=== PATIENT | female | born 1990 | race Caucasian/White ===

== ENCOUNTER 2020-09-11 22:28 | Inpatient (IN) ==
[2020-09-11] MEDS ORDERED: MoRPHine SULFATE 4 MG/ML 1 ML CARP\\VIAL IV STA (22:53)
[2020-09-11 22:56] LABS: Basophils # (auto) 0.02 K/uL (0-0.2); Basophils % (auto) 0.2 %; Eosinophils % (auto) 3.3 %; Hematocrit (blood only) 24.7 % (37-47); Hemoglobin 7.8 g/dL (12.0-16.0); Immature Granulocytes # (auto) 0.04 K/uL (0.00-0.02); Immature Granulocytes % (auto) 0.4 %; Lymphocytes # (auto) 0.97 K/uL (1.2-3.4); Lymphocytes % (auto) 10.7 %; Mean Corpuscular Hemoglobin 31.2 pg (25-34); Mean Corpuscular Hgb Conc 31.6 g/dL (32-36); Mean Corpuscular Volume 98.8 fL (80-100); Mean Platelet Volume 10.7 fL (7.4-10.4); Monocytes # (auto) 0.92 K/uL (0.11-0.59); Monocytes % (auto) 10.2 %; Neutrophils # (auto) 6.78 K/uL (1.4-6.5); Neutrophils % (auto) 75.2 %; Nucleated RBC # (auto) 0.02 K/uL (0-0); Nucleated RBC % (auto) 0.2 %; Platelet Count 383 K/uL (130-400); RDW Coefficient of Variation 20.2 % (11.5-14.5); RDW Standard Deviation 71.7 fL (36.4-46.3); White Blood Count 9.03 K/uL (4.8-10.8)
[2020-09-11] MEDS ORDERED: OXYMETAZOLINE 0.05% 30 ML BTL ONE (22:57)
[2020-09-11 23:25] LABS: Alanine Aminotransferase 57 U/L (12-78); Albumin Globulin Ratio 0.6 (0.9-2); Albumin Level 3.1 gm/dl (3.4-5.0); Alkaline Phosphatase 800 U/L (45-117); Aspartate Aminotransferase 64 U/L (15-37); BUN Creatinine Ratio 13.3 (10-20); Bilirubin,Total 0.5 mg/dl (0.2-1); Blood Urea Nitrogen 81 mg/dl (7-18); Calcium 8.6 mg/dl (8.5-10.1); Carbon Dioxide 23 mmol/L (21-32); Chloride 102 mmol/L (98-107); Creatinine Clr Calc Pharmacy 12.5 ml/min; Est GFR (Non-African American) 8.6 ml/min; Globulin 5.2 gm/dl (2.5-4.0); Glucose 135 mg/dl (70-99); Magnesium 2.4 mg/dl (1.8-2.4); NT Pro B Type Natriuretic Pept 13403 pg/ml (0-450); Potassium 4.5 mmol/L (3.5-5.1); Sodium 135 mmol/L (136-145); Total Protein 8.3 gm/dl (6.4-8.2); Troponin I < 0.015 ng/ml (0-0.045)
[2020-09-11 23:50] LABS: Anisocytosis Present; Hypochromasia Present
--- NOTE | 2020-09-12 00:19 | Emergency Department Note ---
History of Present Illness General Chief complaint: Chest Pain Time Seen by Provider: 09/11/20 22:32 Source: patient Mode of arrival: EMS Limitations: no limitations History of Present Illness Maximum Pain Intensity: 10 This patient is a 30-year-old female who presents to the emergency department via EMS from [facility] for evaluation of chest pain. Patient has a history of type 1 diabetes, end-stage renal disease on dialysis, CHF, pulmonary hypertension, NSTEMI and remote PE on Xarelto. Patient reports she developed chest pain this morning which worsened this evening. She states the pain radiates into her left arm and into her back/side. She is short of breath. She has had similar episodes of pain in the past when she is due for dialysis. She rates her pain a 10/10. Patient does note she has gained about 40 pounds in the past few weeks. Home Medications Medication Instructions Recorded Confirmed Type acetaminophen 650 mg PO Q4 PRN 09/12/20 09/12/20 History amlodipine 10 mg PO DAILY 09/12/20 09/12/20 History apixaban 2.5 mg PO Q12 09/12/20 09/12/20 History bisacodyl [Dulcolax (bisacodyl)] 10 mg CO DAILY PRN 09/12/20 09/12/20 History buspirone 10 mg PO DAILY 09/12/20 09/12/20 History buspirone 20 mg PO HS 09/12/20 09/12/20 History clonidine HCl 0.1 mg PO Q8 09/12/20 09/12/20 History diphenhydramine HCl 25 mg PO .Q M,W,F PRN 09/12/20 09/12/20 History docusate sodium [Colace] 100 mg PO BID 09/12/20 09/12/20 History ergocalciferol (vitamin D2) 1,250 mcg PO WK 09/12/20 09/12/20 History gabapentin 300 mg PO BID 09/12/20 09/12/20 History hydralazine 100 mg PO Q8 09/12/20 09/12/20 History insulin aspart U-100 See Rx Instructions .ROUTE .COMPLEX 09/12/20 09/12/20 History insulin glargine [Lantus U-100 8 unit SUBCUT Q12 09/12/20 09/12/20 History Insulin] insulin regular human [Humulin R See Rx Instructions .ROUTE .COMPLEX 09/12/20 09/12/20 History Regular U-100 Insuln] labetalol 300 mg PO Q8 09/12/20 09/12/20 History levothyroxine 25 mcg PO DAILY 09/12/20 09/12/20 History melatonin 3 mg PO HS PRN 09/12/20 09/12/20 History ondansetron 4 mg PO Q8H PRN 09/12/20 09/12/20 History pantoprazole 40 mg PO DAILYBB 09/12/20 09/12/20 History paroxetine HCl 30 mg PO DAILY 09/12/20 09/12/20 History polyethylene glycol 3350 [Miralax] 17 g PO DAILY PRN 09/12/20 09/12/20 History sennosides-docusate sodium [Senna 1 tab-cap PO .WITH LUNCH PRN 09/12/20 09/12/20 History with Docusate Sodium] sevelamer carbonate 800 mg PO TIDM 09/12/20 09/12/20 History sodium phosphates [Fleet Enema] 118 ml CO DAILY PRN 09/12/20 09/12/20 History tramadol 50 mg PO Q6H PRN 09/12/20 09/12/20 History Allergies Allergy/AdvReac Type Severity Reaction Status Date / Time bee venom protein (honey bee) Allergy Intermediate Hives Verified 09/11/20 22:55 chlorhexidine Allergy Intermediate Hives Verified 09/11/20 22:55 latex Allergy Intermediate Hives Verified 09/11/20 22:55 fentanyl AdvReac Nausea Verified 09/12/20 01:28 Past Med/Surg History Medical History (Updated 09/14/20 @ 15:06 by Aimee Carias PA-C) Anxiety with depression Chronic pain syndrome Chronic respiratory failure Critical illness myopathy Diabetes mellitus type 1 ESRD on dialysis Gait instability GERD (gastroesophageal reflux disease) Hypertension Hypothyroidism (acquired) Hypoxemia 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 6 per pt March - August 2020 Insomnia MRSA bacteremia Pulmonary embolism Pulmonary hypertension Surgical History AV fistula History of cholecystectomy Social History Smoking Status: Never smoker Second Hand Exposure: No; Do You Dip or Chew Tobacco: No; Tobacco Cessation Education Requested by Patient: No Hx Alcohol Use: No Hx Substance Use: No Preferred Language: Omani Communication Ability: Unable Director Of Nursing Required: No Beliefs That Will Affect Care: None Current Living Situation: Parent Current Living Situation Comment: Lives with mother Other Information That Helps Us Care for You: No Feels Safe at Home: Yes Safety Concerns: Feels Safe At This Time Assistive Devices: Oxygen - Continuous Review of Systems A total of 10 systems reviewed and were otherwise negative Physical Exam Vital Signs Vital Signs - 24 hr 09/11/20 22:34 09/11/20 22:45 09/11/20 22:47 Temperature 37.7 C H Temperature Source Oral Pulse Rate 88 88 Pulse Rate from SpO2 Sensor Pulse Rhythm Regular Pulse Strength Normal Respiratory Rate 24 24 Respiratory Effort / Characteristics Non-Labored Spontaneous Respiratory Depth Normal Respiratory Pattern Regular Blood Pressure 111/72 Blood Pressure Mean 85 Blood Pressure Position Sitting Pulse Oximetry 88 L 90 90 Oxygen Delivery Method Nasal Cannula Nasal Cannula Nasal Cannula Oxygen Flow Rate 6 6 6 Sepsis Recent Fever Within 48 Hours No Sepsis New/Unexplained Change in Mental Status N/A Sepsis Action Taken by Nursing No Action Required 09/11/20 23:00 09/11/20 23:04 09/11/20 23:09 Temperature Temperature Source Pulse Rate 89 Pulse Rate from SpO2 Sensor 89 Pulse Rhythm Pulse Strength Respiratory Rate 20 Respiratory Effort / Characteristics Non-Labored Spontaneous Short of Breath Respiratory Depth Normal Respiratory Pattern Blood Pressure Blood Pressure Mean Blood Pressure Position Pulse Oximetry 86 L 96 Oxygen Delivery Method Nasal Cannula Nasal Cannula Oxymask Oxygen Flow Rate 6 6 9 Sepsis Recent Fever Within 48 Hours Sepsis New/Unexplained Change in Mental Status Sepsis Action Taken by Nursing 09/11/20 23:10 09/11/20 23:20 09/11/20 23:30 Temperature Temperature Source Pulse Rate 87 Pulse Rate from SpO2 Sensor 86 Pulse Rhythm Pulse Strength Respiratory Rate 18 16 19 Respiratory Effort / Characteristics Respiratory Depth Respiratory Pattern Blood Pressure Blood Pressure Mean Blood Pressure Position Pulse Oximetry 97 Oxygen Delivery Method Oxymask Oxygen Flow Rate 7 Sepsis Recent Fever Within 48 Hours Sepsis New/Unexplained Change in Mental Status Sepsis Action Taken by Nursing 09/11/20 23:40 Temperature Temperature Source Pulse Rate Pulse Rate from SpO2 Sensor Pulse Rhythm Pulse Strength Respiratory Rate 23 Respiratory Effort / Characteristics Respiratory Depth Respiratory Pattern Blood Pressure Blood Pressure Mean Blood Pressure Position Pulse Oximetry Oxygen Delivery Method Oxygen Flow Rate Sepsis Recent Fever Within 48 Hours Sepsis New/Unexplained Change in Mental Status Sepsis Action Taken by Nursing VITALS: Vitals are noted on the nurse's note and reviewed by myself. GENERAL: This is a 30-year-old female, chronically unwell appearing, appears much older than stated age. SKIN: The skin was without rashes. EARS: External auditory canals clear, tympanic membranes pearly thomsa without erythema or effusion bilaterally. EYES: Pupils equal round and reactive to light and accommodation. NOSE: Patent, turbinates without inflammation or discharge. MOUTH: Mucous membranes moist. Tonsils are not enlarged. Pharynx without erythema or exudate. NECK: Supple without nuchal rigidity. No lymphadenopathy. HEART: Regular rate and rhythm. Grade 2 systolic murmur. LUNGS: Crackles at bilateral bases. ABDOMEN: Distended abdomen, nontender to palpation. EXTREMITIES: 2+ pitting edema bilaterally. NEURO: Patient was alert and oriented to person place and time. Course Administered Medications Amlodipine Besylate (Amlodipine Besylate 5 Mg Tab) 10 mg PO DAILY [facility] Stop: 10/12/20 08:59 Last Admin: 09/14/20 08:18 Dose: 10 mg Documented by: [id number] Admin: 09/13/20 08:00 Dose: 10 mg Documented by: [id number] Admin: 09/12/20 10:06 Dose: 10 mg Documented by: [id number] Apixaban (Apixaban 2.5 Mg Tab) 2.5 mg PO Q12 [facility] Stop: 10/12/20 08:59 Last Admin: 09/14/20 08:17 Dose: 2.5 mg Documented by: [id number] Admin: 09/13/20 20:52 Dose: 2.5 mg Documented by: [id number] Admin: 09/13/20 07:59 Dose: 2.5 mg Documented by: [id number] Admin: 09/13/20 00:40 Dose: 2.5 mg Documented by: [id number] Admin: 09/12/20 10:05 Dose: 2.5 mg Documented by: [id number] Buspirone HCl (Buspirone 5 Mg Tab) 10 mg PO DAILY [facility] Stop: 10/12/20 08:59 Last Admin: 09/14/20 08:18 Dose: 10 mg Documented by: [id number] Admin: 09/13/20 08:00 Dose: 10 mg Documented by: [id number] Admin: 09/12/20 10:06 Dose: 10 mg Documented by: [id number] Buspirone HCl (Buspirone 5 Mg Tab) 20 mg PO HS [facility] Stop: 10/12/20 20:59 Last Admin: 09/13/20 20:52 Dose: 20 mg Documented by: [id number] Admin: 09/12/20 23:39 Dose: Not Given Documented by: [id number] Clonidine HCl (Clonidine Hcl 0.1 Mg Tab) 0.1 mg PO Q8 [facility] Stop: 10/12/20 05:59 Last Admin: 09/14/20 05:48 Dose: 0.1 mg Documented by: [id number] Admin: 09/13/20 20:52 Dose: 0.1 mg Documented by: [id number] Admin: 09/13/20 16:19 Dose: Not Given Documented by: [id number] Admin: 09/13/20 05:37 Dose: 0.1 mg Documented by: [id number] Admin: 09/13/20 00:41 Dose: 0.1 mg Documented by: [id number] Admin: 09/12/20 16:32 Dose: Not Given Documented by: [id number] Admin: 09/12/20 10:05 Dose: 0.1 mg Documented by: [id number] Dextrose (Dextrose 50% 50 Ml Syringe) 25 - 50 ml IV UD PRN; Protocol PRN Reason: Hypoglycemia Protocol Stop: 10/12/20 01:54 Last Admin: 09/13/20 11:58 Dose: 25 ml Documented by: [id number] Docusate Sodium (Docusate Sodium 100 Mg Cap) 100 mg PO BID [facility] Stop: 10/12/20 08:59 Last Admin: 09/14/20 10:20 Dose: Not Given Documented by: [id number] Admin: 09/13/20 20:47 Dose: Not Given Documented by: [id number] Admin: 09/13/20 09:55 Dose: Not Given Documented by: [id number] Admin: 09/12/20 23:40 Dose: Not Given Documented by: [id number] Admin: 09/12/20 10:10 Dose: Not Given Documented by: [id number] Gabapentin (Gabapentin 300 Mg Cap) 300 mg PO BID [facility] Stop: 10/12/20 08:59 Last Admin: 09/14/20 08:17 Dose: 300 mg Documented by: [id number] Admin: 09/13/20 20:52 Dose: 300 mg Documented by: [id number] Admin: 09/13/20 08:09 Dose: 300 mg Documented by: [id number] Admin: 09/12/20 23:40 Dose: Not Given Documented by: [id number] Admin: 09/12/20 10:05 Dose: 300 mg Documented by: [id number] Glucose (Glucose 10 Tabs/Tube) 4 - 8 tabs PO UD PRN; Protocol PRN Reason: Hypoglycemia Protocol Stop: 10/12/20 01:54 Last Admin: 09/13/20 11:33 Dose: 8 tabs Documented by: [id number] Hydralazine HCl (Hydralazine Tab 50 Mg Tab) 100 mg PO Q8 [facility] Stop: 10/12/20 05:59 Last Admin: 09/14/20 05:48 Dose: 100 mg Documented by: [id number] Admin: 09/13/20 20:52 Dose: 100 mg Documented by: [id number] Admin: 09/13/20 16:19 Dose: Not Given Documented by: [id number] Admin: 09/13/20 05:37 Dose: 100 mg Documented by: [id number] Admin: 09/13/20 00:40 Dose: 100 mg Documented by: [id number] Admin: 09/12/20 16:32 Dose: Not Given Documented by: [id number] Admin: 09/12/20 10:06 Dose: 100 mg Documented by: [id number] Insulin Aspart (Insulin Aspart 100 Units/Ml 3 Ml Pen) 0 units SC ACHS [facility] Stop: 10/12/20 07:29 Last Admin: 09/14/20 12:26 Dose: 16 units Documented by: [id number] Cosigned by: [id number] Admin: 09/14/20 10:33 Dose: 14 units Documented by: [id number] Cosigned by: [id number] Admin: 09/13/20 20:57 Dose: 5 units Documented by: [id number] Cosigned by: [id number] Admin: 09/13/20 17:26 Dose: 9 units Documented by: [id number] Cosigned by: [id number] Admin: 09/13/20 16:19 Dose: Not Given Documented by: [id number] Cosigned by: [id number] Admin: 09/13/20 07:51 Dose: 5 units Documented by: [id number] Cosigned by: [id number] Admin: 09/12/20 23:40 Dose: Not Given Documented by: [id number] Admin: 09/12/20 18:33 Dose: Not Given Documented by: [id number] Admin: 09/12/20 12:33 Dose: Not Given Documented by: [id number] Admin: 09/12/20 08:40 Dose: 1 units Documented by: [id number] Cosigned by: [id number] Insulin Glargine (Insulin Glargine Solostar 100 Units/Ml 3 Ml Pen) 8 units SC Q12 [facility] Stop: 10/12/20 08:59 Last Admin: 09/14/20 10:34 Dose: 8 units Documented by: [id number] Cosigned by: [id number] Admin: 09/13/20 20:57 Dose: 8 units Documented by: [id number] Cosigned by: [id number] Admin: 09/13/20 09:51 Dose: 8 units Documented by: [id number] Cosigned by: [id number] Admin: 09/12/20 23:52 Dose: Not Given Documented by: [id number] Admin: 09/12/20 08:40 Dose: 8 units Documented by: [id number] Cosigned by: [id number] Labetalol HCl (Labetalol Hcl 300 Mg Tab) 300 mg PO Q8 [facility] Stop: 10/12/20 05:59 Last Admin: 09/14/20 05:48 Dose: 300 mg Documented by: [id number] Admin: 09/13/20 20:52 Dose: 300 mg Documented by: [id number] Admin: 09/13/20 16:19 Dose: Not Given Documented by: [id number] Admin: 09/13/20 05:36 Dose: 300 mg Documented by: [id number] Admin: 09/13/20 00:41 Dose: 300 mg Documented by: [id number] Admin: 09/12/20 16:33 Dose: Not Given Documented by: [id number] Admin: 09/12/20 10:06 Dose: 300 mg Documented by: [id number] Levothyroxine Sodium (Levothyroxine Sodium 25 Mcg Tablet) 25 mcg PO DAILYBB [facility] Stop: 10/12/20 06:29 Last Admin: 09/14/20 05:48 Dose: 25 mcg Documented by: [id number] Admin: 09/13/20 05:36 Dose: 25 mcg Documented by: [id number] Admin: 09/12/20 06:31 Dose: 25 mcg Documented by: [id number] Cosigned by: [id number] Ondansetron HCl (Ondansetron 4 Mg Od Tab) 4 mg PO Q8H PRN PRN Reason: Nausea And Vomiting Stop: 10/12/20 03:15 Last Admin: 09/12/20 07:30 Dose: 4 mg Documented by: [id number] Ondansetron HCl (Ondansetron Inj 2 Mg/Ml 2 Ml Vial) 4 mg IV Q6H PRN PRN Reason: Nausea Stop: 10/12/20 01:54 Last Admin: 09/12/20 10:07 Dose: 4 mg Documented by: [id number] Admin: 09/12/20 02:50 Dose: 4 mg Documented by: [id number] Pantoprazole Sodium (Pantoprazole 40 Mg Tab) 40 mg PO DAILYBB [facility] Stop: 10/12/20 06:29 Last Admin: 09/14/20 05:48 Dose: 40 mg Documented by: [id number] Admin: 09/13/20 05:36 Dose: 40 mg Documented by: [id number] Admin: 09/12/20 06:31 Dose: 40 mg Documented by: [id number] Cosigned by: [id number] Paroxetine HCl (Paroxetine Hcl 10 Mg Tab) 30 mg PO DAILY [facility] Stop: 10/12/20 08:59 Last Admin: 09/14/20 08:17 Dose: 30 mg Documented by: [id number] Admin: 09/13/20 08:07 Dose: 30 mg Documented by: [id number] Admin: 09/12/20 10:05 Dose: 30 mg Documented by: [id number] Sevelamer HCl (Sevelamer Hcl 800 Mg Tablet) 800 mg PO TIDM [facility] Stop: 10/12/20 07:59 Last Admin: 09/14/20 12:15 Dose: 800 mg Documented by: [id number] Admin: 09/14/20 08:17 Dose: 800 mg Documented by: [id number] Admin: 09/13/20 17:31 Dose: 800 mg Documented by: [id number] Admin: 09/13/20 13:08 Dose: Not Given Documented by: [id number] Admin: 09/13/20 07:55 Dose: 800 mg Documented by: [id number] Admin: 09/12/20 18:33 Dose: Not Given Documented by: [id number] Admin: 09/12/20 12:38 Dose: Not Given Documented by: [id number] Admin: 09/12/20 08:43 Dose: Not Given Documented by: [id number] Tramadol HCl (Tramadol Hcl 50 Mg Tablet) 50 mg PO Q6H PRN PRN Reason: Moderate Pain Stop: 10/12/20 01:34 Last Admin: 09/13/20 21:26 Dose: 50 mg Documented by: [id number] Admin: 09/13/20 12:13 Dose: 50 mg Documented by: [id number] Admin: 09/12/20 12:41 Dose: 50 mg Documented by: [id number] Discontinued Medications Epoetin Alberto (Epoetin Alberto 20,000 Units/Ml Vial) 20,000 units IV TODAY@0830 [facility] Stop: 09/12/20 18:00 Last Admin: 09/12/20 20:50 Dose: 20,000 units Documented by: [id number] Epoetin Alberto (Epoetin Alberto 10,000 Units/Ml Vial) 10,000 units IV TODAY@1100 [facility] Stop: 09/13/20 23:59 Last Admin: 09/13/20 11:55 Dose: 10,000 units Documented by: [id number] Heparin Sodium (Porcine) (Heparin Sod (Porcine) 1000 Unit/Ml) 1,000 units IV TODAY@0830 [facility] Stop: 09/13/20 08:31 Last Admin: 09/13/20 09:40 Dose: Not Given Documented by: [id number] Heparin Sodium (Porcine) (Heparin Sod (Porcine) 1000 Unit/Ml) 400 units IV Q1H [facility] Stop: 09/12/20 10:31 Last Admin: 09/12/20 20:51 Dose: Not Given Documented by: [id number] Admin: 09/12/20 20:51 Dose: Not Given Documented by: [id number] Admin: 09/12/20 20:51 Dose: Not Given Documented by: [id number] Heparin Sodium (Porcine) (Heparin Sod (Porcine) 5,000 Units/Ml Vial) Confirm Administered Dose 25,000 units .ROUTE .STK-MED ONE Stop: 09/12/20 16:27 Last Admin: 09/12/20 17:48 Dose: 15,000 units Documented by: [id number] Heparin Sodium (Porcine) (Heparin Sod (Porcine) 1000 Unit/Ml) 1,000 units IV TODAY@1100 [facility] Stop: 09/13/20 23:59 Last Admin: 09/13/20 12:09 Dose: Not Given Documented by: [id number] Heparin Sodium (Porcine) (Heparin Sod (Porcine) 1000 Unit/Ml) 400 units IV TODAY@1100,1200,1300 [facility] Stop: 09/13/20 23:59 Last Admin: 09/13/20 13:36 Dose: Not Given Documented by: [id number] Admin: 09/13/20 13:36 Dose: Not Given Documented by: [id number] Admin: 09/13/20 12:10 Dose: Not Given Documented by: [id number] Hydromorphone HCl (Hydromorphone Inj 0.5 Mg/0.5 Ml Syr) 0.5 mg IV Q3H PRN PRN Reason: Severe Pain Stop: 09/26/20 01:44 Last Admin: 09/12/20 13:05 Dose: 0.5 mg Documented by: [id number] Admin: 09/12/20 10:07 Dose: 0.5 mg Documented by: [id number] Admin: 09/12/20 07:28 Dose: 0.5 mg Documented by: [id number] Admin: 09/12/20 02:27 Dose: 0.5 mg Documented by: [id number] Hydromorphone HCl (Hydromorphone Inj 0.5 Mg/0.5 Ml Syr) 0.25 mg IV Q3H PRN PRN Reason: Moderate Pain Stop: 09/26/20 01:38 Last Admin: 09/13/20 08:07 Dose: 0.25 mg Documented by: [id number] Admin: 09/13/20 03:11 Dose: 0.25 mg Documented by: [id number] Iron Sucrose 100 mg/ Syringe 5 mls @ 1 mls/min IV TODAY@0830 [facility] Stop: 09/12/20 18:00 Last Admin: 09/12/20 20:50 Dose: 1 mls/min Documented by: [id number] Ceftazidime 1,000 mg/ Dextrose 50 mls @ 100 mls/hr IV NOW ONE Stop: 09/12/20 10:44 Last Infusion: 09/12/20 11:20 Dose: 0 mls/hr Documented by: [id number] Admin: 09/12/20 10:50 Dose: 100 mls/hr Documented by: [id number] Vancomycin HCl 1,500 mg/ (Sodium Chloride) 530 mls @ 200 mls/hr IV NOW ONE Stop: 09/12/20 12:53 Last Infusion: 09/12/20 14:16 Dose: 0 mls/hr Documented by: [id number] Admin: 09/12/20 11:20 Dose: 200 mls/hr Documented by: [id number] Vancomycin HCl 750 mg/ Sodium (Chloride) 265 mls @ 200 mls/hr IV TODAY@1500 [facility] Stop: 09/13/20 16:20 Last Infusion: 09/13/20 17:25 Dose: 0 mls/hr Documented by: [id number] Admin: 09/13/20 15:24 Dose: 200 mls/hr Documented by: [id number] Ioversol (Optiray 320 100ml) 90 ml IV ONCE ONE Stop: 09/13/20 18:39 Last Admin: 09/13/20 18:39 Dose: 90 ml Documented by: [id number] Lidocaine HCl (Lidocaine Hcl 1% 20 Ml Vial) Confirm Administered Dose 20 ml .ROUTE .STK-MED ONE Stop: 09/12/20 16:27 Last Admin: 09/12/20 17:51 Dose: Not Given Documented by: [id number] Lidocaine HCl (Lidocaine Hcl 1% 20 Ml Vial) 5 ml INFIL NOW ONE Stop: 09/13/20 16:36 Last Admin: 09/13/20 17:32 Dose: Not Given Documented by: [id number] Morphine Sulfate (Morphine Sulfate 4 Mg/Ml 1 Ml Carp\Vial) 4 mg IV NOW STA Stop: 09/11/20 22:54 Last Admin: 09/11/20 23:45 Dose: 4 mg Documented by: [id number] Oxymetazoline HCl (Oxymetazoline 0.05% 30 Ml Btl) Confirm Administered Dose 150 sprays .ROUTE .STK-MED ONE Stop: 09/11/20 22:58 Last Admin: 09/11/20 23:10 Dose: 2 sprays Documented by: [id number] Medical Decision Making Differential Diagnosis Reactive airway disease, pneumonia, pneumothorax, COPD, CHF, infections, cardiac ischemia, pulmonary embolism, musculoskeletal, gastrointestinal, as well as other pathologies. Home Medications Current Medication List: was personally reviewed by me Laboratory Data Attestation: I reviewed the patient's lab results. Result diagrams: 09/14/20 06:43 09/14/20 06:43 Lab Results 09/11/20 09/11/20 09/11/20 Range/Units 22:38 22:38 23:04 WBC 9.03 (4.8-10.8) K/uL RBC 2.50 L (4.2-5.4) M/uL Hgb 7.8 L (12.0-16.0) g/dL Hct 24.7 L (37-47) % MCV 98.8 (80-100) fL MCH 31.2 (25-34) pg MCHC 31.6 L (32-36) g/dL RDW Std Deviation 71.7 H (36.4-46.3) fL RDW Coeff of Misael 20.2 H (11.5-14.5) % Plt Count 383 (130-400) K/uL MPV 10.7 H (7.4-10.4) fL Immature Gran % (Auto) 0.4 % Neut % (Auto) 75.2 % Lymph % (Auto) 10.7 % Whitman % (Auto) 10.2 % Eos % (Auto) 3.3 % Baso % (Auto) 0.2 % Neut # (Auto) 6.78 H (1.4-6.5) K/uL Lymph # (Auto) 0.97 L (1.2-3.4) K/uL Whitman # (Auto) 0.92 H (0.11-0.59) K/uL Eos # (Auto) 0.30 (0-0.5) K/uL Baso # (Auto) 0.02 (0-0.2) K/uL Immature Gran # (Auto) 0.04 H (0.00-0.02) K/uL Absolute Nucleated RBC 0.02 H (0-0) K/uL Nucleated RBC % (auto) 0.2 % Polychromasia 1+ Hypochromasia Present Anisocytosis Present Sodium 135 L (136-145) mmol/L Potassium 4.5 (3.5-5.1) mmol/L Chloride 102 (98-107) mmol/L Carbon Dioxide 23 (21-32) mmol/L Anion Gap 11.0 (3-11) BUN 81 H (7-18) mg/dl Creatinine 6.11 H* (0.6-1.2) mg/dl Est Cr Clr Drug Dosing 12.5 ml/min Est GFR ( Amer) 10.0 ml/min Est GFR (Non-Af Amer) 8.6 ml/min BUN/Creatinine Ratio 13.3 (10-20) Glucose 135 H (70-99) mg/dl POC Glucose (70-99) mg/dl Lactate (0.4-2.0) mmol/L Calcium 8.6 (8.5-10.1) mg/dl Magnesium 2.4 (1.8-2.4) mg/dl Total Bilirubin 0.5 (0.2-1) mg/dl AST 64 H (15-37) U/L ALT 57 (12-78) U/L Alkaline Phosphatase 800 H (45-117) U/L Troponin I < 0.015 (0-0.045) ng/ml NT-Pro-B Natriuret Pep 19820 H (0-450) pg/ml Total Protein 8.3 H (6.4-8.2) gm/dl Albumin 3.1 L (3.4-5.0) gm/dl Globulin 5.2 H (2.5-4.0) gm/dl Albumin/Globulin Ratio 0.6 L (0.9-2) COVID-19 Eval Order Covid19 at [facility] SARS-CoV-2 (PCR) (Negative) 09/11/20 09/11/20 09/11/20 Range/Units 23:04 23:05 23:22 WBC (4.8-10.8) K/uL RBC (4.2-5.4) M/uL Hgb (12.0-16.0) g/dL Hct (37-47) % MCV (80-100) fL MCH (25-34) pg MCHC (32-36) g/dL RDW Std Deviation (36.4-46.3) fL RDW Coeff of Misael (11.5-14.5) % Plt Count (130-400) K/uL MPV (7.4-10.4) fL Immature Gran % (Auto) % Neut % (Auto) % Lymph % (Auto) % Whitman % (Auto) % Eos % (Auto) % Baso % (Auto) % Neut # (Auto) (1.4-6.5) K/uL Lymph # (Auto) (1.2-3.4) K/uL Whitman # (Auto) (0.11-0.59) K/uL Eos # (Auto) (0-0.5) K/uL Baso # (Auto) (0-0.2) K/uL Immature Gran # (Auto) (0.00-0.02) K/uL Absolute Nucleated RBC (0-0) K/uL Nucleated RBC % (auto) % Polychromasia Hypochromasia Anisocytosis Sodium (136-145) mmol/L Potassium (3.5-5.1) mmol/L Chloride (98-107) mmol/L Carbon Dioxide (21-32) mmol/L Anion Gap (3-11) BUN (7-18) mg/dl Creatinine (0.6-1.2) mg/dl Est Cr Clr Drug Dosing ml/min Est GFR ( Amer) ml/min Est GFR (Non-Af Amer) ml/min BUN/Creatinine Ratio (10-20) Glucose (70-99) mg/dl POC Glucose 115 H (70-99) mg/dl Lactate 0.8 (0.4-2.0) mmol/L Calcium (8.5-10.1) mg/dl Magnesium (1.8-2.4) mg/dl Total Bilirubin (0.2-1) mg/dl AST (15-37) U/L ALT (12-78) U/L Alkaline Phosphatase (45-117) U/L Troponin I (0-0.045) ng/ml NT-Pro-B Natriuret Pep (0-450) pg/ml Total Protein (6.4-8.2) gm/dl Albumin (3.4-5.0) gm/dl Globulin (2.5-4.0) gm/dl Albumin/Globulin Ratio (0.9-2) COVID-19 Eval Order SARS-CoV-2 (PCR) NEGATIVE (Negative) Imaging Data Attestation: I personally reviewed and interpreted this imaging study as tyson carpenter: Radiologist's Impression: Chest X-Ray 09/11/20 22:44 XR chest 1V portable CLINICAL HISTORY: Dyspnea COMPARISON STUDY: No previous studies for comparison. FINDINGS: A dual-lumen left-sided central venous catheter is in place. There is mild cardiomegaly. No pneumothorax is present. There is no definite pleural effusion. There is pulmonary vascular congestion with possible mild pulmonary edema. Vascular stent projects over the right upper hemithorax. No consolidation is identified. IMPRESSION: 1. Cardiomegaly. Pulmonary vascular congestion with possible mild pulmonary edema. 2. No consolidation. ACT 112: Negative or not required by law. Electronically signed by: John Becerril M.D. 09/12/2020 6:53 AM ECG Data Attestation: I personally reviewed and interpreted this ECG as follows: Indication: + chest pain Rate (beats per minute): 87 Rhythm: + normal sinus ECG Intervals/blocks: + Normal QRS ECG [place]: + Right axis deviation ECG ST segments: + Normal ST segments Comparison ECG Date: no prior available MDM Narrative Continuous ip attorney: Order was placed for continuous ip attorney. Patient was placed on the card iac monitor. Patient was noted to be in normal sinus rhythm at an initial rate of 90 bpm. The patient is a 30-year-old female with extensive PMHx including type 1 DM, ESRD on dialysis, remote PE on anticoagulants and CHF who presents today complaining of chest pain, shortness of breath and weakness. Labs revealed elevated BNP, creatinine 6.11 and anemia. Alk Phos elevated at 800. Suspect that the patient's symptoms are due to fluid overload. She will be admitted for dialysis in the morning and further monitoring. Case was discussed with the [facility] hospitalist. Impression & Plan Acute and chronic respiratory failure, ESRD on dialysis, Substernal chest pain Discharge Plan Visit Data Chief Complaint: Chest Pain ED Provider: Romero Tam ED Midlevel Provider: Aimee Carias Discharge Problem: Acute and chronic respiratory failure, ESRD on dialysis, Substernal chest pain Patient Disposition: Admitted As Inpatient Discharge Instructions Interventions: ED Discharge Assessment Last Done: 09/12/20 01:37
--- NOTE | 2020-09-12 01:00 | History & Physical Report ---
Date of Service September 12, 2020 Assessment & Plan (1) ESRD on dialysis: Patient is due for dialysis. She reports that due to the hot weather yesterday, she ate a lot more ice cubes, and developed fluid overload on that basis. She reports that she developed significant back pain when she is in fluid overload, as she is now. She gets most of her care in [place], but was seen by nephrology Dr. Lavonne Hanna while at [facility] Patient does not need urgent dialysis at this time, will consult nephrology for dialysis to be done in the a.m. Present on Admission?: Yes (2) Diabetes mellitus type 1: Continue her usual insulin and coverage. Present on Admission?: Yes (3) Hypertension: Continue amlodipine, clonidine, hydralazine, and labetalol Present on Admission?: Yes (4) Gait instability: Will be returning to [facility] to continue rehab Present on Admission?: Yes (5) Hypoxemia: Continue her home requirement of 6 L nasal cannula oxygen Present on Admission?: Yes (6) Pulmonary hypertension: Pulmonary hypertension/history of pulmonary embolism- Is not on any routine inhalers at this time. Continue apixaban Present on Admission?: Yes (7) Pulmonary embolism: See above Present on Admission?: Yes (8) Critical illness myopathy: To return to rehab Present on Admission?: Yes (9) Anxiety with depression: Continue buspirone, gabapentin, and paroxetine Present on Admission?: Yes (10) Hypothyroidism (acquired): Continue levothyroxine Present on Admission?: Yes (11) GERD (gastroesophageal reflux disease): Continue pantoprazole Present on Admission?: Yes (12) Insomnia: Continue melatonin Present on Admission?: Yes (13) Chronic pain syndrome: Acetaminophen 650 mg p.o. every 6 hours as needed mild pain or fever Tramadol 50 mg p.o. every 6 hours as needed moderate pain Dilaudid 0.25 mg IV every 3 hours as needed moderate pain Dilaudid 0.5 mg IV every 3 hours as needed severe pain Continue bowel regiment Present on Admission?: Yes History of Present Illness Chief Complaint: The patient is referred to the emergency department from [facility] due to worsening shortness of breath and generalized pain Primary Care Provider: Roney Crocker, DO The patient is a 30-year-old anemia with a past medical history including hypertension, ESRD on HD, ASCAD, diabetes mellitus type 1, non-STEMI, gait instability, critical illness myopathy, hypoxemia requiring 6 L nasal cannula chronic, point hypertension, PE, anxiety with depression, hypothyroidism, GERD, chronic pain syndrome and insomnia. She is presently at [facility] to undergo rehab, and developed the symptoms noted above there. The patient does not produce urine. Allergies Allergy/AdvReac Type Severity Reaction Status Date / Time bee venom protein (honey bee) Allergy Intermediate Hives Verified 09/11/20 22:55 chlorhexidine Allergy Intermediate Hives Verified 09/11/20 22:55 latex Allergy Intermediate Hives Verified 09/11/20 22:55 fentanyl AdvReac Nausea Verified 09/12/20 01:28 Home Medications Medication Instructions Recorded Confirmed Type acetaminophen 650 mg PO Q4 PRN 09/12/20 09/12/20 History amlodipine 10 mg PO DAILY 09/12/20 09/12/20 History apixaban 2.5 mg PO Q12 09/12/20 09/12/20 History bisacodyl [Dulcolax (bisacodyl)] 10 mg AR DAILY PRN 09/12/20 09/12/20 History buspirone 10 mg PO DAILY 09/12/20 09/12/20 History buspirone 20 mg PO HS 09/12/20 09/12/20 History clonidine HCl 0.1 mg PO Q8 09/12/20 09/12/20 History diphenhydramine HCl 25 mg PO .Q M,W,F PRN 09/12/20 09/12/20 History docusate sodium [Colace] 100 mg PO BID 09/12/20 09/12/20 History ergocalciferol (vitamin D2) 1,250 mcg PO WK 09/12/20 09/12/20 History gabapentin 300 mg PO BID 09/12/20 09/12/20 History hydralazine 100 mg PO Q8 09/12/20 09/12/20 History insulin aspart U-100 See Rx Instructions .ROUTE .COMPLEX 09/12/20 09/12/20 History insulin glargine [Lantus U-100 8 unit SUBCUT Q12 09/12/20 09/12/20 History Insulin] insulin regular human [Humulin R See Rx Instructions .ROUTE .COMPLEX 09/12/20 09/12/20 History Regular U-100 Insuln] labetalol 300 mg PO Q8 09/12/20 09/12/20 History levothyroxine 25 mcg PO DAILY 09/12/20 09/12/20 History melatonin 3 mg PO HS PRN 09/12/20 09/12/20 History ondansetron 4 mg PO Q8H PRN 09/12/20 09/12/20 History pantoprazole 40 mg PO DAILYBB 09/12/20 09/12/20 History paroxetine HCl 30 mg PO DAILY 09/12/20 09/12/20 History polyethylene glycol 3350 [Miralax] 17 g PO DAILY PRN 09/12/20 09/12/20 History sennosides-docusate sodium [Senna 1 tab-cap PO .WITH LUNCH PRN 09/12/20 09/12/20 History with Docusate Sodium] sevelamer carbonate 800 mg PO TIDM 09/12/20 09/12/20 History sodium phosphates [Fleet Enema] 118 ml AR DAILY PRN 09/12/20 09/12/20 History tramadol 50 mg PO Q6H PRN 09/12/20 09/12/20 History Past Med/Surg History Medical History (Updated 09/12/20 @ 04:12 by Ke Wilcox MD) Anxiety with depression Chronic pain syndrome Critical illness myopathy Diabetes mellitus type 1 ESRD on dialysis Gait instability GERD (gastroesophageal reflux disease) Hypertension Hypothyroidism (acquired) Hypoxemia Insomnia Pulmonary embolism Pulmonary hypertension Social History Smoking Status: Never smoker Second Hand Exposure: No; Do You Dip or Chew Tobacco: No; Tobacco Cessation Education Requested by Patient: No Hx Alcohol Use: No Hx Substance Use: No Preferred Language: [place] Communication Ability: Effective Intensivist Required: No Beliefs That Will Affect Care: None Current Living Situation: Parent Current Living Situation Comment: Lives with mother Other Information That Helps Us Care for You: No Feels Safe at Home: Yes Safety Concerns: Feels Safe At This Time Assistive Devices: Oxygen - Continuous Review of Systems Review of Systems: The patient denies chest pain, palpitations, cough, lower extremity swelling, sore throat, fevers, chills, sweats, nausea, vomiting, diarrhea , constipation, abdominal pain, pelvic pain, blood in urine or stool, dysuria, urinary frequency or urgency, lightheadedness, dizziness, headache, memory loss, loss of consciousness, rash, abnormal bruising or bleeding, imbalance, focal weakness, numbness or tingling in arms or legs, neck pain, or night sweats. The review of systems is otherwise negative other than for that already noted above, and at least 10 systems have been reviewed. Physical Exam Physical Exam: The patient is awake, alert and oriented 3, appears chronically ill, normocephalic and atraumatic, sitting upright in bed and in no acute distress. HEENT--PERRL, EOMI, mucous membranes and oropharynx normal Neck--supple. No JVD. No bruits. Thyroid normal, trachea midline, no adenopathy. Heart--normal S1 and S2. No murmurs, rubs or gallops. Lungs--few crackles at the bases bilaterally. No respiratory distress, no accessory muscle use. Abdomen--normal bowel sounds and soft. Nontender. Nondistended. Extremities--1+ bilateral pretibial pitting edema. Dermatologic--normal skin turgor, normal color, no abnormal lymph nodes, no rash. Neurologic--cranial nerves II through XII grossly intact. Rheumatologic--limited range of motion due to body habitus Psychiatric--normal affect. Results & Data Results & Data ([facility]) Vital Signs (Past 12 Hours) Vital Signs Temp Pulse Resp BP Pulse Ox 09/11/20 23:40 23 09/11/20 23:30 87 19 09/11/20 23:20 16 09/11/20 23:10 18 97 09/11/20 23:09 96 09/11/20 23:00 89 20 86 L 09/11/20 22:47 88 24 90 09/11/20 22:45 90 09/11/20 22:34 99.9 F H 88 24 111/72 88 L Laboratory Results Laboratory Results WBC 9.03 K/uL (4.8-10.8) 09/11/20 22:38 RBC 2.50 M/uL (4.2-5.4) L 09/11/20 22:38 Hgb 7.8 g/dL (12.0-16.0) L 09/11/20 22:38 Hct 24.7 % (37-47) L 09/11/20 22:38 MCV 98.8 fL (80-100) 09/11/20 22:38 MCH 31.2 pg (25-34) 09/11/20 22:38 MCHC 31.6 g/dL (32-36) L 09/11/20 22:38 RDW Std Deviation 71.7 fL (36.4-46.3) H 09/11/20 22:38 RDW Coeff of Misael 20.2 % (11.5-14.5) H 09/11/20 22:38 Plt Count 383 K/uL (130-400) 09/11/20 22:38 MPV 10.7 fL (7.4-10.4) H 09/11/20 22:38 Immature Gran % (Auto) 0.4 % 09/11/20 22:38 Neut % (Auto) 75.2 % 09/11/20 22:38 Lymph % (Auto) 10.7 % 09/11/20 22:38 [place] % (Auto) 10.2 % 09/11/20 22:38 Eos % (Auto) 3.3 % 09/11/20 22:38 Baso % (Auto) 0.2 % 09/11/20 22:38 Neut # (Auto) 6.78 K/uL (1.4-6.5) H 09/11/20 22:38 Lymph # (Auto) 0.97 K/uL (1.2-3.4) L 09/11/20 22:38 [place] # (Auto) 0.92 K/uL (0.11-0.59) H 09/11/20 22:38 Eos # (Auto) 0.30 K/uL (0-0.5) 09/11/20 22:38 Baso # (Auto) 0.02 K/uL (0-0.2) 09/11/20 22:38 Immature Gran # (Auto) 0.04 K/uL (0.00-0.02) H 09/11/20 22:38 Absolute Nucleated RBC 0.02 K/uL (0-0) H 09/11/20 22:38 Nucleated RBC % (auto) 0.2 % 09/11/20 22:38 Hypochromasia Present 09/11/20 22:38 Anisocytosis Present 09/11/20 22:38 Sodium 135 mmol/L (136-145) L 09/11/20 22:38 Potassium 4.5 mmol/L (3.5-5.1) 09/11/20 22:38 Chloride 102 mmol/L (98-107) 09/11/20 22:38 Carbon Dioxide 23 mmol/L (21-32) 09/11/20 22:38 Anion Gap 11.0 (3-11) 09/11/20 22:38 BUN 81 mg/dl (7-18) H 09/11/20 22:38 Creatinine 6.11 mg/dl (0.6-1.2) H* 09/11/20 22:38 Est Cr Clr Drug Dosing 12.5 ml/min 09/11/20 22:38 Est GFR ( Amer) 10.0 ml/min 09/11/20 22:38 Est GFR (Non-Af Amer) 8.6 ml/min 09/11/20 22:38 BUN/Creatinine Ratio 13.3 (10-20) 09/11/20 22:38 Glucose 135 mg/dl (70-99) H 09/11/20 22:38 POC Glucose 100 mg/dl (70-99) H 09/12/20 01:58 Lactate 0.8 mmol/L (0.4-2.0) 09/11/20 23:22 Calcium 8.6 mg/dl (8.5-10.1) 09/11/20 22:38 Magnesium 2.4 mg/dl (1.8-2.4) 09/11/20 22:38 Total Bilirubin 0.5 mg/dl (0.2-1) 09/11/20 22:38 AST 64 U/L (15-37) H 09/11/20 22:38 ALT 57 U/L (12-78) 09/11/20 22:38 Alkaline Phosphatase 800 U/L (45-117) H 09/11/20 22:38 Troponin I < 0.015 ng/ml (0-0.045) 09/11/20 22:38 NT-Pro-B Natriuret Pep 22088 pg/ml (0-450) H 09/11/20 22:38 Total Protein 8.3 gm/dl (6.4-8.2) H 09/11/20 22:38 Albumin 3.1 gm/dl (3.4-5.0) L 09/11/20 22:38 Globulin 5.2 gm/dl (2.5-4.0) H 09/11/20 22:38 Albumin/Globulin Ratio 0.6 (0.9-2) L 09/11/20 22:38 COVID-19 Eval Order Covid19 at [facility] 09/11/20 23:04 SARS-CoV-2 (PCR) NEGATIVE (Negative) 09/11/20 23:04 Code Status & VTE Plan Code Status Full code VTE Prophylaxis Plan VTE Prophylaxis will be ordered: Yes PG Care Time/CCT Total # of Minutes Spent Total Time Spent with Patient: Total time spent is greater than 50% in coordination of care (as documented) at patient's floor/unit and/or counseling patient: Coding Level of Care Code 60710 Initial Inpt Care Lvl 3 Diagnoses ESRD on dialysis N18.6; Z99.2 Diabetes mellitus type 1 E10.9 Hypertension I10 Gait instability R26.81 Hypoxemia R09.02 Pulmonary hypertension I27.20 Pulmonary embolism I26.99 Critical illness myopathy G72.81 Anxiety with depression F41.8 Hypothyroidism (acquired) E03.9 GERD (gastroesophageal reflux disease) K21.9 Insomnia G47.00 Chronic pain syndrome G89.4
[2020-09-12] MEDS ORDERED: bisacodyL 10 MG SUPP PR PRN (01:35)
[2020-09-12] MEDS ORDERED: SOD PHOSPHATE/SOD BIPHOSPHATE ENEMA 132 ML BTL PR PRN (01:35)
[2020-09-12] MEDS ORDERED: POLYETHYLENE (MIRALAX) 17 GM PACK PO PRN (01:35)
[2020-09-12] MEDS ORDERED: diphenhydrAMINE Capsule 25 MG CAP PO PRN (01:35)
[2020-09-12] MEDS ORDERED: DOCUSATE SODIUM/SENNA 50/8.6MG TAB PO PRN (01:35)
[2020-09-12] MEDS ORDERED: NITROGLYCERIN SL 0.4 MG/TAB TAB SL PRN (01:55)
[2020-09-12] MEDS ORDERED: DEXTROSE 50% 50 ML SYRINGE IV PRN (01:55)
[2020-09-12] MEDS ORDERED: GLUCOSE 40% GEL 15 GM TUBE PO PRN (01:55)
[2020-09-12] MEDS ORDERED: GLUCOSE 10 TABS/TUBE PO PRN (01:55)
[2020-09-12] MEDS ORDERED: CARBOHYDRATES FOR HYPOGLYCEMIA PO PRN (01:55)
[2020-09-12] MEDS ORDERED: GLUCAGON FOR INJ 1 MG VIAL SQ PRN (01:55)
[2020-09-12] MEDS: HYDROmorphone INJ 0.5 MG/0.5 ML SYR IV PRN ×4 (02:27→13:05)
[2020-09-12] MEDS: ONDANSETRON INJ 2 MG/ML 2 ML VIAL IV PRN ×2 (02:50→10:07)
[2020-09-12 06:31] LABS: Basophils # (auto) 0.04 K/uL (0-0.2); Basophils % (auto) 0.4 %; Eosinophils % (auto) 3.2 %; Hematocrit (blood only) 25.9 % (37-47); Immature Granulocytes # (auto) 0.04 K/uL (0.00-0.02); Immature Granulocytes % (auto) 0.4 %; Lymphocytes % (auto) 16.1 %; Mean Corpuscular Hemoglobin 30.7 pg (25-34); Mean Corpuscular Hgb Conc 30.9 g/dL (32-36); Mean Corpuscular Volume 99.2 fL (80-100); Mean Platelet Volume 11.1 fL (7.4-10.4); Monocytes # (auto) 0.78 K/uL (0.11-0.59); Monocytes % (auto) 8.4 %; Neutrophils # (auto) 6.63 K/uL (1.4-6.5); Neutrophils % (auto) 71.5 %; Platelet Count 410 K/uL (130-400); RDW Coefficient of Variation 20.4 % (11.5-14.5); Red Blood Count 2.61 M/uL (4.2-5.4); White Blood Count 9.29 K/uL (4.8-10.8)
[2020-09-12] MEDS: LEVOTHYROXINE SODIUM 25 MCG TABLET PO SCH (06:31)
[2020-09-12] MEDS: PANTOprazole 40 MG TAB PO SCH (06:31)
[2020-09-12 06:50] LABS: Polychromasia 1+
--- NOTE | 2020-09-12 06:55 | XRay Report ---
XR chest 1V portable CLINICAL HISTORY: Dyspnea COMPARISON STUDY: No previous studies for comparison. FINDINGS: A dual-lumen left-sided central venous catheter is in place. There is mild cardiomegaly. No pneumothorax is present. There is no definite pleural effusion. There is pulmonary vascular congesti on with possible mild pulmonary edema. Vascular stent projects over the right upper hemithorax. No co nsolidation is identified. IMPRESSION: 1. Cardiomegaly. Pulmonary vascular congestion with possible mild pulmonary edema. 2. No consolidation. ACT 112: Negative or not required by law. Electronically signed by: John Becerril M.D. 09/12/2020 6:53 AM
[2020-09-12 07:04] LABS: Polychromasia 1+
[2020-09-12 07:16] LABS: Estimated Average Glucose 212 mg/dl
[2020-09-12 07:21] LABS: Albumin Globulin Ratio 0.6 (0.9-2); Albumin Level 3.3 gm/dl (3.4-5.0); BUN Creatinine Ratio 13.6 (10-20); Bilirubin,Total 0.5 mg/dl (0.2-1); Calcium 8.9 mg/dl (8.5-10.1); Creatinine Clr Calc Pharmacy 11.5 ml/min; Est GFR (African American) 9.3 ml/min; Globulin 5.2 gm/dl (2.5-4.0); Phosphorus 5.5 mg/dl (2.5-4.9); Potassium 5.3 mmol/L (3.5-5.1); Total Protein 8.5 gm/dl (6.4-8.2)
[2020-09-12] MEDS: ONDANSETRON 4 MG OD TAB PO PRN (07:30)
--- NOTE | 2020-09-12 07:51 | Hospitalist Progress Note ---
Date of Service September 12, 2020 Assessment & Plan (1) ESRD on dialysis: 30 y/o F w/ ESRD on MWF HD, DM1, NSTEMI, PE on AC (held), chronic resp failure on 6L who presents from [facility] rehab for SOB likely secondary to fluid overload in context of needing dialysis. ESRD on HD, port infection - nephro consulted. vascular consulted. - started on empiric IV vanc - blood culture x2 resulted MRSA. wound culture pending - afebrile this admission - concern for L upper chest dialysis catheter site infection. vascular consulted. will place temporary cath and perform dialysis - sevalamer for hyperphos 5.5 hypervolemia - need for dialysis - reported wt gain, LE edema - [id number] [id number] - will likely diurese after placement of temporary dialysis cath chronic respiratory failure - per patient, 2/2 chronic PEs - titrate supplemental O2 chest pain w/ radiation down L arm - no tracking noted from L upper chest dialysis site - trop neg x 2. ecg w/o ischemic changes. ecg repeated w/ similar PRWP - patient later clarifies that she has back pain and not chest pain chronic pain syndrome Acetaminophen 650 mg p.o. every 6 hours as needed mild pain or fever Tramadol 50 mg p.o. every 6 hours as needed moderate pain Was ordered dilaudid on admission for generalized pain Dilaudid 0.25 mg IV every 3 hours as needed moderate pain and 0.5 mgs IV q3hrs for severe pain d/c dilaudid .5mgs dose Patient appeared sleepy this AM per attending exam. PRN naloxone ordered for reversal if needed. Type 1 diabetes - A1C 9.0 - Lantus + SSI - check BSG ACHS anemia - stable elevated alk phos - 800 at admission - most likely 2/2 ESRD HTN - Continue amlodipine, clonidine, hydralazine, and labetalol history of pulmonary embolism- - Continue apixaban PO 2.5mg BID anxiety and depression - Continue buspirone, gabapentin, and paroxetine hypothyroidism (acquired) - Continue levothyroxine GERD - Continue pantoprazole insomnia - Continue melatonin FEN/GI: NPO while awaiting temporary dialysis cath placement. No IVF ppx: home Eliquis 2.5 BID code: full dispo: PCU (2) Diabetes mellitus type 1: (3) Hypertension: (4) Gait instability: (5) Hypoxemia: (6) Pulmonary hypertension: (7) Pulmonary embolism: (8) Critical illness myopathy: (9) Anxiety with depression: (10) Hypothyroidism (acquired): (11) GERD (gastroesophageal reflux disease): (12) Insomnia: (13) Chronic pain syndrome: Admission and Anticipated Discharge Date Admission Date: September 12, 2020 Supervising Physician Co-Signing Physician Notes Resident Physician Supervision Note: I independently interviewed and examined the patient and verified the gamez history and physical, reviewed labs and image studies and agree with resident Dr. Fontaine findings and care plan. Subjective Patient states she is uncomfortable. She has SOB and orthopnea. + nausea, R orbital ADKINS, and mild diffuse abd discomfort. Patient states that she last received dialysis 2 days ago as scheduled. 2 days ago,, she skipped the PT session at [facility] and ended up doing double yesterday, At 5pm yesterday, she started feeling SOB and "fluid overloaded. This was followed by other pains including chest, L arm, and diffusely. No jaw numbness/tingling. No fever. + chills. Review of Systems Review of Systems: All systems reviewed & are unremarkable except as noted in HPI & below Physical Exam Physical Exam: General: Grossly A&O. NAD. Cooperative. Appears uncomfortable HEENT: Atraumatic, normocephalic. EOMI Pulm: Lungs clear but shallow. Some increased respiratory effort. Cardiac: RRR, -mrg. Radial pulses intact and symmetrical. 1+ LE edema up to thighs. Abdominal: Soft, distended, moderately firm, but nontender. Integumentary: L upper chest wall dialysis site has mild erythema and mild dried yellow drainage. Results & Data Results & Data ([facility]) Vital Signs (Past 12 Hours) Vital Signs Temp Pulse Pulse Pulse Resp BP BP 09/12/20 07:37 36.9 C 94 H 18 135/95 09/12/20 04:41 84 09/12/20 02:55 36.7 C 83 18 120/76 09/11/20 23:40 23 09/11/20 23:30 87 19 09/11/20 23:20 16 09/11/20 23:10 18 09/11/20 23:09 09/11/20 23:00 89 20 09/11/20 22:47 88 24 09/11/20 22:45 06/29/21 22:34 37.7 C H 88 24 111/72 Pulse Ox 09/12/20 07:37 93 09/12/20 04:41 09/12/20 02:55 95 09/11/20 23:40 09/11/20 23:30 09/11/20 23:20 09/11/20 23:10 97 09/11/20 23:09 96 09/11/20 23:00 86 L 09/11/20 22:47 90 09/11/20 22:45 90 09/11/20 22:34 88 L Resident Activity Tracking Resident Involvement: Resident Care Provided Care Provided: Adult Hospital Medicine
[2020-09-12] MEDS ORDERED: SODIUM CHLORIDE 0.9% 1000ML 1,000 ML IV PRN ×2 (08:28→08:30)
[2020-09-12] MEDS ORDERED: IRON SUCROSE 100 MG in SYRINGE 0 ML IV SCH (08:30)
[2020-09-12] MEDS ORDERED: EPOETIN ALFA 20,000 UNITS/ML VIAL IV SCH (08:30)
[2020-09-12] MEDS: INSULIN ASPART 100 UNITS/ML 3 ML PEN SC SCH ×4 (08:40→23:40)
[2020-09-12] MEDS: INSULIN GLARGINE SOLOSTAR 100 UNITS/ML 3 ML PEN SC SCH ×2 (08:40→23:52)
[2020-09-12] MEDS: SEVELAMER HCL 800 MG TABLET PO SCH ×3 (08:43→18:33)
--- NOTE | 2020-09-12 08:45 | Nephrology Consultation ---
Date of Consultation September 12, 2020 Assessment & Plan (1) Infection of exit site of hemodialysis catheter: with pus, redness, and pain at catheter exit site, new since 09/10. Pt has had recurrent exit site infections. >ordered swab of exit site as well as blood cxs x 2 sets >vasc consult placed for cath removal, temp cath placement > to replace TDC after 48 hrs negative cxs; did d/w Dr Marquez >needs vanco, ceftazidime; first doses ordered Present on Admission?: Yes (2) Acute and chronic respiratory failure: -on chronic 02 at baseline > 6L per her report; indications for this not fully clear -HD today Present on Admission?: Yes (3) ESRD on dialysis: chronic ESRD pt w/ recurrent vol OL. has maturing AVF. -HD today 4 hrs for up to 5L off keeping sbp > 90; she has tolerated this range of UF in the past; 2 K bath; cancelled heparin w/ HD -ordered 1.2L FR; agree w/ dialysis/DM diet -next HD tomorrow or 09/14, depending on clinical status Present on Admission?: Yes (4) Anemia of chronic disease: may in part be -continue venofer load started at [facility] >> t stn 9% on 09/06 -20K epo with tx today -CBC at least every other day pls while in house Present on Admission?: Yes History of Present Illness Reason for Consultation: ESRD with volume overload Requesting Physician: Dr. Wilcox Attending Physician: Kinsey Garcia MD History of Present Illness 30-year old female whom I asked to evaluate for dialysis needs was admitted overnight for recurrent volume overload. She is currently on 8 L by oxygen mask with a potassium of 5.3 and a hemoglobin of 8. Past medical history includes type 1 diabetes, hypertension, chronic respiratory failure on 6 L at baseline per her report, legal blindness, hypothyroid, coronary artery disease, history of gallstone pancreatitis and cholelithiasis status post Cholecystectomy. Also with a history of recurrent admissions for volume overload. She dialyzes currently via a tunneled dialysis catheter but has a maturing AV fistula. [facility] over her target weight (the patient weighs approximately 70 kg). She has been at [facility] for rehab after this admission. She frequently visits outside with her family and apparently in the hot weather disregarded her fluid limit yesterday. SHe was last dialyzed on September 10 with 5 kg fluid removal. When the dialysis nurse went to start dialysis today, the patient was noted to have redness around the insertion site of her dialysis catheter with yellowish discharge and pain. Patient reports she has had 6 catheters since March 2020 and all of them have been infected. Pt c/o severe abdominal/L spine pain radiating to front. Allergies Allergy/AdvReac Type Severity Reaction Status Date / Time bee venom protein (honey bee) Allergy Intermediate Hives Verified 09/11/20 22:55 chlorhexidine Allergy Intermediate Hives Verified 09/11/20 22:55 latex Allergy Intermediate Hives Verified 09/11/20 22:55 fentanyl AdvReac Nausea Verified 09/12/20 01:28 Home Medications Medication Instructions Recorded Confirmed Type acetaminophen 650 mg PO Q4 PRN 09/12/20 09/12/20 History amlodipine 10 mg PO DAILY 09/12/20 09/12/20 History apixaban 2.5 mg PO Q12 09/12/20 09/12/20 History bisacodyl [Dulcolax (bisacodyl)] 10 mg CA DAILY PRN 09/12/20 09/12/20 History buspirone 10 mg PO DAILY 09/12/20 09/12/20 History buspirone 20 mg PO HS 09/12/20 09/12/20 History clonidine HCl 0.1 mg PO Q8 09/12/20 09/12/20 History diphenhydramine HCl 25 mg PO .Q M,W,F PRN 09/12/20 09/12/20 History docusate sodium [Colace] 100 mg PO BID 09/12/20 09/12/20 History ergocalciferol (vitamin D2) 1,250 mcg PO WK 09/12/20 09/12/20 History gabapentin 300 mg PO BID 09/12/20 09/12/20 History hydralazine 100 mg PO Q8 09/12/20 09/12/20 History insulin aspart U-100 See Rx Instructions .ROUTE .COMPLEX 09/12/20 09/12/20 History insulin glargine [Lantus U-100 8 unit SUBCUT Q12 09/12/20 09/12/20 History Insulin] insulin regular human [Humulin R See Rx Instructions .ROUTE .COMPLEX 09/12/20 09/12/20 History Regular U-100 Insuln] labetalol 300 mg PO Q8 09/12/20 09/12/20 History levothyroxine 25 mcg PO DAILY 09/12/20 09/12/20 History melatonin 3 mg PO HS PRN 09/12/20 09/12/20 History ondansetron 4 mg PO Q8H PRN 09/12/20 09/12/20 History pantoprazole 40 mg PO DAILYBB 09/12/20 09/12/20 History paroxetine HCl 30 mg PO DAILY 09/12/20 09/12/20 History polyethylene glycol 3350 [Miralax] 17 g PO DAILY PRN 09/12/20 09/12/20 History sennosides-docusate sodium [Senna 1 tab-cap PO .WITH LUNCH PRN 09/12/20 09/12/20 History with Docusate Sodium] sevelamer carbonate 800 mg PO TIDM 09/12/20 09/12/20 History sodium phosphates [Fleet Enema] 118 ml CA DAILY PRN 09/12/20 09/12/20 History tramadol 50 mg PO Q6H PRN 09/12/20 09/12/20 History Patient History Medical History Anxiety with depression Chronic pain syndrome Chronic respiratory failure Critical illness myopathy Diabetes mellitus type 1 ESRD on dialysis Gait instability GERD (gastroesophageal reflux disease) Hypertension Hypothyroidism (acquired) Hypoxemia 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 6 per pt March - August 2020 Insomnia Pulmonary embolism Pulmonary hypertension Surgical History AV fistula History of cholecystectomy Social History Smoking Status: Never smoker Second Hand Exposure: No; Do You Dip or Chew Tobacco: No; Tobacco Cessation Education Requested by Patient: No Hx Alcohol Use: No Hx Substance Use: No Preferred Language: Sierra Leonean Communication Ability: Effective Lean Manufacturing Specialist Required: No Beliefs That Will Affect Care: None Current Living Situation: Parent Current Living Situation Comment: Lives with mother Other Information That Helps Us Care for You: No Feels Safe at Home: Yes Safety Concerns: Feels Safe At This Time Assistive Devices: Oxygen - Continuous Review of Systems Review of Systems: All systems reviewed & are unremarkable except as noted in Subjective Genitourinary: anuric Physical Exam Constitutional: well developed, + lethargic and + overweight Eyes: EOM intact bilaterally ENMT: Ears: no external ear abnormality Nose: no external nose abnormality Mouth: + dry oral mucous membranes Neck: no nuchal rigidity Respiratory: normal respiratory effort Auscultation: + diminished lung sounds (markedly) Cardiovascular: Extremities: + AV fistula (maturing) Gastrointestinal (Abdomen): Inspection/Auscultation: normal bowel sounds; abdomen not distended Percussion/Palpation: abdomen soft; abdomen nontender (no focal abdominal or CVA tenderness on exam) and no guarding Musculoskeletal: Extremities: strength 5/5 throughout Skin: no rashes, warm and dry L chest TDC with purulent drainage at site Neurologic: walter, fluent but limited speech, no tremor: she sleeps, wakes up briefly, then back to sleep; shouts w/ pain before I touch her Psychiatric: Orientation: oriented to person and oriented to place (lethargic but wakens fully) Results & Data ([facility]) Vital Signs (Past 12 Hours) Vital Signs Temp Pulse Pulse Pulse Resp BP BP 09/12/20 07:37 36.9 C 94 H 18 135/95 09/12/20 07:35 85 09/12/20 04:41 84 09/12/20 02:55 36.7 C 83 18 120/76 09/11/20 23:40 23 09/11/20 23:30 87 19 09/11/20 23:20 16 09/11/20 23:10 18 09/11/20 23:09 09/11/20 23:00 89 20 09/11/20 22:47 88 24 09/11/20 22:45 09/11/20 22:34 37.7 C H 88 24 111/72 Pulse Ox 09/12/20 07:37 93 09/12/20 07:35 09/12/20 04:41 09/12/20 02:55 95 09/11/20 23:40 09/11/20 23:30 09/11/20 23:20 09/11/20 23:10 97 09/11/20 23:09 96 09/11/20 23:00 86 L 09/11/20 22:47 90 09/11/20 22:45 90 09/11/20 22:34 88 L Laboratory Results 09/12/20 06:02 09/12/20 06:02 Diagnostic Findings CXR > mild plm edema (1) Acute and chronic respiratory failure Respiratory failure complication: hypoxia Qualified Code(s): J96.21 - Acute and chronic respiratory failure with hypoxia
[2020-09-12] MEDS ORDERED: VANCOMYCIN CONSULT ACTIVE PRN (09:41)
[2020-09-12] MEDS: GABAPENTIN 300 MG CAP PO SCH ×2 (10:05→23:40)
[2020-09-12] MEDS: APIXABAN 2.5 MG TAB PO SCH (10:05)
[2020-09-12] MEDS: PARoxetine HCL 10 MG TAB PO SCH (10:05)
[2020-09-12] MEDS: cloNIDine HCL 0.1 MG TAB PO SCH ×2 (10:05→16:32)
[2020-09-12] MEDS: hydrALAZINE TAB 50 MG TAB PO SCH ×2 (10:06→16:32)
[2020-09-12] MEDS: amLODIPine BESYLATE 5 MG TAB PO SCH (10:06)
[2020-09-12] MEDS: busPIRone 5 MG TAB PO SCH ×2 (10:06→23:39)
[2020-09-12] MEDS: LABETALOL HCL 300 MG TAB PO SCH ×2 (10:06→16:33)
[2020-09-12] MEDS: DOCUSATE SODIUM 100 MG CAP PO SCH ×2 (10:10→23:40)
[2020-09-12] MEDS ORDERED: VANCOMYCIN HCL 1,500 MG in SODIUM CHLORIDE 0.9% 500 ML IV ONE (10:15)
--- NOTE | 2020-09-12 10:48 | Consultation ---
Date of Consultation September 12, 2020 Assessment & Plan (1) Infection of exit site of hemodialysis catheter: Pt with infection of L chest permcath, recommend removal today and placement of temporary catheter for HD today d/t fluid overload. Pt agreeable, but was eating janet crackers and pudding upon my arrival, so recommend local anesthesia only. History of Present Illness Reason for Consultation: infected permcath Attending Physician: Kinsey Garcia MD History of Present Illness 30yo f with multiple medical problems, including ESRD on HD, CAD, DMI, GERD, hyothyroidism, HTN, PE, chronic pain, respiratory failure on home O2, anxiety/depression, admitted with infection in L chest permcath and fluid overload. Pt states she was SOB and YANEZ at home. Admits feeling hot, but denies fever. Admits increased chronic back pain which always happens when she has a catheter infection. Denies ADKINS, chest pain, abd pain, N/V, rest pain, claudication, other complaints. Allergies Allergy/AdvReac Type Severity Reaction Status Date / Time bee venom protein (honey bee) Allergy Intermediate Hives Verified 09/11/20 22:55 chlorhexidine Allergy Intermediate Hives Verified 09/11/20 22:55 latex Allergy Intermediate Hives Verified 09/11/20 22:55 fentanyl AdvReac Nausea Verified 09/12/20 01:28 Home Medications Medication Instructions Recorded Confirmed Type acetaminophen 650 mg PO Q4 PRN 09/12/20 09/12/20 History amlodipine 10 mg PO DAILY 09/12/20 09/12/20 History apixaban 2.5 mg PO Q12 09/12/20 09/12/20 History bisacodyl [Dulcolax (bisacodyl)] 10 mg NE DAILY PRN 09/12/20 09/12/20 History buspirone 10 mg PO DAILY 09/12/20 09/12/20 History buspirone 20 mg PO HS 09/12/20 09/12/20 History clonidine HCl 0.1 mg PO Q8 09/12/20 09/12/20 History diphenhydramine HCl 25 mg PO .Q M,W,F PRN 09/12/20 09/12/20 History docusate sodium [Colace] 100 mg PO BID 09/12/20 09/12/20 History ergocalciferol (vitamin D2) 1,250 mcg PO WK 09/12/20 09/12/20 History gabapentin 300 mg PO BID 09/12/20 09/12/20 History hydralazine 100 mg PO Q8 09/12/20 09/12/20 History insulin aspart U-100 See Rx Instructions .ROUTE .COMPLEX 09/12/20 09/12/20 History insulin glargine [Lantus U-100 8 unit SUBCUT Q12 09/12/20 09/12/20 History Insulin] insulin regular human [Humulin R See Rx Instructions .ROUTE .COMPLEX 09/12/20 09/12/20 History Regular U-100 Insuln] labetalol 300 mg PO Q8 09/12/20 09/12/20 History levothyroxine 25 mcg PO DAILY 09/12/20 09/12/20 History melatonin 3 mg PO HS PRN 09/12/20 09/12/20 History ondansetron 4 mg PO Q8H PRN 09/12/20 09/12/20 History pantoprazole 40 mg PO DAILYBB 09/12/20 09/12/20 History paroxetine HCl 30 mg PO DAILY 09/12/20 09/12/20 History polyethylene glycol 3350 [Miralax] 17 g PO DAILY PRN 09/12/20 09/12/20 History sennosides-docusate sodium [Senna 1 tab-cap PO .WITH LUNCH PRN 09/12/20 09/12/20 History with Docusate Sodium] sevelamer carbonate 800 mg PO TIDM 09/12/20 09/12/20 History sodium phosphates [Fleet Enema] 118 ml NE DAILY PRN 09/12/20 09/12/20 History tramadol 50 mg PO Q6H PRN 09/12/20 09/12/20 History Patient History Medical History Anxiety with depression Chronic pain syndrome Chronic respiratory failure Critical illness myopathy Diabetes mellitus type 1 ESRD on dialysis Gait instability GERD (gastroesophageal reflux disease) Hypertension Hypothyroidism (acquired) Hypoxemia 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 6 per pt March - August 2020 Insomnia Pulmonary embolism Pulmonary hypertension Surgical History AV fistula History of cholecystectomy Social History Smoking Status: Never smoker Second Hand Exposure: No; Do You Dip or Chew Tobacco: No; Tobacco Cessation Education Requested by Patient: No Hx Alcohol Use: No Hx Substance Use: No Preferred Language: Estonian Communication Ability: Effective Mill Order Scheduler Required: No Beliefs That Will Affect Care: None Current Living Situation: Parent Current Living Situation Comment: Lives with mother Other Information That Helps Us Care for You: No Feels Safe at Home: Yes Safety Concerns: Feels Safe At This Time Assistive Devices: Oxygen - Continuous Review of Systems Review of Systems: All systems reviewed & are unremarkable except as noted in HPI & below Physical Exam Constitutional: + ill appearing and + cushingoid; not in distress ENMT: Ears: no hearing impairment Neck: R neck scarring noted, Lneck/chest permcath with erythema/tender/warmth/drainage Respiratory: normal respiratory effort (on oxygen via NC) Auscultation: + diminished lung sounds Cardiovascular: Rate/Rhythm: regular rate and regular rhythm Vessels: femoral pulses present, posterior tibial pulses present, dorsalis pedis pulses present and brachial pulses present; + abnormal peripheral pulses Extremities: normal capillary refill, + edema and + vascular access device Gastrointestinal (Abdomen): normal bowel sounds, soft, nontender, no hepatosplenomegaly Musculoskeletal: no cyanosis or clubbing, extremities motor strength 5/5 Neurologic: moves all extremities and awake; no focal motor deficits and not confused Psychiatric: A+Ox3, euthymic affect Results & Data ([facility]) Vital Signs (Past 12 Hours) Vital Signs Temp Pulse Pulse Pulse Resp BP Pulse Ox 09/12/20 07:37 36.9 C 94 H 18 135/95 93 09/12/20 07:35 85 09/12/20 04:41 84 09/12/20 02:55 36.7 C 83 18 120/76 95 09/11/20 23:40 23 09/11/20 23:30 87 19 09/11/20 23:20 16 09/11/20 23:10 18 97 09/11/20 23:09 96 09/11/20 23:00 89 20 86 L 09/11/20 22:47 88 24 90 09/11/20 22:45 90
--- NOTE | 2020-09-12 10:56 | Pharmacy Report ---
Pharmacy Abx Dose Short Note - Date of Service September 12, 2020 - Assessment & Plan Assessment 30 year old F receiving vancomycin empirically treatment of infected HD catheter. Catheter to be removed today with a temporary replacement. It appears plan is for HD today later this afternoon. Will check a random level with AM labs after one time loading dose today to guide subsequent redosing. Of note a one time dose of ceftazidime was also ordered by nephrology this morning. Day # 1 of antimicrobial therapy. Plan Vancomycin * Loading dose 1500 mg IV X 1 pre-HD * Trough or random level ordered for: 09/13/20 with AM labs Pharmacy will continue to follow and will adjust dose/frequency as necessary. Thank you.
[2020-09-12] MEDS: traMADol HCL 50 MG TABLET PO PRN (12:41)
[2020-09-12] MEDS ORDERED: MIDAZOLAM HCL 1 MG/ML 2ML VIAL ONE (16:06)
[2020-09-12] MEDS ORDERED: PROPOFOL IV EMULSION 10 MG/ML 20 ML VIAL IV ONE (16:06)
[2020-09-12] MEDS ORDERED: LIDOCAINE 2% 2 ML VIAL/AMP(20MG/ML) INFIL ONE (16:06)
[2020-09-12] MEDS ORDERED: HEPARIN SOD (PORCINE) 5,000 UNITS/ML VIAL ONE (16:26)
[2020-09-12] MEDS ORDERED: LIDOCAINE 1% LOCAL 20 ML VIAL ONE (16:26)
[2020-09-12] MEDS ORDERED: HYDROmorphone INJ 2 MG/ML SYR/VIAL ONE (16:40)
[2020-09-12] MEDS ORDERED: ONDANSETRON INJ 2 MG/ML 2 ML VIAL IV PRN (16:42)
[2020-09-12] MEDS ORDERED: ATROPINE SULFATE 0.1 MG/ML 10ML SYR IV PRN (16:42)
[2020-09-12] MEDS ORDERED: HYDROmorphone INJ 2 MG/ML SYR/VIAL IV PRN (16:42)
[2020-09-12] MEDS ORDERED: ePHEDrine sulfate 50 MG/ML AMP IV PRN (16:42)
--- NOTE | 2020-09-12 16:42 | Anesthesiology Consultation ---
Date of Service September 12, 2020 Assessment & Plan (1) Encounter for pre-operative examination: Chart Review Chart Review: Acceptable Risk for Surgery and Patient NOT seen in Pre Admission Testing Consults Requested none ASA ASA4 Proposed Anesthesia Anesthesia Type: General (patient refuses procedure without general anesthesia) Risk / Benefits Reviewed With: PT / POA / Parent / Guardian, Accepts Plan and Informed Consent Obtained History Surgery Operation Date: 09/12/20 10:20 Proposed Procedures p Removal of Infected Perm Catheter, Insertion of Temporary Dialysis Catheter - Julien Marquez MD Height/Weight Height: 5 ft 1 in Weight: 69.7 kg Allergies Allergy/AdvReac Type Severity Reaction Status Date / Time bee venom protein (honey bee) Allergy Intermediate Hives Verified 09/11/20 22:55 chlorhexidine Allergy Intermediate Hives Verified 09/11/20 22:55 latex Allergy Intermediate Hives Verified 09/11/20 22:55 fentanyl AdvReac Nausea Verified 09/12/20 01:28 Medications Home Medications Medication Instructions Recorded Confirmed Last Taken acetaminophen 650 mg PO Q4 PRN 09/12/20 09/12/20 Unknown amlodipine 10 mg PO DAILY 09/12/20 09/12/20 Unknown apixaban 2.5 mg PO Q12 09/12/20 09/12/20 Unknown bisacodyl [Dulcolax (bisacodyl)] 10 mg OK DAILY PRN 09/12/20 09/12/20 Unknown buspirone 10 mg PO DAILY 09/12/20 09/12/20 Unknown buspirone 20 mg PO HS 09/12/20 09/12/20 Unknown clonidine HCl 0.1 mg PO Q8 09/12/20 09/12/20 Unknown diphenhydramine HCl 25 mg PO .Q M,W,F PRN 09/12/20 09/12/20 Unknown docusate sodium [Colace] 100 mg PO BID 09/12/20 09/12/20 Unknown ergocalciferol (vitamin D2) 1,250 mcg PO WK 09/12/20 09/12/20 Unknown gabapentin 300 mg PO BID 09/12/20 09/12/20 Unknown hydralazine 100 mg PO Q8 09/12/20 09/12/20 Unknown insulin aspart U-100 See Rx Instructions .ROUTE .COMPLEX 09/12/20 09/12/20 Unknown insulin glargine [Lantus U-100 8 unit SUBCUT Q12 09/12/20 09/12/20 Unknown Insulin] insulin regular human [Humulin R See Rx Instructions .ROUTE .COMPLEX 09/12/20 09/12/20 Unknown Regular U-100 Insuln] labetalol 300 mg PO Q8 09/12/20 09/12/20 Unknown levothyroxine 25 mcg PO DAILY 09/12/20 09/12/20 Unknown melatonin 3 mg PO HS PRN 09/12/20 09/12/20 Unknown ondansetron 4 mg PO Q8H PRN 09/12/20 09/12/20 Unknown pantoprazole 40 mg PO DAILYBB 09/12/20 09/12/20 Unknown paroxetine HCl 30 mg PO DAILY 09/12/20 09/12/20 Unknown polyethylene glycol 3350 [Miralax] 17 g PO DAILY PRN 09/12/20 09/12/20 Unknown sennosides-docusate sodium [Senna 1 tab-cap PO .WITH LUNCH PRN 09/12/20 09/12/20 Unknown with Docusate Sodium] sevelamer carbonate 800 mg PO TIDM 09/12/20 09/12/20 Unknown sodium phosphates [Fleet Enema] 118 ml OK DAILY PRN 09/12/20 09/12/20 Unknown tramadol 50 mg PO Q6H PRN 09/12/20 09/12/20 Unknown Active Medications Generic Name Dose Route Start Last Admin Trade Name Freq PRN Reason Stop Dose Admin Amlodipine Besylate 10 mg 09/12/20 09:00 09/12/20 10:06 Amlodipine Besylate 5 Mg Tab PO 10/12/20 08:59 10 mg DAILY CLEMENT Administration Apixaban 2.5 mg 09/12/20 09:00 09/12/20 10:05 Apixaban 2.5 Mg Tab PO 10/12/20 08:59 2.5 mg Q12 CLEMENT Administration Buspirone HCl 10 mg 09/12/20 09:00 09/12/20 10:06 Buspirone 5 Mg Tab PO 10/12/20 08:59 10 mg DAILY CLEMENT Administration Clonidine HCl 0.1 mg 09/12/20 06:00 09/12/20 16:32 Clonidine Hcl 0.1 Mg Tab PO 10/12/20 05:59 Not Given Q8 CLEMENT Docusate Sodium 100 mg 09/12/20 09:00 09/12/20 10:10 Docusate Sodium 100 Mg Cap PO 10/12/20 08:59 Not Given BID CLEMETN Gabapentin 300 mg 09/12/20 09:00 09/12/20 10:05 Gabapentin 300 Mg Cap PO 10/12/20 08:59 300 mg BID CLEMENT Administration Hydralazine HCl 100 mg 09/12/20 06:00 09/12/20 16:32 Hydralazine Tab 50 Mg Tab PO 10/12/20 05:59 Not Given Q8 CLEMENT Hydromorphone HCl 0.5 mg 09/12/20 01:39 09/12/20 13:05 Hydromorphone Inj 0.5 Mg/0.5 Ml Syr IV 09/26/20 01:44 0.5 mg Q3H PRN Administration Severe Pain Insulin Aspart 0 units 09/12/20 07:30 09/12/20 12:33 Insulin Aspart 100 Units/Ml 3 Ml Pen SC 10/12/20 07:29 Not Given ACHS [facility] Insulin Glargine 8 units 09/12/20 09:00 09/12/20 08:40 Insulin Glargine Solostar 100 Units/Ml 3 Ml Pen SC 10/12/20 08:59 8 units Q12 CLEMENT Administration Labetalol HCl 300 mg 09/12/20 06:00 09/12/20 16:33 Labetalol Hcl 300 Mg Tab PO 10/12/20 05:59 Not Given Q8 CLEMENT Levothyroxine Sodium 25 mcg 09/12/20 06:30 09/12/20 06:31 Levothyroxine Sodium 25 Mcg Tablet PO 10/12/20 06:29 25 mcg DAILYBB CLEMENT Administration Ondansetron HCl 4 mg 09/12/20 03:16 09/12/20 07:30 Ondansetron 4 Mg Od Tab PO 10/12/20 03:15 4 mg Q8H PRN Administration Nausea And Vomiting Ondansetron HCl 4 mg 09/12/20 01:55 09/12/20 10:07 Ondansetron Inj 2 Mg/Ml 2 Ml Vial IV 10/12/20 01:54 4 mg Q6H PRN Administration Nausea Pantoprazole Sodium 40 mg 09/12/20 06:30 09/12/20 06:31 Pantoprazole 40 Mg Tab PO 10/12/20 06:29 40 mg DAILYBB CLEMENT Administration Paroxetine HCl 30 mg 09/12/20 09:00 09/12/20 10:05 Paroxetine Hcl 10 Mg Tab PO 10/12/20 08:59 30 mg DAILY CLEMENT Administration Sevelamer HCl 800 mg 09/12/20 08:00 09/12/20 12:38 Sevelamer Hcl 800 Mg Tablet PO 10/12/20 07:59 Not Given TIDM CLEMENT Tramadol HCl 50 mg 09/12/20 01:35 09/12/20 12:41 Tramadol Hcl 50 Mg Tablet PO 10/12/20 01:34 50 mg Q6H PRN Administration Moderate Pain NPO Date Last Intake of Fluids: 09/12/20 Time Last Intake of Fluids: 11:00 Date Last Intake of Solids: 09/12/20 Time Last Intake of Solids: 11:00 Past Medical History Medical History Anxiety with depression Chronic pain syndrome Chronic respiratory failure Critical illness myopathy Diabetes mellitus type 1 ESRD on dialysis Gait instability GERD (gastroesophageal reflux disease) Hypertension Hypothyroidism (acquired) Hypoxemia 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 6 per pt March - August 2020 Insomnia Pulmonary embolism Pulmonary hypertension Exercise / Class Metabolic Activity IV < 2 Limit ADL/Bedbound Past Surgical History Surgical History AV fistula History of cholecystectomy Past Anesthesia History No Hx of Anesthesia Complications and No Family Hx of Anesthesia Complications History of PONV No Hx of PONV and No Hx of Motion Sickness Social History Smoking Status: Never smoker Do You Dip or Chew Tobacco: No Hx Alcohol Use: No Hx Substance Use: No Physical Exam Vital Signs Last Vital Signs Temp 36.5 C 09/12/20 15:11 Pulse 81 09/12/20 15:11 Resp 16 09/12/20 15:11 BP 118/77 09/12/20 11:37 Pulse Ox 89 L 09/12/20 11:37 ENMT Mouth: no dentition abnormality Thyromental Distance: > or= 3.5 Finger Breadths Mallampati Class: II Neck normal visual inspection Respiratory normal respiratory effort Auscultation: lungs clear to auscultation bilaterally Cardiovascular Rate/Rhythm: regular rate and regular rhythm Psychiatric Orientation: alert Lab Results Anesthesia Preop Results Results Anesthesia Widget: WBC 9.29 K/uL (4.8-10.8) 09/12/20 Hgb 8.0 g/dL (12.0-16.0) L 09/12/20 Hct 25.9 % (37-47) L 09/12/20 Plt 410 K/uL (130-400) H 09/12/20 Na 133 mmol/L (136-145) L 09/12/20 K 5.3 mmol/L (3.5-5.1) H 09/12/20 Cl 101 mmol/L (98-107) 09/12/20 CO2 22 mmol/L (21-32) 09/12/20 BUN 88 mg/dl (7-18) H 09/12/20 Creat 6.48 mg/dl (0.6-1.2) H* 09/12/20 Glucose Level 140 mg/dl (70-99) H 09/12/20 POC Glucose 124 mg/dl (70-99) H 09/12/20 HA1c 9.0 % (4.5-5.6) H 09/12/20 COVID-19 PCR NEGATIVE (Negative) 09/11/20 Testing Laboratory Results 09/12/20 06:02 09/12/20 06:02 Hemoglobin A1c 9.0 % (4.5-5.6) H 09/12/20 06:02 09/12/20 09/12/20 11:30 07:35 POC Glucose 124 H 157 H
[2020-09-12] MEDS ORDERED: SUGAMMADEX SODIUM 200 MG/2 ML VIAL IV ONE (16:45)
--- NOTE | 2020-09-12 17:56 | Operative Report ---
Post Operative Report Pre & Post Diagnosis Operation Date: 09/12/20 10:20 Pre-Op Diagnosis: Infected Perm Cath Post-Op Diagnosis: Infected Perm Cath I identified the patient and participated in the time-out.: Yes Procedure Operation Date: 09/12/20 10:20 Actual Procedures p Removal of Infected Perm Catheter, Insertion of Temporary Dialysis Catheter, Fluoroscopy for Positioning(Bilateral) - Julien Marquez MD Surgeon Julien Marquez MD Quarter Inspector none Estimated Blood Loss 0 Findings Consistent with Post-Op Diagnosis Specimens tip of catheter for culture Anesthesia Type General Complications none Disposition Accompanied Patient To Recovery: No Disposition: Recovery Room Indications This is a 30-year-old female with a left internal jugular vein PermCath in place. 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 Removal of the catheter was recommended insertion of a temporary femoral vein catheter was recommended. I have discussed the risks options and benefits of the procedure with the patient. The patient understands the risks options and benefits and agrees to the procedure. Description of Procedure Patient was taken to the angio suite and placed in the supine position. The right groin was prepped and draped in a sterile manner after general anesthesia was accomplished. The patient was identified and a timeout performed. The femoral vein was then punctured. A guidewire was then passed centrally under fluoroscopic imaging. The puncture site was then dilated and the temporary dialysis catheter inserted. The catheter was then sutured in place using nylon sutures. Both ports aspirated and flushed easily and were then packed with heparin. A sterile dressing was applied to the catheter. The right side of the neck, chest wall and catheter were prepped and draped in a sterile manner. The catheter slipped out fairly easily due to the purulent drainage around the catheter itself. There was no incorporation of the cuff of the catheter. The permcath and cuff were completely removed. The tip of the catheter was then sent for culture. Pressure was then applied and adequate hemostasis was obtained. A sterile dressing was then applied. The patient left the operation room in satisfactory condition and tolerated the procedure well. All needle and sponge counts were correct at the end of the procedure. I attest to the content of the Intraoperative Record and any orders documented therein. Any exceptions are noted below.
[2020-09-12] MEDS ORDERED: SUCCINYLCHOLINE 100MG/5ML SYR IV ONE (18:33)
[2020-09-12] MEDS ORDERED: NALOXONE HCL 0.4 MG/1 ML VIAL/CARP IV PRN (19:05)
--- NOTE | 2020-09-12 19:42 | Anesthesiology Progress Note ---
Date of Service September 12, 2020 Anesthesia Post Procedure Vital Signs Vital Signs: Temp Pulse Pulse Pulse Pulse Resp BP 09/12/20 18:50 82 17 09/12/20 18:40 79 22 09/12/20 18:35 78 22 09/12/20 18:30 80 20 09/12/20 18:25 79 24 09/12/20 18:20 79 22 09/12/20 18:15 78 20 09/12/20 18:10 37.2 C 77 20 09/12/20 16:46 36.8 C 83 84 20 09/12/20 15:11 36.5 C 81 16 09/12/20 11:37 36.9 C 81 12 09/12/20 07:37 36.9 C 94 H 18 09/12/20 07:35 85 09/12/20 04:41 84 09/12/20 02:55 36.7 C 83 18 09/11/20 23:40 23 09/11/20 23:30 87 19 09/11/20 23:20 16 09/11/20 23:10 18 09/11/20 23:09 09/11/20 23:00 89 20 09/11/20 22:47 88 24 09/11/20 22:45 09/11/20 22:34 37.7 C H 88 24 111/72 BP Pulse Ox 09/12/20 18:50 119/68 87 L 09/12/20 18:40 112/70 95 09/12/20 18:35 112/73 92 09/12/20 18:30 102/67 89 L 09/12/20 18:25 117/67 88 L 09/12/20 18:20 117/67 89 L 09/12/20 18:15 110/68 86 L 09/12/20 18:10 112/60 87 L 09/12/20 16:46 134/83 97 09/12/20 15:11 09/12/20 11:37 118/77 89 L 09/12/20 07:37 135/95 93 09/12/20 07:35 09/12/20 04:41 09/12/20 02:55 120/76 95 09/11/20 23:40 09/11/20 23:30 09/11/20 23:20 09/11/20 23:10 97 09/11/20 23:09 96 06/29/21 23:00 86 L 09/11/20 22:47 90 09/11/20 22:45 90 09/11/20 22:34 88 L Pain Intensity Chest: Pain Intensity: 0 Bilateral Back: Pain Intensity: 10 Transfer of Care Handoff Completed per policy Notes Mental Status: alert / awake / arousable and participated in evaluation Patient Amnestic to Procedure: Yes Nausea / Vomiting: adequately controlled Pain: adequately controlled Airway Patency, RR, SpO2: see Notes below BP & HR: stable & adequate Hydration State: stable & adequate Anesthetic Complications: no major complications apparent and Pt Satisfied with anesthetic care Notes: Patient has multiple comorbid health conditions and required temp dialysis catheter placement for urgent dialysis. She has been maintained with oxymask and has known pulm HTN and respiratory failure. I started care for this patient after procedure was finished and noted that she required increased oxygen in recovery. We closely monitored her until she was awake and stable enough to be sent back to MICU so that she could undergo dialysis. Patient was weaned to oxymask but I did speak to her nurse and asked that he contact the primary team and possibly implement biPAP to help improve her oxygenation and ventilation (patient was requesting doses of dilaudid and I felt with hypoventilation she would become hypercarbic and further worsen the pulm HTN). BiPAP appeared to be a temporizing measure until she had fluid removed from dialysis and thus possibly improve her respiratory status.
[2020-09-12] MEDS: HEPARIN SOD (PORCINE) 1000 UNIT/ML IV SCH (20:51)
[2020-09-13] MEDS: hydrALAZINE TAB 50 MG TAB PO SCH ×5 (00:40→20:52)
[2020-09-13] MEDS: APIXABAN 2.5 MG TAB PO SCH ×3 (00:40→20:52)
[2020-09-13] MEDS: LABETALOL HCL 300 MG TAB PO SCH ×5 (00:41→20:52)
[2020-09-13] MEDS: cloNIDine HCL 0.1 MG TAB PO SCH ×5 (00:41→20:52)
[2020-09-13] MEDS: HYDROmorphone INJ 0.5 MG/0.5 ML SYR IV PRN ×2 (03:11→08:07)
[2020-09-13] MEDS: LEVOTHYROXINE SODIUM 25 MCG TABLET PO SCH (05:36)
[2020-09-13] MEDS: PANTOprazole 40 MG TAB PO SCH (05:36)
[2020-09-13 06:04] LABS: Basophils # (auto) 0.06 K/uL (0-0.2); Basophils % (auto) 0.7 %; Eosinophils # (auto) 0.13 K/uL (0-0.5); Eosinophils % (auto) 1.5 %; Hemoglobin 8.1 g/dL (12.0-16.0); Immature Granulocytes # (auto) 0.03 K/uL (0.00-0.02); Immature Granulocytes % (auto) 0.3 %; Lymphocytes # (auto) 0.78 K/uL (1.2-3.4); Lymphocytes % (auto) 8.9 %; Mean Corpuscular Hemoglobin 30.5 pg (25-34); Mean Corpuscular Hgb Conc 31.2 g/dL (32-36); Mean Corpuscular Volume 97.7 fL (80-100); Mean Platelet Volume 10.2 fL (7.4-10.4); Monocytes # (auto) 0.69 K/uL (0.11-0.59); Monocytes % (auto) 7.9 %; Neutrophils # (auto) 7.05 K/uL (1.4-6.5); Neutrophils % (auto) 80.7 %; Platelet Count 397 K/uL (130-400); RDW Standard Deviation 71.2 fL (36.4-46.3); Red Blood Count 2.66 M/uL (4.2-5.4); White Blood Count 8.74 K/uL (4.8-10.8)
[2020-09-13 06:48] LABS: Albumin Globulin Ratio 0.6 (0.9-2); Albumin Level 3.2 gm/dl (3.4-5.0); BUN Creatinine Ratio 8.7 (10-20); Bilirubin,Total 0.7 mg/dl (0.2-1); Creatinine Clr Calc Pharmacy 21.4 ml/min; Est GFR (African American) 20.1 ml/min; Est GFR (Non-African American) 17.3 ml/min; Globulin 5.2 gm/dl (2.5-4.0); Magnesium 2.2 mg/dl (1.8-2.4); Potassium 3.8 mmol/L (3.5-5.1); Total Protein 8.4 gm/dl (6.4-8.2)
[2020-09-13 06:56] LABS: Anisocytosis Present; Hypochromasia Present; Polychromasia 1+
[2020-09-13 07:31] LABS: Phosphorus 4.2 mg/dl (2.5-4.9)
[2020-09-13] MEDS: INSULIN ASPART 100 UNITS/ML 3 ML PEN SC SCH ×5 (07:51→20:57)
[2020-09-13] MEDS: SEVELAMER HCL 800 MG TABLET PO SCH ×3 (07:55→17:31)
[2020-09-13] MEDS: busPIRone 5 MG TAB PO SCH ×2 (08:00→20:52)
[2020-09-13] MEDS: amLODIPine BESYLATE 5 MG TAB PO SCH (08:00)
[2020-09-13] MEDS: PARoxetine HCL 10 MG TAB PO SCH (08:07)
[2020-09-13] MEDS: GABAPENTIN 300 MG CAP PO SCH ×2 (08:09→20:52)
[2020-09-13] MEDS ORDERED: HEPARIN SOD (PORCINE) 1000 UNIT/ML IV ONE (08:30)
--- NOTE | 2020-09-13 08:38 | Hospitalist Progress Note ---
Date of Service September 13, 2020 Assessment & Plan (1) ESRD on dialysis: 30 y/o F w/ ESRD on MWF HD, DM1, NSTEMI, PE on AC (held), chronic resp failure on 6L who presents from [facility] rehab for SOB likely secondary to fluid overload in context of needing dialysis. Sepsis sec to port infection (ESRD on HD) - nephro consulted. vascular consulted. - started on empiric IV vanc - blood culture x2 resulted MRSA. wound culture catheter tip prelim gram pos staph - afebrile this admission - concern for L upper chest dialysis catheter site infection. vascular consulted. removed infected port. placed temporary cath and performed dialysis - next dialysis on 09/14 - continue sevelamer - consulted [facility] infectious disease hypervolemia - need for dialysis. s/p dialysis evening of 09/12 - reported wt gain, LE edema - bnp [id number] at admission chronic respiratory failure - per patient, 2/2 chronic PEs - titrate supplemental O2 - required bipap for desat to 60s AM of 09/13. held IV narcotic PRNs - CT chest ordered 09/13. see results section. suggestive of pulm edema. consider diuresing now that there is dialysis. will reassess volume status in AM - Is/Os incomplete. cumulative 2L in. 0 out. - TTE ordered chronic pain syndrome Acetaminophen 650 mg p.o. every 6 hours as needed mild pain or fever Tramadol 50 mg p.o. every 6 hours as needed moderate pain Was ordered dilaudid on admission for generalized pain Dilaudid 0.25 mg IV every 3 hours as needed moderate pain and 0.5 mgs IV q3hrs for severe pain d/c dilaudid .5mgs dose Patient appeared sleepy this AM per attending exam. PRN naloxone ordered for reversal if needed. - CT abd/pelv and CT lumbar spine ordered 09/13 for continued low back pain and new? right groin pain chest pain w/ radiation down L arm - no tracking noted from L upper chest dialysis site - trop neg x 2. ecg w/o ischemic changes. ecg repeated w/ similar PRWP - patient later clarifies that she has back pain and not chest pain Type 1 diabetes - A1C 9.0 - Lantus + SSI - hypoglycemic to 50s AM of 09/13. hypoglycemic protocol. patient received 8 glucose tabs and 25mL of IV dextrose. recheck was 110s - check BSG ACHS anemia - stable elevated alk phos - 800 at admission - most likely 2/2 ESRD HTN - Continue amlodipine, clonidine, hydralazine, and labetalol history of pulmonary embolism- - Continue apixaban PO 2.5mg BID anxiety and depression - Continue buspirone, gabapentin, and paroxetine hypothyroidism (acquired) - Continue levothyroxine GERD - Continue pantoprazole insomnia - Continue melatonin FEN/GI: Dialysis renal and DM1 diet. Fluid restriction 1.2L No IVF ppx: home Eliquis 2.5 BID code: full dispo: PCU (2) Diabetes mellitus type 1: (3) Hypertension: (4) Gait instability: (5) Hypoxemia: (6) Pulmonary hypertension: (7) Pulmonary embolism: (8) Critical illness myopathy: (9) Anxiety with depression: (10) Hypothyroidism (acquired): (11) GERD (gastroesophageal reflux disease): (12) Insomnia: (13) Chronic pain syndrome: Admission and Anticipated Discharge Date Admission Date: September 12, 2020 Supervising Physician Co-Signing Physician Notes Resident Physician Supervision Note: I independently interviewed and examined the patient and verified the gamez history and physical, reviewed labs and image studies and agree with resident Dr. Fontaine findings and care plan. Subjective Per nursing, patient was placed on bipap (10 5 50) this AM for desat to 60s during breakfast shortly after receiving Dilaudid. Patient is sleeping comfortably (satting 100) at time of exam. Her pain is tolerable (rates as 9/10) at low back and R groin at catheter site). No numbness/tingling. 12:34 on 12L of HFNC Review of Systems Review of Systems: Constitutional: Denies fever, chills, Cardiovascular: Denies chest pain Respiratory: Denies shortness of breath Gastrointestinal: Denies abdominal pain, nausea, vomiting, constipation, di arrhea Genitourinary: Denies urinary symptoms including dysuria Musculoskeletal: See HPI Neurological: Denies headache, numbness, tingling, focal weakness Physical Exam Physical Exam: General: Grossly A&O. NAD. Cooperative. Resting comfortably. Wearing bipap. HEENT: Atraumatic, normocephalic. EOMI Pulm: Coarse breath sounds anteriorly No respiratory distress. Cardiac: RRR, -mrg. Radial pulses intact and symmetrical. Abdominal: Nontender, moderately firm. Integ: R femoral cath site bandaged, bandage is c/d/i. L upper chest wall (previous cath site) bandaged, bandage is c/d/i Results & Data Results & Data ([facility]) Vital Signs (Past 12 Hours) Vital Signs Temp Pulse Pulse Resp BP BP Pulse Ox 09/13/20 07:28 36.5 C 80 20 124/79 92 09/13/20 03:08 37 C 100 H 22 173/97 H 94 09/13/20 00:57 37.2 C 97 H 168/95 H 09/13/20 00:00 36.9 C 85 89 18 170/98 H 98 09/12/20 23:40 100 H 137/84 09/12/20 23:20 91 H 137/68 09/12/20 23:00 82 160/88 H 09/12/20 22:40 84 144/95 H 09/12/20 22:20 79 150/96 H 09/12/20 22:18 80 20 99 09/12/20 22:00 75 143/89 H 09/12/20 21:40 78 143/90 H 09/12/20 21:20 74 133/80 09/12/20 21:00 82 127/65 09/12/20 20:40 74 130/79 Diagnostic Findings 09/13 CT L spine: no abnormalities 09/13 CT chest IMPRESSION: 1. Cardiomegaly with groundglass opacities and mild interlobular septal thickening suggestive of pulmonary edema. Trace bilateral pleural effusions. 2. Subcarinal abnormality that measures approximately 7.3 x 3.1 cm. Although indeterminate, an enlarged lymph node is favored given additional enlarged thoracic lymph nodes. This suspected lymphadenopathy is nonspecific. A follow-up chest CT in 3 months is recommended. 3. Interval removal of dual-lumen central venous catheter. Apparent linear hypodensity within the left brachiocephalic vein, superior vena cava and right atrium. This is difficult to assess given streak artifact from adjacent contrast however this may reflect thrombus or a fibrin sheath. 4. Mild multifocal subpleural groundglass opacities. This favors atelectasis although an infectious process cannot be excluded. No definite consolidation. 09/13 CT abd/pelv IMPRESSION: 1. Mild hepatomegaly. Heterogeneous enhancement of the liver which may reflect passive hepatic congestion. 2. Small amount of abdominal and pelvic ascites. Mild mesenteric infiltration. 3. Mild abdominal and pelvic lymphadenopathy, a nonspecific finding. 4. Extensive vascular calcification. 5. Bilateral renal atrophy. 6. Indeterminate 3.5 x 1.7 cm hypodensity adjacent to the pancreatic tail. Resident Activity Tracking Resident Involvement: Resident Care Provided Care Provided: Adult [facility]
--- NOTE | 2020-09-13 09:40 | Nephrology Progress Note ---
Date of Service September 13, 2020 Assessment & Plan (1) MRSA bacteremia: 09/12 with pus, redness, and pain at catheter exit site, new since 09/10>> blood cxs / positive in less than 24 hrs. Pt has had recurrent exit site infections -f/u pending cxs -with her back pain, worsening hypoxia despite aggressive UF, hx of recurrent catheter related infections, low threshold for TTE, for CT c/a/p -on vanco >> dose per pharmacy -recommend infectious diseases consult > to replace TDC after 48 hrs negative cxs; did d/w Dr Marquez Present on Admission?: Yes (2) Acute and chronic respiratory failure: -on chronic 02 at baseline > 6L per her report; indications for this not fully clear>> increaseing 02 needs today and some hypoxia despite 5L UF yesterday >>>very low threshold for pulm consult, for CT chest, for TTE -HD again today (3) ESRD on dialysis: chronic ESRD pt w/ recurrent vol OL. has maturing AVF. tolerated 5L UF yesterday -HD today 3 hrs w/ goal 4L UF -cont 1.2L FR, dialysis/DM diet -next HD 09/14 (4) Anemia of chronic disease: may in part be -continue venofer load started at [facility] >> t stn 9% on 09/06 -20K epo with tx 09/12 adn 100 mg venofer; for another [id number] units epo today; slow down on iron load until cxs finalize -CBC at least every other day pls while in house Admission and Anticipated Discharge Date Admission Date: September 12, 2020 Subjective seen on rounds at 0750; pt had dilaudid about 0300 and very lethargic, snoring, rouses to noxious stimuli > even through this manages to tell me between snores that she still has back pain; taking oxymask off often; has 12-15L >> increasing needs; and w/ good tracings sats drop at times to high 80s for a few minutes; had 5L off yesterday late at HD; has 4/4 bottles w/ MRSA Review of Systems Review of Systems: limited by reduced consciousness Physical Exam Constitutional: well developed, + lethargic and + overweight Eyes: EOM intact bilaterally ENMT: Ears: no external ear abnormality Nose: no external nose abnormality Mouth: + dry oral mucous membranes Neck: no nuchal rigidity Respiratory: normal respiratory effort Auscultation: + diminished lung soun ds (markedly) Cardiovascular: Extremities: + AV fistula (maturing) Gastrointestinal (Abdomen): Inspection/Auscultation: normal bowel sounds; abdomen not distended Percussion/Palpation: abdomen soft; abdomen nontender (no focal abdominal or CVA tenderness on exam) and no guarding Musculoskeletal: Extremities: strength 5/5 throughout Skin: no rashes, warm and dry + excoriations (many scabbed pustules) Neurologic: no tremor; limited but appropriate speech, walter Psychiatric: Orientation: oriented to person and oriented to place (lethargic but wakens fully/briefly) Results & Data ([facility]) Vital Signs (Past 12 Hours) Vital Signs Temp Pulse Pulse Resp BP BP Pulse Ox 09/13/20 07:28 36.5 C 80 20 124/79 92 09/13/20 03:08 37 C 100 H 22 173/97 H 94 09/13/20 00:57 37.2 C 97 H 168/95 H 09/13/20 00:00 36.9 C 85 89 18 170/98 H 98 09/12/20 23:40 100 H 137/84 09/12/20 23:20 91 H 137/68 09/12/20 23:00 82 160/88 H 09/12/20 22:40 84 144/95 H 09/12/20 22:20 79 150/96 H 09/12/20 22:18 80 20 99 09/12/20 22:00 75 143/89 H 09/12/20 21:40 78 143/90 H Laboratory Results 09/13/20 05:44 09/13/20 05:44 (1) Acute and chronic respiratory failure Respiratory failure complication: hypoxia Qualified Code(s): J96.21 - Acute and chronic respiratory failure with hypoxia
[2020-09-13] MEDS: INSULIN GLARGINE SOLOSTAR 100 UNITS/ML 3 ML PEN SC SCH ×2 (09:51→20:57)
[2020-09-13] MEDS: DOCUSATE SODIUM 100 MG CAP PO SCH ×2 (09:55→20:47)
[2020-09-13] MEDS ORDERED: SODIUM CHLORIDE 0.9% 1000ML 1,000 ML IV PRN (10:13)
[2020-09-13] MEDS ORDERED: EPOETIN ALFA 10,000 UNITS/ML VIAL IV SCH (11:00)
[2020-09-13] MEDS ORDERED: HEPARIN SOD (PORCINE) 1000 UNIT/ML IV SCH (11:00)
--- NOTE | 2020-09-13 11:35 | Electrocardiogram Report ---
Test Reason : Blood Pressure : / mmHG Vent. Rate : 087 BPM Atrial Rate : 087 BPM P-R Int : 148 ms QRS Dur : 086 ms QT Int : 372 ms P-R-T Axes : 053 130 054 degrees QTc Int : 447 ms Normal sinus rhythm Right axis deviation Abnormal ECG No previous ECGs available Confirmed by Damaso Ramos ([id number]) on 09/13/2020 11:34:44 AM Referred By: [facility] Confirmed By:Damaso Ramos
--- NOTE | 2020-09-13 11:48 | Pharmacy Report ---
Pharmacy Abx Dose Short Note - Date of Service September 13, 2020 - Assessment & Plan Assessment 30 year old F receiving vancomycin for treatment of staph species bacteremia. Of note rapid staph PCR indicates MRSA. Day # 2 of antimicrobial therapy. Plan Vancomycin * Random level this morning after yesterday's HD session is 15.4 mcg/mL * Redose 750 mg IV X 1 @ 1500 (3 hr HD session should end ~1400) * Trough or random level ordered for: 09/14/20 with AM labs Pharmacy will continue to follow and will adjust dose/frequency as necessary. Thank you.
[2020-09-13] MEDS: HEPARIN SOD (PORCINE) 1000 UNIT/ML IV SCH ×2 (12:10→13:36)
[2020-09-13] MEDS: traMADol HCL 50 MG TABLET PO PRN ×2 (12:13→21:26)
--- NOTE | 2020-09-13 14:04 | Electrocardiogram Report ---
Test Reason : Blood Pressure : / mmHG Vent. Rate : 092 BPM Atrial Rate : 092 BPM P-R Int : 152 ms QRS Dur : 090 ms QT Int : 358 ms P-R-T Axes : 070 159 044 degrees QTc Int : 442 ms Normal sinus rhythm Right axis deviation Cannot rule out Anterior infarct , age undetermined Abnormal ECG When compared with ECG of 11-SEP-2020 22:37, (unconfirmed) No significant change was found Confirmed by Damaso Ramos ([id number]) on 09/13/2020 2:04:19 PM Referred By: [facility] Confirmed By:Damaso Ramos
[2020-09-13] MEDS ORDERED: VANCOMYCIN HCL 750 MG in SODIUM CHLORIDE 0.9% 250 ML IV SCH (15:00)
[2020-09-13] MEDS ORDERED: LIDOCAINE 1% LOCAL 20 ML VIAL INFIL ONE (16:35)
[2020-09-13] MEDS ORDERED: OPTIRAY 320 100ml IV ONE (18:38)
--- NOTE | 2020-09-13 19:28 | CT Scan Report ---
CT OF THE CHEST WITH IV CONTRAST CLINICAL HISTORY: Hypoxia. Bacteremia. COMPARISON STUDY: Chest radiograph September 11, 2020. TECHNIQUE: Following IV administration of 90 mL of Optiray, helical axial images of the chest were o btained. Sagittal and coronal reconstructions were viewed as well as maximal intensity projections o n an independent 3-D workstation. Automated exposure control was utilized for the study. A dose low ering technique was utilized adhering to the principles of ALARA. CT DOSE: 632.60 mGycm FINDINGS: The left-sided dual-lumen catheter has been removed. There is possible hypodense material within the left brachiocephalic vein, superior vena cava and right atrium. This is suboptimally asses sed on this exam. Cardiomegaly is noted. No pericardial effusion. There are trace bilateral pleural e ffusions. There is no pneumothorax. Mild groundglass opacities within the lungs are noted. There is m ild interlobular septal thickening. There are multiple small subpleural groundglass opacities. Centra l airways are patent. Lungs are suboptimally assessed due to respiratory motion. Note is made of mild ly enlarged bilateral hilar and axillary lymph nodes. There is an enlarged prevascular lymph node azar t measures 2.3 x 1.7 cm. There is a subcarinal abnormality that measures approximately 7.3 x 3.1 cm. This favors a lymph node. The abdomen and pelvis will be reported separately. IMPRESSION: 1. Cardiomegaly with groundglass opacities and mild interlobular septal thickening suggestive of pulm onary edema. Trace bilateral pleural effusions. 2. Subcarinal abnormality that measures approximately 7.3 x 3.1 cm. Although indeterminate, an enlarg ed lymph node is favored given additional enlarged thoracic lymph nodes. This suspected lymphadenopat hy is nonspecific. A follow-up chest CT in 3 months is recommended. 3. Interval removal of dual-lumen central venous catheter. Apparent linear hypodensity within the lef t brachiocephalic vein, superior vena cava and right atrium. This is difficult to assess given streak artifact from adjacent contrast however this may reflect thrombus or a fibrin sheath. 4. Mild multifocal subpleural groundglass opacities. This favors atelectasis although an infectious p rocess cannot be excluded. No definite consolidation. ACT 112: Negative or not required by law. Electronically signed by: John Becerril M.D. 09/13/2020 7:26 PM
--- NOTE | 2020-09-13 19:44 | CT Scan Report ---
CT OF THE ABDOMEN AND PELVIS WITH CONTRAST CLINICAL HISTORY: Abdominal pain. Bacteremia. COMPARISON STUDY: None. TECHNIQUE: Following IV administration of 90 mL of Optiray, axial images of the abdomen and pelvis we re obtained from the lung bases to the proximal femurs. Images were reviewed in the axial, sagittal, and coronal planes. IV contrast was administered without complication. Automated exposure control wa s utilized for the study. A dose lowering technique was utilized adhering to the principles of ALARA . FINDINGS: Please note that the chest CT will be reported separately. Tip of a right femoral central v enous catheter is within the IVC. No pneumatosis, free air or portal venous gas is present. The liver is enlarged. Heterogeneous enhancement of the liver is noted. There is no biliary or pancreatic duct al dilatation. The gallbladder is surgically absent. There is a small amount of ascites within the ab domen and pelvis. There is mild mesenteric infiltration. There is no fluid collection is suggest an a bscess. There is no evidence for a bowel obstruction. Bilateral renal atrophy is noted. There are mil dly enlarged abdominal and pelvic lymph nodes. These are nonspecific. Extensive vascular calcificatio n is noted. There is no peripancreatic infiltration. No acute lumbar spine or pelvic fracture is iden tified. There is an indeterminate 3.5 x 1.7 cm hypodensity adjacent to the pancreatic tail. IMPRESSION: 1. Mild hepatomegaly. Heterogeneous enhancement of the liver which may reflect passive hepatic conges tion. 2. Small amount of abdominal and pelvic ascites. Mild mesenteric infiltration. 3. Mild abdominal and pelvic lymphadenopathy, a nonspecific finding. 4. Extensive vascular calcification. 5. Bilateral renal atrophy. 6. Indeterminate 3.5 x 1.7 cm hypodensity adjacent to the pancreatic tail. ACT 112: Negative or not required by law. Electronically signed by: John Becerril M.D. 09/13/2020 7:43 PM
--- NOTE | 2020-09-13 19:47 | CT Scan Report ---
CT lumbar spine w con CLINICAL HISTORY: ?osteo in MRSA+ bacteremia COMPARISON STUDY: No previous studies for comparison. TECHNIQUE: Axial images of the lumbar spine were obtained following intravenous injection of 90 cc of Optiray 320 IV. Sagittal and coronal reconstructions were viewed. Automated exposure control was uti lized for the study. A dose lowering technique was utilized adhering to the principles of ALARA. FINDINGS: Please note that the CT of the abdomen and pelvis will be reported separately. Alignment of the lumbar spine is anatomic. Vertebral body heights are maintained. No acute fracture. There is no osseous lesion. Facet joints are intact. The central canal and neural foramen are suboptimally assess ed by CT but appear patent. There is mild disc bulge at L5-S1. There is no CT evidence for osteomyeli tis within the lumbar spine. Paravertebral soft tissues are unremarkable. Extensive vascular calcific ation is incidentally noted. There is bilateral renal atrophy. IMPRESSION: Unremarkable CT of the lumbar spine. ACT 112: Negative or not required by law. Electronically signed by: John Becerril M.D. 09/13/2020 7:45 PM
[2020-09-14] MEDS: PANTOprazole 40 MG TAB PO SCH (05:48)
[2020-09-14] MEDS: LABETALOL HCL 300 MG TAB PO SCH ×3 (05:48→21:42)
[2020-09-14] MEDS: hydrALAZINE TAB 50 MG TAB PO SCH ×3 (05:48→21:42)
[2020-09-14] MEDS: LEVOTHYROXINE SODIUM 25 MCG TABLET PO SCH (05:48)
[2020-09-14] MEDS: cloNIDine HCL 0.1 MG TAB PO SCH ×3 (05:48→21:42)
[2020-09-14 07:14] LABS: Basophils # (auto) 0.05 K/uL (0-0.2); Basophils % (auto) 0.7 %; Eosinophils # (auto) 0.27 K/uL (0-0.5); Eosinophils % (auto) 3.7 %; Hematocrit (blood only) 29.3 % (37-47); Hemoglobin 8.9 g/dL (12.0-16.0); Immature Granulocytes # (auto) 0.04 K/uL (0.00-0.02); Immature Granulocytes % (auto) 0.6 %; Lymphocytes # (auto) 0.84 K/uL (1.2-3.4); Lymphocytes % (auto) 11.6 %; Mean Corpuscular Hemoglobin 30.3 pg (25-34); Mean Corpuscular Hgb Conc 30.4 g/dL (32-36); Mean Corpuscular Volume 99.7 fL (80-100); Mean Platelet Volume 10.9 fL (7.4-10.4); Monocytes # (auto) 0.97 K/uL (0.11-0.59); Monocytes % (auto) 13.4 %; Neutrophils # (auto) 5.06 K/uL (1.4-6.5); Nucleated RBC # (auto) 0.03 K/uL (0-0); Nucleated RBC % (auto) 0.4 %; Platelet Count 381 K/uL (130-400); RDW Standard Deviation 73.6 fL (36.4-46.3); Red Blood Count 2.94 M/uL (4.2-5.4); White Blood Count 7.23 K/uL (4.8-10.8)
[2020-09-14 07:35] LABS: BUN Creatinine Ratio 8.9 (10-20); Calcium 8.6 mg/dl (8.5-10.1); Creatinine Clr Calc Pharmacy 17.5 ml/min; Est GFR (African American) 15.9 ml/min; Est GFR (Non-African American) 13.8 ml/min; Magnesium 2.3 mg/dl (1.8-2.4)
[2020-09-14 07:38] LABS: Albumin Globulin Ratio 0.6 (0.9-2); Bilirubin,Total 0.5 mg/dl (0.2-1); Globulin 5.1 gm/dl (2.5-4.0); Potassium 5.2 mmol/L (3.5-5.1); Total Protein 8.1 gm/dl (6.4-8.2)
[2020-09-14 07:46] LABS: Beta-Hydroxybutyrate 1.74 mg/dl (0.2-2.81)
[2020-09-14] MEDS ORDERED: HEPARIN SOD (PORCINE) 1000 UNIT/ML IV ONE (07:46)
[2020-09-14] MEDS ORDERED: SODIUM CHLORIDE 0.9% 1000ML 1,000 ML IV PRN (07:46)
[2020-09-14] MEDS: GABAPENTIN 300 MG CAP PO SCH ×2 (08:17→20:15)
[2020-09-14] MEDS: SEVELAMER HCL 800 MG TABLET PO SCH ×3 (08:17→21:39)
[2020-09-14] MEDS: PARoxetine HCL 10 MG TAB PO SCH (08:17)
[2020-09-14] MEDS: APIXABAN 2.5 MG TAB PO SCH ×2 (08:17→20:15)
[2020-09-14] MEDS: busPIRone 5 MG TAB PO SCH ×2 (08:18→20:16)
[2020-09-14] MEDS: amLODIPine BESYLATE 5 MG TAB PO SCH (08:18)
--- NOTE | 2020-09-14 08:36 | Hospitalist Progress Note ---
Date of Service September 14, 2020 Assessment & Plan (1) ESRD on dialysis: 30 y/o F w/ ESRD on MWF HD, DM1, NSTEMI, PE on AC (held), chronic resp failure on 6L who presents from [facility] for SOB likely secondary to fluid overload in context of needing dialysis. Sepsis sec to port infection (ESRD on HD) - nephro consulted. vascular consulted. - started on empiric IV vanc - blood culture x2 resulted MRSA. wound culture catheter tip prelim gram pos staph - afebrile this admission - concern for L upper chest dialysis catheter site infection. vascular consulted. removed infected port. placed temporary cath and performed dialysis - next dialysis on 09/15 - continue sevelamer - consulted [facility] infectious disease. recommended TTE. result: normal EF >70%. No wall motion abnormalities. Mild pulm HTN. - per vascular, if BC from today neg, new TDC cath on Saturday 09/16 hypervolemia - need for dialysis. s/p dialysis evening of 09/12 - reported wt gain, [place] - b[place] [id number] at admission chronic respiratory failure - per patient, 2/2 chronic PEs - titrate supplemental O2. required bipap briefly on 09/13 AM after IV Dilaudid dose -> desat to 60s - high flow NC 12L past day. in process of weaning down opioid dependence, chronic pain syndrome - patient requesting IV Dilaudid - narcotic medications held because of desaturations above. patient still has increased O2 requirement over her self-reported 6L home O2 baseline - imaging, CT abd/pelv and CT lumbar spine ordered as part of workup of the pain complaints to r/o pathologies such as osteo - will look to optimize patient's pain regimen. she is on already on multiple adjuvants, some at high doses chest pain w/ radiation down L arm, resolved - no tracking noted from L upper chest dialysis site - trop neg x 2. ecg w/o ischemic changes. ecg repeated w/ similar PRWP - patient later clarifies that she has back pain and not chest pain Type 1 diabetes - A1C 9.0 - Lantus + SSI - hypoglycemic to 50s AM of 09/13. - labile BPs, w/ highs up to ~400. difficult to control because of extremes - outpatient endocrine followup, perhaps evaluation for insulin pump - check BSG ACHS and as needed anemia - stable elevated alk phos - 800 at admission - most likely 2/2 ESRD HTN - Continue amlodipine, clonidine, hydralazine, and labetalol history of pulmonary embolism- - Continue apixaban PO 2.5mg BID anxiety and depression - Continue buspirone, gabapentin, and paroxetine hypothyroidism (acquired) - Continue levothyroxine GERD - Continue pantoprazole insomnia - Continue melatonin FEN/GI: Dialysis renal and DM1 diet. Fluid restriction 1.2L No IVF ppx: home Eliquis 2.5 BID code: full dispo: PCU (2) Diabetes mellitus type 1: (3) Hypertension: (4) Gait instability: (5) Hypoxemia: (6) Pulmonary hypertension: (7) Pulmonary embolism: (8) Critical illness myopathy: (9) Anxiety with depression: (10) Hypothyroidism (acquired): (11) GERD (gastroesophageal reflux disease): (12) Insomnia: (13) Chronic pain syndrome: Admission and Anticipated Discharge Date Admission Date: September 12, 2020 Supervising Physician Co-Signing Physician Notes Resident Physician Supervision Note: I independently interviewed and examined the patient and verified the gamez history and physical, reviewed labs and image studies and agree with resident Dr. Fontaine findings and care plan. add prn hydroxyzine for anxiety. monitor for oversedation. Subjective Per nursing, patient refused IV iron. Patient's sats were slightly better overnight compared to yesterday. Patient's main complaint is pain (R femoral area. denies saddle anesthesia. also has low back pain and bilat hip pain.) 11/23. The tramadol is not sufficiently alleviating the pain. She inquired about IV pain medications. No numbness or tingling. Her breathing feels better than she did on admission. She feels less fluid-overloaded overall. Review of Systems Review of Systems: Constitutional: Denies fever, chills, weight change Eyes: Denies blurry vision Cardiovascular: Denies chest pain Respiratory: Denies shortness of breath. Her breathing is comfortable. Gastrointestinal: Denies abdominal pain, nausea, vomiting, constipation, diarrhea Genitourinary: ESRD patient Musculoskeletal: See HPI Neurological: Denies headache, numbness, tingling, focal weakness Physical Exam Physical Exam: General: Grossly A&O. NAD. Cooperative. HEENT: Atraumatic, normocephalic. Pulm: CTAB. -wheezes, -rales, -rhonchi. Expirations slightly decreased air movement. No respiratory distress. Cardiac: RRR, -mrg. Abdominal: Nontender, moderately firm, milder than yesterday Results & Data Results & Data ([facility]) Vital Signs (Past 12 Hours) Vital Signs Temp Pulse Resp BP Pulse Ox Pulse Ox 09/14/20 07:42 36.6 C 73 14 119/81 84 L 09/14/20 07:24 20 94 09/14/20 05:45 140/82 09/14/20 03:33 36.8 C 84 20 115/66 97 09/13/20 23:14 37.2 C 80 20 123/81 100 Diagnostic Findings L spine ct: no osteomyelitis. Chest CT: suggests fluid overload. CT abd/pelv: mild pelvic ascites. hepatic congestion. Resident Activity Tracking Resident Involvement: Resident Care Provided Care Provided: Adult Hospital Medicine
[2020-09-14] MEDS ORDERED: IRON SUCROSE 100 MG in SYRINGE 0 ML IV SCH (09:00)
[2020-09-14] MEDS ORDERED: EPOETIN ALFA 10,000 UNITS/ML VIAL IV SCH (09:00)
--- NOTE | 2020-09-14 09:27 | XCELERA ---
[id number] [id number]
--- NOTE | 2020-09-14 10:12 | Communication Note ---
Date of Service: September 14, 2020 Patient with positive cultures from catheter tip. She is afebrile at this time. Will order blood cultures today. If negative will consider a new TDC on Thursday.
[2020-09-14] MEDS: DOCUSATE SODIUM 100 MG CAP PO SCH ×2 (10:20→20:17)
[2020-09-14] MEDS: INSULIN ASPART 100 UNITS/ML 3 ML PEN SC SCH ×4 (10:33→21:42)
[2020-09-14] MEDS: INSULIN GLARGINE SOLOSTAR 100 UNITS/ML 3 ML PEN SC SCH ×2 (10:34→21:43)
--- NOTE | 2020-09-14 13:27 | Pharmacy Report ---
Pharmacy Abx Dose Short Note - Date of Service September 14, 2020 - Assessment & Plan Assessment 30 year old F receiving vancomycin for treatment of MRSA bacteremia. Vanc KIKE reported as 2, lab to confirm. Will keep vanc levels on the upper range for now. Day # 3 of antimicrobial therapy. Plan Vancomycin * Random level of 24.3 mcg/mL after 3 hr Hd session yesterday * Redose 500 mg IV X 1 @ 2000 after 4 hours HD session today * Trough or random level ordered for: 09/15/20 Pharmacy will continue to follow and will adjust dose/frequency as necessary. Thank you.
[2020-09-14] MEDS: traMADol HCL 50 MG TABLET PO PRN (15:44)
[2020-09-14] MEDS: HEPARIN SOD (PORCINE) 1000 UNIT/ML IV SCH ×3 (16:49→21:40)
--- NOTE | 2020-09-14 17:26 | Nephrology Progress Note ---
Date of Service September 14, 2020 Assessment & Plan (1) MRSA bacteremia: 09/12 with pus, redness, and pain at catheter exit site, new since 09/10>> blood cxs 06/17 positive in less than 24 hrs. Pt has had recurrent exit site infections -f/u pending cxs -with her back pain, worsening hypoxia despite aggressive UF, hx of recurrent catheter related infections, low threshold for TTE, for CT c/a/p >> CT unremarkable -on vanco >> dose per pharmacy -recommend infectious diseases consult > to replace TDC after 48 hrs negative cxs; did d/w Dr Marquez (2) Acute and chronic respiratory failure: -on chronic 02 at baseline > 6L per her report; indications for this not fully clear>> on 12L high flow now and some hypoxia despite 5L UF then 3L and going for another 5L today >>>very low threshold for TTE -HD again today (3) ESRD on dialysis: chronic ESRD pt w/ recurrent vol OL. has maturing AVF. tolerated 5L UF yesterday -HD today 4 hrs w/ goal 5L UF -cont 1.2L FR, dialysis/DM diet -next HD 09/15 most likely (4) Anemia of chronic disease: may in part be -continue venofer load started at [facility] >> t stn 9% on 09/06 -20K epo with tx 09/12 adn 100 mg venofer; for another [id number] units epo today; slow down on iron load until cxs finalize -CBC at least every other day pls while in house Admission and Anticipated Discharge Date Admission Date: September 12, 2020 Subjective still on high flow ; no c/o of pain; wondering if we can use avf rather than another tdc Review of Systems Review of Systems: All systems reviewed & are unremarkable except as noted in Subjective Physical Exam Constitutional: well developed, cooperative and + overweight; no acute distress Eyes: EOM intact bilaterally ENMT: Ears: no external ear abnormality Nose: no external nose abnormality Mouth: + dry oral mucous membranes Neck: no nuchal rigidity Respiratory: normal respiratory effort Auscultation: + diminished lung sounds (markedly) Cardiovascular: Extremities: + AV fistula (maturing -- endovascular R forearm w/ + bruit; minimal thrill) Gastrointestinal (Abdomen): Inspection/Auscultation: normal bowel sounds; abdomen not distended Percussion/Palpation: abdomen soft; abdomen nontender (no focal abdominal or CVA tenderness on exam) and no guarding Musculoskeletal: Extremities: strength 5/5 throughout Skin: no rashes, warm and dry + excoriations (many scabbed pustules) Neurologic: walter, fluent/limited speech, no tremor Psychiatric: Orientation: oriented to person and oriented to place (lethargic but wakens fully/briefly) Results & Data ([facility]) Vital Signs (Past 12 Hours) Vital Signs Temp Pulse Pulse Pulse Pulse Resp BP 09/14/20 16:18 73 09/14/20 15:08 36.8 C 73 80 09/14/20 11:21 36.8 C 75 18 113/68 09/14/20 08:20 93 H 09/14/20 07:42 36.6 C 73 14 119/81 09/14/20 07:24 20 09/14/20 05:45 140/82 Pulse Ox Pulse Ox 09/14/20 16:18 09/14/20 15:08 09/14/20 11:21 100 09/14/20 08:20 09/14/20 07:42 84 L 09/14/20 07:24 94 09/14/20 05:45 Laboratory Results 09/14/20 06:43 09/14/20 06:43
[2020-09-14] MEDS ORDERED: VANCOMYCIN HCL 500 MG in SODIUM CHLORIDE 0.9% 250 ML IV SCH (20:00)
[2020-09-15] MEDS: hydrALAZINE TAB 50 MG TAB PO SCH ×3 (05:49→21:47)
[2020-09-15] MEDS: cloNIDine HCL 0.1 MG TAB PO SCH ×3 (05:49→21:47)
[2020-09-15] MEDS: LEVOTHYROXINE SODIUM 25 MCG TABLET PO SCH (05:49)
[2020-09-15] MEDS: LABETALOL HCL 300 MG TAB PO SCH ×3 (05:49→21:47)
[2020-09-15] MEDS: PANTOprazole 40 MG TAB PO SCH (05:49)
[2020-09-15 07:17] LABS: Basophils # (auto) 0.06 K/uL (0-0.2); Basophils % (auto) 0.9 %; Eosinophils # (auto) 0.39 K/uL (0-0.5); Eosinophils % (auto) 5.7 %; Hematocrit (blood only) 30.3 % (37-47); Hemoglobin 9.3 g/dL (12.0-16.0); Immature Granulocytes # (auto) 0.04 K/uL (0.00-0.02); Immature Granulocytes % (auto) 0.6 %; Lymphocytes # (auto) 1.24 K/uL (1.2-3.4); Lymphocytes % (auto) 18.2 %; Mean Corpuscular Hemoglobin 29.6 pg (25-34); Mean Corpuscular Hgb Conc 30.7 g/dL (32-36); Mean Corpuscular Volume 96.5 fL (80-100); Mean Platelet Volume 10.9 fL (7.4-10.4); Monocytes % (auto) 13.2 %; Neutrophils % (auto) 61.4 %; Platelet Count 432 K/uL (130-400); RDW Coefficient of Variation 19.5 % (11.5-14.5); RDW Standard Deviation 69.3 fL (36.4-46.3); Red Blood Count 3.14 M/uL (4.2-5.4); White Blood Count 6.83 K/uL (4.8-10.8)
[2020-09-15 08:03] LABS: BUN Creatinine Ratio 6.7 (10-20); Calcium 9.3 mg/dl (8.5-10.1); Est GFR (Non-African American) 20.7 ml/min; Magnesium 2.2 mg/dl (1.8-2.4); Potassium 3.7 mmol/L (3.5-5.1)
--- NOTE | 2020-09-15 08:56 | Pharmacy Report ---
Pharmacy Abx Dose Short Note - Date of Service September 15, 2020 - Assessment & Plan Assessment 30 year old F receiving Vancomycin IV for treatment of MRSA bacteremia * Day # 4 of antimicrobial therapy. * Confirmed with lab/microbiology this morning; KIKE of vanco is 1 (sensitive) based on turbidity method. Initially reported as 2. Vanco should be adequate for treatment of MRSA bacteremia. * Random level of vancomycin this morning is 25.5 mcg/ml. No vanco needed today regardless if patient received HD or not based on HD Vanco guidelines. * Goal is to maintain random levels in the 15-25 range and re-dose after HD- dose will be based on pre-HD level * Will re-check a random level tomorrow morning in the event that patient does receive HD tomorrow. Pt does make a little bit of urine per nursing although they are not sure how much because they are not keeping strict I&O Plan Vancomycin * No dose needed today * Re-check random level in AM 09/16/20 Pharmacy will continue to follow and will adjust dose/frequency as necessary. Thank you.
[2020-09-15] MEDS: SEVELAMER HCL 800 MG TABLET PO SCH ×3 (09:14→16:40)
[2020-09-15] MEDS: APIXABAN 2.5 MG TAB PO SCH ×2 (09:15→19:44)
[2020-09-15] MEDS: busPIRone 5 MG TAB PO SCH ×2 (09:15→19:44)
[2020-09-15] MEDS: amLODIPine BESYLATE 5 MG TAB PO SCH (09:15)
[2020-09-15] MEDS: GABAPENTIN 300 MG CAP PO SCH ×2 (09:16→19:44)
[2020-09-15] MEDS: PARoxetine HCL 10 MG TAB PO SCH (09:17)
[2020-09-15] MEDS: DOCUSATE SODIUM 100 MG CAP PO SCH ×2 (09:17→19:24)
[2020-09-15] MEDS: INSULIN ASPART 100 UNITS/ML 3 ML PEN SC SCH ×4 (10:23→21:49)
[2020-09-15] MEDS: INSULIN GLARGINE SOLOSTAR 100 UNITS/ML 3 ML PEN SC SCH ×2 (10:24→21:49)
--- NOTE | 2020-09-15 10:51 | Hospitalist Progress Note ---
Date of Service September 15, 2020 Assessment & Plan (1) ESRD on dialysis: 30 y/o F w/ ESRD on MWF HD, DM1, NSTEMI, PE on AC, chronic resp failure who presented from [facility] for SOB likely secondary to fluid overload in context of needing dialysis. Sepsis 2/2 infected port: - Requires port for frequent dialysis in the setting of end-stage renal disease - blood culture demonstrating MRSA x2 - wound culture catheter tip demonstrating MRSA - Continue IV vancomycin - [facility] ID consulted: recommended TTE. result: normal EF >70%. No wall motion abnormalities. Mild pulm HTN. - concern for L upper chest dialysis catheter site infection. - vascular consulted: potential for new tunneled dialysis catheter on Sunday 09/17 if repeat blood cultures (repeat on 09/14) negative Hypervolemia secondary to end-stage renal disease: - reported wt gain, [place] bnp [id number] at admission - Patient receiving dialysis; however given extent of disease process expressed concern/consideration of stopping this as she feels like she is only worsening - Patient accepting of dialysis today (09/15), but desires to revisit this on a day by day basis - continue sevelamer Chronic respiratory failure: - per patient: secondary to chronic PEs - titrate supplemental O2. required bipap briefly on 09/13 AM after IV Dilaudid dose -> desat to 60s - Patient reports oxygen requirement of 6 L at home at baseline - Able to be weaned here in hospital to 1 L nasal cannula - Continue to titrate and utilize maintaining saturations greater than 92% Opioid dependence: - Patient has chronic pain frequently requiring/requesting narcotics - narcotic medications held in the setting of desaturations and increased oxygen requirement (self-reported 6L home O2 baseline) Type 1 diabetes: - A1C 9.0 - Lantus + SSI - hypoglycemic to 50s AM of 09/13. - labile BPs, w/ highs up to ~400. difficult to control because of extremes - outpatient endocrine followup, perhaps evaluation for insulin pump - check BSG ACHS and as needed Chronic anemia: - Hemoglobin stable - Likely secondary to of end-stage renal disease elevated alk phos - 800 at admission - most likely 2/2 ESRD HTN: - Continue amlodipine, clonidine, hydralazine, and labetalol H/o pulmonary embolism: - Continue apixaban PO 2.5mg BID Anxiety and Depression: - Continue buspirone, gabapentin, and paroxetine Hypothyroidism: - Continue levothyroxine GERD - Continue pantoprazole Insomnia: - Continue melatonin Diet: Dialysis renal and DM1 diet. Fluid restriction 1.2L No IVF DVT ppx: home Eliquis 2.5 BID code: full (2) Diabetes mellitus type 1: (3) Hypertension: (4) Gait instability: (5) Hypoxemia: (6) Pulmonary hypertension: (7) Pulmonary embolism: (8) Critical illness myopathy: (9) Anxiety with depression: (10) Hypothyroidism (acquired): (11) GERD (gastroesophageal reflux disease): (12) Insomnia: (13) Chronic pain syndrome: Admission and Anticipated Discharge Date Admission Date: September 12, 2020 Supervising Physician Co-Signing Physician Notes Resident Physician Supervision Note: I independently interviewed and examined the patient and verified the gamez history and physical, reviewed labs and image studies and agree with resident Dr. Orozco findings and care plan. Subjective Overnight patient had a lot of frustrations secondary to her pain, and additionally subsequently refused her medications. Previously she had been requesting to stop additional treatments; however, she is agreeable to dialysis today but wants to revisit her goals of care and potential dialysis treatments in the future on a daily basis. Otherwise feeling well with the exception of just being tired, and worn out from extended treatments. Review of Systems Review of Systems: All systems reviewed & are unremarkable except as noted in Subjective Physical Exam Constitutional: well developed and cooperative; no acute distress Eyes: PERRL, conjunctivae normal, anicteric sclerae ENMT: Nose: no external nose abnormality Mouth: + dry oral mucous membranes; no oropharynx abnormality Respiratory: normal respiratory effort; no respiratory distress and no labored breathing Auscultation: + diminished lung sounds (b/l) Cardiovascular: Rate/Rhythm: regular rate and regular rhythm Heart Sounds: no gallop, no murmur and no cardiac rub Gastrointestinal (Abdomen): normal bowel sounds, soft, nontender, no hepatosplenomegaly Skin: no rashes, warm and dry + crusts Psychiatric: Orientation: alert and oriented x 3 Results & Data Results & Data ([facility]) Vital Signs (Past 12 Hours) Vital Signs Temp Pulse Pulse Resp BP Pulse Ox 09/15/20 07:48 37.0 C 75 18 129/74 98 09/15/20 03:46 37.1 C 74 20 115/62 100 09/14/20 23:35 37.4 C 88 20 141/86 H 98 Laboratory Results 09/15/20 09/15/20 09/15/20 Range/Units 11:39 07:47 06:50 WBC 6.83 (4.8-10.8) K/uL RBC 3.14 L (4.2-5.4) M/uL Hgb 9.3 L (12.0-16.0) g/dL Hct 30.3 L (37-47) % MCV 96.5 (80-100) fL MCH 29.6 (25-34) pg MCHC 30.7 L (32-36) g/dL RDW Std Deviation 69.3 H (36.4-46.3) fL RDW Coeff of Misael 19.5 H (11.5-14.5) % Plt Count 432 H (130-400) K/uL MPV 10.9 H (7.4-10.4) fL Immature Gran % (Auto) 0.6 % Neut % (Auto) 61.4 % Lymph % (Auto) 18.2 % Nance % (Auto) 13.2 % Eos % (Auto) 5.7 % Baso % (Auto) 0.9 % Neut # (Auto) 4.20 (1.4-6.5) K/uL Lymph # (Auto) 1.24 (1.2-3.4) K/uL Nance # (Auto) 0.90 H (0.11-0.59) K/uL Eos # (Auto) 0.39 (0-0.5) K/uL Baso # (Auto) 0.06 (0-0.2) K/uL Immature Gran # (Auto) 0.04 H (0.00-0.02) K/uL Sodium (136-145) mmol/L Potassium (3.5-5.1) mmol/L Chloride (98-107) mmol/L Carbon Dioxide (21-32) mmol/L Anion Gap (3-11) BUN (7-18) mg/dl Creatinine (0.6-1.2) mg/dl Est Cr Clr Drug Dosing ml/min Est GFR ( Amer) ml/min Est GFR (Non-Af Amer) ml/min BUN/Creatinine Ratio (10-20) Glucose (70-99) mg/dl POC Glucose 152 H 160 H (70-99) mg/dl Calcium (8.5-10.1) mg/dl Magnesium (1.8-2.4) mg/dl Random Vancomycin mcg/ml 09/15/20 09/15/20 09/14/20 Range/Units 06:50 06:50 20:39 WBC (4.8-10.8) K/uL RBC (4.2-5.4) M/uL Hgb (12.0-16.0) g/dL Hct (37-47) % MCV (80-100) fL MCH (25-34) pg MCHC (32-36) g/dL RDW Std Deviation (36.4-46.3) fL RDW Coeff of Misael (11.5-14.5) % Plt Count (130-400) K/uL MPV (7.4-10.4) fL Immature Gran % (Auto) % Neut % (Auto) % Lymph % (Auto) % Nance % (Auto) % Eos % (Auto) % Baso % (Auto) % Neut # (Auto) (1.4-6.5) K/uL Lymph # (Auto) (1.2-3.4) K/uL Nance # (Auto) (0.11-0.59) K/uL Eos # (Auto) (0-0.5) K/uL Baso # (Auto) (0-0.2) K/uL Immature Gran # (Auto) (0.00-0.02) K/uL Sodium 134 L (136-145) mmol/L Potassium 3.7 D (3.5-5.1) mmol/L Chloride 100 (98-107) mmol/L Carbon Dioxide 26 (21-32) mmol/L Anion Gap 8.0 (3-11) BUN 20 H (7-18) mg/dl Creatinine 2.95 H D (0.6-1.2) mg/dl Est Cr Clr Drug Dosing 24.0 ml/min Est GFR ( Amer) 24.0 ml/min Est GFR (Non-Af Amer) 20.7 ml/min BUN/Creatinine Ratio 6.7 L (10-20) Glucose 178 H (70-99) mg/dl POC Glucose 162 H (70-99) mg/dl Calcium 9.3 (8.5-10.1) mg/dl Magnesium 2.2 (1.8-2.4) mg/dl Random Vancomycin 25.5 mcg/ml 09/14/20 Range/Units 16:01 WBC (4.8-10.8) K/uL RBC (4.2-5.4) M/uL Hgb (12.0-16.0) g/dL Hct (37-47) % MCV (80-100) fL MCH (25-34) pg MCHC (32-36) g/dL RDW Std Deviation (36.4-46.3) fL RDW Coeff of Misael (11.5-14.5) % Plt Count (130-400) K/uL MPV (7.4-10.4) fL Immature Gran % (Auto) % Neut % (Auto) % Lymph % (Auto) % Nance % (Auto) % Eos % (Auto) % Baso % (Auto) % Neut # (Auto) (1.4-6.5) K/uL Lymph # (Auto) (1.2-3.4) K/uL Nance # (Auto) (0.11-0.59) K/uL Eos # (Auto) (0-0.5) K/uL Baso # (Auto) (0-0.2) K/uL Immature Gran # (Auto) (0.00-0.02) K/uL Sodium (136-145) mmol/L Potassium (3.5-5.1) mmol/L Chloride (98-107) mmol/L Carbon Dioxide (21-32) mmol/L Anion Gap (3-11) BUN (7-18) mg/dl Creatinine (0.6-1.2) mg/dl Est Cr Clr Drug Dosing ml/min Est GFR ( Amer) ml/min Est GFR (Non-Af Amer) ml/min BUN/Creatinine Ratio (10-20) Glucose (70-99) mg/dl POC Glucose 94 (70-99) mg/dl Calcium (8.5-10.1) mg/dl Magnesium (1.8-2.4) mg/dl Random Vancomycin mcg/ml Medications Administered Current Inpatient Medications Acetaminophen (Acetaminophen 325 Mg Tab) 650 mg PO Q4 PRN PRN Reason: Unknown Stop: 10/12/20 01:34 Amlodipine Besylate (Amlodipine Besylate 5 Mg Tab) 10 mg PO DAILY [facility] Stop: 10/12/20 08:59 Last Admin: 09/15/20 09:15 Dose: 10 mg Documented by: Apixaban (Apixaban 2.5 Mg Tab) 2.5 mg PO Q12 [facility] Stop: 10/12/20 08:59 Last Admin: 09/15/20 09:15 Dose: 2.5 mg Documented by: Bisacodyl (Bisacodyl 10 Mg Supp) 10 mg DE DAILY PRN PRN Reason: Unknown Stop: 10/12/20 01:34 Buspirone HCl (Buspirone 5 Mg Tab) 10 mg PO DAILY [facility]MENT Stop: 10/12/20 08:59 Last Admin: 09/15/20 09:15 Dose: 10 mg Documented by: Buspirone HCl (Buspirone 5 Mg Tab) 20 mg PO HS [facility] Stop: 10/12/20 20:59 Last Admin: 09/14/20 20:16 Dose: 20 mg Documented by: Clonidine HCl (Clonidine Hcl 0.1 Mg Tab) 0.1 mg PO Q8 [facility] Stop: 10/12/20 05:59 Last Admin: 09/15/20 05:49 Dose: 0.1 mg Documented by: Dextrose (Dextrose 50% 50 Ml Syringe) 25 - 50 ml IV UD PRN; Protocol PRN Reason: Hypoglycemia Protocol Stop: 10/12/20 01:54 Last Admin: 09/13/20 11:58 Dose: 25 ml Documented by: Diphenhydramine HCl (Diphenhydramine Capsule 25 Mg Cap) 25 mg PO MoWeFr PRN PRN Reason: Unknown Stop: 10/12/20 01:34 Docusate Sodium (Docusate Sodium 100 Mg Cap) 100 mg PO BID [facility] Stop: 10/12/20 08:59 Last Admin: 09/15/20 09:17 Dose: Not Given Documented by: Gabapentin (Gabapentin 300 Mg Cap) 300 mg PO BID [facility] Stop: 10/12/20 08:59 Last Admin: 09/15/20 09:16 Dose: 300 mg Documented by: Glucagon (Glucagon For Inj 1 Mg Vial) 1 mg SQ UD PRN; Protocol PRN Reason: Hypoglycemia Protocol Stop: 10/12/20 01:54 Glucose (Glucose 10 Tabs/Tube) 4 - 8 tabs PO UD PRN; Protocol PRN Reason: Hypoglycemia Protocol Stop: 10/12/20 01:54 Last Admin: 09/13/20 11:33 Dose: 8 tabs Documented by: Glucose (Glucose 40% Gel 15 Gm Tube) 15 - 30 gm PO UD PRN; Protocol PRN Reason: Hypoglycemia Protocol Stop: 10/12/20 01:54 Hydralazine HCl (Hydralazine Tab 50 Mg Tab) 100 mg PO Q8 [facility] Stop: 10/12/20 05:59 Last Admin: 09/15/20 05:49 Dose: 100 mg Documented by: Sodium Chloride (Nss 1000ml) 1,000 mls @ 0 mls/hr IV .Q0M PRN PRN Reason: For Hemodialysis Use ONLY Stop: 09/15/20 18:42 Insulin Aspart (Insulin Aspart 100 Units/Ml 3 Ml Pen) 0 units SC ACHS [facility] Stop: 10/12/20 07:29 Last Admin: 09/15/20 12:45 Dose: 8 units Documented by: Insulin Glargine (Insulin Glargine Solostar 100 Units/Ml 3 Ml Pen) 8 units SC Q12 [facility] Stop: 10/12/20 08:59 Last Admin: 09/15/20 10:24 Dose: 8 units Documented by: Labetalol HCl (Labetalol Hcl 300 Mg Tab) 300 mg PO Q8 [facility] Stop: 10/12/20 05:59 Last Admin: 09/15/20 05:49 Dose: 300 mg Documented by: Levothyroxine Sodium (Levothyroxine Sodium 25 Mcg Tablet) 25 mcg PO DAILYBB [facility] Stop: 10/12/20 06:29 Last Admin: 09/15/20 05:49 Dose: 25 mcg Documented by: Melatonin (Melatonin 3 Mg Tab) 3 mg PO HS PRN PRN Reason: Insomnia Stop: 10/12/20 01:34 Miscellaneous (Carbohydrates For Hypoglycemia ) 15 - 30 gm PO UD PRN PRN Reason: Hypoglycemia Protocol Stop: 10/12/20 01:54 Miscellaneous Information (Vancomycin Consult Active) 1 ea N/A UD PRN PRN Reason: Consult Stop: 10/12/20 09:40 Naloxone HCl (Naloxone Hcl 0.4 Mg/1 Ml Vial/Carp) 0.1 mg IV Q5M PRN; Protocol PRN Reason: Oversedation/Resp Depression Stop: 09/26/20 19:04 Nitroglycerin (Nitroglycerin Sl 0.4 Mg/Tab Tab) 0.4 mg SL UD PRN PRN Reason: Chest Pain Stop: 10/12/20 01:54 Ondansetron HCl (Ondansetron 4 Mg Od Tab) 4 mg PO Q8H PRN PRN Reason: Nausea And Vomiting Stop: 10/12/20 03:15 Last Admin: 09/12/20 07:30 Dose: 4 mg Documented by: Ondansetron HCl (Ondansetron Inj 2 Mg/Ml 2 Ml Vial) 4 mg IV Q6H PRN PRN Reason: Nausea Stop: 10/12/20 01:54 Last Admin: 09/12/20 10:07 Dose: 4 mg Documented by: Pantoprazole Sodium (Pantoprazole 40 Mg Tab) 40 mg PO DAILYBB [facility] Stop: 10/12/20 06:29 Last Admin: 09/15/20 05:49 Dose: 40 mg Documented by: Paroxetine HCl (Paroxetine Hcl 10 Mg Tab) 30 mg PO DAILY [facility] Stop: 10/12/20 08:59 Last Admin: 09/15/20 09:17 Dose: 30 mg Documented by: Polyethylene Glycol (Polyethylene (Miralax) 17 Gm Pack) 17 gm PO DAILY PRN PRN Reason: Constipation Stop: 10/12/20 01:34 Senna/Docusate Sodium (Docusate Sodium/Senna 50/8.6mg Tab) 1 tab PO QDL PRN PRN Reason: Constipation Stop: 10/12/20 01:34 Sevelamer HCl (Sevelamer Hcl 800 Mg Tablet) 800 mg PO TIDM [facility] Stop: 10/12/20 07:59 Last Admin: 09/15/20 12:09 Dose: 800 mg Documented by: Sodium Biphosphate/Sodium Phosphate (Sod Phosphate/Sod Biphosphate Enema 132 Ml Btl) 132 ml DE DAILY PRN PRN Reason: Constipation Stop: 10/12/20 01:34 Tramadol HCl (Tramadol Hcl 50 Mg Tablet) 50 mg PO Q6H PRN PRN Reason: Moderate Pain Stop: 10/12/20 01:34 Last Admin: 09/14/20 15:44 Dose: 50 mg Documented by: Resident Activity Tracking Resident Involvement: Resident Care Provided Care Provided: Adult [facility] Medicine
--- NOTE | 2020-09-15 12:42 | Nephrology Progress Note ---
Date of Service September 15, 2020 Assessment & Plan (1) MRSA bacteremia: 09/12 with pus, redness, and pain at catheter exit site, new since 09/10>> blood cxs 06/17 positive in less than 24 hrs. Pt has had recurrent exit site infections -f/u pending cxs -with her back pain, worsening hypoxia despite aggressive UF, hx of recurrent catheter related infections, low threshold for TTE, for CT c/a/p >> CT unremarkable -on vanco >> dose per pharmacy -f/u cxs from 09/14 are NGTD > to replace TDC after 48 hrs negative cxs; did d/w Dr Marquez (2) Acute and chronic respiratory failure: -on chronic 02 at baseline > 6L per her report here; told me 3L at [facility] previously; indications for this not fully clear>> maintaining sats on 1L currently >>>TTE w/ mild plm HTN and mild CLVH; CT chest 09/13 w/ ff suspicious for plm edema -HD again today (3) ESRD on dialysis: chronic ESRD pt w/ recurrent vol OL. has maturing AVF. tolerated 5L UF yesterday -HD today 2.5 hrs w/ goal 2.5L UF -cont 1.2L FR, dialysis/DM diet -after some discussion > pt agrees to HD to day 2.5 hr w/ plan of not needing further HD until 09/17; goal 2.5L UF (4) Anemia of chronic disease: may in part be -continue venofer load started at [facility] >> t stn 9% on 09/06 -slow down on iron load until cxs finalize -CBC at least every other day pls while in house -will not give epo today > has had several high doses this week (5) Goals of care, counseling/discussion: I spent > 10 minutes talking w/ pt today about her statements yesterday indicating wants to withdraw from dialysis and go on hospice. She acknowledges being tired physically and being tired from managing/facing all of her chronic medical issues; also endorses depression + but no SI/HI. -She agrees to dialysis today so that she can then take tomorrow to rest more and to think about goals of care -?if better way to address depression in house Present on Admission?: Yes Admission and Anticipated Discharge Date Admission Date: September 12, 2020 Physical Exam Constitutional: well developed, cooperative and + overweight; no acute distress Eyes: EOM intact bilaterally ENMT: Ears: no external ear abnormality Nose: no external nose abnormality Mouth: + dry oral mucous membranes Neck: no nuchal rigidity Respiratory: normal respiratory effort Auscultation: + diminished lung sounds (markedly) Cardiovascular: Extremities: + AV fistula (maturing -- endovascular R forearm w/ + bruit; minimal thrill) Gastrointestinal (Abdomen): Inspection/Auscultation: normal bowel sounds; abdomen not distended Percussion/Palpation: abdomen soft; abdomen nontender (no focal abdominal or CVA tenderness on exam) and no guarding Musculoskeletal: Extremities: strength 5/5 throughout Skin: no rashes, warm and dry + excoriations (many scabbed pustules) Psychiatric: Orientation: oriented to person and oriented to place (lethargic but wakens fully/briefly) Results & Data ([facility]) Vital Signs (Past 12 Hours) Vital Signs Temp Pulse Pulse Pulse Resp BP Pulse Ox 09/15/20 11:58 36.8 C 90 18 133/67 95 09/15/20 08:40 73 09/15/20 07:48 37.0 C 75 18 129/74 98 09/15/20 03:46 37.1 C 74 20 115/62 100
[2020-09-15] MEDS ORDERED: SODIUM CHLORIDE 0.9% 1000ML 1,000 ML IV PRN (12:43)
[2020-09-15] MEDS ORDERED: HEPARIN SOD (PORCINE) 1000 UNIT/ML IV ONE (12:43)
[2020-09-15] MEDS: traMADol HCL 50 MG TABLET PO PRN (16:38)
[2020-09-15] MEDS ORDERED: hydrOXYzine HCl 25 MG TAB PO STA (17:50)
[2020-09-15] MEDS: DICLOFENAC SOD 1% GEL 100 GM TUBE EXT SCH (20:17)
[2020-09-15] MEDS: LIDOCAINE 5% 1 PATCH TD SCH (20:17)
[2020-09-15] MEDS: ACETAMINOPHEN 325 MG TAB PO PRN (21:47)
[2020-09-15] MEDS: HEPARIN SOD (PORCINE) 1000 UNIT/ML IV SCH ×2 (21:58→21:59)
[2020-09-16 06:16] LABS: Basophils # (auto) 0.03 K/uL (0-0.2); Basophils % (auto) 0.5 %; Eosinophils # (auto) 0.48 K/uL (0-0.5); Eosinophils % (auto) 7.4 %; Hematocrit (blood only) 32.1 % (37-47); Hemoglobin 9.8 g/dL (12.0-16.0); Immature Granulocytes # (auto) 0.07 K/uL (0.00-0.02); Immature Granulocytes % (auto) 1.1 %; Lymphocytes # (auto) 1.26 K/uL (1.2-3.4); Lymphocytes % (auto) 19.4 %; Mean Corpuscular Hgb Conc 30.5 g/dL (32-36); Mean Corpuscular Volume 98.2 fL (80-100); Mean Platelet Volume 10.6 fL (7.4-10.4); Monocytes # (auto) 0.94 K/uL (0.11-0.59); Monocytes % (auto) 14.5 %; Neutrophils % (auto) 57.1 %; Nucleated RBC # (auto) 0.03 K/uL (0-0); Nucleated RBC % (auto) 0.5 %; Platelet Count 454 K/uL (130-400); RDW Coefficient of Variation 19.6 % (11.5-14.5); RDW Standard Deviation 69.1 fL (36.4-46.3); Red Blood Count 3.27 M/uL (4.2-5.4); White Blood Count 6.48 K/uL (4.8-10.8)
[2020-09-16] MEDS: LEVOTHYROXINE SODIUM 25 MCG TABLET PO SCH (06:19)
[2020-09-16] MEDS: hydrALAZINE TAB 50 MG TAB PO SCH ×3 (06:19→22:34)
[2020-09-16] MEDS: PANTOprazole 40 MG TAB PO SCH (06:20)
[2020-09-16] MEDS: cloNIDine HCL 0.1 MG TAB PO SCH ×3 (06:20→22:34)
[2020-09-16] MEDS: LABETALOL HCL 300 MG TAB PO SCH ×3 (06:20→22:34)
[2020-09-16 06:48] LABS: BUN Creatinine Ratio 8.2 (10-20); Calcium 9.4 mg/dl (8.5-10.1); Est GFR (African American) 19.6 ml/min; Est GFR (Non-African American) 16.9 ml/min; Potassium 3.9 mmol/L (3.5-5.1)
[2020-09-16] MEDS: DICLOFENAC SOD 1% GEL 100 GM TUBE EXT SCH (08:31)
[2020-09-16] MEDS: SEVELAMER HCL 800 MG TABLET PO SCH ×3 (08:32→17:12)
[2020-09-16] MEDS: APIXABAN 2.5 MG TAB PO SCH ×2 (08:33→20:32)
[2020-09-16] MEDS: busPIRone 5 MG TAB PO SCH ×2 (08:33→20:31)
[2020-09-16] MEDS: GABAPENTIN 300 MG CAP PO SCH ×2 (08:34→20:32)
[2020-09-16] MEDS: PARoxetine HCL 10 MG TAB PO SCH (08:34)
[2020-09-16] MEDS: amLODIPine BESYLATE 5 MG TAB PO SCH (08:34)
[2020-09-16] MEDS: DOCUSATE SODIUM 100 MG CAP PO SCH ×2 (08:36→20:32)
[2020-09-16] MEDS: ACETAMINOPHEN 325 MG TAB PO PRN ×2 (09:00→17:12)
[2020-09-16] MEDS: traMADol HCL 50 MG TABLET PO PRN ×2 (09:00→17:11)
[2020-09-16] MEDS: INSULIN ASPART 100 UNITS/ML 3 ML PEN SC SCH ×5 (09:12→22:40)
[2020-09-16] MEDS: INSULIN GLARGINE SOLOSTAR 100 UNITS/ML 3 ML PEN SC SCH ×2 (09:13→20:36)
--- NOTE | 2020-09-16 10:07 | Hospitalist Progress Note ---
Date of Service September 16, 2020 Assessment & Plan (1) ESRD on dialysis: 30 y/o F w/ ESRD on MWF HD, DM1, NSTEMI, PE on AC, chronic resp failure who presented from [facility] for SOB likely secondary to fluid overload in context of needing dialysis. Sepsis 2/2 infected port: - Requires port for frequent dialysis in the setting of end-stage renal disease - blood culture demonstrating MRSA x2 - Repeat blood cultures from 09/14 with no growth after >48hrs - wound culture catheter tip demonstrating MRSA - Continue IV vancomycin - [facility] ID consulted: recommended TTE. result: No vegetation. (normal EF >70%. No wall motion abnormalities. Mild pulm HTN). - concern for L upper chest dialysis catheter site infection. - vascular consulted: potential for new tunneled dialysis catheter on Sunday 09/17 if repeat blood cultures (repeat on 09/14) negative -N.p.o. at midnight for potential new TDC Hypervolemia secondary to end-stage renal disease: - reported wt gain, LE edema - bnp [id number] at admission - Patient receiving dialysis; - continue sevelamer Chronic respiratory failure: - per patient: secondary to chronic PEs with baseline oxygen requirement of 6 L at home - titrate supplemental O2. required bipap briefly on 09/13 AM after IV Dilaudid dose -> desat to 60s - Able to be weaned here in hospital to 1 L nasal cannula - Continue to titrate and utilize maintaining saturations greater than 92% - add incentive spirometer Opioid dependence: - Patient has chronic pain frequently requiring/requesting narcotics - narcotic medications held in the setting of desaturations and increased oxygen requirement (self-reported 6L home O2 baseline) Type 1 diabetes: - A1C 9.0 - Lantus + SSI - hypoglycemic to 50s AM of 09/13. - labile BPs, w/ highs up to ~400. difficult to control because of extremes - outpatient endocrine followup, perhaps evaluation for insulin pump - check BSG ACHS and as needed Chronic anemia: - Hemoglobin stable - Likely secondary to of end-stage renal disease elevated alk phos - 800 at admission - most likely 2/2 ESRD HTN: - Continue amlodipine, clonidine, hydralazine, and labetalol H/o pulmonary embolism: - Continue apixaban PO 2.5mg BID Anxiety and Depression: - Continue buspirone, gabapentin, and paroxetine Hypothyroidism: - Continue levothyroxine GERD - Continue pantoprazole Insomnia: - Continue melatonin Diet: Dialysis renal and DM1 diet. Fluid restriction 1.2L; n.p.o. at midnight DVT ppx: home Eliquis 2.5 BID code: full (2) Diabetes mellitus type 1: (3) Hypertension: (4) Gait instability: (5) Hypoxemia: (6) Pulmonary hypertension: (7) Pulmonary embolism: (8) Critical illness myopathy: (9) Anxiety with depression: (10) Hypothyroidism (acquired): (11) GERD (gastroesophageal reflux disease): (12) Insomnia: (13) Chronic pain syndrome: Admission and Anticipated Discharge Date Admission Date: September 12, 2020 Supervising Physician Co-Signing Physician Notes Resident Physician Supervision Note: I independently interviewed and examined the patient and verified the gamez history and physical, reviewed labs and image studies and agree with resident Dr. Orozco findings and care plan. Subjective Overnight patient had a lot of frustrations secondary to her pain, and did refuse medications again last night. Did express last time she had a lot of back and hip pain but did not want to take medications. Expresses frustration with extent of medical treatments and seeming lack of stability as she has required many different treatments. Did have some desaturations earlier today, was taking her daily medications; these quickly resolved without additional oxygen supplementation. Review of Systems Review of Systems: All systems reviewed & are unremarkable except as noted in Subjective Physical Exam Constitutional: well developed and cooperative; no acute distress Eyes: PERRL, conjunctivae normal, anicteric sclerae ENMT: Nose: no external nose abnormality Mouth: + dry oral mucous membranes; no oropharynx abnormality Respiratory: normal respiratory effort; no respiratory distress and no labored breathing Auscultation: + diminished lung sounds (b/l) Cardiovascular: Rate/Rhythm: regular rate and regular rhythm Heart Sounds: no gallop, no murmur and no cardiac rub Gastrointestinal (Abdomen): normal bowel sounds, soft, nontender, no hepatosplenomegaly Skin: no rashes, warm and dry + crusts Psychiatric: Orientation: alert and oriented x 3 Results & Data Results & Data ([facility] [place]) Vital Signs (Past 12 Hours) Vital Signs Temp Pulse Pulse Resp BP Pulse Ox 09/16/20 07:45 36.8 C 74 18 101/62 92 07/04/21 06:15 75 123/86 09/16/20 04:21 36.7 C 75 16 111/56 L 94 09/15/20 23:36 37.1 C 80 16 131/78 93 Laboratory Results 09/16/20 09/16/20 09/16/20 Range/Units 11:37 07:47 05:55 WBC (4.8-10.8) K/uL RBC (4.2-5.4) M/uL Hgb (12.0-16.0) g/dL Hct (37-47) % MCV (80-100) fL MCH (25-34) pg MCHC (32-36) g/dL RDW Std Deviation (36.4-46.3) fL RDW Coeff of Misael (11.5-14.5) % Plt Count (130-400) K/uL MPV (7.4-10.4) fL Immature Gran % (Auto) % Neut % (Auto) % Lymph % (Auto) % Mcmullen % (Auto) % Eos % (Auto) % Baso % (Auto) % Neut # (Auto) (1.4-6.5) K/uL Lymph # (Auto) (1.2-3.4) K/uL Mcmullen # (Auto) (0.11-0.59) K/uL Eos # (Auto) (0-0.5) K/uL Baso # (Auto) (0-0.2) K/uL Immature Gran # (Auto) (0.00-0.02) K/uL Absolute Nucleated RBC (0-0) K/uL Nucleated RBC % (auto) % Sodium 134 L (136-145) mmol/L Potassium 3.9 (3.5-5.1) mmol/L Chloride 102 (98-107) mmol/L Carbon Dioxide 24 (21-32) mmol/L Anion Gap 8.0 (3-11) BUN 29 H (7-18) mg/dl Creatinine 3.49 H D (0.6-1.2) mg/dl Est Cr Clr Drug Dosing 20.0 ml/min Est GFR ( Amer) 19.6 ml/min Est GFR (Non-Af Amer) 16.9 ml/min BUN/Creatinine Ratio 8.2 L (10-20) Glucose 278 H (70-99) mg/dl POC Glucose 202 H 254 H (70-99) mg/dl Calcium 9.4 (8.5-10.1) mg/dl Random Vancomycin mcg/ml 09/16/20 09/16/20 09/15/20 Range/Units 05:55 05:55 20:37 WBC 6.48 (4.8-10.8) K/uL RBC 3.27 L (4.2-5.4) M/uL Hgb 9.8 L (12.0-16.0) g/dL Hct 32.1 L (37-47) % MCV 98.2 (80-100) fL MCH 30.0 (25-34) pg MCHC 30.5 L (32-36) g/dL RDW Std Deviation 69.1 H (36.4-46.3) fL RDW Coeff of Misael 19.6 H (11.5-14.5) % Plt Count 454 H (130-400) K/uL MPV 10.6 H (7.4-10.4) fL Immature Gran % (Auto) 1.1 % Neut % (Auto) 57.1 % Lymph % (Auto) 19.4 % Mcmullen % (Auto) 14.5 % Eos % (Auto) 7.4 % Baso % (Auto) 0.5 % Neut # (Auto) 3.70 (1.4-6.5) K/uL Lymph # (Auto) 1.26 (1.2-3.4) K/uL Mcmullen # (Auto) 0.94 H (0.11-0.59) K/uL Eos # (Auto) 0.48 (0-0.5) K/uL Baso # (Auto) 0.03 (0-0.2) K/uL Immature Gran # (Auto) 0.07 H (0.00-0.02) K/uL Absolute Nucleated RBC 0.03 H (0-0) K/uL Nucleated RBC % (auto) 0.5 % Sodium (136-145) mmol/L Potassium (3.5-5.1) mmol/L Chloride (98-107) mmol/L Carbon Dioxide (21-32) mmol/L Anion Gap (3-11) BUN (7-18) mg/dl Creatinine (0.6-1.2) mg/dl Est Cr Clr Drug Dosing ml/min Est GFR ( Amer) ml/min Est GFR (Non-Af Amer) ml/min BUN/Creatinine Ratio (10-20) Glucose (70-99) mg/dl POC Glucose 223 H (70-99) mg/dl Calcium (8.5-10.1) mg/dl Random Vancomycin 16.7 mcg/ml 09/15/20 Range/Units 16:30 WBC (4.8-10.8) K/uL RBC (4.2-5.4) M/uL Hgb (12.0-16.0) g/dL Hct (37-47) % MCV (80-100) fL MCH (25-34) pg MCHC (32-36) g/dL RDW Std Deviation (36.4-46.3) fL RDW Coeff of Misael (11.5-14.5) % Plt Count (130-400) K/uL MPV (7.4-10.4) fL Immature Gran % (Auto) % Neut % (Auto) % Lymph % (Auto) % Mcmullen % (Auto) % Eos % (Auto) % Baso % (Auto) % Neut # (Auto) (1.4-6.5) K/uL Lymph # (Auto) (1.2-3.4) K/uL Mcmullen # (Auto) (0.11-0.59) K/uL Eos # (Auto) (0-0.5) K/uL Baso # (Auto) (0-0.2) K/uL Immature Gran # (Auto) (0.00-0.02) K/uL Absolute Nucleated RBC (0-0) K/uL Nucleated RBC % (auto) % Sodium (136-145) mmol/L Potassium (3.5-5.1) mmol/L Chloride (98-107) mmol/L Carbon Dioxide (21-32) mmol/L Anion Gap (3-11) BUN (7-18) mg/dl Creatinine (0.6-1.2) mg/dl Est Cr Clr Drug Dosing ml/min Est GFR ( Amer) ml/min Est GFR (Non-Af Amer) ml/min BUN/Creatinine Ratio (10-20) Glucose (70-99) mg/dl POC Glucose 189 H (70-99) mg/dl Calcium (8.5-10.1) mg/dl Random Vancomycin mcg/ml Medications Administered Current Inpatient Medications Acetaminophen (Acetaminophen 325 Mg Tab) 650 mg PO Q4 PRN PRN Reason: Unknown Stop: 10/12/20 01:34 Last Admin: 09/16/20 09:00 Dose: 650 mg Documented by: Amlodipine Besylate (Amlodipine Besylate 5 Mg Tab) 10 mg PO DAILY [facility] Stop: 10/12/20 08:59 Last Admin: 09/16/20 08:34 Dose: 10 mg Documented by: Apixaban (Apixaban 2.5 Mg Tab) 2.5 mg PO Q12 [facility] Stop: 10/12/20 08:59 Last Admin: 09/16/20 08:33 Dose: 2.5 mg Documented by: Bisacodyl (Bisacodyl 10 Mg Supp) 10 mg RI DAILY PRN PRN Reason: Unknown Stop: 10/12/20 01:34 Buspirone HCl (Buspirone 5 Mg Tab) 10 mg PO DAILY [facility] Stop: 10/12/20 08:59 Last Admin: 09/16/20 08:33 Dose: 10 mg Documented by: Buspirone HCl (Buspirone 5 Mg Tab) 20 mg PO HS [facility] Stop: 10/12/20 20:59 Last Admin: 09/15/20 19:44 Dose: 20 mg Documented by: Clonidine HCl (Clonidine Hcl 0.1 Mg Tab) 0.1 mg PO Q8 [facility] Stop: 10/12/20 05:59 Last Admin: 09/16/20 06:20 Dose: 0.1 mg Documented by: Dextrose (Dextrose 50% 50 Ml Syringe) 25 - 50 ml IV UD PRN; Protocol PRN Reason: Hypoglycemia Protocol Stop: 10/12/20 01:54 Last Admin: 09/13/20 11:58 Dose: 25 ml Documented by: Diclofenac Sodium (Diclofenac Sod 1% Gel 100 Gm Tube) 4 gm EXT DAILY [facility] Stop: 10/15/20 19:59 Last Admin: 09/16/20 08:31 Dose: Not Given Documented by: Diphenhydramine HCl (Diphenhydramine Capsule 25 Mg Cap) 25 mg PO MoWeFr PRN PRN Reason: Unknown Stop: 10/12/20 01:34 Docusate Sodium (Docusate Sodium 100 Mg Cap) 100 mg PO BID [facility] Stop: 10/12/20 08:59 Last Admin: 09/16/20 08:36 Dose: Not Given Documented by: Gabapentin (Gabapentin 300 Mg Cap) 300 mg PO BID [facility] Stop: 10/12/20 08:59 Last Admin: 09/16/20 08:34 Dose: 300 mg Documented by: Glucagon (Glucagon For Inj 1 Mg Vial) 1 mg SQ UD PRN; Protocol PRN Reason: Hypoglycemia Protocol Stop: 10/12/20 01:54 Glucose (Glucose 10 Tabs/Tube) 4 - 8 tabs PO UD PRN; Protocol PRN Reason: Hypoglycemia Protocol Stop: 10/12/20 01:54 Last Admin: 09/13/20 11:33 Dose: 8 tabs Documented by: Glucose (Glucose 40% Gel 15 Gm Tube) 15 - 30 gm PO UD PRN; Protocol PRN Reason: Hypoglycemia Protocol Stop: 10/12/20 01:54 Hydralazine HCl (Hydralazine Tab 50 Mg Tab) 100 mg PO Q8 [facility] Stop: 10/12/20 05:59 Last Admin: 09/16/20 06:19 Dose: 100 mg Documented by: Insulin Aspart (Insulin Aspart 100 Units/Ml 3 Ml Pen) 0 units SC ACHS [facility] Stop: 10/12/20 07:29 Last Admin: 09/16/20 12:16 Dose: 7 units Documented by: Insulin Glargine (Insulin Glargine Solostar 100 Units/Ml 3 Ml Pen) 8 units SC Q12 [facility] Stop: 10/12/20 08:59 Last Admin: 09/16/20 09:13 Dose: 8 units Documented by: Labetalol HCl (Labetalol Hcl 300 Mg Tab) 300 mg PO Q8 [facility] Stop: 10/12/20 05:59 Last Admin: 09/16/20 06:20 Dose: 300 mg Documented by: Levothyroxine Sodium (Levothyroxine Sodium 25 Mcg Tablet) 25 mcg PO DAILYBB [facility] Stop: 10/12/20 06:29 Last Admin: 09/16/20 06:19 Dose: 25 mcg Documented by: Lidocaine (Lidocaine 5% 1 Patch) 1 patch TD DAILY@1999 [facility] Stop: 10/15/20 19:59 Last Admin: 09/15/20 20:17 Dose: Not Given Documented by: Melatonin (Melatonin 3 Mg Tab) 3 mg PO HS PRN PRN Reason: Insomnia Stop: 10/12/20 01:34 Miscellaneous (Carbohydrates For Hypoglycemia ) 15 - 30 gm PO UD PRN PRN Reason: Hypoglycemia Protocol Stop: 10/12/20 01:54 Miscellaneous (Remove Lidoderm Patch) 1 ea N/A DAILY@0800 [facility] Stop: 10/16/20 07:59 Last Admin: 09/16/20 08:29 Dose: Not Given Documented by: Miscellaneous Information (Vancomycin Consult Active) 1 ea N/A UD PRN PRN Reason: Consult Stop: 10/12/20 09:40 Naloxone HCl (Naloxone Hcl 0.4 Mg/1 Ml Vial/Carp) 0.1 mg IV Q5M PRN; Protocol PRN Reason: Oversedation/Resp Depression Stop: 09/26/20 19:04 Nitroglycerin (Nitroglycerin Sl 0.4 Mg/Tab Tab) 0.4 mg SL UD PRN PRN Reason: Chest Pain Stop: 10/12/20 01:54 Ondansetron HCl (Ondansetron 4 Mg Od Tab) 4 mg PO Q8H PRN PRN Reason: Nausea And Vomiting Stop: 10/12/20 03:15 Last Admin: 09/12/20 07:30 Dose: 4 mg Documented by: Ondansetron HCl (Ondansetron Inj 2 Mg/Ml 2 Ml Vial) 4 mg IV Q6H PRN PRN Reason: Nausea Stop: 10/12/20 01:54 Last Admin: 09/12/20 10:07 Dose: 4 mg Documented by: Pantoprazole Sodium (Pantoprazole 40 Mg Tab) 40 mg PO DAILYBB [facility] Stop: 10/12/20 06:29 Last Admin: 09/16/20 06:20 Dose: 40 mg Documented by: Paroxetine HCl (Paroxetine Hcl 10 Mg Tab) 30 mg PO DAILY [facility] Stop: 10/12/20 08:59 Last Admin: 09/16/20 08:34 Dose: 30 mg Documented by: Polyethylene Glycol (Polyethylene (Miralax) 17 Gm Pack) 17 gm PO DAILY PRN PRN Reason: Constipation Stop: 10/12/20 01:34 Senna/Docusate Sodium (Docusate Sodium/Senna 50/8.6mg Tab) 1 tab PO QDL PRN PRN Reason: Constipation Stop: 10/12/20 01:34 Sevelamer HCl (Sevelamer Hcl 800 Mg Tablet) 800 mg PO TIDM [facility] Stop: 10/12/20 07:59 Last Admin: 09/16/20 12:13 Dose: 800 mg Documented by: Sodium Biphosphate/Sodium Phosphate (Sod Phosphate/Sod Biphosphate Enema 132 Ml Btl) 132 ml RI DAILY PRN PRN Reason: Constipation Stop: 10/12/20 01:34 Tramadol HCl (Tramadol Hcl 50 Mg Tablet) 50 mg PO Q6H PRN PRN Reason: Moderate Pain Stop: 10/12/20 01:34 Last Admin: 09/16/20 09:00 Dose: 50 mg Documented by: Resident Activity Tracking Resident Involvement: Resident Care Provided Care Provided: Adult Hospital Medicine
--- NOTE | 2020-09-16 14:21 | Pharmacy Report ---
Pharmacy Abx Dose Short Note - Date of Service September 16, 2020 - Assessment & Plan Assessment 30 year old F receiving Vancomycin IV for treatment of MRSA bacteremia * Day # 5 of antimicrobial therapy. Plan Vancomycin * Vancomycin random level this AM 16.7mcg/mL. No HD scheduled for today. * Will not re-dose with vancomycin today as random level within goal range (pre- HD random levels: 15-25mcg/mL) * Random level ordered with 7/5 AM labs in preparation for potential HD tomorrow. Pharmacy will continue to follow and will adjust dose/frequency as necessary. Thank you.
[2020-09-16] MEDS: LIDOCAINE 5% 1 PATCH TD SCH (20:29)
[2020-09-16] MEDS: MELATONIN 3 MG TAB PO PRN (21:53)
[2020-09-16] MEDS ORDERED: HYDROmorphone INJ 0.5 MG/0.5 ML SYR IV STA (22:08)
[2020-09-17] MEDS ORDERED: ACETAMINOPHEN 1000 MG/100 ML IV IV ONE (03:26)
[2020-09-17] MEDS ORDERED: MoRPHine SULFATE 2 MG/ML CARP IV STA ×3 (03:26→18:32)
[2020-09-17] MEDS: hydrALAZINE TAB 50 MG TAB PO SCH ×3 (05:54→23:19)
[2020-09-17] MEDS: cloNIDine HCL 0.1 MG TAB PO SCH ×3 (05:54→23:19)
[2020-09-17] MEDS: LEVOTHYROXINE SODIUM 25 MCG TABLET PO SCH (05:54)
[2020-09-17] MEDS: LABETALOL HCL 300 MG TAB PO SCH ×3 (05:54→23:20)
[2020-09-17] MEDS: PANTOprazole 40 MG TAB PO SCH (05:55)
[2020-09-17 06:08] LABS: Basophils # (auto) 0.05 K/uL (0-0.2); Basophils % (auto) 0.7 %; Eosinophils # (auto) 0.67 K/uL (0-0.5); Eosinophils % (auto) 9.4 %; Hematocrit (blood only) 30.1 % (37-47); Hemoglobin 9.2 g/dL (12.0-16.0); Immature Granulocytes # (auto) 0.04 K/uL (0.00-0.02); Immature Granulocytes % (auto) 0.6 %; Lymphocytes # (auto) 2.09 K/uL (1.2-3.4); Lymphocytes % (auto) 29.2 %; Mean Corpuscular Hemoglobin 30.2 pg (25-34); Mean Corpuscular Hgb Conc 30.6 g/dL (32-36); Mean Corpuscular Volume 98.7 fL (80-100); Mean Platelet Volume 10.2 fL (7.4-10.4); Monocytes # (auto) 0.63 K/uL (0.11-0.59); Monocytes % (auto) 8.8 %; Neutrophils # (auto) 3.68 K/uL (1.4-6.5); Neutrophils % (auto) 51.3 %; Platelet Count 424 K/uL (130-400); RDW Coefficient of Variation 19.7 % (11.5-14.5); RDW Standard Deviation 69.7 fL (36.4-46.3); Red Blood Count 3.05 M/uL (4.2-5.4); White Blood Count 7.16 K/uL (4.8-10.8)
[2020-09-17 06:29] LABS: BUN Creatinine Ratio 13.6 (10-20); Calcium 8.4 mg/dl (8.5-10.1); Creatinine Clr Calc Pharmacy 11.2 ml/min; Est GFR (African American) 9.6 ml/min; Est GFR (Non-African American) 8.3 ml/min; Potassium 4.7 mmol/L (3.5-5.1)
--- NOTE | 2020-09-17 06:48 | Hospitalist Progress Note ---
Date of Service September 17, 2020 Assessment & Plan (1) ESRD on dialysis: 30 y/o F w/ ESRD on MWF HD, DM1, NSTEMI, PE on AC, chronic resp failure who presented from [facility] for SOB likely secondary to fluid overload in context of needing dialysis. SOB improved and tolerating room air to 1L. Sepsis 2/2 infected port: - Requires port for frequent dialysis in the setting of end-stage renal disease - blood culture demonstrating MRSA x2 - Repeat blood cultures from 09/14 with no growth after >48hrs - wound culture catheter tip demonstrating MRSA - Continue IV vancomycin (day 6 on 09/17). pharmacy is following levels - [facility] ID consulted: recommended TTE. result: No vegetation. (normal EF >70%. No wall motion abnormalities. Mild pulm HTN). - concern for L upper chest dialysis catheter site infection. - vascular consulted: current plan is for new tunneled dialysis catheter on 09/18/20 -N.p.o. at midnight for potential new TDC -patient inquired about if her old RUE fistula is usable. [facility] will defer to vascular surgery Hypervolemia secondary to end-stage renal disease: - reported wt gain, LE edema - bnp [id number] at admission - Patient receiving dialysis; - continue sevelamer Chronic respiratory failure: - per patient: secondary to chronic PEs with baseline oxygen requirement of 6 L at home - titrate supplemental O2. required bipap briefly on 09/13 AM after IV Dilaudid dose -> desat to 60s - Able to be weaned here in hospital to 1 L nasal cannula - Continue to titrate and utilize maintaining saturations greater than 92% - added incentive spirometer - tolerating room air w/ sat of 93 on 09/17 Opioid dependence: - Patient has chronic pain frequently requiring/requesting narcotics - narcotic medications held in the setting of desaturations and increased oxygen requirement (self-reported 6L home O2 baseline) - now doses of 2 mg IV morphine as needed now that patient's O2 requirement has decresed. Somewhat soft BPs 100/49 noted, 103/58 on subsequent. Received two doses AM of 09/17. Type 1 diabetes: - A1C 9.0 - Lantus + SSI - hypoglycemic to 50s AM of 09/13. - labile BPs, w/ highs up to ~400. difficult to control because of extremes - outpatient endocrine followup, perhaps evaluation for insulin pump - check BSG ACHS and as needed - 09/17: sugars in the 200s. 301 today 11am. increasing lantus from 8u BID to 10u BID. Patient only received 6u this am to adjust for NPO (before surgery was delayed). provided now dose of 3 u lantus at ~1pm. - no changes to SSI at this time. patient's BSG has been labile, so will evaluate effect of increased lantus Chronic anemia: - Hemoglobin stable - Likely secondary to of end-stage renal disease elevated alk phos - 800 at admission - most likely 2/2 ESRD HTN: - Continue amlodipine, clonidine, hydralazine, and labetalol H/o pulmonary embolism: - Continue apixaban PO 2.5mg BID Anxiety and Depression: - Continue buspirone, gabapentin, and paroxetine Hypothyroidism: - Continue levothyroxine GERD - Continue pantoprazole Insomnia: - Continue melatonin Diet: Dialysis renal and DM1 diet. added 1.5x portions to solid foods. Fluid restriction 1.2L; n.p.o. at midnight Dispo: downgraded from PCU to med/surg w/o tele DVT ppx: home Eliquis 2.5 BID code: full (2) Diabetes mellitus type 1: (3) Hypertension: (4) Gait instability: (5) Hypoxemia: (6) Pulmonary hypertension: (7) Pulmonary embolism: (8) Critical illness myopathy: (9) Anxiety with depression: (10) Hypothyroidism (acquired): (11) GERD (gastroesophageal reflux disease): (12) Insomnia: (13) Chronic pain syndrome: Admission and Anticipated Discharge Date Admission Date: September 12, 2020 Supervising Physician Co-Signing Physician Notes I personally examined the patient and verified all gamez points of history and exam, discussed case, and agree with decision making with Dr Fontaine. Coreen thigh pain at femoral line site. notes at home sugars erratic. "i'm brittle" vitals noted nad except for appearing uncomfortable at R groin line site, site itself tender but no edema/erythema/fluctuance or exudate. breathing unlabored no accessory muscles good effort skin no rashes no pallor or icterus. very faint thrill palpable at R arm fistula site MRSA bacteremia - continue vanco ESRD/HD - for new access tomorrow (unless current fistula able to be used - doubtful - will ask vascular surgery) DM1 - uncontrolled both acutely and chronically. titrate insulins. educated that most of the time "brittle" relates back to insulin-carb mismatches stable for med/surg otherwise as above Subjective Patient's main complaint is groin pain that she has been having for several days now. Denies saddle anesthesia symptoms. No radiation. Denies current back pain. She has been able to ambulate to restroom without difficulty. Last night, she at e without difficulty and has been NPO since midnight (update: resumed diet after surgery date changed to 09/18). Patient received .25mg of IV dilaudid and 2mg of IV morphine last night. She states that the dilaudid did not help, but the morphine did. Her breathing feels better than previous days. Review of Systems Review of Systems: Constitutional: Denies fever, chills Cardiovascular: Denies chest pain Respiratory: Denies shortness of breath Gastrointestinal: Denies abdominal pain, nausea, vomiting Genitourinary: Denies urinary symptoms including dysuria Musculoskeletal: See HPI Neurological: Denies headache, numbness, tingling, focal weakness Physical Exam Physical Exam: Vitals noted. stable. afebrile. General: Grossly A&O. NAD. Cooperative. Resting in bed comfortably. HEENT: Atraumatic, normocephalic. Pulm: CTAB. -wheezes, -rales, -rhonchi. No respiratory distress. Cardiac: RRR, -mrg. Abdominal: Nontender, nondistended, soft (in contrast to moderately firm on admission). Integumentary: R femoral catheter site is nonerythematous. Some tenderness to palpation. L upper chest wall has small wounds x 2 from previous infected port site. The wounds appear open and do not appear to be clean wounds. Results & Data Results & Data ([facility]) Vital Signs (Past 12 Hours) Vital Signs Temp Pulse Pulse Pulse Resp BP Pulse Ox 09/17/20 05:55 72 107/52 L 09/17/20 03:45 36.6 C 77 113/63 96 09/17/20 00:00 73 09/16/20 23:00 36.5 C 81 112/67 97 09/16/20 19:11 37.0 C 82 19 115/80 98 Resident Activity Tracking Resident Involvement: Resident Care Provided Care Provided: Adult Hospital Medicine
[2020-09-17] MEDS ORDERED: HEPARIN SOD (PORCINE) 1000 UNIT/ML IV ONE (08:01)
[2020-09-17] MEDS ORDERED: SODIUM CHLORIDE 0.9% 1000ML 1,000 ML IV PRN (08:01)
[2020-09-17] MEDS: amLODIPine BESYLATE 5 MG TAB PO SCH (08:19)
[2020-09-17] MEDS: APIXABAN 2.5 MG TAB PO SCH ×2 (08:19→23:46)
[2020-09-17] MEDS: GABAPENTIN 300 MG CAP PO SCH ×2 (08:19→23:18)
[2020-09-17] MEDS: PARoxetine HCL 10 MG TAB PO SCH (08:19)
[2020-09-17] MEDS: busPIRone 5 MG TAB PO SCH ×2 (08:19→23:17)
[2020-09-17] MEDS: DICLOFENAC SOD 1% GEL 100 GM TUBE EXT SCH (08:20)
[2020-09-17] MEDS: SEVELAMER HCL 800 MG TABLET PO SCH ×3 (08:20→17:41)
[2020-09-17] MEDS: DOCUSATE SODIUM 100 MG CAP PO SCH ×2 (08:20→23:45)
[2020-09-17] MEDS ORDERED: IRON SUCROSE 100 MG in SYRINGE 0 ML IV ONE (08:30)
[2020-09-17] MEDS ORDERED: EPOETIN ALFA 20,000 UNITS/ML VIAL IV ONE (08:30)
[2020-09-17] MEDS: INSULIN ASPART 100 UNITS/ML 3 ML PEN SC SCH ×6 (09:00→23:33)
[2020-09-17] MEDS: INSULIN GLARGINE SOLOSTAR 100 UNITS/ML 3 ML PEN SC SCH ×2 (09:01→23:34)
--- NOTE | 2020-09-17 09:03 | Communication Note ---
Date of Service: September 17, [address] Marquez planning on tunneled line insertion in OR tomorrow.
--- NOTE | 2020-09-17 11:50 | Pharmacy Report ---
Pharmacy Abx Dose Short Note - Date of Service September 17, 2020 - Assessment & Plan Assessment 30 year old F receiving vancomycin for treatment of MRSA bacteremia. HD orders in for ~4 hrs HD sometime this afternoon. Day # 6 of antimicrobial therapy. Plan Vancomycin * Random pre-HD level is13.8 mcg/mL. * Redose 750 mg IV X 1 @1800 after HD complete * Goal pre HD levels : ~15 to 25 mcg/mL * Trough or random level ordered for: 09/18/20 Pharmacy will continue to follow and will adjust dose/frequency as necessary. Thank you.
--- NOTE | 2020-09-17 12:52 | Billing Data ---
Date of Service September 17, 2020 Coding Level of Care Code 98816 Subseq Hosp Care Lvl 3
[2020-09-17] MEDS ORDERED: INSULIN GLARGINE SOLOSTAR 100 UNITS/ML 3 ML PEN SC ONE (13:00)
--- NOTE | 2020-09-17 13:27 | Nephrology Progress Note ---
Date of Service September 17, 2020 Assessment & Plan (1) MRSA bacteremia: 09/12 with pus, redness, and pain at catheter exit site, new since 09/10>> blood cxs 06/17 positive in less than 24 hrs. Pt has had recurrent exit site infections -September 14 blood cultures are negative; for September 18 dialysis catheter placement -with her back pain, worsening hypoxia despite aggressive UF, hx of recurrent catheter related infections, low threshold for TTE, for CT c/a/p >> CT unremarkable -on vanco >> dose per pharmacy (2) Acute and chronic respiratory failure: -on chronic 02 at baseline > 6L per her report here; told me 3L at [facility] previously; indications for this not fully clear>> maintaining sats on 1L currently >>>TTE w/ mild plm HTN and mild CLVH; CT chest 09/13 w/ ff suspicious for plm edema -HD again today (3) ESRD on dialysis: chronic ESRD pt w/ recurrent vol OL. has maturing AVF. -HD today 4 hours with 5 L UF goal as blood pressure tolerates -cont 1.2L FR, dialysis/DM diet (4) Anemia of chronic disease: may in part be -continue venofer load started at [facility] >> t stn 9% on 09/06 -Will resume iron load -CBC at least every other day pls while in house -will not give epo today > has had several high doses this week Admission and Anticipated Discharge Date Admission Date: September 12, 2020 Subjective Seen on rounds this morning and on room air to 1 L. Eager for discharge to rehab. For tunneled dialysis catheter placement tomorrow. Review of Systems Review of Systems: All systems reviewed & are unremarkable except as noted in Subjective Physical Exam Constitutional: well developed, cooperative and + overweight; no acute distress Eyes: EOM intact bilaterally ENMT: Ears: no external ear abnormality Nose: no external nose abnormality Mouth: + dry oral mucous membranes Neck: no nuchal rigidity Respiratory: normal respiratory effort Auscultation: + diminished lung sounds (markedly) Cardiovascular: Extremities: + AV fistula (maturing -- endovascular R forearm w/ + bruit; minimal thrill) Gastrointestinal (Abdomen): Inspection/Auscultation: normal bowel sounds; abdomen not distended Percussion/Palpation: abdomen soft; abdomen nontender (no focal abdominal or CVA tenderness on exam) and no guarding Musculoskeletal: Extremities: strength 5/5 throughout Skin: no rashes, warm and dry + excoriations (many scabbed pustules) Psychiatric: Orientation: oriented to person and oriented to place (lethargic but wakens fully/briefly) Results & Data ([facility]) Vital Signs (Past 12 Hours) Vital Signs Temp Pulse Resp BP Pulse Ox 09/17/20 10:54 36.7 C 75 19 103/58 L 93 09/17/20 07:17 36.5 C 75 18 100/49 L 98 09/17/20 05:55 72 107/52 L 09/17/20 03:45 36.6 C 77 113/63 96 Laboratory Results 09/17/20 05:49 09/17/20 05:49
[2020-09-17] MEDS ORDERED: VANCOMYCIN HCL 750 MG in SODIUM CHLORIDE 0.9% 250 ML IV SCH (18:00)
--- NOTE | 2020-09-17 18:41 | Ultrasound Report ---
US hemodialysis access HISTORY: 30 years-old Female fistula maturation determination 80 fistula of the right upper extremit y COMPARISON: None TECHNIQUE: Multiple real-time sonographic images of the right upper extremity vascular structures wer e obtained assessing grayscale appearance, color and spectral flow FINDINGS: Brachial artery to basilic vein arteriovenous fistula is present. The proximal fistula is 0.37 cm fro m the skin surface. The mid fistula is a 0.19 cm from the skin surface. The distal fistula is 0.53 cm from the skin surface. The proximal anastomosis demonstrates low resistance waveforms with peak syst olic velocities measuring up to 203 cm/s. The distal anastomosis demonstrates low resistance waveform s with peak systolic velocities measuring up to 114 cm/s. No occlusion or significant stenosis identi fied. The outflow diameter of the basilic vein measures 0.71 cm. IMPRESSION: Patent right upper extremity AV fistula as above. ACT 112: Negative or not required by law. The above report was generated using voice recognition software. It may contain grammatical, syntax o r spelling errors. Electronically signed by: Jamie France M.D. 09/17/2020 6:39 PM
[2020-09-17] MEDS: HEPARIN SOD (PORCINE) 1000 UNIT/ML IV SCH ×2 (20:19→22:56)
[2020-09-17] MEDS: LIDOCAINE 5% 1 PATCH TD SCH (23:22)
[2020-09-18] MEDS ORDERED: MoRPHine SULFATE 2 MG/ML CARP IV STA ×2 (00:15→15:49)
[2020-09-18] MEDS: hydrALAZINE TAB 50 MG TAB PO SCH ×3 (06:26→20:48)
[2020-09-18] MEDS: LEVOTHYROXINE SODIUM 25 MCG TABLET PO SCH (06:26)
[2020-09-18] MEDS: PANTOprazole 40 MG TAB PO SCH (06:26)
[2020-09-18] MEDS: LABETALOL HCL 300 MG TAB PO SCH ×3 (06:26→20:49)
[2020-09-18] MEDS: cloNIDine HCL 0.1 MG TAB PO SCH ×3 (06:26→20:51)
[2020-09-18 07:04] LABS: Basophils # (auto) 0.06 K/uL (0-0.2); Basophils % (auto) 0.8 %; Eosinophils # (auto) 0.48 K/uL (0-0.5); Eosinophils % (auto) 6.7 %; Hematocrit (blood only) 30.5 % (37-47); Hemoglobin 9.6 g/dL (12.0-16.0); Immature Granulocytes # (auto) 0.08 K/uL (0.00-0.02); Immature Granulocytes % (auto) 1.1 %; Lymphocytes # (auto) 1.37 K/uL (1.2-3.4); Lymphocytes % (auto) 19.2 %; Mean Corpuscular Hgb Conc 31.5 g/dL (32-36); Mean Corpuscular Volume 98.4 fL (80-100); Mean Platelet Volume 10.4 fL (7.4-10.4); Monocytes # (auto) 0.85 K/uL (0.11-0.59); Monocytes % (auto) 11.9 %; Neutrophils # (auto) 4.29 K/uL (1.4-6.5); Neutrophils % (auto) 60.3 %; Platelet Count 417 K/uL (130-400); RDW Coefficient of Variation 20.5 % (11.5-14.5); RDW Standard Deviation 70.2 fL (36.4-46.3); White Blood Count 7.13 K/uL (4.8-10.8)
[2020-09-18 07:21] LABS: Anisocytosis Present; Polychromasia 1+
--- NOTE | 2020-09-18 07:25 | Discharge Summary ---
Date of Service September 18, 2020 Admission HPI Per Admitting Provider The patient is a 30-year-old anemia with a past medical history including hypertension, ESRD on HD, ASCAD, diabetes mellitus type 1, non-STEMI, gait instability, critical illness myopathy, hypoxemia requiring 6 L nasal cannula chronic, point hypertension, PE, anxiety with depression, hypothyroidism, GERD, chronic pain syndrome and insomnia. She is presently at [facility] to undergo rehab, and developed the symptoms noted above there. The patient does not produce urine. Discharge Exam General: A&Ox3. NAD. Cooperative. HEENT: Atraumatic, normocephalic. EOMI Pulm: CTAB. -wheezes, -rales, -rhonchi. Symmetrical chest rise. No respiratory distress. Cardiac: RRR, -mrg. Radial pulses intact and symmetrical. Abdominal: Nontender, nondistended, soft. Discharge Data Allergies Allergy/AdvReac Type Severity Reaction Status Date / Time bee venom protein (honey bee) Allergy Intermediate Hives Verified 09/11/20 22:55 chlorhexidine Allergy Intermediate Hives Verified 09/11/20 22:55 latex Allergy Intermediate Hives Verified 09/11/20 22:55 fentanyl AdvReac Nausea Verified 09/12/20 01:28 Consultations 09/12/20 00:43 ED Decision to Admit Stat 09/12/20 01:55 Consult Nephrology Routine 09/12/20 09:33 Consult Vascular Surgery Routine 09/13/20 10:58 Consult Infectious Diseases Routine Procedures Performed Operation Date: 09/12/20 10:20 Actual Procedures p Removal of Infected Perm Catheter, Insertion of Temporary Dialysis Catheter, Fluoroscopy for Positioning(Bilateral) - Julien Marquez MD Operation Date: 09/18/20 10:20 <No data on this case meets the specified criteria> Ordered Studies 09/12/20 14:09 EV cvc insert non tunnel Routine EV cvc remov tunnel wo prt/metalsmith helper Routine 09/13/20 17:37 CT abd pelvis IV con only Urgent CT chest diagnostic w con Urgent CT lumbar spine w con Urgent 09/17/20 14:13 US hemodialysis access Routine 09/18/20 07:10 EV cvc insrt tunnel wo prt/metalsmith helper Routine US EV guide vascular access Routine 09/18/20 08:00 EV cvc insrt tunnel wo prt/metalsmith helper Routine Hospital Course (1) ESRD on dialysis: 30 y/o F w/ ESRD on MWF HD, DM1, NSTEMI, PE on AC, chronic resp failure who presented from [facility] rehab for SOB likely secondary to fluid overload in context of needing dialysis. SOB improved and tolerating room air to 1L. Sepsis 2/2 infected port: - Requires port for frequent dialysis in the setting of end-stage renal disease - blood culture demonstrating MRSA x2 - Repeat blood cultures from 09/14 with no growth after >48hrs - wound culture catheter tip demonstrating MRSA - Continue IV vancomycin (day 6 on 09/17). pharmacy is following levels - [employer] ID consulted: recommended TTE. result: No vegetation. (normal EF >70%. No wall motion abnormalities. Mild pulm HTN). - concern for L upper chest dialysis catheter site infection. - vascular consulted: current plan is for new tunneled dialysis catheter on 09/18/20 -N.p.o. at midnight for potential new TDC -patient inquired about if her old RUE fistula is usable. [facility] will defer to vascular surgery Hypervolemia secondary to end-stage renal disease: - reported wt gain, LE edema - bnp [id number] at admission - Patient receiving dialysis; - continue sevelamer Chronic respiratory failure: - per patient: secondary to chronic PEs with baseline oxygen requirement of 6 L at home - titrate supplemental O2. required bipap briefly on 09/13 AM after IV Dilaudid dose -> desat to 60s - Able to be weaned here in hospital to 1 L nasal cannula - Continue to titrate and utilize maintaining saturations greater than 92% - added incentive spirometer - tolerating room air w/ sat of 93 on 09/17 Opioid dependence: - Patient has chronic pain frequently requiring/requesting narcotics - narcotic medications held in the setting of desaturations and increased oxygen requirement (self-reported 6L home O2 baseline) - now doses of 2 mg IV morphine as needed now that patient's O2 requirement has decresed. Somewhat soft BPs 100/49 noted, 103/58 on subsequent. Received two doses AM of 09/17. Type 1 diabetes: - A1C 9.0 - Lantus + SSI - hypoglycemic to 50s AM of 09/13. - labile BPs, w/ highs up to ~400. difficult to control because of extremes - outpatient endocrine followup, perhaps evaluation for insulin pump - check BSG ACHS and as needed - 09/17: sugars in the 200s. 301 today 11am. increasing lantus from 8u BID to 10u BID. Patient only received 6u this am to adjust for NPO (before surgery was delayed). provided now dose of 3 u lantus at ~1pm. - no changes to SSI at this time. patient's BSG has been labile, so will evaluate effect of increased lantus Chronic anemia: - Hemoglobin stable - Likely secondary to of end-stage renal disease elevated alk phos - 800 at admission - most likely 2/2 ESRD HTN: - Continue amlodipine, clonidine, hydralazine, and labetalol H/o pulmonary embolism: - Continue apixaban PO 2.5mg BID Anxiety and Depression: - Continue buspirone, gabapentin, and paroxetine Hypothyroidism: - Continue levothyroxine GERD - Continue pantoprazole Insomnia: - Continue melatonin Diet: Dialysis renal and DM1 diet. added 1.5x portions to solid foods. Fluid restriction 1.2L; n.p.o. at midnight Dispo: downgraded from PCU to med/surg w/o tele DVT ppx: home Eliquis 2.5 BID code: full (2) Diabetes mellitus type 1: Continue her usual insulin and coverage. (3) Hypertension: Continue amlodipine, clonidine, hydralazine, and labetalol (4) Gait instability: Will be returning to [facility] to continue rehab (5) Hypoxemia: Continue her home requirement of 6 L nasal cannula oxygen (6) Pulmonary hypertension: Pulmonary hypertension/history of pulmonary embolism- Is not on any routine inhalers at this time. Continue apixaban (7) Pulmonary embolism: See above (8) Critical illness myopathy: To return to rehab (9) Anxiety with depression: Continue buspirone, gabapentin, and paroxetine (10) Hypothyroidism (acquired): e (11) GERD (gastroesophageal reflux disease): Continue pantoprazole (12) Insomnia: (13) Chronic pain syndrome: Acetaminophen 650 mg p.o. every 6 hours as needed mild pain or fever Tramadol 50 mg p.o. every 6 hours as needed moderate pain Dilaudid 0.25 mg IV every 3 hours as needed moderate pain Dilaudid 0.5 mg IV every 3 hours as needed severe pain Continue bowel regiment Total Time Total Time Spent Total Time Spent (In Minutes): See attending documentation. Discharge Plan Discharge Items Reason For Visit: FLUID OVERLOAD, ERSD ON HD Follow-up/Referrals: Roney Crocker DO [Primary Care Provider] - Medications and DC Order Prescriptions: No Action buspirone 5 mg Tablet 20 mg PO HS RF: 0 buspirone 5 mg Tablet 10 mg PO DAILY RF: 0 clonidine HCl 0.1 mg Tablet 0.1 mg PO Q8 RF: 0 hydralazine 25 mg Tablet 100 mg PO Q8 RF: 0 amlodipine 10 mg Tablet 10 mg PO DAILY RF: 0 gabapentin 300 mg Capsule 300 mg PO BID RF: 0 ergocalciferol (vitamin D2) 1,250 mcg (50,000 unit) Capsule 1,250 mcg PO WK RF: 0 apixaban 2.5 mg Tablet 2.5 mg PO Q12 RF: 0 paroxetine HCl 10 mg Tablet 30 mg PO DAILY RF: 0 Lantus U-100 Insulin 100 unit/mL Solution 8 unit SUBCUT Q12 RF: 0 levothyroxine 25 mcg Tablet 25 mcg PO DAILY RF: 0 insulin aspart U-100 100 unit/mL Solution See Rx Instructions .ROUTE .COMPLEX RF: 0 pantoprazole 40 mg Tablet,Delayed Release (Dr/Ec) 40 mg PO DAILYBB RF: 0 docusate sodium [Colace] 100 mg Capsule 100 mg PO BID RF: 0 labetalol 100 mg Tablet 300 mg PO Q8 RF: 0 sevelamer carbonate 800 mg Tablet 800 mg PO TIDM RF: 0 melatonin 3 mg Tablet 3 mg PO HS PRN (Reason: Unknown) RF: 0 tramadol 50 mg Tablet 50 mg PO Q6H PRN (Reason: Unknown) RF: 0 Humulin R Regular U-100 Insuln 100 unit/mL Solution See Rx Instructions .ROUTE .COMPLEX RF: 0 acetaminophen 325 mg Tablet 650 mg PO Q4 PRN (Reason: Unknown) RF: 0 sennosides-docusate sodium [Senna with Docusate Sodium] 8.6-50 mg Tablet 1 tab-cap PO .WITH LUNCH PRN (Reason: Unknown) RF: 0 bisacodyl [Dulcolax (bisacodyl)] 10 mg Suppository 10 mg GA DAILY PRN (Reason: Unknown) RF: 0 diphenhydramine HCl 25 mg Capsule 25 mg PO .Q M,W,F PRN (Reason: Unknown) RF: 0 Fleet Enema 19-7 gram/118 mL Enema 118 ml GA DAILY PRN (Reason: Unknown) RF: 0 polyethylene glycol 3350 [Miralax] 17 gram/dose Powder 17 g PO DAILY PRN (Reason: Unknown) RF: 0 ondansetron 4 mg Tablet,Disintegrating 4 mg PO Q8H PRN (Reason: Unknown) RF: 0 Admission Data Admit Date/Time: 09/12/20 00:59 Attending Provider: Nghia Anne Admit Provider: Ke Wilcox Primary Care Provider: Roney Crocker Other Providers: Kinsey Garcia ; Ke Wilcox ; Lavonne Saravia ; Julien Marquez ; Hasmukh Ackerman ; Cary Burrell ; Jarett Love I. ; Phillip Verma II ; Marla Almanzar ; Bebo Lassiter
--- NOTE | 2020-09-18 07:34 | Hospitalist Progress Note ---
Date of Service September 18, 2020 Assessment & Plan (1) ESRD on dialysis: 30 y/o F w/ ESRD on MWF HD, DM1, NSTEMI, PE on AC, chronic resp failure who presented from [facility] for SOB likely secondary to fluid overload in context of needing dialysis. SOB improved and tolerating 2L NC. Sepsis 2/2 infected port: - Requires port for frequent dialysis in the setting of end-stage renal disease - blood culture demonstrating MRSA x2 - Repeat blood cultures from 09/14 with no growth after >48hrs - wound culture catheter tip demonstrating MRSA - Continue IV vancomycin (day 6 on 09/17). pharmacy is following levels - [employer] ID consulted: recommended TTE. result: No vegetation. (normal EF >70%. No wall motion abnormalities. Mild pulm HTN). - concern for L upper chest dialysis catheter site infection. - vascular consulted: current plan is for new tunneled dialysis catheter on 09/18/20: update: RIJ tunneled dialysis catheter placed. temporal R femoral dialysis catheter removed. -patient inquired about if her old RUE fistula is usable. [facility] Per nephrology, may not be practically useful as access site is very deep and not readily accessible - will continue course of IV vanc via dialysis site for total of 4 wks treatment duration (From date of infected port removal) per ID hypoglycemia AM on 09/18 - patient had symptomatic hypoglycemia down to 35 at ~1030AM while perioperatively undergoing TDC placement. This was likely due to the AM lantus 10u which was not adjusted for NPO (order specified to contact provider for 50- 80% adjustment if NPO). - received 1.5 amp total of d50 per anesthesiology - originally planned to change carb ratio from 1:11 to 1:9. Reverted this change and will continue to monitor BSG ACHS - Patient's lantus was increased from 8u BID to 10u BID yesterday. Continue this dose as patient is no longer NPO. Hypervolemia secondary to end-stage renal disease: - reported wt gain, LE edema - bnp [id number] at admission - Patient receiving dialysis; - continue sevelamer Chronic respiratory failure: - per patient: secondary to chronic PEs with baseline oxygen requirement of 6 L at home - titrate supplemental O2. required bipap briefly on 09/13 AM after IV Dilaudid dose -> desat to 60s - Able to be weaned here in hospital to 1 L nasal cannula - Continue to titrate and utilize maintaining saturations greater than 92% - added incentive spirometer - 92 sat on 2L nasal cannula on 09/18 Opioid dependence: - Patient has chronic pain frequently requiring/requesting narcotics - narcotic medications held in the setting of desaturations and increased oxygen requirement (self-reported 6L home O2 baseline) - now doses of 2 mg IV morphine as needed now that patient's O2 requirement has decreased. Type 1 diabetes: - A1C 9.0 - Lantus + SSI - hypoglycemic to 50s AM of 09/13. - labile BPs, w/ highs up to ~400. difficult to control because of extremes - outpatient endocrine followup, perhaps evaluation for insulin pump - check BSG ACHS and as needed - 09/17: sugars in the 200s. 301 today 11am. increasing lantus from 8u BID to 10u BID. Patient only received 6u this am to adjust for NPO (before surgery was delayed). provided now dose of 3 u lantus at ~1pm. - no changes to SSI at this time. patient's BSG has been labile, so will evaluate effect of increased lantus -09/18 see above Chronic anemia: - Hemoglobin stable - Likely secondary to of end-stage renal disease elevated alk phos - 800 at admission - most likely 2/2 ESRD HTN: - Continue amlodipine, clonidine, hydralazine, and labetalol H/o pulmonary embolism: - Continue apixaban PO 2.5mg BID Anxiety and Depression: - Continue buspirone, gabapentin, and paroxetine Hypothyroidism: - Continue levothyroxine GERD - Continue pantoprazole Insomnia: - Continue melatonin Diet: Dialysis renal and DM1 diet. added 1.5x portions to solid foods. Fluid restriction 1.2L; n.p.o. at midnight Dispo: med/surg w/o tele. plans: return to [facility] today (09/18) vs 09/19 dependin g on arrangements of dialysis, transportation, and facility policies DVT ppx: home Eliquis 2.5 BID code: full (2) Diabetes mellitus type 1: (3) Hypertension: (4) Gait instability: (5) Hypoxemia: (6) Pulmonary hypertension: (7) Pulmonary embolism: (8) Critical illness myopathy: (9) Anxiety with depression: (10) Hypothyroidism (acquired): (11) GERD (gastroesophageal reflux disease): (12) Insomnia: (13) Chronic pain syndrome: Admission and Anticipated Discharge Date Admission Date: September 12, 2020 Supervising Physician Co-Signing Physician Notes I personally examined the patient and verified all gamez points of history and exam, discussed case, and agree with decision making with Dr Fontaine. Feeling some pain at [employer]. Also notes that she is itchy. Asks if there is anywhere in the hospital she could buy food outside of the vending machines. vitals noted awake alert oriented, pleasant, no distress. HEENT normocephalic atraumatic mucous membranes moist. Breathing unlabored no accessory muscle use good effort. Skin with a slightly blotchy rash anteriorly. No focal neuro deficits. MRSA bacteremia - continue vanco presumptively for about 4 weeks ESRD/HD -tunneled dialysis catheter obtained. Ongoing outpatient treatment. DM1 - uncontrolled both acutely and chronically. Her high sugars are extremely likely related to snacks she obtained from the vending machine without informing nursing for carb coverage. Continue to titrate insulins, continue to educate as best as possible. Hopefully return to rehab tomorrow otherwise as above Subjective AM subjective (prior to TDC placement). No new complaints. Required IV morphine at midngiht for pain. Pain at low back and groin. No numbness/tingling. Ate well yesterday evening. Denies respiratory complaints. Review of Systems Review of Systems: Constitutional: Denies fever, chills Cardiovascular: Denies chest pain Respiratory: Denies shortness of breath Gastrointestinal: Denies abdominal pain, nausea, vomiting, constipation, diarrhea Genitourinary: Denies complaints. Anuric, dialysis patient. Musculoskeletal: See HPI Neurological: Denies headache, numbness, tingling, focal weakness Physical Exam Physical Exam: General: Grossly A&O. NAD. Cooperative. HEENT: Atraumatic, normocephalic. Pulm: CTAB. -wheezes, -rales, -rhonchi. No respiratory distress. Cardiac: RRR, -mrg. Abdominal: Nontender, slightly distended, soft. Integ: L upper chest has wound from previous catheter removal. Dried dirty wound. No active drainage. Results & Data Results & Data ([facility]) Vital Signs (Past 12 Hours) Vital Signs Temp Pulse Pulse Pulse Resp BP BP 09/18/20 03:15 37.1 C 86 16 152/77 H 09/17/20 22:33 37.0 C 96 H 16 143/73 H 09/17/20 22:26 09/17/20 22:13 37.0 C 91 H 135/67 09/17/20 21:40 96 H 109/61 09/17/20 21:20 97 H 117/71 09/17/20 21:00 96 H 113/62 09/17/20 20:40 96 H 128/72 09/17/20 20:20 96 H 124/68 09/17/20 20:00 92 H 144/67 H 09/17/20 19:40 93 H 129/76 Pulse Ox 09/18/20 03:15 92 09/17/20 22:33 84 L 09/17/20 22:26 93 09/17/20 22:13 09/17/20 21:40 09/17/20 21:20 09/17/20 21:00 09/17/20 20:40 09/17/20 20:20 09/17/20 20:00 09/17/20 19:40 Resident Activity Tracking Resident Involvement: Resident Care Provided Care Provided: Adult Hospital Medicine
--- NOTE | 2020-09-18 07:46 | History & Physical Bridge Note ---
Date of Service September 18, 2020 History & Physical Bridge Note Patient for a permcath insertion today. I have discussed the risks options and benefits of the procedure with the patient. The patient understands the risks options and benefits and agrees to the procedure. I have examined the patient, reviewed the History & Physical and in the interval since the performance of the History & Physical I have noted the following changes of clinical significance: no changes noted
[2020-09-18 07:50] LABS: Calcium 8.2 mg/dl (8.5-10.1); Creatinine Clr Calc Pharmacy 14.2 ml/min; Est GFR (African American) 12.7 ml/min; Est GFR (Non-African American) 10.9 ml/min
[2020-09-18] MEDS: busPIRone 5 MG TAB PO SCH ×2 (07:57→21:08)
[2020-09-18] MEDS: PARoxetine HCL 10 MG TAB PO SCH (07:57)
[2020-09-18] MEDS: DICLOFENAC SOD 1% GEL 100 GM TUBE EXT SCH (07:57)
[2020-09-18] MEDS: amLODIPine BESYLATE 5 MG TAB PO SCH (07:57)
[2020-09-18] MEDS: GABAPENTIN 300 MG CAP PO SCH ×2 (07:57→20:47)
[2020-09-18] MEDS: APIXABAN 2.5 MG TAB PO SCH ×2 (07:57→20:49)
[2020-09-18] MEDS: DOCUSATE SODIUM 100 MG CAP PO SCH ×2 (07:57→20:50)
[2020-09-18] MEDS: SEVELAMER HCL 800 MG TABLET PO SCH ×3 (07:57→17:17)
[2020-09-18] MEDS: INSULIN GLARGINE SOLOSTAR 100 UNITS/ML 3 ML PEN SC SCH ×2 (07:58→21:17)
[2020-09-18] MEDS: INSULIN ASPART 100 UNITS/ML 3 ML PEN SC SCH ×4 (07:58→21:16)
[2020-09-18 08:05] LABS: Beta-Hydroxybutyrate 0.69 mg/dl (0.2-2.81)
--- NOTE | 2020-09-18 09:29 | Pharmacy Report ---
Pharmacy Abx Dose Short Note - Date of Service September 18, 2020 - Assessment & Plan Assessment 30 year old F receiving vancomycin for MRSA bacteremia Day # 7 of antimicrobial therapy. Plan Vancomycin * Random vancomycin level this AM ~29 mcg/ml - goal ~20 mcg/ml for bacteremia * Patient to get perm catheter placement today. Will hold vancomycin doses today as estimated level will still be >15 mcg/ml tomorrow even if dialysis performed today * Unclear dialysis schedule at this time, if dialysis scheduled today will order level tomorrow AM to assist with further dosing. However if no dialysis - anticipate level tomorrow to be similar to today's and will not order another random level in AM Pharmacy will continue to follow and will adjust dose/frequency as necessary. Thank you.
[2020-09-18] MEDS ORDERED: ePHEDrine sulfate 50 MG/ML AMP IV PRN (09:45)
[2020-09-18] MEDS ORDERED: diphenhydrAMINE 50 MG/ML VIAL IV PRN (09:45)
[2020-09-18] MEDS ORDERED: ONDANSETRON INJ 2 MG/ML 2 ML VIAL IV PRN (09:45)
[2020-09-18] MEDS ORDERED: ATROPINE SULFATE 0.1 MG/ML 10ML SYR IV PRN (09:45)
--- NOTE | 2020-09-18 09:50 | Anesthesiology Consultation ---
Date of Service September 18, 2020 Assessment & Plan (1) Encounter for pre-operative examination: Chart Review Chart Review: Acceptable Risk for Surgery and Patient NOT seen in Pre Admission Testing Consults Requested none History Surgery Operation Date: 09/12/20 10:20 Proposed Procedures p Removal of Infected Perm Catheter, Insertion of Temporary Dialysis Catheter - Julien Marquez MD Operation Date: 09/18/20 10:20 Proposed Procedures p Perm Catheter Placement - Julien Marquez MD Height/Weight Height: 5 ft 1 in Weight: 62.2 kg Allergies Allergy/AdvReac Type Severity Reaction Status Date / Time bee venom protein (honey bee) Allergy Intermediate Hives Verified 09/11/20 22:55 chlorhexidine Allergy Intermediate Hives Verified 09/11/20 22:55 latex Allergy Intermediate Hives Verified 09/11/20 22:55 fentanyl AdvReac Nausea Verified 09/12/20 01:28 Medications Home Medications Medication Instructions Recorded Confirmed Last Taken acetaminophen 650 mg PO Q4 PRN 09/12/20 09/12/20 Unknown amlodipine 10 mg PO DAILY 09/12/20 09/12/20 Unknown apixaban 2.5 mg PO Q12 09/12/20 09/12/20 Unknown bisacodyl [Dulcolax (bisacodyl)] 10 mg [place] DAILY PRN 09/12/20 09/12/20 Unknown buspirone 10 mg PO DAILY 09/12/20 09/12/20 Unknown buspirone 20 mg PO HS 09/12/20 09/12/20 Unknown clonidine HCl 0.1 mg PO Q8 09/12/20 09/12/20 Unknown diphenhydramine HCl 25 mg PO .Q M,W,F PRN 09/12/20 09/12/20 Unknown docusate sodium [Colace] 100 mg PO BID 09/12/20 09/12/20 Unknown ergocalciferol (vitamin D2) 1,250 mcg PO WK 09/12/20 09/12/20 Unknown gabapentin 300 mg PO BID 09/12/20 09/12/20 Unknown hydralazine 100 mg PO Q8 09/12/20 09/12/20 Unknown insulin aspart U-100 See Rx Instructions .ROUTE .COMPLEX 09/12/20 09/12/20 Unknown insulin glargine [Lantus U-100 8 unit SUBCUT Q12 09/12/20 09/12/20 Unknown Insulin] insulin regular human [Humulin R See Rx Instructions .ROUTE .COMPLEX 09/12/20 09/12/20 Unknown Regular U-100 Insuln] labetalol 300 mg PO Q8 09/12/20 09/12/20 Unknown levothyroxine 25 mcg PO DAILY 09/12/20 09/12/20 Unknown melatonin 3 mg PO HS PRN 09/12/20 09/12/20 Unknown ondansetron 4 mg PO Q8H PRN 09/12/20 09/12/20 Unknown pantoprazole 40 mg PO DAILYBB 09/12/20 09/12/20 Unknown paroxetine HCl 30 mg PO DAILY 09/12/20 09/12/20 Unknown polyethylene glycol 3350 [Miralax] 17 g PO DAILY PRN 09/12/20 09/12/20 Unknown sennosides-docusate sodium [Senna 1 tab-cap PO .WITH LUNCH PRN 09/12/20 09/12/20 Unknown with Docusate Sodium] sevelamer carbonate 800 mg PO TIDM 09/12/20 09/12/20 Unknown sodium phosphates [Fleet Enema] 118 ml [place] DAILY PRN 09/12/20 09/12/20 Unknown tramadol 50 mg PO Q6H PRN 09/12/20 09/12/20 Unknown Active Medications Generic Name Dose Route Start Last Admin Trade Name Freq PRN Reason Stop Dose Admin Acetaminophen 650 mg 09/12/20 01:35 09/16/20 17:12 Acetaminophen 325 Mg Tab PO 10/12/20 01:34 650 mg Q4 PRN Administration Unknown Amlodipine Besylate 10 mg 09/12/20 09:00 09/18/20 07:57 Amlodipine Besylate 5 Mg Tab PO 10/12/20 08:59 Not Given DAILY CLEMENT Apixaban 2.5 mg 09/12/20 09:00 09/18/20 07:57 Apixaban 2.5 Mg Tab PO 10/12/20 08:59 Not Given Q12 CLEMENT Buspirone HCl 10 mg 09/12/20 09:00 09/18/20 07:57 Buspirone 5 Mg Tab PO 10/12/20 08:59 Not Given DAILY CLEMENT Buspirone HCl 20 mg 09/12/20 21:00 09/17/20 23:17 Buspirone 5 Mg Tab PO 10/12/20 20:59 20 mg HS CLEMENT Administration Clonidine HCl 0.1 mg 09/12/20 06:00 09/18/20 06:26 Clonidine Hcl 0.1 Mg Tab PO 10/12/20 05:59 Not Given Q8 CLEMENT Dextrose 25 - 50 ml 09/12/20 01:55 09/13/20 11:58 Dextrose 50% 50 Ml Syringe IV 10/12/20 01:54 25 ml UD PRN Administration Hypoglycemia Protocol Protocol Diclofenac Sodium 4 gm 09/15/20 20:00 09/18/20 07:57 Diclofenac Sod 1% Gel 100 Gm Tube EXT 10/15/20 19:59 Not Given DAILY CLEMENT Docusate Sodium 100 mg 09/12/20 09:00 09/18/20 07:57 Docusate Sodium 100 Mg Cap PO 10/12/20 08:59 Not Given BID CLEMENT Gabapentin 300 mg 09/12/20 09:00 09/18/20 07:57 Gabapentin 300 Mg Cap PO 10/12/20 08:59 Not Given BID CLEMENT Glucose 4 - 8 tabs 09/12/20 01:55 09/13/20 11:33 Glucose 10 Tabs/Tube PO 10/12/20 01:54 8 tabs UD PRN Administration Hypoglycemia Protocol Protocol Hydralazine HCl 100 mg 09/12/20 06:00 09/18/20 06:26 Hydralazine Tab 50 Mg Tab PO 10/12/20 05:59 Not Given Q8 CLEMENT Insulin Aspart 0 units 09/12/20 07:30 09/18/20 07:58 Insulin Aspart 100 Units/Ml 3 Ml Pen SC 10/12/20 07:29 6 units ACHS CLEMENT Administration Insulin Glargine 10 units 09/17/20 21:00 09/18/20 07:58 Insulin Glargine Solostar 100 Units/Ml 3 Ml Pen SC 10/17/20 20:59 10 units Q12 CLEMENT Administration Labetalol HCl 300 mg 09/12/20 06:00 09/18/20 06:26 Labetalol Hcl 300 Mg Tab PO 10/12/20 05:59 Not Given Q8 [facility]MENT Levothyroxine Sodium 25 mcg 09/12/20 06:30 09/18/20 06:26 Levothyroxine Sodium 25 Mcg Tablet PO 10/12/20 06:29 Not Given DAILYBB CLEMENT Lidocaine 1 patch 09/15/20 20:00 09/17/20 23:22 Lidocaine 5% 1 Patch TD 10/15/20 19:59 Not Given DAILY@2000 CLEMENT Melatonin 3 mg 09/12/20 01:35 09/16/20 21:53 Melatonin 3 Mg Tab PO 10/12/20 01:34 3 mg HS PRN Administration Insomnia Miscellaneous 1 ea 09/16/20 08:00 09/18/20 07:59 Remove Lidoderm Patch N/A 10/16/20 07:59 1 ea DAILY@0800 CLEMENT Administration Ondansetron HCl 4 mg 09/12/20 03:16 09/12/20 07:30 Ondansetron 4 Mg Od Tab PO 10/12/20 03:15 4 mg Q8H PRN Administration Nausea And Vomiting Ondansetron HCl 4 mg 09/12/20 01:55 09/12/20 10:07 Ondansetron Inj 2 Mg/Ml 2 Ml Vial IV 10/12/20 01:54 4 mg Q6H PRN Administration Nausea Pantoprazole Sodium 40 mg 09/12/20 06:30 09/18/20 06:26 Pantoprazole 40 Mg Tab PO 10/12/20 06:29 Not Given DAILYBB CLEMENT Paroxetine HCl 30 mg 09/12/20 09:00 09/18/20 07:57 Paroxetine Hcl 10 Mg Tab PO 10/12/20 08:59 Not Given DAILY CLEMENT Sevelamer HCl 800 mg 09/12/20 08:00 09/18/20 07:57 Sevelamer Hcl 800 Mg Tablet PO 10/12/20 07:59 Not Given TIDM [facility]MENT Tramadol HCl 50 mg 09/12/20 01:35 09/16/20 17:11 Tramadol Hcl 50 Mg Tablet PO 10/12/20 01:34 50 mg Q6H PRN Administration Moderate Pain NPO Date Last Intake of Fluids: 09/17/20 Time Last Intake of Fluids: 23:59 Date Last Intake of Solids: 09/17/20 Time Last Intake of Solids: 23:30 Past Medical History Medical History Anxiety with depression Chronic pain syndrome Chronic respiratory failure Critical illness myopathy Diabetes mellitus type 1 ESRD on dialysis Gait instability GERD (gastroesophageal reflux disease) Hypertension Hypothyroidism (acquired) Hypoxemia 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 required bipap briefly on 7 AM after IV Dilaudid dose -> desat to 60s - Able to be weaned here in hospital to 1 L nasal cannula - Continue to titrate and utilize maintaining saturations greater than 92% - added incentive spirometer - tolerating room air w/ sat of 93 on 09/17 Exercise / Class Metabolic Activity III < 4 Walking/Shop/Light housework Past Surgical History Surgical History AV fistula History of cholecystectomy Past Anesthesia History No Hx of Anesthesia Complications and No Family Hx of Anesthesia Complications History of PONV No Hx of PONV and No Hx of Motion Sickness Social History Smoking Status: Never smoker Do You Dip or Chew Tobacco: No Hx Alcohol Use: No Hx Substance Use: No Physical Exam Vital Signs Last Vital Signs Temp 36.7 C 09/18/20 09:33 Pulse 85 09/18/20 09:33 Resp 16 09/18/20 09:33 BP 160/93 H 09/18/20 09:33 Pulse Ox 96 09/18/20 09:33 Testing Laboratory Results 09/18/20 06:38 Hemoglobin A1c 9.0 % (4.5-5.6) H 09/12/20 06:02 HCG, Quant < 1 mIU/ml 09/18/20 08:29 09/14/20 10:45 Aerobic Blood Culture - Preliminary Blood No growth in Aerobic bottle after 48 hours. Anaerobic Blood Culture - Preliminary No growth in Anaerobic bottle after 48 hours. 09/14/20 10:35 Aerobic Blood Culture - Preliminary Blood No growth in Aerobic bottle after 48 hours. Anaerobic Blood Culture - Preliminary No growth in Anaerobic bottle after 48 hours. 09/11/20 23:22 Aerobic Blood Culture - Final Blood Staph aureus MRSA Anaerobic Blood Culture - Final 09/12/20 10:01 Aerobic Blood Culture - Final Blood Staph aureus MRSA Anaerobic Blood Culture - Final 09/12/20 09:49 Aerobic Blood Culture - Final Blood Staph aureus MRSA Coag neg staph not lugdunensis Anaerobic Blood Culture - Final Staph aureus MRSA Coag neg staph not lugdunensis 09/12/20 17:45 Catheter Tip Culture - Final Catheter Tip, Perm Cathether Staph aureus MRSA 09/12/20 09:50 Gram Stain - Final Chest Tube Drainage,Right Wound Culture - Final Staph aureus MRSA 09/11/20 23:29 Aerobic Blood Culture - Final Blood Staph aureus MRSA Anaerobic Blood Culture - Final 09/18/20 09/18/20 09/17/20 09:27 07:29 23:23 POC Glucose 122 H 327 H* 349 H* 09/17/20 23:22 POC Glucose 334 H* 09/18/20 08:29 HCG, Quant < 1 Electrocardiogram Date: 09/12/20 DICTATED BY: Damaso Ramos MD Test Reason : Blood Pressure : / mmHG Vent. Rate : 092 BPM Atrial Rate : 092 BPM P-R Int : 152 ms QRS Dur : 090 ms QT Int : 358 ms P-R-T Axes : 070 159 044 degrees QTc Int : 442 ms Normal sinus rhythm Right axis deviation Cannot rule out Anterior infarct , age undetermined Abnormal ECG When compared with ECG of 11-SEP-2020 22:37, (unconfirmed) No significant change was found Confirmed by Damaso Ramos ([id number]) on 09/13/2020 2:04:19 PM
[2020-09-18] MEDS ORDERED: MoRPHine SULFATE 2 MG/ML CARP ONE (09:53)
[2020-09-18] MEDS ORDERED: MIDAZOLAM HCL 1 MG/ML 2ML VIAL ONE (09:53)
[2020-09-18] MEDS ORDERED: ONDANSETRON INJ 2 MG/ML 2 ML VIAL ONE (09:54)
[2020-09-18] MEDS ORDERED: ePHEDrine sulfate 50 MG/ML SYR ONE (09:54)
[2020-09-18] MEDS ORDERED: PROPOFOL IV EMULSION 10 MG/ML 20 ML VIAL IV ONE (09:54)
[2020-09-18] MEDS ORDERED: diphenhydrAMINE 50 MG/ML VIAL ONE (09:54)
[2020-09-18] MEDS ORDERED: LIDOCAINE 2% 2 ML VIAL/AMP(20MG/ML) INFIL ONE (09:54)
[2020-09-18] MEDS ORDERED: HEPARIN SOD (PORCINE) 5,000 UNITS/ML VIAL ONE (10:01)
[2020-09-18] MEDS ORDERED: LIDOCAINE 1% LOCAL 20 ML VIAL ONE (10:20)
--- NOTE | 2020-09-18 11:05 | Post Operative Brief Note ---
Immediate Post Op Note v1 Date of Surgery September 18, 2020 Pre & Post Diagnosis Operation Date: 09/12/20 10:20 Pre-Op Diagnosis: Infected Perm Cath Post-Op Diagnosis: Infected Perm Cath Operation Date: 09/18/20 10:20 Pre-Op Diagnosis: End Stage Renal Disease Post-Op Diagnosis: End Stage Renal Disease I identified the patient and participated in the time-out.: Yes Procedure Operation Date: 09/12/20 10:20 Actual Procedures p Removal of Infected Perm Catheter, Insertion of Temporary Dialysis Catheter, Fluoroscopy for Positioning(Bilateral) - Julien Marquez MD Operation Date: 09/18/20 10:20 Actual Procedures p Insertion of Perm Catheter, Right Internal Jugular Approach, Ultrasound Localization of Right Internal Jugular Vein, Fluoroscopy for positioning, removal of right temporary femoral dialysis catheter(Right) - Julien Marquez MD Surgeon Julien Marquez MD Clinical Pathologist MD Shelly Estimated Blood Loss 10 Findings Consistent with Post-Op Diagnosis Specimens tip of temporary line sent for culture Anesthesia Type General Complications none Disposition Accompanied Patient To Recovery: No Disposition: Recovery Room
--- NOTE | 2020-09-18 11:08 | Operative Report ---
Post Operative Report Pre & Post Diagnosis Operation Date: 09/12/20 10:20 Pre-Op Diagnosis: Infected Perm Cath Post-Op Diagnosis: Infected Perm Cath Operation Date: 09/18/20 10:20 Pre-Op Diagnosis: End Stage Renal Disease Post-Op Diagnosis: End Stage Renal Disease I identified the patient and participated in the time-out.: Yes Procedure Operation Date: 09/12/20 10:20 Actual Procedures p Removal of Infected Perm Catheter, Insertion of Temporary Dialysis Catheter, Fluoroscopy for Positioning(Bilateral) - Julien Marquez MD Operation Date: 09/18/20 10:20 Actual Procedures p Insertion of Perm Catheter, Right Internal Jugular Approach, Ultrasound Localization of Right Internal Jugular Vein, Fluoroscopy for positioning, removal of right temporary femoral dialysis catheter(Right) - Julien Marquez MD Surgeon Julien Marquez MD Auto Design Detailer MD Shelly Estimated Blood Loss 10 Findings Consistent with Post-Op Diagnosis Specimens Femoral Shiley (Dialysis) Catheter Description of Procedure Patient was taken to the angio suite and placed in the supine position. The right side of the neck and chest wall were prepped and draped in a sterile manner. Local anesthesia was then administered to the appropriate areas of the neck and chest wall. Ultrasound was then used to locate the right internal jugular vein. The vein compressed easily, had no filing defects, and was patent. The vein was then punctured under direct ultrasound imaging. A guidewire was then passed centrally under fluoroscopic imaging. A stab wound was then made in the anterior chest wall and a 16 cm permcath was passed from the stab wound on the chest wall to the puncture site on the neck. The puncture site was then dilated till the 14Fr peel away sheath was inserted. The 19cm permcath was then inserted through the sheath to a central position in the distal superior vena cava. The peel away sheath was then removed. The catheter was then sutured in place using nylon sutures. The puncture was then closed using a 4-0 Vicryl subcuticular suture. Dermabond was used for a dressing on the puncture site. Both ports aspirated and flushed easily and were then packed with heparin. A sterile dressing was applied to the catheter. The patient left the angio suite in good condition and tolerated the procedure well. Dr. Marquez was present and scrubbed for the entire procedure. I attest to the content of the Intraoperative Record and any orders documented therein. Any exceptions are noted below.
[2020-09-18] MEDS ORDERED: DEXTROSE 50% 50 ML SYRINGE IV STA (11:53)
[2020-09-18] MEDS ORDERED: DEXTROSE 50% 50 ML SYRINGE IV ONE (11:56)
[2020-09-18] MEDS: MoRPHine SULFATE 10 MG/ML CARP/VIAL IV PRN ×2 (12:05→12:15)
--- NOTE | 2020-09-18 15:28 | Anesthesiology Progress Note ---
Date of Service September 18, 2020 Anesthesia Post Procedure Vital Signs Vital Signs: Temp Pulse Pulse Pulse Pulse Resp BP 09/18/20 14:45 36.6 C 98 H 20 09/18/20 12:20 37.1 C 83 12 09/18/20 12:10 80 15 09/18/20 12:00 81 14 09/18/20 11:50 79 13 09/18/20 11:40 78 14 09/18/20 11:30 79 17 09/18/20 11:20 78 14 09/18/20 11:14 36.6 C 78 17 09/18/20 09:33 36.7 C 85 16 09/18/20 07:38 36.9 C 80 20 09/18/20 03:15 37.1 C 86 16 09/17/20 22:33 37.0 C 96 H 16 09/17/20 22:26 09/17/20 22:13 37.0 C 91 H 09/17/20 21:40 96 H 109/61 09/17/20 21:20 97 H 117/71 09/17/20 21:00 96 H 113/62 09/17/20 20:40 96 H 128/72 09/17/20 20:20 96 H 124/68 09/17/20 20:00 92 H 144/67 H 09/17/20 19:40 93 H 129/76 09/17/20 19:20 94 H 139/79 09/17/20 19:00 87 118/76 09/17/20 18:53 36.7 C 84 09/17/20 16:39 36.6 C 77 18 BP Pulse Ox 09/18/20 14:45 106/66 91 09/18/20 12:20 152/83 H 95 09/18/20 12:10 145/88 H 96 09/18/20 12:00 136/88 96 09/18/20 11:50 141/85 H 94 09/18/20 11:40 141/78 H 95 09/18/20 11:30 150/81 H 99 09/18/20 11:20 142/81 H 99 09/18/20 11:14 138/79 100 09/18/20 09:33 160/93 H 96 09/18/20 07:38 144/81 H 92 09/18/20 03:15 152/77 H 92 09/17/20 22:33 143/73 H 84 L 09/17/20 22:26 93 09/17/20 22:13 135/67 09/17/20 21:40 09/17/20 21:20 09/17/20 21:00 09/17/20 20:40 09/17/20 20:20 09/17/20 20:00 09/17/20 19:40 09/17/20 19:20 09/17/20 19:00 09/17/20 18:53 09/17/20 16:39 135/79 96 Pain Intensity Chest: Pain Intensity: 0 Bilateral Back: Pain Intensity: 10 Right Groin: Pain Intensity: 7 Right Chest: Pain Intensity: 9 Transfer of Care Handoff Completed per policy Notes Mental Status: alert / awake / arousable and participated in evaluation Patient Amnestic to Procedure: Yes Nausea / Vomiting: adequately controlled Pain: adequately controlled Airway Patency, RR, SpO2: stable & adequate BP & HR: stable & adequate Hydration State: stable & adequate Anesthetic Complications: no major complications apparent and Pt Satisfied with anesthetic care Notes: pt requied dextrose for hypoglycemia. primary team alerted. pt drinking soda at time of transfer. primary team to closely follow.
--- NOTE | 2020-09-18 18:39 | Billing Data ---
Date of Service September 18, 2020 Coding Level of Care Code 45298 Subseq Hosp Care Lvl 3
[2020-09-18] MEDS: LIDOCAINE 5% 1 PATCH TD SCH (20:00)
[2020-09-18] MEDS: MoRPHine SULFATE 2 MG/ML CARP IV PRN (21:10)
[2020-09-19] MEDS: MoRPHine SULFATE 2 MG/ML CARP IV PRN ×2 (01:22→06:40)
[2020-09-19] MEDS: ONDANSETRON INJ 2 MG/ML 2 ML VIAL IV PRN ×2 (04:10→15:36)
[2020-09-19] MEDS: cloNIDine HCL 0.1 MG TAB PO SCH ×2 (06:07→13:05)
[2020-09-19] MEDS: PANTOprazole 40 MG TAB PO SCH (06:07)
[2020-09-19] MEDS: hydrALAZINE TAB 50 MG TAB PO SCH ×2 (06:08→13:05)
[2020-09-19] MEDS: LEVOTHYROXINE SODIUM 25 MCG TABLET PO SCH (06:08)
[2020-09-19] MEDS: LABETALOL HCL 300 MG TAB PO SCH ×2 (06:09→13:05)
[2020-09-19 06:23] LABS: Basophils # (auto) 0.04 K/uL (0-0.2); Basophils % (auto) 0.5 %; Eosinophils # (auto) 0.76 K/uL (0-0.5); Hematocrit (blood only) 29.9 % (37-47); Hemoglobin 9.3 g/dL (12.0-16.0); Immature Granulocytes # (auto) 0.13 K/uL (0.00-0.02); Immature Granulocytes % (auto) 1.5 %; Lymphocytes # (auto) 1.87 K/uL (1.2-3.4); Lymphocytes % (auto) 22.1 %; Mean Corpuscular Hemoglobin 30.2 pg (25-34); Mean Corpuscular Hgb Conc 31.1 g/dL (32-36); Mean Corpuscular Volume 97.1 fL (80-100); Mean Platelet Volume 10.5 fL (7.4-10.4); Monocytes # (auto) 0.74 K/uL (0.11-0.59); Monocytes % (auto) 8.8 %; Neutrophils # (auto) 4.91 K/uL (1.4-6.5); Neutrophils % (auto) 58.1 %; Platelet Count 401 K/uL (130-400); RDW Coefficient of Variation 20.9 % (11.5-14.5); RDW Standard Deviation 73.8 fL (36.4-46.3); Red Blood Count 3.08 M/uL (4.2-5.4); White Blood Count 8.45 K/uL (4.8-10.8)
[2020-09-19 06:55] LABS: Anisocytosis Present; Hypochromasia Present; Polychromasia 1+
[2020-09-19 07:08] LABS: BUN Creatinine Ratio 13.4 (10-20); Calcium 8.3 mg/dl (8.5-10.1); Creatinine Clr Calc Pharmacy 10.9 ml/min; Est GFR (African American) 9.2 ml/min; Est GFR (Non-African American) 7.9 ml/min
--- NOTE | 2020-09-19 07:19 | Discharge Summary ---
Date of Service September 19, 2020 Discharge Exam Patient has soreness at R upper chest cath site. Her groin still hurts, but is slightly less than yesterday. She has some pain at mid chest and under L breast, intermittent, similar to her previous ones. No SOB. Patient reports she felt dizzy last night after desat to 80s. Patient denies any bleeding at site where R femoral cath was removed. Patient inquired about dialysis schedule and if she will receive dialysis inpatient today.. She previously was on MWF. General: Grossly A&O. NAD. Cooperative. HEENT: Atraumatic, normocephalic. EOMI Pulm: CTAB. -wheezes, -rales, -rhonchi. Symmetrical chest rise. No respiratory distress. Cardiac: RRR, -mrg. No LE edema Abdominal: Mild periumbilical and LLQ TTP, nondistended, soft. Integ: R upper chest dialysis site bandaged. Bandage c/d/i. Some ecchymosis surrounding bandage. Discharge Data Allergies Allergy/AdvReac Type Severity Reaction Status Date / Time bee venom protein (honey bee) Allergy Intermediate Hives Verified 09/11/20 22:55 chlorhexidine Allergy Intermediate Hives Verified 09/11/20 22:55 latex Allergy Intermediate Hives Verified 09/11/20 22:55 fentanyl AdvReac Nausea Verified 09/12/20 01:28 Consultations 09/12/20 00:43 ED Decision to Admit Stat 09/12/20 01:55 Consult Nephrology Routine 09/12/20 09:33 Consult Vascular Surgery Routine 09/13/20 10:58 Consult Infectious Diseases Routine Procedures Performed Operation Date: 09/12/20 10:20 Actual Procedures p Removal of Infected Perm Catheter, Insertion of Temporary Dialysis Catheter, Fluoroscopy for Positioning(Bilateral) - Julien Marquez MD Operation Date: 09/18/20 10:20 Actual Procedures p Insertion of Perm Catheter, Right Internal Jugular Approach, Ultrasound Localization of Right Internal Jugular Vein, Fluoroscopy for positioning, removal of right temporary femoral dialysis catheter(Right) - Julien Marquez MD Ordered Studies 09/12/20 14:09 EV cvc insert non tunnel Routine EV cvc remov tunnel wo prt/ditcher Routine 09/13/20 17:37 CT abd pelvis IV con only Urgent CT chest diagnostic w con Urgent CT lumbar spine w con Urgent 09/17/20 14:13 US hemodialysis access Routine 09/18/20 07:10 EV cvc insrt tunnel wo prt/ditcher Routine US EV guide vascular access Routine Hospital Course (1) ESRD on dialysis: 30 y/o F w/ ESRD on MWF HD, DM1, NSTEMI, PE on AC, chronic resp failure who presented from [facility] rehab for SOB likely secondary to fluid overload in context of needing dialysis. SOB improved and is tolerating 3L NC. Sepsis / infected port: - Requires port for frequent dialysis in the setting of end-stage renal disease - blood culture demonstrating MRSA x2 - Repeat blood cultures from 09/14 with no growth after >48hrs - wound culture catheter tip demonstrating MRSA - Continue IV vancomycin (day 6 on 09/17). pharmacy is following levels - [employer] ID consulted: recommended TTE. result: No vegetation. (normal EF >70%. No wall motion abnormalities. Mild pulm HTN). - concern for L upper chest dialysis catheter site infection. - vascular consulted: current plan is for new tunneled dialysis catheter on 09/18/20: update: RIJ tunneled dialysis catheter placed. temporal R femoral dialysis catheter removed. -patient inquired about if her old RUE fistula is usable. [facility] Per nephrology, may not be practically useful as access site is very deep and not readily accessible - will continue course of IV vanc via dialysis site for total of 4 wks treatment duration (From date of infected port removal) per ID hypoglycemia AM on 09/18 - patient had symptomatic hypoglycemia down to 35 at ~1030AM while perioperatively undergoing TDC placement. This was likely due to the AM lantus 10u which was not adjusted for NPO (order specified to contact provider for 50- 80% adjustment if NPO). - received 1.5 amp total of d50 per anesthesiology - originally planned to change carb ratio from 1:11 to 1:9. Reverted this change and will continue to monitor BSG ACHS - Patient's lantus was increased from 8u BID to 10u BID yesterday. Continue this dose as patient is no longer NPO. Hypervolemia secondary to end-stage renal disease: - reported wt gain, LE edema - bnp [id number] at admission - Patient receiving dialysis; - continue sevelamer Chronic respiratory failure: - per patient: secondary to chronic PEs with baseline oxygen requirement of 6 L at home - titrate supplemental O2. required bipap briefly on 09/13 AM after IV Dilaudid dose -> desat to 60s - Able to be weaned here in hospital to 1 L nasal cannula - Continue to titrate and utilize maintaining saturations greater than 92% - added incentive spirometer - 92 sat on 2L nasal cannula on 09/18 Opioid dependence: - Patient has chronic pain frequently requiring/requesting narcotics - narcotic medications held in the setting of desaturations and increased oxygen requirement (self-reported 6L home O2 baseline) - now doses of 2 mg IV morphine as needed now that patient's O2 requirement has decreased. Type 1 diabetes: - A1C 9.0 - Lantus + SSI - hypoglycemic to 50s AM of 09/13. - labile BPs, w/ highs up to ~400. difficult to control because of extremes - outpatient endocrine followup, perhaps evaluation for insulin pump - check BSG ACHS and as needed - 09/17: sugars in the 200s. 301 today 11am. increasing lantus from 8u BID to 10u BID. Patient only received 6u this am to adjust for NPO (before surgery was delayed). provided now dose of 3 u lantus at ~1pm. - no changes to SSI at this time. patient's BSG has been labile, so will evaluate effect of increased lantus -09/18 see above Chronic anemia: - Hemoglobin stable - Likely secondary to of end-stage renal disease elevated alk phos - 800 at admission - most likely 2/2 ESRD HTN: - Continue amlodipine, clonidine, hydralazine, and labetalol H/o pulmonary embolism: - Continue apixaban PO 2.5mg BID Anxiety and Depression: - Continue buspirone, gabapentin, and paroxetine Hypothyroidism: - Continue levothyroxine GERD - Continue pantoprazole Insomnia: - Continue melatonin Diet: Dialysis renal and DM1 diet. added 1.5x portions to solid foods. Fluid restriction 1.2L; n.p.o. at midnight Dispo: med/surg w/o tele. plans: return to [facility] today (09/18) vs 09/19 depending on arrangements of dialysis, transportation, and facility policies DVT ppx: home Eliquis 2.5 BID code: full (2) Diabetes mellitus type 1: Continue her usual insulin and coverage. (3) Hypertension: Continue amlodipine, clonidine, hydralazine, and labetalol (4) Gait instability: Will be returning to [facility] to continue rehab (5) Hypoxemia: Continue her home requirement of 6 L nasal cannula oxygen (6) Pulmonary hypertension: Pulmonary hypertension/history of pulmonary embolism- Is not on any routine inhalers at this time. Continue apixaban (7) Pulmonary embolism: See above (8) Critical illness myopathy: To return to rehab (9) Anxiety with depression: Continue buspirone, gabapentin, and paroxetine (10) Hypothyroidism (acquired): e (11) GERD (gastroesophageal reflux disease): Continue pantoprazole (12) Insomnia: (13) Chronic pain syndrome: Acetaminophen 650 mg p.o. every 6 hours as needed mild pain or fever Tramadol 50 mg p.o. every 6 hours as needed moderate pain Dilaudid 0.25 mg IV every 3 hours as needed moderate pain Dilaudid 0.5 mg IV every 3 hours as needed severe pain Continue bowel regiment Discharge Plan Discharge Items Patient Disposition: Transfer Inpatient Rehab Fac Reason For Visit: FLUID OVERLOAD, ERSD ON HD Discharge Diagnosis: fluid overload Activity: Per Instructions section Non-emergency contact: Primary Care Provider and Tool Grinding Technician Call non-emergency contact if: you have any medication questions, your symptoms worsen, you have a fever, your wound has increased redness and your wound has increased drainage Follow-up/Referrals: Roney Crocker DO [Primary Care Provider] - Diet: Carb Count or DM1 and Dialysis Renal Addtl Attending Provider Instructions: 30 y/o F w/ ESRD on MWF HD, DM1, NSTEMI, PE on AC, chronic resp failure who presented from [facility] rehab for SOB likely secondary to fluid overload in context of needing dialysis. SOB improved and tolerating 2L NC. See facility PCP in 1 week for hospital follow up. Please make appointment to see nephrology (Dr. Kelsea Hernandez) in 1 week. Check BMP on 09/24/20 Medication changes narcotic pain medications: ESRD on dialysis: MWF Sepsis 04/17 infected port: - Requires port for frequent dialysis in the setting of end-stage renal disease - blood culture demonstrating MRSA x2 - Repeat blood cultures from 09/14 with no growth after >48hrs - wound culture catheter tip demonstrating MRSA - Continue IV vancomycin (day 6 on 09/17). pharmacy is following levels - [employer] ID consulted: recommended TTE. result: No vegetation. (normal EF >70%. No wall motion abnormalities. Mild pulm HTN). - concern for L upper chest dialysis catheter site infection. - vascular consulted: current plan is for new tunneled dialysis catheter on 09/18/20: update: RIJ tunneled dialysis catheter placed. temporal R femoral dialysis catheter removed. -patient inquired about if her old RUE fistula is usable. [facility] Per nephrology, may not be practically useful as access site is very deep and not readily accessible - will continue course of IV vanc via dialysis site for total of 4 wks treatment duration (From date of infected port removal) per ID hypoglycemia AM on 09/18 - patient had symptomatic hypoglycemia down to 35 at ~1030AM while perioperatively undergoing TDC placement. This was likely due to the AM lantus 10u which was not adjusted for NPO (order specified to contact provider for 50- 80% adjustment if NPO). - received 1.5 amp total of d50 per anesthesiology - originally planned to change carb ratio from 1:11 to 1:9. Reverted this change and will continue to monitor BSG ACHS - Patient's lantus was increased from 8u BID to 10u BID yesterday. Continue this dose as patient is no longer NPO. Hypervolemia secondary to end-stage renal disease: - reported wt gain, LE edema - bnp [id number] at admission - Patient receiving dialysis; - continue sevelamer Chronic respiratory failure: - per patient: secondary to chronic PEs with baseline oxygen requirement of 6 L at home - titrate supplemental O2. required bipap briefly on 09/13 AM after IV Dilaudid dose -> desat to 60s - Able to be weaned here in hospital to 1 L nasal cannula - Continue to titrate and utilize maintaining saturations greater than 92% - added incentive spirometer - 92 sat on 2L nasal cannula on 09/18 Opioid dependence: - Patient has chronic pain frequently requiring/requesting narcotics - narcotic medications held in the setting of desaturations and increased oxygen requirement (self-reported 6L home O2 baseline) - now doses of 2 mg IV morphine as needed now that patient's O2 requirement has decreased. Type 1 diabetes: - A1C 9.0 - Lantus + SSI - hypoglycemic to 50s AM of 09/13. - labile BPs, w/ highs up to ~400. difficult to control because of extremes - outpatient endocrine followup, perhaps evaluation for insulin pump - check BSG ACHS and as needed - 09/17: sugars in the 200s. 301 today 11am. increasing lantus from 8u BID to 10u BID. Patient only received 6u this am to adjust for NPO (before surgery was delayed). provided now dose of 3 u lantus at ~1pm. - no changes to SSI at this time. patient's BSG has been labile, so will evaluate effect of increased lantus -09/18 see above Chronic anemia: - Hemoglobin stable - Likely secondary to of end-stage renal disease elevated alk phos - 800 at admission - most likely 2/2 ESRD HTN: - Continue amlodipine, clonidine, hydralazine, and labetalol H/o pulmonary embolism: - Continue apixaban PO 2.5mg BID Anxiety and Depression: - Continue buspirone, gabapentin, and paroxetine Hypothyroidism: - Continue levothyroxine GERD - Continue pantoprazole Insomnia: - Continue melatonin Diet: Dialysis renal and DM1 diet. added 1.5x portions to solid foods. Fluid restriction 1.2L; n.p.o. at midnight Dispo: med/surg w/o tele. plans: return to [facility] today (09/18) vs 09/19 depending on arrangements of dialysis, transportation, and facility policies DVT ppx: home Eliquis 2.5 BID code: full Pending Studies at Discharge: No Stand-Alone Forms: My [facility] Skilled Items Patient informed of condition?: Yes DNR: No Discharge Level of Care: Acute rehab Communicable Disease: No Discharge Prognosis: Stable Lines: None Urinary Catheter: No Medications and DC Order Prescriptions: No Action buspirone 5 mg Tablet 20 mg PO HS RF: 0 buspirone 5 mg Tablet 10 mg PO DAILY RF: 0 clonidine HCl 0.1 mg Tablet 0.1 mg PO Q8 RF: 0 hydralazine 25 mg Tablet 100 mg PO Q8 RF: 0 amlodipine 10 mg Tablet 10 mg PO DAILY RF: 0 gabapentin 300 mg Capsule 300 mg PO BID RF: 0 ergocalciferol (vitamin D2) 1,250 mcg (50,000 unit) Capsule 1,250 mcg PO WK RF: 0 apixaban 2.5 mg Tablet 2.5 mg PO Q12 RF: 0 paroxetine HCl 10 mg Tablet 30 mg PO DAILY RF: 0 Lantus U-100 Insulin 100 unit/mL Solution 8 unit SUBCUT Q12 RF: 0 levothyroxine 25 mcg Tablet 25 mcg PO DAILY RF: 0 insulin aspart U-100 100 unit/mL Solution See Rx Instructions .ROUTE .COMPLEX RF: 0 pantoprazole 40 mg Tablet,Delayed Release (Dr/Ec) 40 mg PO DAILYBB RF: 0 docusate sodium [Colace] 100 mg Capsule 100 mg PO BID RF: 0 labetalol 100 mg Tablet 300 mg PO Q8 RF: 0 sevelamer carbonate 800 mg Tablet 800 mg PO TIDM RF: 0 melatonin 3 mg Tablet 3 mg PO HS PRN (Reason: Unknown) RF: 0 tramadol 50 mg Tablet 50 mg PO Q6H PRN (Reason: Unknown) RF: 0 Humulin R Regular U-100 Insuln 100 unit/mL Solution See Rx Instructions .ROUTE .COMPLEX RF: 0 acetaminophen 325 mg Tablet 650 mg PO Q4 PRN (Reason: Unknown) RF: 0 sennosides-docusate sodium [Senna with Docusate Sodium] 8.6-50 mg Tablet 1 tab-cap PO .WITH LUNCH PRN (Reason: Unknown) RF: 0 bisacodyl [Dulcolax (bisacodyl)] 10 mg Suppository 10 mg AL DAILY PRN (Reason: Unknown) RF: 0 diphenhydramine HCl 25 mg Capsule 25 mg PO .Q M,W,F PRN (Reason: Unknown) RF: 0 Fleet Enema 19-7 gram/118 mL Enema 118 ml AL DAILY PRN (Reason: Unknown) RF: 0 polyethylene glycol 3350 [Miralax] 17 gram/dose Powder 17 g PO DAILY PRN (Reason: Unknown) RF: 0 ondansetron 4 mg Tablet,Disintegrating 4 mg PO Q8H PRN (Reason: Unknown) RF: 0 Admission Data Admit Date/Time: 09/12/20 00:59 Attending Provider: Nghia Anne Admit Provider: Ke Wilcox Primary Care Provider: oRney Crocker Other Providers: Kinsey Garcia ; Ke Wilcox ; Lavonne Saravia ; Julien Marquez ; Hasmukh Ackerman ; Cary Burrell ; Jarett Love I. ; Phillip Verma II ; Marla Almanzar ; Bebo Lassiter
[2020-09-19] MEDS ORDERED: SODIUM CHLORIDE 0.9% 1000ML 1,000 ML IV PRN (08:05)
[2020-09-19] MEDS ORDERED: EPOETIN ALFA 20,000 UNITS/ML VIAL IV SCH (08:15)
[2020-09-19] MEDS: amLODIPine BESYLATE 5 MG TAB PO SCH (08:53)
[2020-09-19] MEDS: INSULIN GLARGINE SOLOSTAR 100 UNITS/ML 3 ML PEN SC SCH (08:57)
[2020-09-19] MEDS: APIXABAN 2.5 MG TAB PO SCH (08:57)
[2020-09-19] MEDS: DOCUSATE SODIUM 100 MG CAP PO SCH (08:57)
[2020-09-19] MEDS: SEVELAMER HCL 800 MG TABLET PO SCH ×3 (08:57→16:49)
[2020-09-19] MEDS: PARoxetine HCL 10 MG TAB PO SCH (08:57)
[2020-09-19] MEDS: DICLOFENAC SOD 1% GEL 100 GM TUBE EXT SCH (08:57)
[2020-09-19] MEDS: busPIRone 5 MG TAB PO SCH (08:57)
[2020-09-19] MEDS: GABAPENTIN 300 MG CAP PO SCH (08:57)
[2020-09-19] MEDS: INSULIN ASPART 100 UNITS/ML 3 ML PEN SC SCH ×3 (08:58→16:48)
--- NOTE | 2020-09-19 09:15 | Pharmacy Report ---
Pharmacy Abx Dose Short Note - Date of Service September 19, 2020 - Assessment & Plan Assessment 30 year old F receiving IV VANCOMYCIN for treatment of MRSA Bacteremia d/t infected perm cath. Day # 8 of antimicrobial therapy. Per ID - patient requires 4 weeks post perm cath removal, which was done 09/18/20. Pt to have HD today, then DC to [facility] Plan Vancomycin * 500mg IV x1 today after HD * Further monitoring/dosing per pharmacy at [facility] will continue to follow and will adjust dose/frequency as necessary. Thank you.
[2020-09-19] MEDS: diphenhydrAMINE Capsule 25 MG CAP PO PRN ×2 (10:09→19:49)
[2020-09-19] MEDS ORDERED: MoRPHine SULFATE 2 MG/ML CARP IV STA ×3 (12:41→23:52)
[2020-09-19] MEDS ORDERED: VANCOMYCIN HCL 500 MG in SODIUM CHLORIDE 0.9% 250 ML IV SCH (16:00)
--- NOTE | 2020-09-19 16:01 | Nephrology Progress Note ---
Date of Service September 19, 2020 Assessment & Plan (1) MRSA bacteremia: 09/12 with pus, redness, and pain at catheter exit site, new since 09/10>> blood cxs 06/17 positive in less than 24 hrs. Pt has had recurrent exit site infections -September 14 blood cultures are negative; for September 19 dialysis catheter placement -with her back pain, worsening hypoxia despite aggressive UF, hx of recurrent catheter related infections, low threshold for TTE, for CT c/a/p >> CT unremarkable -on vanco >> dose per pharmacy > for 4 wks after cath removal (09/12) so through 10/10 (2) Acute and chronic respiratory failure: -on chronic 02 at baseline > 6L per her report here; told me 3L at [facility] previously; indications for this not fully clear>> maintaining sats on 1L currently >>>TTE w/ mild plm HTN and mild CLVH; CT chest 09/13 w/ ff suspicious for plm edema -HD again today (3) ESRD on dialysis: chronic ESRD pt w/ recurrent vol OL. has maturing AVF. -HD today 4 hours with 5 L UF goal as blood pressure tolerates -cont 1.2L FR, dialysis/DM diet (4) Anemia of chronic disease: may in part be -continue venofer load started at [facility] >> t stn 9% on 09/06 -Will resume iron load -CBC at least every other day pls while in house -will give epo today hihg dose Admission and Anticipated Discharge Date Admission Date: September 12, 2020 Subjective got TDC yesterday; very sore still. states she had a lot of ice b/c of sore throat after procedure. BG lability continues Review of Systems Review of Systems: All systems reviewed & are unremarkable except as noted in Subjective Physical Exam Constitutional: well developed, cooperative and + overweight; no acute distress Eyes: EOM intact bilaterally ENMT: Ears: no external ear abnormality Nose: no external nose abnormality Mouth: + dry oral mucous membranes Neck: no nuchal rigidity Respiratory: normal respiratory effort Auscultation: + diminished lung sounds (markedly) Cardiovascular: Extremities: + AV fistula (maturing -- endovascular R forearm w/ + bruit; minimal thrill) Gastrointestinal (Abdomen): Inspection/Auscultation: normal bowel sounds; abdomen not distended Percussion/Palpation: abdomen soft; abdomen nontender (no focal abdominal or CVA tenderness on exam) and no guarding Musculoskeletal: Extremities: strength 5/5 throughout Skin: no rashes, warm and dry + excoriations (many scabbed pustules) Neurologic: walter, fluen tspeech Psychiatric: A+Ox3, euthymic affect Orientation: oriented to person Results & Data ([facility]) Vital Signs (Past 12 Hours) Vital Signs Temp Pulse Pulse Resp BP Pulse Ox 09/19/20 15:25 36.7 C 86 18 108/65 90 09/19/20 11:18 36.4 C L 83 18 130/80 90 09/19/20 07:00 36.6 C 87 20 97/59 L 96 09/19/20 04:10 36.6 C 83 20 130/74 92 Laboratory Results 09/19/20 06:10 09/19/20 06:10
--- NOTE | 2020-09-19 17:25 | Billing Data ---
Date of Service September 19, 2020 Coding Level of Care Code 56493 Subseq Hosp Care Lvl 2
--- NOTE | 2020-09-19 18:16 | Hospitalist Progress Note ---
Date of Service September 19, 2020 Assessment & Plan (1) ESRD on dialysis: 30 y/o F w/ ESRD on MWF HD, DM1, NSTEMI, PE on AC, chronic resp failure who presented from [facility] for SOB likely secondary to fluid overload in context of needing dialysis. SOB improved and is tolerating 3L NC. Sepsis 2/2 infected port: - Requires port for frequent dialysis in the setting of end-stage renal disease - blood culture demonstrating MRSA x2 - Repeat blood cultures from 09/14 with no growth after >48hrs - wound culture catheter tip demonstrating MRSA - Continue IV vancomycin (day 6 on 09/17). pharmacy is following levels - [employer] ID consulted: recommended TTE. result: No vegetation. (normal EF > 70%. No wall motion abnormalities. Mild pulm HTN). - concern for L upper chest dialysis catheter site infection. - vascular consulted: current plan is for new tunneled dialysis catheter on 09/18/20: update: RIJ tunneled dialysis catheter placed. temporal R femoral dialysis catheter removed. -patient inquired about if her old RUE fistula is usable. [facility] Per nephrology, may not be practically useful as access site is very deep and not readily accessible - will continue course of IV vanc via dialysis site for total of 4 wks treatment duration (From date of infected port removal) per ID hypoglycemia - patient had symptomatic hypoglycemia down to 35 at ~1030AM while perioperatively undergoing TDC placement. This was likely due to the AM lantus 10u which was not adjusted for NPO (order specified to contact provider for 50- 80% adjustment if NPO). - received 1.5 amp total of d50 per anesthesiology - originally planned to change carb ratio from 1:11 to 1:9. Reverted this change and will continue to monitor BSG ACHS - Patient's lantus was increased from 8u BID to 10u BID on 09/18. Continue this dose as patient is no longer NPO. - 09/19 patient had 2 episodes of hypoglycemia to 60s. Reviewed BSGs and doses of insulin received. Changing correction factor from 35 to 50 for slightly decreased insulin administered by ~1-2u. No changes to carb ratio 1:11. - will need to discuss w/ patient to double check accuracy of carb counting especially if eating outside foods. hyponatremia - 09/19 Na 134->128. likely 2/2 renal failure, hypervolemic hyponatremia from fluid overload. patient receiving dialysis today which will help - asymptomatic. patient's dizziness last night was likely 2/2 morphine doses Hypervolemia secondary to end-stage renal disease: - reported wt gain, LE edema - bnp [id number] at admission - Patient receiving dialysis today on 09/19 - continue sevelamer Chronic respiratory failure: - per patient: secondary to chronic PEs with baseline oxygen requirement of 6 L at home - titrate supplemental O2. required bipap briefly on 09/13 AM after IV Dilaudid dose -> desat to 60s - Able to be weaned here in hospital to 1 L nasal cannula - Continue to titrate and utilize maintaining saturations greater than 92% - added incentive spirometer Opioid dependence: - Patient has chronic pain frequently requiring/requesting narcotics - narcotic medications held in the setting of desaturations and increased oxygen requirement (self-reported 6L home O2 baseline) - now doses of 2 mg IV morphine as needed now that patient's O2 requirement has decreased. - 09/19 now doses decreased now doses from 2 mg to 1 mg IV morphine Type 1 diabetes: - A1C 9.0 - Lantus + SSI - hypoglycemic to 50s AM of 09/13. - labile BPs, w/ highs up to ~400. difficult to control because of extremes - outpatient endocrine followup, perhaps evaluation for insulin pump - check BSG ACHS and as needed - 09/17: sugars in the 200s. 301 today 11am. increasing lantus from 8u BID to 10u BID. Patient only received 6u this am to adjust for NPO (before surgery was delayed). provided now dose of 3 u lantus at ~1pm. - no changes to SSI at this time. patient's BSG has been labile, so will evaluate effect of increased lantus -09/19 see changes above Chronic anemia: - Hemoglobin stable - Likely secondary to of end-stage renal disease elevated alk phos - 800 at admission - most likely 2/2 ESRD HTN: - Continue amlodipine, clonidine, hydralazine, and labetalol H/o pulmonary embolism: - Continue apixaban PO 2.5mg BID Anxiety and Depression: - Continue buspirone, gabapentin, and paroxetine Hypothyroidism: - Continue levothyroxine GERD - Continue pantoprazole Insomnia: - Continue melatonin Diet: Dialysis renal and DM1 diet. 1.5x portions to solid foods. Fluid restriction 1.2L Dispo: med/surg w/o tele. plans: likely dispo to [facility] on 09/20 DVT ppx: home Eliquis 2.5 BID code: full (2) Diabetes mellitus type 1: (3) Hypertension: (4) Gait instability: (5) Hypoxemia: (6) Pulmonary hypertension: (7) Pulmonary embolism: (8) Critical illness myopathy: (9) Anxiety with depression: (10) Hypothyroidism (acquired): (11) GERD (gastroesophageal reflux disease): (12) Insomnia: (13) Chronic pain syndrome: (14) Hyponatremia: Admission and Anticipated Discharge Date Admission Date: September 12, 2020 Supervising Physician Co-Signing Physician Notes I personally examined the patient and verified all gamez points of history and exam, discussed case, and agree with decision making with Dr Fontaine. discussed sugars - more open to the idea that her brittle diabetes is a combination of narrow window for control but also largely insulin-carb mismatches. vitals noted awake alert oriented, pleasant, no distress. HEENT normocephalic atraumatic mucous membranes moist. Breathing unlabored no accessory muscle use good effort. no pallor or icterus. MRSA bacteremia - continue vanco presumptively for about 4 weeks - will be dosed at HD ESRD/HD -HD again today DM1 - uncontrolled both acutely and chronically. continue education and insulin management. she is pursuing a continuous glucose monitor - which likely would be quite beneficial especially since she started to get the idea that food-->sugar levels are a big part of her control -- and CGM would allow much easier monitoring of this (jayleen since she apparently doesn't have isnurance coverage for test strips) Hopefully return to rehab tomorrow - was anticipating today, but appears that HD won't be until quite late otherwise as above Subjective Patient has soreness at R upper chest cath site. Her groin still hurts, but is slightly less than yesterday. She has some pain at mid chest and under L breast, intermittent, similar to her previous ones. No SOB. Patient reports she felt dizzy last night after desat to 80s. Patient denies any bleeding at site where R femoral cath was removed. Patient inquired about dialysis schedule and if she will receive dialysis inpatient today.. She previously was on MWF. Afternoon update: per nursing, patient had emesis x1 and continues to complain of rib pain, groin pain, and pain at catheter site. Review of Systems Review of Systems: All systems reviewed & are unremarkable except as noted in HPI & below Physical Exam Physical Exam: General: Grossly A&O. NAD. Cooperative. HEENT: Atraumatic, normocephalic. EOMI Pulm: CTAB. -wheezes, -rales, -rhonchi. Symmetrical chest rise. No respiratory distress. Cardiac: RRR, -mrg. No LE edema Abdominal: Mild periumbilical and LLQ TTP, nondistended, soft. Integ: R upper chest dialysis site bandaged. Bandage c/d/i. Some ecchymosis surrounding bandage. R femoral area inspected, no hematoma or active drainage. RIJ site is bandaged, no surrounding erythema. Results & Data Results & Data ([facility]) Vital Signs (Past 12 Hours) Vital Signs Temp Pulse Pulse Resp BP Pulse Ox 09/19/20 15:25 36.7 C 86 18 108/65 90 09/19/20 11:18 36.4 C L 83 18 130/80 90 09/19/20 07:00 36.6 C 87 20 97/59 L 96 Resident Activity Tracking Resident Involvement: Resident Care Provided Care Provided: Adult Hospital Medicine
[2020-09-19] MEDS: ONDANSETRON 4 MG OD TAB PO PRN (23:09)
[2020-09-19] MEDS: traMADol HCL 50 MG TABLET PO PRN (23:09)
[2020-09-20] MEDS: GABAPENTIN 300 MG CAP PO SCH ×2 (00:31→08:09)
[2020-09-20] MEDS: busPIRone 5 MG TAB PO SCH ×2 (00:32→08:05)
[2020-09-20] MEDS: LIDOCAINE 5% 1 PATCH TD SCH (00:35)
[2020-09-20] MEDS: HEPARIN SOD (PORCINE) 1000 UNIT/ML IV SCH (00:35)
[2020-09-20] MEDS: LABETALOL HCL 300 MG TAB PO SCH ×2 (00:36→05:49)
[2020-09-20] MEDS: DOCUSATE SODIUM 100 MG CAP PO SCH ×2 (00:36→08:09)
[2020-09-20] MEDS: hydrALAZINE TAB 50 MG TAB PO SCH ×2 (00:37→05:49)
[2020-09-20] MEDS: cloNIDine HCL 0.1 MG TAB PO SCH ×2 (00:37→05:58)
[2020-09-20] MEDS: APIXABAN 2.5 MG TAB PO SCH ×2 (00:39→08:09)
[2020-09-20] MEDS: INSULIN GLARGINE SOLOSTAR 100 UNITS/ML 3 ML PEN SC SCH ×2 (00:40→08:11)
[2020-09-20] MEDS: INSULIN ASPART 100 UNITS/ML 3 ML PEN SC SCH ×3 (00:42→11:56)
[2020-09-20] MEDS: MELATONIN 3 MG TAB PO PRN (00:45)
[2020-09-20] MEDS: diphenhydrAMINE Capsule 25 MG CAP PO PRN (00:51)
[2020-09-20] MEDS: LEVOTHYROXINE SODIUM 25 MCG TABLET PO SCH (05:49)
[2020-09-20] MEDS: PANTOprazole 40 MG TAB PO SCH (05:50)
[2020-09-20 06:50] LABS: Basophils # (auto) 0.04 K/uL (0-0.2); Basophils % (auto) 0.5 %; Eosinophils % (auto) 7.7 %; Hematocrit (blood only) 32.4 % (37-47); Hemoglobin 9.9 g/dL (12.0-16.0); Immature Granulocytes # (auto) 0.11 K/uL (0.00-0.02); Immature Granulocytes % (auto) 1.4 %; Lymphocytes # (auto) 1.27 K/uL (1.2-3.4); Lymphocytes % (auto) 16.2 %; Mean Corpuscular Hemoglobin 30.5 pg (25-34); Mean Corpuscular Hgb Conc 30.6 g/dL (32-36); Mean Corpuscular Volume 99.7 fL (80-100); Monocytes # (auto) 0.65 K/uL (0.11-0.59); Monocytes % (auto) 8.3 %; Neutrophils # (auto) 5.16 K/uL (1.4-6.5); Neutrophils % (auto) 65.9 %; Nucleated RBC # (auto) 0.02 K/uL (0-0); Nucleated RBC % (auto) 0.3 %; Platelet Count 402 K/uL (130-400); RDW Standard Deviation 74.6 fL (36.4-46.3); Red Blood Count 3.25 M/uL (4.2-5.4); White Blood Count 7.83 K/uL (4.8-10.8)
[2020-09-20 07:13] LABS: Anisocytosis Present; Polychromasia 1+
[2020-09-20 07:32] LABS: Albumin Globulin Ratio 0.6 (0.9-2); Albumin Level 3.4 gm/dl (3.4-5.0); BUN Creatinine Ratio 10.5 (10-20); Bilirubin,Total 0.4 mg/dl (0.2-1); Calcium 8.8 mg/dl (8.5-10.1); Creatinine Clr Calc Pharmacy 17.9 ml/min; Est GFR (African American) 16.7 ml/min; Est GFR (Non-African American) 14.4 ml/min; Globulin 5.7 gm/dl (2.5-4.0); Total Protein 9.1 gm/dl (6.4-8.2)
[2020-09-20] MEDS: SEVELAMER HCL 800 MG TABLET PO SCH ×2 (08:05→11:57)
[2020-09-20] MEDS: amLODIPine BESYLATE 5 MG TAB PO SCH (08:05)
[2020-09-20] MEDS: PARoxetine HCL 10 MG TAB PO SCH (08:06)
[2020-09-20] MEDS: DICLOFENAC SOD 1% GEL 100 GM TUBE EXT SCH (08:06)
--- NOTE | 2020-09-20 08:21 | Discharge Summary ---
Date of Service September 20, 2020 Admission HPI Per Admitting Provider The patient is a 30-year-old anemia with a past medical history including hypertension, ESRD on HD, ASCAD, diabetes mellitus type 1, non-STEMI, gait instability, critical illness myopathy, hypoxemia requiring 6 L nasal cannula chronic, point hypertension, PE, anxiety with depression, hypothyroidism, GERD, chronic pain syndrome and insomnia. She is presently at [facility] to undergo rehab, and developed the symptoms noted above there. The patient does not produce urine. Admission Exam Per Admitting Provider The patient is awake, alert and oriented 3, appears chronically ill, normocephalic and atraumatic, sitting upright in bed and in no acute distress. HEENT--PERRL, EOMI, mucous membranes and oropharynx normal Neck--supple. No JVD. No bruits. Thyroid normal, trachea midline, no adenopathy. Heart--normal S1 and S2. No murmurs, rubs or gallops. Lungs--few crackles at the bases bilaterally. No respiratory distress, no accessory muscle use. Abdomen--normal bowel sounds and soft. Nontender. Nondistended. Extremities--1+ bilateral pretibial pitting edema. Dermatologic--normal skin turgor, normal color, no abnormal lymph nodes, no rash. Neurologic--cranial nerves II through XII grossly intact. Rheumatologic--limited range of motion due to body habitus Psychiatric--normal affect. Principal Diagnosis bacteremia, fluid overload Discharge Exam General: Grossly A&O. NAD. Cooperative. HEENT: Atraumatic, normocephalic. Pulm: Insp crackles at lower left lung. Quieter breath sounds at bases. Symmetrical chest rise. No respiratory distress. Cardiac: RRR, -mrg. No LE edema. Abdominal: Nontender, nondistended, soft. Integ: Mild ttp near RIJ port. Slight raised area of ecchymosis adjacent to the port. Discharge Data Allergies Allergy/AdvReac Type Severity Reaction Status Date / Time bee venom protein (honey bee) Allergy Intermediate Hives Verified 09/11/20 22:55 chlorhexidine Allergy Intermediate Hives Verified 09/11/20 22:55 latex Allergy Intermediate Hives Verified 09/11/20 22:55 fentanyl AdvReac Mild Nausea Verified 09/19/20 12:50 Consultations 09/12/20 00:43 ED Decision to Admit Stat 09/12/20 01:55 Consult Nephrology Routine 09/12/20 09:33 Consult Vascular Surgery Routine 09/13/20 10:58 Consult Infectious Diseases Routine Procedures Performed Operation Date: 09/12/20 10:20 Actual Procedures p Removal of Infected Perm Catheter, Insertion of Temporary Dialysis Catheter, Fluoroscopy for Positioning(Bilateral) - Julien Marquez MD Operation Date: 09/18/20 10:20 Actual Procedures p Insertion of Perm Catheter, Right Internal Jugular Approach, Ultrasound Localization of Right Internal Jugular Vein, Fluoroscopy for positioning, removal of right temporary femoral dialysis catheter(Right) - Julien Marquez MD Ordered Studies 09/12/20 14:09 EV cvc insert non tunnel Routine EV cvc remov tunnel wo prt/body and fender mechanic apprentice Routine 09/13/20 17:37 CT abd pelvis IV con only Urgent 1. Mild hepatomegaly. Heterogeneous enhancement of the liver which may reflect passive hepatic congestion. 2. Small amount of abdominal and pelvic ascites. Mild mesenteric infiltration. 3. Mild abdominal and pelvic lymphadenopathy, a nonspecific finding. 4. Extensive vascular calcification. 5. Bilateral renal atrophy. 6. Indeterminate 3.5 x 1.7 cm hypodensity adjacent to the pancreatic tail. CT chest diagnostic w con Urgent 1. Cardiomegaly with groundglass opacities and mild interlobular septal thickening suggestive of pulmonary edema. Trace bilateral pleural effusions. 2. Subcarinal abnormality that measures approximately 7.3 x 3.1 cm. Although indeterminate, an enlarged lymph node is favored given additional enlarged thoracic lymph nodes. This suspected lymphadenopathy is nonspecific. A follow-up chest CT in 3 months is recommended. 3. Interval removal of dual-lumen central venous catheter. Apparent linear hypodensity within the left brachiocephalic vein, superior vena cava and right atrium. This is difficult to assess given streak artifact from adjacent contrast however this may reflect thrombus or a fibrin sheath. 4. Mild multifocal subpleural groundglass opacities. This favors atelectasis although an infectious process cannot be excluded. No definite consolidation. CT lumbar spine w con Urgent unremarkable 09/17/20 14:13 US hemodialysis access Routine 09/18/20 07:10 EV cvc insrt tunnel wo prt/body and fender mechanic apprentice Routine US EV guide vascular access Routine Hospital Course (1) ESRD on dialysis: 30 y/o F w/ ESRD on MWF HD, DM1, NSTEMI, PE on AC, chronic resp failure who presented from [facility] rehab from 09/12-09/20/20 for SOB secondary to fluid overload in context of needing dialysis. She arrived w/ 6L O2 requirement and is leaving on ~3L O2, satting low 90s. Admission was complicated by INFECTED LIJ dialysis port w/ MRSA bacteremia. The infected port has since been removed. A temporary R femoral dialysis port was placed and since removed. Patient has a new permanent RIJ tunneled dialysis port. Her old R forearm dialysis port is still existing, but deemed difficult to access and too deep, so it has not been used. See facility PCP in 1 week for hospital follow up. Please make appointment to see nephrology (Dr. Saravia) in 1-2 weeks. Recheck BMP in 1 week. Patient has MWF dialysis and will need transported to the dialysis center Medication changes pain medications: continue home tramadol. Patient will not be discharged on any other narcotic medications. insulin regimen: home lantus 8u BID increased to 10u lantus in morning and 11u lantus at night. static insulin aspart regimen of 4u w/ breakfast, 6u w/ lunch, 6u w/ dinner plus correctional sliding scale (see below). previous home med of Humulin R Regular insulin has been discontinued (not reflected in the discharge instruction). I have called [facility] pharmacy and nursing unit to update them on this. Patient will need to finish 4 week course of IV vancomycin. 09/20/20 is day 9. Last day will be on day 28. This will be administered via her dialysis site after dialysis sessions. Please have [facility]'s pharmacy renally dose this medication. Patient will need her vancomycin levels checked ideally daily for this. Defer to facility protocol. goal ~20 mcg/ml for bacteremia. PLEASE NOTE that patient had labile BSGs during this admission. hypoglycemic down to 30s (symptomatic) and hyperglycemic to 400s (mostly asymptomatic and not DKA). A large contributor is from carb intake which was difficult to account for even with carb counting while hospitalized. Cut the preceding lantus by 50% if NPO. If skipping a meal, hold the dose of aspart. If not eating much, give 50% of the aspart. Check BSG ACHS and as needed for when symptomatic. Low dose SSI aspart. Goal 110-140 Blood Sugar 70-150 administer 0 units Blood Sugar 151-200 administer 1 units Blood Sugar 201-250 administer 3 units Blood Sugar 251-300 administer 5 units Blood Sugar 301-350 administer 7 units Blood Sugar 351-400 administer 9 units Blood Sugar >400 administer 11 units and call MD Course of items addressed during the hospitalization below. ESRD on dialysis: MWF. patient is slightly hypervolemic. diuretics not indicated. continue dialysis Sepsis 04/17 infected port: - MRSAx2 cultures. - Repeat blood cultures from 09/14 with no growth after >48hrs - Continue IV vancomycin (day 9 on 09/20). pharmacy is following levels - [employer] ID consulted: recommended TTE. result: No vegetation. (normal EF >70%. No wall motion abnormalities. Mild pulm HTN). - concern for L upper chest dialysis catheter site infection. - vascular consulted: current plan is for new tunneled dialysis catheter on 09/18/20: update: [facility] tunneled dialysis catheter placed. temporal R femoral dialysis catheter removed. -patient inquired about if her old RUE fistula is usable. [facility] Per nephrology, may not be practically useful as access site is very deep and not readily accessible - will continue course of IV vanc via dialysis site for total of 4 wks treatment duration (From date of infected port removal) per ID hypoglycemia - labile BSGs during this admission, hypoglycemic episodes both during and outside of NPO hyponatremia - stable Hypervolemia secondary to end-stage renal disease: - reported wt gain, LE edema - bnp [id number] at admission - follow dialysis schedule Chronic respiratory failure: - titrated to 3L O2 Opioid dependence: - only on tramadol upon discharge. recommend against morphine because of ESRD Type 1 diabetes: - A1C 9.0 - see regimen above Chronic anemia: - stable elevated alk phos - 2/2 ESRD HTN: - Continue amlodipine, clonidine, hydralazine, and labetalol H/o pulmonary embolism: - Continue apixaban PO 2.5mg BID Anxiety and Depression: - Continue buspirone, gabapentin, and paroxetine Hypothyroidism: - Continue levothyroxine GERD - Continue pantoprazole Insomnia: - Continue melatonin Diet: Dialysis renal and DM1 diet. Fluid restriction 1.2L Dispo: dispo to [facility] on 09/20 code: full (2) Diabetes mellitus type 1: (3) Hypertension: (4) Gait instability: (5) Hypoxemia: (6) Pulmonary hypertension: (7) Pulmonary embolism: (8) Critical illness myopathy: (9) Anxiety with depression: (10) Hypothyroidism (acquired): (11) GERD (gastroesophageal reflux disease): (12) Insomnia: (13) Chronic pain syndrome: (14) Hyponatremia: Total Time Total Time Spent Total Time Spent (In Minutes): <30 Discharge Plan Discharge Items Patient Disposition: Transfer Inpatient Rehab Fac Reason For Visit: FLUID OVERLOAD, ERSD ON HD Discharge Diagnosis: fluid overload Activity: Per Instructions section Non-emergency contact: Primary Care Provider and Primary Health Organisation Manager Call non-emergency contact if: you have any medication questions, your symptoms worsen, you have a fever, your wound has increased redness and your wound has increased drainage Follow-up/Referrals: Lavonne Saravia MD, PhD [Physician] - Roney Crocker DO [Primary Care Provider] - Diet: Carb Count or DM1 and Dialysis Renal Fluids: 1200ml (5 cups) Addtl Attending Provider Instructions: 30 y/o F w/ ESRD on MWF HD, DM1, NSTEMI, PE on AC, chronic resp failure who presented from [facility] rehab from 09/12-09/20/20 for SOB secondary to fluid overload in context of needing dialysis. She arrived w/ 6L O2 requirement and is leaving on ~3L O2, satting low 90s. Admission was complicated by INFECTED LIJ dialysis port w/ MRSA bacteremia. The infected port has since been removed. A temporary R femoral dialysis port was placed and since removed. Patient has a new permanent RIJ tunneled dialysis port. Her old R forearm dialysis port is still existing, but deemed difficult to access and too deep, so it has not been used. See facility PCP in 1 week for hospital follow up. Please make appointment to see nephrology (Dr. Saravia) in 1-2 weeks. Recheck BMP in 1 week. Patient has MWF dialysis and will need transported to the dialysis center Medication changes pain medications: continue home tramadol. Patient will not be discharged on any other narcotic medications. insulin regimen: home lantus 8u BID increased to 10u lantus in morning and 11u lantus at night. static insulin aspart regimen of 4u w/ breakfast, 6u w/ lunch, 6u w/ dinner plus correctional sliding scale (see below) Patient will need to finish 4 week course of IV vancomycin. 09/20/20 is day 9. Last day will be on day 28. This will be administered via her dialysis site aft er dialysis sessions. Please have [facility]'s pharmacy renally dose this medication. Patient will need her vancomycin levels checked ideally daily for this. Defer to facility protocol. goal ~20 mcg/ml for bacteremia. PLEASE NOTE that patient had labile BSGs during this admission. hypoglycemic down to 30s (symptomatic) and hyperglycemic to 400s (mostly asymptomatic and not DKA). A large contributor is from carb intake which was difficult to account for even with carb counting while hospitalized. Cut the preceding lantus by 50% if NPO. If skipping a meal, hold the dose of aspart. If not eating much, give 50% of the aspart. Check BSG ACHS and as needed for when symptomatic. Low dose SSI aspart. Goal 110-140 Blood Sugar 70-150 administer 0 units Blood Sugar 151-200 administer 1 units Blood Sugar 201-250 administer 3 units Blood Sugar 251-300 administer 5 units Blood Sugar 301-350 administer 7 units Blood Sugar 351-400 administer 9 units Blood Sugar >400 administer 11 units and call MD Course of items addressed during the hospitalization below. ESRD on dialysis: MWF. patient is slightly hypervolemic. diuretics not indicated. continue dialysis Sepsis 2/2 infected port: - Requires port for frequent dialysis in the setting of end-stage renal disease - blood culture demonstrating MRSA x2 - Repeat blood cultures from 09/14 with no growth after >48hrs - wound culture catheter tip demonstrating MRSA. repeat tip culture w/ 4 colonies of coag neg staph no lugdunensis. - Continue IV vancomycin (day 9 on 09/20). pharmacy is following levels - [employer] ID consulted: recommended TTE. result: No vegetation. (normal EF >70%. No wall motion abnormalities. Mild pulm HTN). - concern for L upper chest dialysis catheter site infection. - vascular consulted: current plan is for new tunneled dialysis catheter on 09/18/20: update: RIJ tunneled dialysis catheter placed. temporal R femoral dialysis catheter removed. -patient inquired about if her old RUE fistula is usable. [facility] Per nephrology, may not be practically useful as access site is very deep and not readily accessible - will continue course of IV vanc via dialysis site for total of 4 wks treatment duration (From date of infected port removal) per ID hypoglycemia - patient had symptomatic hypoglycemia down to 35 at ~1030AM while perioperatively undergoing TDC placement. This was likely due to the AM lantus 10u which was not adjusted for NPO (order specified to contact provider for 50- 80% adjustment if NPO). - received 1.5 amp total of d50 per anesthesiology - originally planned to change carb ratio from 1:11 to 1:9. Reverted this change and will continue to monitor BSG ACHS - Patient's lantus was increased from 8u BID to 10u BID on 09/18. Continue this dose as patient is no longer NPO. - 09/19 patient had 2 episodes of hypoglycemia to 60s. Reviewed BSGs and doses of insulin received. Changing correction factor from 35 to 50 for slightly decreased insulin administered by ~1-2u. No changes to carb ratio 1:11. - will need to discuss w/ patient to double check accuracy of carb counting especially if eating outside foods. hyponatremia - 09/19 Na 134->128. likely 2/2 renal failure, hypervolemic hyponatremia from fluid overload. patient receiving dialysis today which will help. 127 on 09/20. discussed w/ nephro. no diuretics indicated - asymptomatic. patient's dizziness last night was likely 2/2 morphine doses Hypervolemia secondary to end-stage renal disease: - reported wt gain, LE edema - bnp [id number] at admission - Patient receiving dialysis today on 09/19 - continue sevelamer Chronic respiratory failure: - per patient: secondary to chronic PEs with baseline oxygen requirement of 6 L at home - titrate supplemental O2. required bipap briefly on 09/13 AM after IV Dilaudid dose -> desat to 60s - Able to be weaned here in hospital to 1 L nasal cannula - Continue to titrate and utilize maintaining saturations greater than 92% - added incentive spirometer Opioid dependence: - Patient has chronic pain frequently requiring/requesting narcotics - narcotic medications held in the setting of desaturations and increased oxygen requirement (self-reported 6L home O2 baseline) - now doses of 2 mg IV morphine as needed now that patient's O2 requirement has decreased. - 09/19 now doses decreased now doses from 2 mg to 1 mg IV morphine. morphine discontinued upon discharge Type 1 diabetes: - A1C 9.0 - Lantus + SSI - hypoglycemic to 50s AM of 09/13. - labile BPs, w/ highs up to ~400. difficult to control because of extremes - outpatient endocrine followup, perhaps evaluation for insulin pump - check BSG ACHS and as needed - 09/17: sugars in the 200s. 301 today 11am. increasing lantus from 8u BID to 10u BID. Patient only received 6u this am to adjust for NPO (before surgery was delayed). provided now dose of 3 u lantus at ~1pm. - no changes to SSI at this time. patient's BSG has been labile, so will evaluate effect of increased lantus -09/19 see changes above Chronic anemia: - Hemoglobin stable - Likely secondary to of end-stage renal disease elevated alk phos - 800 at admission - most likely 2/2 ESRD HTN: - Continue amlodipine, clonidine, hydralazine, and labetalol H/o pulmonary embolism: - Continue apixaban PO 2.5mg BID Anxiety and Depression: - Continue buspirone, gabapentin, and paroxetine Hypothyroidism: - Continue levothyroxine GERD - Continue pantoprazole Insomnia: - Continue melatonin Diet: Dialysis renal and DM1 diet. Fluid restriction 1.2L Dispo: dispo to [facility] on 09/20 code: full Pending Studies at Discharge: No Stand-Alone Forms: [facility] Skilled Items Patient informed of condition?: Yes DNR: No Discharge Level of Care: Acute rehab Communicable Disease: No Discharge Prognosis: Stable Lines: None Urinary Catheter: No Medications and DC Order Prescriptions: New vancomycin 500 mg recon soln See Rx Instructions .ROUTE .COMPLEX 19 Days Qty: 10 RF: 0 Continued buspirone 5 mg Tablet 20 mg PO HS RF: 0 buspirone 5 mg Tablet 10 mg PO DAILY RF: 0 clonidine HCl 0.1 mg Tablet 0.1 mg PO Q8 RF: 0 hydralazine 25 mg Tablet 100 mg PO Q8 RF: 0 amlodipine 10 mg Tablet 10 mg PO DAILY RF: 0 gabapentin 300 mg Capsule 300 mg PO BID RF: 0 ergocalciferol (vitamin D2) 1,250 mcg (50,000 unit) Capsule 1,250 mcg PO WK RF: 0 apixaban 2.5 mg Tablet 2.5 mg PO Q12 RF: 0 paroxetine HCl 10 mg Tablet 30 mg PO DAILY RF: 0 levothyroxine 25 mcg Tablet 25 mcg PO DAILY RF: 0 insulin aspart U-100 100 unit/mL Solution See Rx Instructions .ROUTE .COMPLEX RF: 0 pantoprazole 40 mg Tablet,Delayed Release (Dr/Ec) 40 mg PO DAILYBB RF: 0 docusate sodium [Colace] 100 mg Capsule 100 mg PO BID RF: 0 labetalol 100 mg Tablet 300 mg PO Q8 RF: 0 sevelamer carbonate 800 mg Tablet 800 mg PO TIDM RF: 0 melatonin 3 mg Tablet 3 mg PO HS PRN (Reason: Unknown) RF: 0 tramadol 50 mg Tablet 50 mg PO Q6H PRN (Reason: Unknown) RF: 0 acetaminophen 325 mg Tablet 650 mg PO Q4 PRN (Reason: Unknown) RF: 0 sennosides-docusate sodium [Senna with Docusate Sodium] 8.6-50 mg Tablet 1 tab-cap PO .WITH LUNCH PRN (Reason: Unknown) RF: 0 bisacodyl [Dulcolax (bisacodyl)] 10 mg Suppository 10 mg GA DAILY PRN (Reason: Unknown) RF: 0 diphenhydramine HCl 25 mg Capsule 25 mg PO .Q M,W,F PRN (Reason: Unknown) RF: 0 Fleet Enema 19-7 gram/118 mL Enema 118 ml GA DAILY PRN (Reason: Unknown) RF: 0 polyethylene glycol 3350 [Miralax] 17 gram/dose Powder 17 g PO DAILY PRN (Reason: Unknown) RF: 0 ondansetron 4 mg Tablet,Disintegrating 4 mg PO Q8H PRN (Reason: Unknown) RF: 0 Changed Lantus U-100 Insulin 100 unit/mL Solution 10 unit SUBCUT Q12 Qty: 0 RF: 0 Discontinued Humulin R Regular U-100 Insuln 100 unit/mL Solution See Rx Instructions .ROUTE .COMPLEX RF: 0 Discharge Orders: Discharge Order (Routine); Ordered 09/20/20 Ordered By: Damian Fontaine Admission Data Admit Date/Time: 09/12/20 00:59 Attending Provider: Nghia Anne Admit Provider: Ke Wilcox Primary Care Provider: Roney Crocker Other Providers: Kinsey Garcia ; Ke Wilcox ; Lavonne Saravia ; Julien Marquez ; Hasmukh Ackerman ; Cary Burrell ; Jarett Love I. ; Phillip Verma II ; Marla Almanzar ; Bebo Lassiter Other Interventions: Discharge Summary Assessment (RN) Last Done: 09/20/20 10:58 Supervising Physician Co-Signing Physician Notes I personally examined the patient and verified all gamez points of history and exam, discussed case, and agree with decision making with Dr Fontaine. feels up to going home. vitals noted awake alert oriented, pleasant, no distress. HEENT normocephalic atraumatic mucous membranes moist. Breathing unlabored no accessory muscle use good effort. no pallor or icterus. MRSA bacteremia - vanco for ~4wks at HD ESRD/HD -HD as outpt DM1 - uncontrolled both acutely and chronically. needs continued education and insulin management. she is pursuing a continuous glucose monitor - which likely would be quite beneficial especially since she started to get the idea that food-->sugar levels are a big part of her control -- and CGM would allow much easier monitoring of this (jayleen since she apparently doesn't have insurance coverage for test strips) stable for return to rehab. otherwise as above Resident Activity Tracking Resident Involvement: Resident Care Provided Care Provided: Adult Hospital Medicine
[2020-09-20 08:37] LABS: Potassium 4.6 mmol/L (3.5-5.1)
[2020-09-20 08:44] LABS: Beta-Hydroxybutyrate 1.02 mg/dl (0.2-2.81)
--- NOTE | 2020-09-20 18:41 | Nephrology Progress Note ---
Date of Service September 20, 2020 Assessment & Plan (1) MRSA bacteremia: 09/12 with pus, redness, and pain at catheter exit site, new since 09/10>> blood cxs 06/17 positive in less than 24 hrs. Pt has had recurrent exit site infections -September 14 blood cultures are negative; for September 19 dialysis catheter placement -with her back pain, worsening hypoxia despite aggressive UF, hx of recurrent catheter related infections, low threshold for TTE, for CT c/a/p >> CT unremarkable -on vanco >> dose per pharmacy > for 4 wks after cath removal (09/12) so through 10/10; dose to be given after HD (2) Acute and chronic respiratory failure: -on chronic 02 at baseline > 6L per her report here; told me 3L at [facility] previously; indications for this not fully clear and actually relate more to vol OL from excessive fluid intake it appears >>>TTE w/ mild plm HTN and mild CLVH; CT chest 09/13 w/ ff suspicious for plm edema -we had her on RA for a few days w/aggressive HD -cont 1.2 L FR >>some concern from primary service re hyponatremia >> this relates however in her case to excess fluid on board and to BG elevations (3) ESRD on dialysis: chronic ESRD pt w/ recurrent vol OL. has maturing AVF. -HD tomorrow 4 hours with 5 L UF goal as blood pressure tolerates -cont 1.2L FR, dialysis/DM diet (4) Anemia of chronic disease: may in part be -continue venofer load started at [facility] >> t stn 9% on 09/06 -Will resume iron load -CBC at least every other day pls while in house -will give epo next tx high dose Admission and Anticipated Discharge Date Admission Date: September 12, 2020 Subjective seen on rounds late this am right before hospital d/c midday; pt eating lunch; feeling improved; ongoing challenges w/ BG, w/ pain mgt Review of Systems Review of Systems: All systems reviewed & are unremarkable except as noted in Subjective Physical Exam Constitutional: well developed, well nourished and cooperative; no acute distress Eyes: EOM intact bilaterally ENMT: Ears: no external ear abnormality Nose: no external nose abnormality Mouth: + dry oral mucous membranes Neck: no nuchal rigidity Respiratory: normal respiratory effort Auscultation: + diminished lung sounds and + crackles (bibasilar) on 3L 02 Cardiovascular: Extremities: + AV fistula (difficult to palpate) Gastrointestinal (Abdomen): Inspection/Auscultation: normal bowel sounds Percussion/Palpation: abdomen soft; abdomen nontender and no guarding Musculoskeletal: Extremities: strength 5/5 throughout Skin: no rashes, warm and dry Neurologic: walter, fluent speech, no tremor Results & Data ([facility]) Vital Signs (Past 12 Hours) Vital Signs Temp Pulse Pulse Pulse Resp BP Pulse Ox 09/20/20 10:58 36.8 C 83 85 86 20 135/80 92 09/20/20 08:00 36.8 C 85 20 135/80 92 Laboratory Results 09/20/20 06:17 09/20/20 07:35 [id number]
--- NOTE | 2020-09-20 18:48 | Billing Data ---
Date of Service September 20, 2020 Coding Level of Care Code D/C Day Management <30 mins
== END 2020-09-20 12:51 | DRG 682 ==
LOC: ED 22:28 → 2E 09-12 00:59 → SUATTDRO 09-12 00:59 → 2E 09-12 01:37 → 2W 09-17 16:19

== ENCOUNTER 2020-09-24 10:16 | Inpatient (IN) ==
[2020-09-24 11:05] LABS: Basophils # (auto) 0.04 K/uL (0-0.2); Basophils % (auto) 0.2 %; Eosinophils # (auto) 0.76 K/uL (0-0.5); Eosinophils % (auto) 4.7 %; Hematocrit (blood only) 31.8 % (37-47); Hemoglobin 9.9 g/dL (12.0-16.0); Immature Granulocytes # (auto) 0.03 K/uL (0.00-0.02); Immature Granulocytes % (auto) 0.2 %; Lymphocytes # (auto) 1.37 K/uL (1.2-3.4); Lymphocytes % (auto) 8.5 %; Mean Corpuscular Hemoglobin 31.3 pg (25-34); Mean Corpuscular Hgb Conc 31.1 g/dL (32-36); Mean Corpuscular Volume 100.6 fL (80-100); Mean Platelet Volume 10.9 fL (7.4-10.4); Monocytes % (auto) 4.3 %; Neutrophils % (auto) 82.1 %; Platelet Count 404 K/uL (130-400); RDW Coefficient of Variation 20.7 % (11.5-14.5); RDW Standard Deviation 75.4 fL (36.4-46.3); Red Blood Count 3.16 M/uL (4.2-5.4)
--- NOTE | 2020-09-24 11:08 | XRay Report ---
XR chest 1V portable HISTORY: 30 years-old Female AMS acutely altered mental status COMPARISON: Chest radiograph 09/22/2020 TECHNIQUE: Portable AP view of the chest FINDINGS: Patient is rotated towards the left. Cardiac silhouette is mildly enlarged. Pulmonary vascular conges tion with progressive interstitial opacities. Right IJ dual-lumen hemodialysis catheter distal tip pr ojects over the right atrium. Right subclavian vascular stent redemonstrated. No pneumothorax or larg e pleural effusion. Degenerative changes of the shoulders and spine with right shoulder rotator cuff calcific tendinosis. IMPRESSION: Cardiomegaly with progressively worsened pulmonary edema. ACT 112: Negative or not required by law. The above report was generated using voice recognition software. It may contain grammatical, syntax o r spelling errors. Electronically signed by: Jamie France M.D. 09/24/2020 11:07 AM
[2020-09-24 11:09] LABS: iSTAT Creatinine 8.5 mg/dl (0.6-1.3); iSTAT Hemoglobin 11.2 g/dl (12.0-16.0); iSTAT Ionized Calcium 1.12 mmol/l (1.12-1.32); iSTAT Potassium 5.9 mmol/L (3.3-5.0)
[2020-09-24 11:19] LABS: INR 1.2 (0.9-1.1); Partial Thromboplastin Ratio 1.2; Partial Thromboplastin Time 32.7 Seconds (21.0-31.0); Prothrombin Time 11.6 Seconds (9.0-12.0)
[2020-09-24 11:29] LABS: Anisocytosis Present; Echinocytes 1+; Polychromasia 1+
[2020-09-24 11:43] LABS: Alanine Aminotransferase 24 U/L (12-78); Albumin Globulin Ratio 0.6 (0.9-2); Albumin Level 3.3 gm/dl (3.4-5.0); Alkaline Phosphatase 561 U/L (45-117); Aspartate Aminotransferase 23 U/L (15-37); BUN Creatinine Ratio 13.4 (10-20); Bilirubin,Total 0.7 mg/dl (0.2-1); Blood Urea Nitrogen 96 mg/dl (7-18); Calcium 8.9 mg/dl (8.5-10.1); Carbon Dioxide 18 mmol/L (21-32); Chloride 102 mmol/L (98-107); Est GFR (African American) 8.3 ml/min; Est GFR (Non-African American) 7.2 ml/min; Globulin 5.2 gm/dl (2.5-4.0); Glucose 176 mg/dl (70-99); Magnesium 2.8 mg/dl (1.8-2.4); Potassium 5.5 mmol/L (3.5-5.1); Sodium 132 mmol/L (136-145); Total Protein 8.5 gm/dl (6.4-8.2); Troponin I < 0.015 ng/ml (0-0.045)
--- NOTE | 2020-09-24 13:15 | CT Scan Report ---
CT head/brain wo con CLINICAL HISTORY: 30 years-old Female with weakness/ams. Acutely altered mental status TECHNIQUE: Multiple axial CT images of the head were obtained without contrast. A dose lowering tech nique was utilized adhering to the principles of ALARA. CT DOSE: 638.56 mGycm COMPARISON: None. FINDINGS: No acute intracranial hemorrhage, midline shift, intracranial mass, hydrocephalus, territorial ischem ia or abnormal extra-axial collection. Senescent calcifications of the basal ganglia. The calvarium is intact. The paranasal sinuses, mastoid air cells, and middle ear cavities are clear . IMPRESSION: No acute intracranial abnormality. ACT 112: Negative or not required by law. The above report was generated using voice recognition software. It may contain grammatical, syntax o r spelling errors. Electronically signed by: Jamie France M.D. 09/24/2020 1:14 PM
--- NOTE | 2020-09-24 13:18 | Emergency Department Note ---
History of Present Illness General Chief complaint: Altered Mental Status Time Seen by Provider: 09/24/20 12:06 Source: patient and RN notes reviewed Mode of arrival: EMS Limitations: altered mental status History of Present Illness Provider complaint: Altered mental status This is a 30-year-old female who presents to the ED with a chief complaint of altered mental status. The patient came from [facility]. She was found to have an altered mental status today and did not get her dialysis. She did have an extra dialysis session on Thursday. She normally goes Thursday, Thursday and Thursday. She was due for dialysis today but could not make it because of her alteration in mental status. This is apparently a new change for the patient. The patient was previously discharged from the hospital with MRSA infection. Patient provides little information. She does awaken with physical stimulus but is unable to tell me anything more than her first name, then she falls back asleep. Additional information received from the ER notes and the nursing to the report. Home Medications Medication Instructions Recorded Confirmed Type acetaminophen 650 mg PO Q4 PRN 09/12/20 09/22/20 History amlodipine [Norvasc] 10 mg PO QAM 09/12/20 09/22/20 History apixaban [Eliquis] 2.5 mg PO Q12 09/12/20 09/22/20 History buspirone 10 mg PO QAM 09/12/20 09/22/20 History buspirone 20 mg PO HS 09/12/20 09/22/20 History clonidine HCl 0.1 mg PO Q8 09/12/20 09/22/20 History diphenhydramine HCl 25 mg PO 3XWK PRN 09/12/20 09/22/20 History docusate sodium [Colace] 100 mg PO BID 09/12/20 09/22/20 History ergocalciferol (vitamin D2) 1,250 mcg PO WK 09/12/20 09/22/20 History [Vitamin D2] gabapentin 300 mg PO BID 09/12/20 09/22/20 History hydralazine 100 mg PO Q8 09/12/20 09/22/20 History insulin aspart U-100 [Novolog See Rx Instructions .ROUTE .COMPLEX 09/12/20 09/22/20 History U-100 Insulin aspart] labetalol 300 mg PO Q8 09/12/20 09/22/20 History levothyroxine 25 mcg PO DAILY@0600 09/12/20 09/22/20 History melatonin 3 mg PO HS PRN 09/12/20 09/22/20 History ondansetron 4 mg PO Q8H PRN 09/12/20 09/22/20 History pantoprazole [Protonix] 40 mg PO DAILYBB 09/12/20 09/22/20 History paroxetine HCl [Paxil] 30 mg PO QAM 09/12/20 09/22/20 History polyethylene glycol 3350 [Miralax] 17 g PO QDL PRN 09/12/20 09/22/20 History sennosides-docusate sodium [Senna 1 tab-cap PO QDL PRN 09/12/20 09/22/20 History with Docusate Sodium] sevelamer carbonate [Renvela] 800 mg PO TIDM 09/12/20 09/22/20 History tramadol [Ultram] 50 mg PO Q6H PRN 09/12/20 09/22/20 History Lantus U-100 Insulin 10 unit SUBCUT Q12 #0 ml 09/20/20 09/22/20 Rx darbepoetin caprice in polysorbat 60 mcg SUBCUT WK 09/22/20 09/22/20 History [Aranesp (in polysorbate)] glucagon [Glucagon Emergency Kit 1 mg SUBCUT UD 09/22/20 09/22/20 History (human)] insulin lispro [Humalog KwikPen 0 unit SUBCUT .SLIDING SCALE 09/22/20 09/22/20 History Insulin] vancomycin See Rx Instructions .ROUTE .COMPLEX 09/22/20 09/22/20 History Allergies Allergy/AdvReac Type Severity Reaction Status Date / Time bee venom protein (honey bee) Allergy Intermediate Hives Verified 09/22/20 07:58 chlorhexidine Allergy Intermediate Hives Verified 09/22/20 07:58 latex Allergy Intermediate Hives Verified 09/22/20 07:58 fentanyl AdvReac Mild Nausea Verified 09/22/20 07:58 Past Med/Surg History Medical History Anxiety with depression Chronic pain syndrome Chronic respiratory failure Critical illness myopathy Diabetes mellitus type 1 ESRD on dialysis Gait instability GERD (gastroesophageal reflux disease) Hypertension Hypothyroidism (acquired) Hypoxemia 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 6 per pt March - August 2020 Insomnia MRSA bacteremia Pulmonary embolism Pulmonary hypertension Surgical History AV fistula History of cholecystectomy Social History Smoking Status: Unknown if ever smoked Second Hand Exposure: No; Hx Alcohol Use: No Hx Substance Use: No Preferred Language: Telugu Communication Ability: Unable 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 Beliefs That Will Affect Care: None Current Living Situation: Parent Current Living Situation Comment: Lives with mother Feels Safe at Home: Yes Assistive Devices: Oxygen - Continuous Review of Systems A total of 10 systems reviewed and were otherwise negative Physical Exam Vital Signs Vital Signs - 24 hr 09/24/20 10:12 09/24/20 10:23 09/24/20 10:25 Temperature 36.4 C L Temperature Source Oral Pulse Rate 78 81 Pulse Rate from SpO2 Sensor 78 Pulse Rhythm Regular Pulse Strength Normal Respiratory Rate 20 28 H Respiratory Effort / Characteristics Non-Labored Spontaneous Respiratory Depth Normal Respiratory Pattern Regular Blood Pressure 121/64 121/64 Blood Pressure Mean 83 83 Blood Pressure Position Lying Pulse Oximetry 98 83 L 83 L Oxygen Delivery Method Nasal Cannula Room Air Nasal Cannula Oxygen Flow Rate 3 0 Sepsis Recent Fever Within 48 Hours No Sepsis New/Unexplained Change in Mental Status Yes Sepsis Action Taken by Nursing No Action Required Oxygen Flow Rate - Titration 3 Pulse Oximetry Post Tiitration 96 09/24/20 11:00 09/24/20 11:37 09/24/20 11:45 Temperature Temperature Source Pulse Rate 82 81 82 Pulse Rate from SpO2 Sensor 82 82 82 Pulse Rhythm Pulse Strength Respiratory Rate 14 13 14 Respiratory Effort / Characteristics Respiratory Depth Respiratory Pattern Blood Pressure 124/73 108/63 135/74 Blood Pressure Mean 90 78 94 Blood Pressure Position Pulse Oximetry 94 98 96 Oxygen Delivery Method Nasal Cannula Nasal Cannula Nasal Cannula Oxygen Flow Rate 3 3 3 Sepsis Recent Fever Within 48 Hours Sepsis New/Unexplained Change in Mental Status Sepsis Action Taken by Nursing Oxygen Flow Rate - Titration Pulse Oximetry Post Tiitration 09/24/20 11:46 09/24/20 12:00 09/24/20 12:15 Temperature Temperature Source Pulse Rate 82 81 Pulse Rate from SpO2 Sensor 82 81 Pulse Rhythm Pulse Strength Respiratory Rate 14 14 Respiratory Effort / Characteristics Respiratory Depth Respiratory Pattern Blood Pressure 110/69 138/83 Blood Pressure Mean 82 101 Blood Pressure Position Pulse Oximetry 96 98 97 Oxygen Delivery Method Nasal Cannula Nasal Cannula Nasal Cannula Oxygen Flow Rate 3 3 Sepsis Recent Fever Within 48 Hours Sepsis New/Unexplained Change in Mental Status Sepsis Action Taken by Nursing Oxygen Flow Rate - Titration Pulse Oximetry Post Tiitration 09/24/20 12:30 09/24/20 12:45 09/24/20 13:15 Temperature Temperature Source Pulse Rate 76 75 74 Pulse Rate from SpO2 Sensor 76 75 74 Pulse Rhythm Pulse Strength Respiratory Rate 16 16 18 Respiratory Effort / Characteristics Respiratory Depth Respiratory Pattern Blood Pressure 124/73 121/78 131/78 Blood Pressure Mean 90 92 95 Blood Pressure Position Pulse Oximetry 97 97 96 Oxygen Delivery Method Nasal Cannula Nasal Cannula Nasal Cannula Oxygen Flow Rate 3 3 3 Sepsis Recent Fever Within 48 Hours Sepsis New/Unexplained Change in Mental Status Sepsis Action Taken by Nursing Oxygen Flow Rate - Titration Pulse Oximetry Post Tiitration 09/24/20 13:30 Temperature Temperature Source Pulse Rate 74 Pulse Rate from SpO2 Sensor 74 Pulse Rhythm Pulse Strength Respiratory Rate 16 Respiratory Effort / Characteristics Respiratory Depth Respiratory Pattern Blood Pressure 125/82 Blood Pressure Mean 96 Blood Pressure Position Pulse Oximetry 97 Oxygen Delivery Method Nasal Cannula Oxygen Flow Rate 3 Sepsis Recent Fever Within 48 Hours Sepsis New/Unexplained Change in Mental Status Sepsis Action Taken by Nursing Oxygen Flow Rate - Titration Pulse Oximetry Post Tiitration CONSTITUTIONAL/VITAL SIGNS: Reviewed / noted above. GENERAL: Non-toxic in appearance. No acute distress. INTEGUMENTARY: Warm, dry, and [place]. HEAD: Normocephalic. EYES: without scleral icterus or trauma. ENT/OROPHARYNX: clear and moist. LYMPHADENOPATHY/NECK: Is supple without lymphadenopathy or meningismus. RESPIRATORY: Lungs clear and equal. Appears comfortable. CARDIOVASCULAR: Regular rate and rhythm. GI/ABDOMEN: Soft and nontender. No organomegaly or pulsatile mass. No rebound or guarding. Normal bowel sounds. EXTREMITIES: Warm and well perfused. BACK: No CVA tenderness. NEUROLOGICAL: Patient moves all 4 extremities. Appears weak. She awakens with physical stimulus but then falls back asleep. Pupils are not pinpoint. They are equal and respond to light. PSYCHIATRIC: Unable to assess MUSCULOSKELETAL: Normally developed with generalized weakness TRIAGE NURSING DOCUMENTATION REVIEWED. Medical Decision Making Differential Diagnosis Differential includes acute coronary syndrome, myocardial infarction, CVA, TIA, anemia, infection, pneumonia, UTI, pyelonephritis, poor nutrition, dehydration, electrolyte disturbance,hypoglycemia. Medical Records Attestation: I reviewed the patient's medical records. Home Medications Current Medication List: was personally reviewed by me Laboratory Data Attestation: I reviewed the patient's lab results. Result diagrams: 09/24/20 10:45 09/24/20 10:45 Lab Results 09/24/20 09/24/20 09/24/20 Range/Units 10:24 10:45 10:45 WBC 16.20 H (4.8-10.8) K/uL RBC 3.16 L (4.2-5.4) M/uL Hgb 9.9 L (12.0-16.0) g/dL POC Hgb (12.0-16.0) g/dl Hct 31.8 L (37-47) % POC Hct (37-47) % MCV 100.6 H (80-100) fL MCH 31.3 (25-34) pg MCHC 31.1 L (32-36) g/dL RDW Std Deviation 75.4 H (36.4-46.3) fL RDW Coeff of Misael 20.7 H (11.5-14.5) % Plt Count 404 H (130-400) K/uL MPV 10.9 H (7.4-10.4) fL Immature Gran % (Auto) 0.2 % Neut % (Auto) 82.1 % Lymph % (Auto) 8.5 % Rabun % (Auto) 4.3 % Eos % (Auto) 4.7 % Baso % (Auto) 0.2 % Neut # (Auto) 13.30 H (1.4-6.5) K/uL Lymph # (Auto) 1.37 (1.2-3.4) K/uL Rabun # (Auto) 0.70 H (0.11-0.59) K/uL Eos # (Auto) 0.76 H (0-0.5) K/uL Baso # (Auto) 0.04 (0-0.2) K/uL Immature Gran # (Auto) 0.03 H (0.00-0.02) K/uL Polychromasia 1+ Anisocytosis Present Echinocytes 1+ PT 11.6 (9.0-12.0) Seconds INR 1.2 H (0.9-1.1) APTT 32.7 H (21.0-31.0) Seconds PTT Ratio 1.2 POC Sodium (135-144) mmol/L Sodium (136-145) mmol/L POC Potassium (3.3-5.0) mmol/L Potassium (3.5-5.1) mmol/L POC Chloride (101-112) mmol/L Chloride (98-107) mmol/L Carbon Dioxide (21-32) mmol/L POC Total CO2 (24-31) mmol/L Anion Gap (3-11) POC Anion Gap (16-25) mmol/L POC BUN (7-18) mg/dl BUN (7-18) mg/dl Creatinine (0.6-1.2) mg/dl POC Creatinine (0.6-1.3) mg/dl Est Cr Clr Drug Dosing Est GFR ( Amer) ml/min Est GFR (Non-Af Amer) ml/min BUN/Creatinine Ratio (10-20) Glucose (70-99) mg/dl POC Glucose 168 H (70-99) mg/dl POC Glucose (other) (70-99) mg/dl Lactate (0.4-2.0) mmol/L Calcium (8.5-10.1) mg/dl POC Ioniz Calcium Pineda (1.12-1.32) mmol/l Magnesium (1.8-2.4) mg/dl Total Bilirubin (0.2-1) mg/dl AST (15-37) U/L ALT (12-78) U/L Alkaline Phosphatase (45-117) U/L Ammonia (11-32) umol/L Troponin I (0-0.045) ng/ml Total Protein (6.4-8.2) gm/dl Albumin (3.4-5.0) gm/dl Globulin (2.5-4.0) gm/dl Albumin/Globulin Ratio (0.9-2) TSH (0.300-4.500) uIu/ml Ethyl Alcohol mg/dL (0-3) mg/dl 09/24/20 09/24/20 09/24/20 Range/Units 10:45 10:55 11:23 WBC (4.8-10.8) K/uL RBC (4.2-5.4) M/uL Hgb (12.0-16.0) g/dL POC Hgb 11.2 L (12.0-16.0) g/dl Hct (37-47) % POC Hct 33 L (37-47) % MCV (80-100) fL MCH (25-34) pg MCHC (32-36) g/dL RDW Std Deviation (36.4-46.3) fL RDW Coeff of Misael (11.5-14.5) % Plt Count (130-400) K/uL MPV (7.4-10.4) fL Immature Gran % (Auto) % Neut % (Auto) % Lymph % (Auto) % Rabun % (Auto) % Eos % (Auto) % Baso % (Auto) % Neut # (Auto) (1.4-6.5) K/uL Lymph # (Auto) (1.2-3.4) K/uL Rabun # (Auto) (0.11-0.59) K/uL Eos # (Auto) (0-0.5) K/uL Baso # (Auto) (0-0.2) K/uL Immature Gran # (Auto) (0.00-0.02) K/uL Polychromasia Anisocytosis Echinocytes PT (9.0-12.0) Seconds INR (0.9-1.1) APTT (21.0-31.0) Seconds PTT Ratio POC Sodium 134 L (135-144) mmol/L Sodium 132 L (136-145) mmol/L POC Potassium 5.9 H (3.3-5.0) mmol/L Potassium 5.5 H (3.5-5.1) mmol/L POC Chloride 105 (101-112) mmol/L Chloride 102 (98-107) mmol/L Carbon Dioxide 18 L (21-32) mmol/L POC Total CO2 19 L (24-31) mmol/L Anion Gap 12.0 H (3-11) POC Anion Gap 17.0 (16-25) mmol/L POC BUN 97 H (7-18) mg/dl BUN 96 H (7-18) mg/dl Creatinine 7.09 H* (0.6-1.2) mg/dl POC Creatinine 8.5 H* (0.6-1.3) mg/dl Est Cr Clr Drug Dosing Not Reportable Est GFR ( Amer) 8.3 ml/min Est GFR (Non-Af Amer) 7.2 ml/min BUN/Creatinine Ratio 13.4 (10-20) Glucose 176 H (70-99) mg/dl POC Glucose (70-99) mg/dl POC Glucose (other) 175 H (70-99) mg/dl Lactate (0.4-2.0) mmol/L Calcium 8.9 (8.5-10.1) mg/dl POC Ioniz Calcium Pineda 1.12 (1.12-1.32) mmol/l Magnesium 2.8 H (1.8-2.4) mg/dl Total Bilirubin 0.7 (0.2-1) mg/dl AST 23 (15-37) U/L ALT 24 (12-78) U/L Alkaline Phosphatase 561 H (45-117) U/L Ammonia (11-32) umol/L Troponin I < 0.015 (0-0.045) ng/ml Total Protein 8.5 H (6.4-8.2) gm/dl Albumin 3.3 L (3.4-5.0) gm/dl Globulin 5.2 H (2.5-4.0) gm/dl Albumin/Globulin Ratio 0.6 L (0.9-2) TSH 7.480 H (0.300-4.500) uIu/ml Ethyl Alcohol mg/dL < 3.0 (0-3) mg/dl 09/24/20 09/24/20 Range/Units 12:31 12:31 WBC (4.8-10.8) K/uL RBC (4.2-5.4) M/uL Hgb (12.0-16.0) g/dL POC Hgb (12.0-16.0) g/dl Hct (37-47) % POC Hct (37-47) % MCV (80-100) fL MCH (25-34) pg MCHC (32-36) g/dL RDW Std Deviation (36.4-46.3) fL RDW Coeff of Misael (11.5-14.5) % Plt Count (130-400) K/uL MPV (7.4-10.4) fL Immature Gran % (Auto) % Neut % (Auto) % Lymph % (Auto) % Rabun % (Auto) % Eos % (Auto) % Baso % (Auto) % Neut # (Auto) (1.4-6.5) K/uL Lymph # (Auto) (1.2-3.4) K/uL Rabun # (Auto) (0.11-0.59) K/uL Eos # (Auto) (0-0.5) K/uL Baso # (Auto) (0-0.2) K/uL Immature Gran # (Auto) (0.00-0.02) K/uL Polychromasia Anisocytosis Echinocytes PT (9.0-12.0) Seconds INR (0.9-1.1) APTT (21.0-31.0) Seconds PTT Ratio POC Sodium (135-144) mmol/L Sodium (136-145) mmol/L POC Potassium (3.3-5.0) mmol/L Potassium (3.5-5.1) mmol/L POC Chloride (101-112) mmol/L Chloride (98-107) mmol/L Carbon Dioxide (21-32) mmol/L POC Total CO2 (24-31) mmol/L Anion Gap (3-11) POC Anion Gap (16-25) mmol/L POC BUN (7-18) mg/dl BUN (7-18) mg/dl Creatinine (0.6-1.2) mg/dl POC Creatinine (0.6-1.3) mg/dl Est Cr Clr Drug Dosing Est GFR ( Amer) ml/min Est GFR (Non-Af Amer) ml/min BUN/Creatinine Ratio (10-20) Glucose (70-99) mg/dl POC Glucose (70-99) mg/dl POC Glucose (other) (70-99) mg/dl Lactate 0.9 (0.4-2.0) mmol/L Calcium (8.5-10.1) mg/dl POC Ioniz Calcium Pineda (1.12-1.32) mmol/l Magnesium (1.8-2.4) mg/dl Total Bilirubin (0.2-1) mg/dl AST (15-37) U/L ALT (12-78) U/L Alkaline Phosphatase (45-117) U/L Ammonia 20.3 (11-32) umol/L Troponin I (0-0.045) ng/ml Total Protein (6.4-8.2) gm/dl Albumin (3.4-5.0) gm/dl Globulin (2.5-4.0) gm/dl Albumin/Globulin Ratio (0.9-2) TSH (0.300-4.500) uIu/ml Ethyl Alcohol mg/dL (0-3) mg/dl Imaging Data Radiologist's Impression: Chest X-Ray 09/24/20 10:54 XR chest 1V portable HISTORY: 30 years-old Female AMS acutely altered mental status COMPARISON: Chest radiograph 09/22/2020 TECHNIQUE: Portable AP view of the chest FINDINGS: Patient is rotated towards the left. Cardiac silhouette is mildly enlarged. Pulmonary vascular congestion with progressive interstitial opacities. Right IJ dual-lumen hemodialysis catheter distal tip projects over the right atrium. Right subclavian vascular stent redemonstrated. No pneumothorax or large pleural effusion. Degenerative changes of the shoulders and spine with right shoulder rotator cuff calcific tendinosis. IMPRESSION: Cardiomegaly with progressively worsened pulmonary edema. ACT 112: Negative or not required by law. The above report was generated using voice recognition software. It may contain grammatical, syntax or spelling errors. Electronically signed by: Jamie France M.D. 09/24/2020 11:[address] 09/24/20 12:14 CT head/brain wo con CLINICAL HISTORY: 30 years-old Female with weakness/ams. Acutely altered mental status TECHNIQUE: Multiple axial CT images of the head were obtained without contrast. A dose lowering technique was utilized adhering to the principles of ALARA. CT DOSE: 638.56 mGycm COMPARISON: None. FINDINGS: No acute intracranial hemorrhage, midline shift, intracranial mass, hydrocephalus, territorial ischemia or abnormal extra-axial collection. Senescent calcifications of the basal ganglia. The calvarium is intact. The paranasal sinuses, mastoid air cells, and middle ear cavities are clear. IMPRESSION: No acute intracranial abnormality. ACT 112: Negative or not required by law. The above report was generated using voice recognition software. It may contain grammatical, syntax or spelling errors. Electronically signed by: Jamie France M.D. 09/24/2020 1:14 PM ECG Data Attestation: I personally reviewed and interpreted this ECG as follows: Indication: + weakness Rate (beats per minute): [address] segments: + T-wave inversions Comparison ECG Date: from (T wave inversions are new compared to 09/22/2024.) ISHA Narrative 22-year-old female dialysis dependent renal failure patient presents with an altered mental status. Due for dialysis today but missed it because of her altered mental status. Her white blood cell count was 16. Hemoglobin is 9.9. Creatinine is 7.0. BUN is 96. Glucose is 176. Troponin was negative. TSH was high. Ethanol was negative. EKG shows a normal sinus rhythm at a rate of 78 with some T wave inversions in V1 through V5 that appear new compared to 09/22/2020. Chest x-ray suggest cardiomegaly with some pulmonary edema. Lactic acid was 0.9. Ammonia level was normal. CT scan of the brain did not show any acute intracranial pathology. The patient will require further inpatient observation for her altered mental status and possibly dialysis. The patient will be admitted for further inpatient evaluation and care. Impression & Plan Altered mental status, Uremia, Leukocytosis Discharge Plan Visit Data Chief Complaint: Altered Mental Status ED Provider: Timothy Felder Discharge Problem: Altered mental status, Uremia, Leukocytosis Patient Disposition: Being Evaluated by Hospitalist Forms Stand Alone Forms: My [facility] Prescriptions Prescriptions: No Action buspirone 5 mg Tablet 20 mg PO HS RF: 0 buspirone 5 mg Tablet 10 mg PO QAM RF: 0 clonidine HCl 0.1 mg Tablet 0.1 mg PO Q8 RF: 0 hydralazine 25 mg Tablet 100 mg PO Q8 RF: 0 amlodipine [Norvasc] 10 mg Tablet 10 mg PO QAM RF: 0 gabapentin 300 mg Capsule 300 mg PO BID RF: 0 ergocalciferol (vitamin D2) [Vitamin D2] 1,250 mcg (50,000 unit) Capsule 1,250 mcg PO WK RF: 0 Eliquis 2.5 mg Tablet 2.5 mg PO Q12 RF: 0 paroxetine HCl [Paxil] 10 mg Tablet 30 mg PO QAM RF: 0 levothyroxine 25 mcg Tablet 25 mcg PO DAILY@0600 RF: 0 insulin aspart U-100 [Novolog U-100 Insulin aspart] 100 unit/mL Solution See Rx Instructions .ROUTE .COMPLEX RF: 0 pantoprazole [Protonix] 40 mg Tablet,Delayed Release (Dr/Ec) 40 mg PO DAILYBB RF: 0 docusate sodium [Colace] 100 mg Capsule 100 mg PO BID RF: 0 labetalol 100 mg Tablet 300 mg PO Q8 RF: 0 sevelamer carbonate [Renvela] 800 mg Tablet 800 mg PO TIDM RF: 0 melatonin 3 mg Tablet 3 mg PO HS PRN (Reason: Insomnia) RF: 0 tramadol [Ultram] 50 mg Tablet 50 mg PO Q6H PRN (Reason: Pain) RF: 0 acetaminophen 325 mg Tablet 650 mg PO Q4 PRN (Reason: Pain) RF: 0 sennosides-docusate sodium [Senna with Docusate Sodium] 8.6-50 mg Tablet 1 tab-cap PO QDL PRN (Reason: Constipation) RF: 0 diphenhydramine HCl 25 mg Capsule 25 mg PO 3XWK PRN (Reason: Unknown) RF: 0 polyethylene glycol 3350 [Miralax] 17 gram/dose Powder 17 g PO QDL PRN (Reason: Constipation) RF: 0 ondansetron 4 mg Tablet,Disintegrating 4 mg PO Q8H PRN (Reason: Nausea And Vomiting) RF: 0 Lantus U-100 Insulin 100 unit/mL Solution 10 unit SUBCUT Q12 Qty: 0 RF: 0 Glucagon Emergency Kit (human) 1 mg recon soln 1 mg subcut UD RF: 0 insulin lispro [Humalog KwikPen Insulin] 100 unit/mL insulin pen 0 unit SUBCUT .SLIDING SCALE RF: 0 Aranesp (in polysorbate) 60 mcg/0.3 mL Syringe 60 mcg subcut WK RF: 0 vancomycin 500 mg recon soln See Rx Instructions .ROUTE .COMPLEX RF: 0 Referrals Referrals: Roney Crocker DO [Primary Care Provider] - Discharge Problem: Altered mental status Qualifiers: Altered mental status type: somnolence Qualified Code(s): R40.0 - Somnolence
[2020-09-24] MEDS ORDERED: VANCOMYCIN CONSULT ACTIVE PRN (14:14)
[2020-09-24] MEDS ORDERED: VANCOMYCIN HCL 1,000 MG in SODIUM CHLORIDE 0.9% 500 ML IV SCH (14:15)
[2020-09-24] MEDS ORDERED: VANCOMYCIN HCL 1,250 MG in SODIUM CHLORIDE 0.9% 250 ML IV STA (14:20)
[2020-09-24 14:35] LABS: C Reactive Protein 2.15 mg/dl (0-0.29); Phosphorus 7.8 mg/dl (2.5-4.9)
--- NOTE | 2020-09-24 15:02 | History & Physical Report ---
Date of Service September 24, 2020 Assessment & Plan (1) Encephalopathy: Acute likely metabolic/renal vs. pharmacologic encephalopathy vs. secondary infection - Patient will be covered with Rocephin and Vancomycin - Nephrology consulted- appreciate there assistance - short run of dialysis today follow mentation after - If no improvement- obtain MRI - patient does not appear toxic at this time, no seizures, no focal deficits, and no headaches (2) Leukocytosis: WBC elevated to 16 with NLR of 7:1 - blood cultures pending - Was discharged on vancomycin for 09/11 GPC PCR positive for staph and PCR positive for meCA, 09/12 GPC in chest catheter oxacillin resistant- MRSA - Receives her Vancomycin with HD- will give half dose in the EMD today prior to dialysis follow trough- Pharmacy consult placed - Lactate nml, PCT, ESR, CRP - ECHO performed last admission without evidence of IE - MRI if symptoms persist - LP if symptoms persist (3) Uremia: GAP acidosis of with BUN 90 - Dialysis today then per nephro (4) MRSA bacteremia: As above (5) Hypertension: Continue home medications - follow hemodynamic response following HD - Follow with ability to take PO - may need IV conversion (6) ESRD on dialysis: As above (7) Chronic pain: Pupils are equal and reactive - Gabapentin already renal adjusted - Tylenol PRN - avoid oversedation (8) Hypothyroid: TSH ~7 - continue to follow and adjust as outpatient (9) GERD (gastroesophageal reflux disease): Continue pantoprazole 40 (10) Pulmonary embolism: Chronic on Eliquis - If unable to take PO - will have to convert in morning History of Present Illness Primary Care Provider: Roney Crocker, DO 30 YOF with past medical history of: HTN, ESRD on dialysis, MRSA sepsis, infected temporary dialysis lines, critical illness myopathy, HTN, PE on Eliquis, hypothyroidism, GERD, chronic pain. Patient is a resident at [facility] undergoing rehab. She is followed by [facility] for her Dialysis. Patient was brought to the emergency department today for increase in somnolence vs obtundation at [facility] this morning. Patient reportedly has been getting Benadryl at night for sleep. She was recently admitted in August for MRSA infection of her dialysis line requiring removal and placement of new tunneled dialysis line to her right scl vein. Patient was last dialyzed on Thursday it appears. She was to have dialysis today, but was brought to ED. In the EMD the patient had routine labs drawn, head CT and CXR done. Her laboratory work is significant for increase in WBC, HCO3 18, K 5.9., BUN 97 and RECORDS ANALYSIS MANAGER 7.09 a normal lactate with elevated ESR and CRP and TSH of 7.4. Patient will be admitted to PCU for following of her mentation, nephrology consult placed to evaluate for dialysis need today. Blood cultures have been obtained, and will start patient on empiric antibiotic coverage of Vancomycin and Rocephin. Allergies Allergy/AdvReac Type Severity Reaction Status Date / Time bee venom protein (honey bee) Allergy Intermediate Hives Verified 09/22/20 07:58 chlorhexidine Allergy Intermediate Hives Verified 09/22/20 07:58 latex Allergy Intermediate Hives Verified 09/22/20 07:58 fentanyl AdvReac Mild Nausea Verified 09/22/20 07:58 Home Medications Medication Instructions Recorded Confirmed Type acetaminophen 650 mg PO Q4 PRN 09/12/20 09/22/20 History amlodipine [Norvasc] 10 mg PO QAM 09/12/20 09/22/20 History apixaban [Eliquis] 2.5 mg PO Q12 09/12/20 09/22/20 History buspirone 10 mg PO QAM 09/12/20 09/22/20 History buspirone 20 mg PO HS 09/12/20 09/22/20 History clonidine HCl 0.1 mg PO Q8 09/12/20 09/22/20 History diphenhydramine HCl 25 mg PO 3XWK PRN 09/12/20 09/22/20 History docusate sodium [Colace] 100 mg PO BID 09/12/20 09/22/20 History ergocalciferol (vitamin D2) 1,250 mcg PO WK 09/12/20 09/22/20 History [Vitamin D2] gabapentin 300 mg PO BID 09/12/20 09/22/20 History hydralazine 100 mg PO Q8 09/12/20 09/22/20 History insulin aspart U-100 [Novolog See Rx Instructions .ROUTE .COMPLEX 09/12/20 09/22/20 History U-100 Insulin aspart] labetalol 300 mg PO Q8 09/12/20 09/22/20 History levothyroxine 25 mcg PO DAILY@0600 09/12/20 09/22/20 History melatonin 3 mg PO HS PRN 09/12/20 09/22/20 History ondansetron 4 mg PO Q8H PRN 09/12/20 09/22/20 History pantoprazole [Protonix] 40 mg PO DAILYBB 09/12/20 09/22/20 History paroxetine HCl [Paxil] 30 mg PO QAM 09/12/20 09/22/20 History polyethylene glycol 3350 [Miralax] 17 g PO QDL PRN 09/12/20 09/22/20 History sennosides-docusate sodium [Senna 1 tab-cap PO QDL PRN 09/12/20 09/22/20 History with Docusate Sodium] sevelamer carbonate [Renvela] 800 mg PO TIDM 09/12/20 09/22/20 History tramadol [Ultram] 50 mg PO Q6H PRN 09/12/20 09/22/20 History Lantus U-100 Insulin 10 unit SUBCUT Q12 #0 ml 09/20/20 09/22/20 Rx darbepoetin caprice in polysorbat 60 mcg SUBCUT WK 09/22/20 09/22/20 History [Aranesp (in polysorbate)] glucagon [Glucagon Emergency Kit 1 mg SUBCUT UD 09/22/20 09/22/20 History (human)] insulin lispro [Humalog KwikPen 0 unit SUBCUT .SLIDING SCALE 09/22/20 09/22/20 History Insulin] vancomycin See Rx Instructions .ROUTE .COMPLEX 09/22/20 09/22/20 History Past Med/Surg History Medical History Acute and chronic respiratory failure Chronic respiratory failure Diabetes mellitus type 1 ESRD on dialysis Hypertension MRSA bacteremia Substernal chest pain Surgical History AV fistula History of cholecystectomy Social History Smoking Status: Never smoker Second Hand Exposure: No; Do You Dip or Chew Tobacco: No; Hx Alcohol Use: No Hx Substance Use: No Preferred Language: Kazakh Communication Ability: Effective Pediatrician Managing Partner Required: No Beliefs That Will Affect Care: None Current Living Situation: Rehab Current Living Situation Comment: Lives with mother Other Information That Helps Us Care for You: No Feels Safe at Home: Yes Assistive Devices: Oxygen - Continuous Review of Systems Review of Systems: REVIEW OF SYSTEMS: unable to perform secondary to mental status and patient ability to participate in evaluation Physical Exam Physical Exam: PHYSICAL EXAM: General: obtunded to somnolent- says she just wants to sleep Head: Normocephalic, scratches and scabs to forehead ENT: PERRLA, EOMI, no pharyngeal exudate, mucous membranes very dry Neuro: AAO x 1, arousable to constant stimuli to feet, speech mumbled and incoherent, strength intact bilaterally 5/5, sensation intact and equal all extremities and dermatomes, she localizes pain, and rolls over to side to place covers over herself to sleep. Chest: equal rise and fall of the chest, no accessory muscle use, no heaves or thrills, scattered crackles and nasal cannula Cardiac: Regular rate and rhythm, telemetry reviewed, skin warm dry, cap refill <3 seconds, peripheral pulses +2 no JVD, no murmur, trace edema GI: NABS x 4 quadrants, soft, nontender to palpation, no rebound, guarding or tenderness : reportedly does not make urine, dialysis line to right scl, not infected looking Extremities: small stature with multiple areas of old scratch and picking wiley, no peripheral edema or erythema, calfs nontender to palpation Psych: unable to assess Results & Data Results & Data ([facility]) Vital Signs (Past 12 Hours) Vital Signs Temp Pulse Resp BP Pulse Ox 09/24/20 13:30 74 16 125/82 97 09/24/20 13:15 74 18 131/78 96 09/24/20 12:45 75 16 121/78 97 09/24/20 12:30 76 16 124/73 97 09/24/20 12:15 81 14 138/83 97 09/24/20 12:00 82 14 110/69 98 09/24/20 11:46 96 09/24/20 11:45 82 14 135/74 96 09/24/20 11:37 81 13 108/63 98 09/24/20 11:00 82 14 124/73 94 09/24/20 10:25 83 L 09/24/20 10:23 36.4 C L 81 28 H 121/64 83 L 09/24/20 10:12 78 20 121/64 98 Laboratory Results Abnormal Labs 09/24/20 09/24/20 09/24/20 10:24 10:45 10:45 WBC 16.20 H RBC 3.16 L Hgb 9.9 L POC Hgb Hct 31.8 L POC Hct MCV 100.6 H MCHC 31.1 L RDW Std Deviation 75.4 H RDW Coeff of Misael 20.7 H Plt Count 404 H MPV 10.9 H Neut # (Auto) 13.30 H [place] # (Auto) 0.70 H Eos # (Auto) 0.76 H Immature Gran # (Auto) 0.03 H ESR INR 1.2 H APTT 32.7 H POC Sodium Sodium POC Potassium Potassium Carbon Dioxide POC Total CO2 Anion Gap POC BUN BUN Creatinine POC Creatinine Glucose POC Glucose 168 H POC Glucose (other) Phosphorus Magnesium Alkaline Phosphatase C-Reactive Protein Total Protein Albumin Globulin Albumin/Globulin Ratio TSH 09/24/20 09/24/20 09/24/20 10:45 10:45 10:45 WBC RBC Hgb POC Hgb Hct POC Hct MCV MCHC RDW Std Deviation RDW Coeff of Misael Plt Count MPV Neut # (Auto) [place] # (Auto) Eos # (Auto) Immature Gran # (Auto) ESR 68 H INR APTT POC Sodium Sodium 132 L POC Potassium Potassium 5.5 H Carbon Dioxide 18 L POC Total CO2 Anion Gap 12.0 H POC BUN BUN 96 H Creatinine 7.09 H* POC Creatinine Glucose 176 H POC Glucose POC Glucose (other) Phosphorus 7.8 H Magnesium 2.8 H Alkaline Phosphatase 561 H C-Reactive Protein 2.15 H Total Protein 8.5 H Albumin 3.3 L Globulin 5.2 H Albumin/Globulin Ratio 0.6 L TSH 7.480 H 09/24/20 09/24/20 10:55 14:39 WBC RBC Hgb POC Hgb 11.2 L Hct POC Hct 33 L MCV MCHC RDW Std Deviation RDW Coeff of Misael Plt Count MPV Neut # (Auto) [place] # (Auto) Eos # (Auto) Immature Gran # (Auto) ESR INR APTT POC Sodium 134 L Sodium POC Potassium 5.9 H Potassium Carbon Dioxide POC Total CO2 19 L Anion Gap POC BUN 97 H BUN Creatinine POC Creatinine 8.5 H* Glucose POC Glucose 183 H POC Glucose (other) 175 H Phosphorus Magnesium Alkaline Phosphatase C-Reactive Protein Total Protein Albumin Globulin Albumin/Globulin Ratio TSH Diagnostic Findings Chest X-Ray 09/24/20 10:54 XR chest 1V portable HISTORY: 30 years-old Female AMS acutely altered mental status COMPARISON: Chest radiograph 09/22/2020 TECHNIQUE: Portable AP view of the chest FINDINGS: Patient is rotated towards the left. Cardiac silhouette is mildly enlarged. Pulmonary vascular congestion with progressive interstitial opacities. Right IJ dual-lumen hemodialysis catheter distal tip projects over the right atrium. Right subclavian vascular stent redemonstrated. No pneumothorax or large pleural effusion. Degenerative changes of the shoulders and spine with right shoulder rotator cuff calcific tendinosis. IMPRESSION: Cardiomegaly with progressively worsened pulmonary edema. ACT 112: Negative or not required by law. The above report was generated using voice recognition software. It may contain grammatical, syntax or spelling errors. Head CT 09/24/20 12:14 CT head/brain wo con CLINICAL HISTORY: 30 years-old Female with weakness/ams. Acutely altered mental status TECHNIQUE: Multiple axial CT images of the head were obtained without contrast. A dose lowering technique was utilized adhering to the principles of ALARA. CT DOSE: 638.56 mGycm COMPARISON: None. FINDINGS: No acute intracranial hemorrhage, midline shift, intracranial mass, hydrocephalus, territorial ischemia or abnormal extra-axial collection. Senescen t calcifications of the basal ganglia. The calvarium is intact. The paranasal sinuses, mastoid air cells, and middle ear cavities are clear. IMPRESSION: No acute intracranial abnormality. The above report was generated using voice recognition software. It may contain grammatical, syntax or spelling errors. Electronically signed by: Jamie France M.D. 09/24/2020 1:14 PM Medications Administered Vancomycin HCl 1,250 mg/ (Sodium Chloride) 275 mls @ 200 mls/hr IV NOW STA Stop: 09/24/20 15:42 Last Admin: 09/24/20 14:35 Dose: 200 mls/hr Documented by: [id number] ECG Additional Comments: 14-SEP-2020 10:23:17 [facility]-EDSTAT ROUTINE RETRIEVAL Normal sinus rhythm Right superior axis deviation Right ventricular hypertrophy with repolarization abnormality Septal infarct , age undetermined Abnormal ECG When compared with ECG of 22-SEP-2020 06:33, Septal infarct is now Present T wave inversion now evident in Anterior leads Code Status & VTE Plan Code Status CODE: FULL VTE: SCD's, Rodrigo Supervising Physician Co-Signing Physician Notes Patient seen and examined at bedside. Obtained history and physical examination during face to face encounter with patient. I reviewed above note and agree with it. Discussed plan with JOHN Christie. I answered all of the patients questions. Patient will be admitted for encephalopathy, WBC is elevated and will be on IV antibiotics. will monitor mental status, if no improvement, may require MRI. PG Care Time/CCT Total # of Minutes Spent Total Time Spent with Patient: Total time spent is greater than 50% in coordination of care (as documented) at patient's floor/unit and/or counseling patient: Coding Level of Care Code 17704 Initial Inpt Care Lvl 3 Diagnoses Encephalopathy G93.40 Leukocytosis D72.828 Leukocytosis type: other Uremia N19 MRSA bacteremia R78.81; B95.62 Hypertension I10 Hypertension type: unspecified ESRD on dialysis N18.6; Z99.2 Chronic pain G89.4 Chronic pain type: chronic pain syndrome Hypothyroid E03.9 Hypothyroidism type: unspecified GERD (gastroesophageal reflux disease) K21.9 Esophagitis presence: without esophagitis Pulmonary embolism I26.99 Acute cor pulmonale presence: unspecified Chronicity: unspecified Pulmonary embolism type: unspecified (1) Chronic pain Chronic pain type: chronic pain syndrome Qualified Code(s): G89.4 - Chronic pain syndrome (2) Hypothyroid Hypothyroidism type: unspecified Qualified Code(s): E03.9 - Hypothyroidism, unspecified (3) Leukocytosis Leukocytosis type: other Qualified Code(s): D72.828 - Other elevated white blood cell count (4) Pulmonary embolism Acute cor pulmonale presence: unspecified Chronicity: unspecified Pulmonary embolism type: unspecified Qualified Code(s): I26.99 - Other pulmonary embolism without acute cor pulmonale (5) GERD (gastroesophageal reflux disease) Esophagitis presence: without esophagitis Qualified Code(s): K21.9 - Gastro- esophageal reflux disease without esophagitis (6) Hypertension Hypertension type: unspecified Qualified Code(s): I10 - Essential (primary) hypertension
[2020-09-24] MEDS ORDERED: GLUCOSE 10 TABS/TUBE PO PRN (16:36)
[2020-09-24] MEDS ORDERED: GLUCAGON FOR INJ 1 MG VIAL SQ PRN (16:36)
[2020-09-24] MEDS ORDERED: POLYETHYLENE (MIRALAX) 17 GM PACK PO PRN (16:36)
[2020-09-24] MEDS ORDERED: GLUCOSE 40% GEL 15 GM TUBE PO PRN (16:36)
[2020-09-24] MEDS ORDERED: DOCUSATE SODIUM/SENNA 50/8.6MG TAB PO PRN (16:36)
[2020-09-24] MEDS ORDERED: DEXTROSE 50% 50 ML SYRINGE IV PRN (16:36)
--- NOTE | 2020-09-24 16:43 | Pharmacy Report ---
ED Pharmacist Progress Note - ED Pharmacist Progress Note Date of Service:: September 24, 2020 Notes:: Vancomycin 1250 mg ordered (18mg/kg) for HD patient. Then, it was determined that the patient was already on vancomycin prior to arrival. Spoke w RN who stopped infusion. A total of 833 mg was administered. The patient is to receive a short session of HD tonight (likely ~2 hours), which is likely to dialyze out a significant portion of this dose. Vancomycin level should be checked ~4-6 hours after the completion of dialysis to determine if supplemental vancomycin is needed at that time.
[2020-09-24] MEDS ORDERED: ONDANSETRON 4 MG OD TAB PO PRN (17:04)
[2020-09-24] MEDS ORDERED: HEPARIN SOD (PORCINE) 1000 UNIT/ML IV ONE (17:12)
[2020-09-24] MEDS ORDERED: SODIUM CHLORIDE 0.9% 1000ML 1,000 ML IV PRN (17:12)
--- NOTE | 2020-09-24 17:20 | Nephrology Consultation ---
Date of Consultation September 24, 2020 Assessment & Plan (1) ESRD on dialysis: today is her dialysis day. will arrange for short treatment given late hour (2.75 hrs) and another short tx tomorrow. She had extra tx on Sat 09/22 to lessen risk of readmission for volume overload. CXR with worse pulmonary edema than 09/22 however. goal uf is 3.5 L today w/ miniheparin. no anemia meds. 2K bath. f/u pending BCxs >> her WBC are elevated, concerning for recurrent infection Present on Admission?: Yes (2) Encephalopathy: improving compared to obtunded status in ER. Short HD today; further per primary service Present on Admission?: Yes History of Present Illness Reason for Consultation: ESRD on dialysis Requesting Physician: Dr Jj Attending Physician: Jono Jj 30 y/o F whom I'm asked to see for dialysis needs is admitted here from rehab with altered mental status. Recent admission here (d/c 09/21) for MRSA bacteremia/catheter related infection. PMH includes DM1, HTN, ESRD, chronic respiratory failure on 2-6L of 02NC at baseline, recurrent dialysis catheter related infections, maturing endovascular AVF, PE on AC, legally blind, hypothyroid, hx of gallstone pancreatitis s/p cholecystectomy; chronic back pain. Her 02 needs are very much volume dependent: hx of recurrent admissions for volume overload. Seen here on 09/22 for hyperglycemia - BG dropped as low as 37 in ER. She dialyzes MWF, most recently at [facility] where I have been overseeing her dialysis care. She was obtunded by report in ER. When I saw her up on the floor, she was sobbing, shivering, clearly distressed but unable to name something wrong. no Sob, no uncontrolled pain, no N. she is anuric No FH of CKD/ESRD. Allergies Allergy/AdvReac Type Severity Reaction Status Date / Time bee venom protein (honey bee) Allergy Intermediate Hives Verified 09/22/20 07:58 chlorhexidine Allergy Intermediate Hives Verified 09/22/20 07:58 latex Allergy Intermediate Hives Verified 09/22/20 07:58 fentanyl AdvReac Mild Nausea Verified 09/22/20 07:58 Home Medications Medication Instructions Recorded Confirmed Type acetaminophen 650 mg PO Q4 PRN 09/12/20 09/22/20 History amlodipine [Norvasc] 10 mg PO QAM 09/12/20 09/22/20 History apixaban [Eliquis] 2.5 mg PO Q12 09/12/20 09/22/20 History buspirone 10 mg PO QAM 09/12/20 09/22/20 History buspirone 20 mg PO HS 09/12/20 09/22/20 History clonidine HCl 0.1 mg PO Q8 09/12/20 09/22/20 History diphenhydramine HCl 25 mg PO 3XWK PRN 09/12/20 09/22/20 History docusate sodium [Colace] 100 mg PO BID 09/12/20 09/22/20 History ergocalciferol (vitamin D2) 1,250 mcg PO WK 09/12/20 09/22/20 History [Vitamin D2] gabapentin 300 mg PO BID 09/12/20 09/22/20 History hydralazine 100 mg PO Q8 09/12/20 09/22/20 History insulin aspart U-100 [Novolog See Rx Instructions .ROUTE .COMPLEX 09/12/20 09/22/20 History U-100 Insulin aspart] labetalol 300 mg PO Q8 09/12/20 09/22/20 History levothyroxine 25 mcg PO DAILY@0600 09/12/20 09/22/20 History melatonin 3 mg PO HS PRN 09/12/20 09/22/20 History ondansetron 4 mg PO Q8H PRN 09/12/20 09/22/20 History pantoprazole [Protonix] 40 mg PO DAILYBB 09/12/20 09/22/20 History paroxetine HCl [Paxil] 30 mg PO QAM 09/12/20 09/22/20 History polyethylene glycol 3350 [Miralax] 17 g PO QDL PRN 09/12/20 09/22/20 History sennosides-docusate sodium [Senna 1 tab-cap PO QDL PRN 09/12/20 09/22/20 History with Docusate Sodium] sevelamer carbonate [Renvela] 800 mg PO TIDM 09/12/20 09/22/20 History tramadol [Ultram] 50 mg PO Q6H PRN 09/12/20 09/22/20 History Lantus U-100 Insulin 10 unit SUBCUT Q12 #0 ml 09/20/20 09/22/20 Rx darbepoetin caprice in polysorbat 60 mcg SUBCUT WK 09/22/20 09/22/20 History [Aranesp (in polysorbate)] glucagon [Glucagon Emergency Kit 1 mg SUBCUT UD 09/22/20 09/22/20 History (human)] insulin lispro [Humalog KwikPen 0 unit SUBCUT .SLIDING SCALE 09/22/20 09/22/20 History Insulin] vancomycin See Rx Instructions .ROUTE .COMPLEX 09/22/20 09/22/20 History Patient History Medical History Acute and chronic respiratory failure Chronic respiratory failure Diabetes mellitus type 1 ESRD on dialysis Hypertension MRSA bacteremia Substernal chest pain Surgical History AV fistula History of cholecystectomy Social History Smoking Status: Never smoker Second Hand Exposure: No; Do You Dip or Chew Tobacco: No; Hx Alcohol Use: No Hx Substance Use: No Preferred Language: [place] Communication Ability: Effective Spinneret Person Required: No Beliefs That Will Affect Care: None Current Living Situation: Rehab Current Living Situation Comment: Lives with mother Other Information That Helps Us Care for You: No Feels Safe at Home: Yes Assistive Devices: Oxygen - Continuous Review of Systems Review of Systems: All systems reviewed & are unremarkable except as noted in HPI & below Physical Exam Constitutional: well developed, + obese, + in distress, + lethargic and + overweight; no acute distress (moderate) Eyes: EOM intact bilaterally diminished VA ENMT: Ears: no external ear abnormality Nose: no external nose abnormality Mouth: + dry oral mucous membranes Neck: no nuchal rigidity Respiratory: normal respiratory effort Auscultation: lungs clear to auscultation bilaterally and + diminished lung sounds Cardiovascular: Rate/Rhythm: regular rate and regular rhythm Extremities: + AV fistula (deep; + bruit); no edema Gastrointestinal (Abdomen): Inspection/Auscultation: normal bowel sounds Percussion/Palpation: abdomen soft; abdomen nontender and no guarding Musculoskeletal: Extremities: strength 5/5 throughout Skin: no rashes, warm and dry numerous scabbed pustules BL forearms Neurologic: walter, limited/minimal speech, no tremor, + shivering Results & Data ([facility]) Vital Signs (Past 12 Hours) Vital Signs Temp Pulse Resp BP Pulse Ox 09/24/20 13:30 74 16 125/82 97 09/24/20 13:15 74 18 131/78 96 09/24/20 12:45 75 16 121/78 97 09/24/20 12:30 76 16 124/73 97 09/24/20 12:15 81 14 138/83 97 09/24/20 12:00 82 14 110/69 98 09/24/20 11:46 96 09/24/20 11:45 82 14 135/74 96 09/24/20 11:37 81 13 108/63 98 09/24/20 11:00 82 14 124/73 94 09/24/20 10:25 83 L 09/24/20 10:23 36.4 C L 81 28 H 121/64 83 L 09/24/20 10:12 78 20 121/64 98 Laboratory Results 09/24/20 10:45 09/24/20 10:45 blood cxs pending Diagnostic Findings chest xray COMPARISON: Chest radiograph 09/22/2020 TECHNIQUE: Portable AP view of the chest FINDINGS: Patient is rotated towards the left. Cardiac silhouette is mildly enlarged. Pulmonary vascular congestion with progressive interstitial opacities. Right IJ dual-lumen hemodialysis catheter distal tip projects over the right atrium. Right subclavian vascular stent redemonstrated. No pneumothorax or large pleural effusion. Degenerative changes of the shoulders and spine with right shoulder rotator cuff calcific tendinosis. IMPRESSION: Cardiomegaly with progressively worsened pulmonary edema. head ct no acute IC process
--- NOTE | 2020-09-24 17:52 | Electrocardiogram Report ---
Test Reason : Blood Pressure : / mmHG Vent. Rate : 078 BPM Atrial Rate : 078 BPM P-R Int : 170 ms QRS Dur : 088 ms QT Int : 404 ms P-R-T Axes : 068 188 075 degrees QTc Int : 460 ms Normal sinus rhythm Right superior axis deviation Right ventricular hypertrophy with repolarization abnormality Abnormal ECG When compared with ECG of 22-SEP-2020 06:33, T wave inversion now evident in Anterior leads Confirmed by Uvaldo Aburto ([id number]) on 09/24/2020 5:52:01 PM Referred By: SELF Confirmed By:Richard Aburto
[2020-09-24] MEDS: ACETAMINOPHEN 325 MG TAB PO PRN (18:32)
[2020-09-24] MEDS: GABAPENTIN 300 MG CAP PO SCH (18:33)
[2020-09-24] MEDS: SEVELAMER HCL 800 MG TABLET PO SCH (18:34)
[2020-09-24] MEDS: INSULIN ASPART 100 UNITS/ML 3 ML PEN SC SCH ×2 (18:42→22:44)
[2020-09-24 20:09] LABS: Oxygen Saturation VBG 87.2 %; pH VBG 7.35 (7.36-7.41)
[2020-09-24] MEDS: HEPARIN SOD (PORCINE) 1000 UNIT/ML IV SCH (20:24)
[2020-09-24] MEDS ORDERED: ONDANSETRON INJ 2 MG/ML 2 ML VIAL ONE (22:27)
[2020-09-24] MEDS: ONDANSETRON INJ 2 MG/ML 2 ML VIAL IV PRN (22:35)
[2020-09-24] MEDS: cefTRIAXone SODIUM 1,000 MG in DEXTROSE 5% 50 ML IV SCH (22:36)
[2020-09-25] MEDS ORDERED: LORazepam 1 MG/2 ML VIAL IV STA (00:39)
[2020-09-25] MEDS: GABAPENTIN 300 MG CAP PO SCH ×3 (00:56→20:56)
[2020-09-25] MEDS: hydrALAZINE TAB 50 MG TAB PO SCH ×4 (00:56→20:55)
[2020-09-25] MEDS: DOCUSATE SODIUM 100 MG CAP PO SCH ×3 (00:56→20:53)
[2020-09-25] MEDS: LABETALOL HCL 300 MG TAB PO SCH ×4 (00:56→20:54)
[2020-09-25] MEDS: cloNIDine HCL 0.1 MG TAB PO SCH ×4 (00:56→20:56)
[2020-09-25] MEDS: APIXABAN 2.5 MG TAB PO SCH ×3 (00:56→20:55)
[2020-09-25] MEDS: PANTOprazole 40 MG TAB PO SCH (06:20)
[2020-09-25] MEDS: LEVOTHYROXINE SODIUM 25 MCG TABLET PO SCH (06:20)
[2020-09-25] MEDS: ONDANSETRON INJ 2 MG/ML 2 ML VIAL IV PRN (06:27)
[2020-09-25 06:34] LABS: Basophils # (auto) 0.06 K/uL (0-0.2); Basophils % (auto) 0.8 %; Eosinophils # (auto) 0.39 K/uL (0-0.5); Eosinophils % (auto) 5.5 %; Hemoglobin 10.7 g/dL (12.0-16.0); Immature Granulocytes # (auto) 0.01 K/uL (0.00-0.02); Immature Granulocytes % (auto) 0.1 %; Lymphocytes # (auto) 0.67 K/uL (1.2-3.4); Lymphocytes % (auto) 9.4 %; Mean Corpuscular Hemoglobin 30.8 pg (25-34); Mean Corpuscular Hgb Conc 31.5 g/dL (32-36); Mean Platelet Volume 10.8 fL (7.4-10.4); Monocytes % (auto) 5.6 %; Neutrophils # (auto) 5.57 K/uL (1.4-6.5); Neutrophils % (auto) 78.6 %; Platelet Count 407 K/uL (130-400); RDW Coefficient of Variation 20.5 % (11.5-14.5); RDW Standard Deviation 74.4 fL (36.4-46.3); Red Blood Count 3.47 M/uL (4.2-5.4)
[2020-09-25 06:55] LABS: Anisocytosis Present; Polychromasia 1+
[2020-09-25 07:38] LABS: BUN Creatinine Ratio 10.3 (10-20); Blood Urea Nitrogen 52 mg/dl (7-18); Calcium 9.2 mg/dl (8.5-10.1); Carbon Dioxide 24 mmol/L (21-32); Chloride 100 mmol/L (98-107); Est GFR (African American) 12.6 ml/min; Est GFR (Non-African American) 10.9 ml/min; Glucose 115 mg/dl (70-99); Magnesium 2.5 mg/dl (1.8-2.4); Potassium 4.7 mmol/L (3.5-5.1); Sodium 133 mmol/L (136-145)
[2020-09-25] MEDS: INSULIN ASPART 100 UNITS/ML 3 ML PEN SC SCH ×4 (07:50→20:58)
--- NOTE | 2020-09-25 08:19 | Hospitalist Progress Note ---
Date of Service September 25, 2020 Assessment & Plan (1) Encephalopathy: Acute likely metabolic/renal vs. pharmacologic encephalopathy vs. secondary infection - Patient will be covered with Rocephin and Vancomycin - Nephrology consulted- appreciate there assistance -Patient refused dialysis on 09/25 - - patient does not appear toxic at this time, no seizures, no focal deficits, and no headaches concern for bacteremia from catheter associated infection causing metabolic encephalopathy. There were some reports that the patient also may have some toxic encephalopathy will ask security to remove her personal belongings in the room so she cannot supply her self with any it may be contained within them (2) Leukocytosis: WBC elevated to 16 with NLR of 7:1 - blood cultures pending - Was discharged on vancomycin for 09/11 GPC PCR positive for staph and PCR positive for MRSA, 09/12 GPC in chest catheter oxacillin resistant- MRSA Catheter tip from 09/18 grew coag negative staph - Receives her Vancomycin with HD- will give half dose in the EMD today prior to dialysis follow trough- Pharmacy consult placed - Lactate nml, PCT, ESR 68, CRP 2.15 - ECHO performed last admission without evidence of IE. No peripheral stigmata -Consider [employer] work-up if symptoms persist (3) Uremia: GAP acidosis of with BUN 90 - Dialysis today then per nephro (4) MRSA bacteremia: As above (5) Hypertension: Continue home medications - follow hemodynamic response following HD - Follow with ability to take PO - may need IV conversion (6) ESRD on dialysis: As above (7) Chronic pain: Pupils are equal and reactive - Gabapentin already renal adjusted - Tylenol PRN - avoid oversedation (8) Hypothyroid: TSH ~7 - continue to follow and adjust as outpatient (9) GERD (gastroesophageal reflux disease): Continue pantoprazole 40 (10) Pulmonary embolism: Chronic on Eliquis - If unable to take PO - will have to convert in morning Admission and Anticipated Discharge Date Admission Date: September 24, 2020 Subjective pt remains with significant encephalopathy, does speak at times not making sense did refuse dialysis today, has purulence from dialysis catheter. Review of Systems Review of Systems: Unobtainable due to cognitive status Physical Exam Physical Exam: The patient appeared chronically ill and moderately impaired Vital signs as documented. Head exam is normocephalic atraumatic Neck is without JVD, thyromegaly, or carotid bruits. Dialysis catheter in right upper anterior chest has some purulence draining from the tunneled portion of the catheter. This was cultured previously Lungs are clear to auscultation, no focal loss of breath sounds Cardiac exam, Rhythm is regular he was tachycardic though... No murmurs, rubs or gallops. Peripheral stigmata of endocarditis is seen Abdominal exam reveals normal bowel sounds, soft non tender, no masses Extremities are trace edematous and both pedal pulses are present Neurologic exam she awakens to voice talks nonsensically rolls over and was well asleep resists exam Skin is without bruises or rashes Minor redness around tunnel catheter not with confirmed overt cellulitis Psychologically is with concerns for encephalopathy Results & Data Results & Data ([facility]) Vital Signs (Past 12 Hours) Vital Signs Temp Pulse Pulse Pulse Resp BP BP 09/25/20 07:36 84 18 164/99 H 09/25/20 04:30 79 19 174/94 H 09/25/20 00:59 155/84 H 09/25/20 00:00 86 09/24/20 23:51 97.9 F 82 20 171/99 H 09/24/20 21:59 97.5 F L 87 172/98 H 09/24/20 21:28 95 H 176/100 H 09/24/20 21:00 73 147/93 H 09/24/20 20:40 73 139/87 09/24/20 20:20 72 146/83 H Pulse Ox 09/25/20 07:36 100 09/25/20 04:30 100 09/25/20 00:59 09/25/20 00:00 09/24/20 23:51 97 09/24/20 21:59 09/24/20 21:28 09/24/20 21:00 09/24/20 20:40 09/24/20 20:20 PG Care Time/CCT Total # of Minutes Spent Total Time Spent with Patient: Total time spent is greater than 50% in coordination of care (as documented) at patient's floor/unit and/or counseling patient: Coding Level of Care Code 67497 Subseq Hosp Care Lvl 3 Diagnoses Encephalopathy G93.40 Leukocytosis D72.828 Leukocytosis type: other Uremia N19 MRSA bacteremia R78.81; B95.62 Hypertension I10 Hypertension type: unspecified ESRD on dialysis N18.6; Z99.2 Chronic pain G89.4 Chronic pain type: chronic pain syndrome Hypothyroid E03.9 Hypothyroidism type: unspecified GERD (gastroesophageal reflux disease) K21.9 Esophagitis presence: without esophagitis Pulmonary embolism I26.99 Acute cor pulmonale presence: unspecified Chronicity: unspecified Pulmonary embolism type: unspecified (1) Chronic pain Chronic pain type: chronic pain syndrome Qualified Code(s): G89.4 - Chronic pain syndrome (2) Hypothyroid Hypothyroidism type: unspecified Qualified Code(s): E03.9 - Hypothyroidism, unspecified (3) Leukocytosis Leukocytosis type: other Qualified Code(s): D72.828 - Other elevated white blood cell count (4) Pulmonary embolism Acute cor pulmonale presence: unspecified Chronicity: unspecified Pulmonary embolism type: unspecified Qualified Code(s): I26.99 - Other pulmonary embolism without acute cor pulmonale (5) GERD (gastroesophageal reflux disease) Esophagitis presence: without esophagitis Qualified Code(s): K21.9 - Gastro- esophageal reflux disease without esophagitis (6) Hypertension Hypertension type: unspecified Qualified Code(s): I10 - Essential (primary) hypertension
[2020-09-25] MEDS ORDERED: HEPARIN SOD (PORCINE) 1000 UNIT/ML IV ONE (09:02)
[2020-09-25] MEDS ORDERED: SODIUM CHLORIDE 0.9% 1000ML 1,000 ML IV PRN (09:02)
[2020-09-25] MEDS: PROMETHAZINE HCL 12.5 MG in SODIUM CHLORIDE 0.9% 50 ML IV PRN (09:59)
--- NOTE | 2020-09-25 11:08 | Pharmacy Report ---
Pharmacy Abx Dose Short Note - Date of Service September 25, 2020 - Assessment & Plan Assessment * 30 year old F receiving VANCOMYCIN + CEFTRIAXONE IV for treatment of possible infectious encephalopathy, ongoing treatment of MRSA bacteremia (receiving VANCOMYCIN IV prior to admission) * Day # 2 of antimicrobial therapy this admission, however would be Day # 14 of planned 28 day course per prior discharge plan * She had previously been admitted for infected HD catheter which had been removed. Cath tip and BLCXs had grown MRSA * Date of 1st neg set of BLCXs 09/14/20 * BLCXs drawn this admission, no growth noted to date * HD session yesterday (09/24) and again today (09/25). Today's planned session only 2 hours. Plan Vancomycin * Pre-HD level 20.2 today * Will give 250mg IV x 1 follow HD today * Plan to check level pre-HD to guide redosing. Plan to redose when level 15- 20mcg/mL or anticipated to be so following HD. * Usual HD schedule is --. Will check level w/ AM labs tomorrow should HD be planned again. Pharmacy will continue to follow and will adjust dose/frequency as necessary. Thank you.
[2020-09-25] MEDS ORDERED: PHARMACY GLYCEMIC MGMT CONSULT PRN (11:48)
[2020-09-25] MEDS ORDERED: INSULIN GLARGINE SOLOSTAR 100 UNITS/ML 3 ML PEN SC ONE (12:15)
--- NOTE | 2020-09-25 12:50 | Pharmacy Report ---
Pharmacy Glycemic Short Note 2 - Date of Service September 25, 2020 - Glycemic Short BSG Results (Last 24 hours): 09/24/20 09/24/20 09/24/20 14:39 18:07 22:43 Glucose POC Glucose 183 H 159 H 83 09/25/20 09/25/20 09/25/20 06:02 07:29 11:15 Glucose 115 H POC Glucose 114 H 143 H OUTPATIENT ANTIDIABETIC REGIMEN: * Lantus 10 units SQ BID * Novolog 3 units /w breakfast + 6 units w/ lunch + 6 units w/ dinner * A1c = 9% 09/12/20, however this should be interpreted with caution given ESRD ASSESSMENT: * Type 1 diabetic admitted with encephalopathy, concern for infection in patient currently undergoing abx therapy for recent h/o HD cath infxn and MRSA bacteremia * Reviewed prior admission and insulin doses. Will initiate a regimen based upon recent admit doses and out-pt regimen. * Of note, patient's BSGs were quite erratic last admit and pt had often consumed more than 3 meals per day - likely leading to some of the observed BSGs PLAN FOR INPATIENT GLYCEMIC CONTROL: * Basal insulin * Lantus SQ BID per scale: * 0 units if BSG less than 90 * 8 units if BSG 90-140 * 10 units if BSG above 140 * Bolus insulin * NovoLog per scale ACHS or Q6hrs while NPO * Goal Range: Low 100 mg/dL - High 150 mg/dL * Correction Factor: 35 mg/dL/unit * Nutritional / Prandial insulin per carb ratio of 1 unit per 11 grams CHO consumed PLAN FOR DISCHARGE: * to be determined
--- NOTE | 2020-09-25 13:04 | Nephrology Progress Note ---
Date of Service September 25, 2020 Assessment & Plan (1) ESRD on dialysis: refusing dialysis today >> short tx had been planned. tolerated 3.2 L yesterday; tomorrow is her dialysis day. she had short tx yesterday. She had extra tx on Sat 09/22 to lessen risk of readmission for volume overload. CXR admission with worse pulmonary edema than 09/22. no anemia meds needed so far. f/u pending BCxs >> her WBC are elevated, concerning for recurrent infection -pain over dialysis catheter >> subjective/ inconsistent >> given hx of 7 prior catheter infections, last one earlier this month > will reswab exit site and repeat blood cxs > 2 from line and 2 peripheral -reeval for next tx tomorrow; high risk for complications of voluem overload (2) Encephalopathy: improving yesterday compared to obtunded status in ER. Today worse MS again <> difficult to evaluate if metabolic or emotional or both; hx of drug seeking behavior; does follow commands >further w/u per primary service; also refused all po meds this AM Admission and Anticipated Discharge Date Admission Date: September 24, 2020 Subjective c/o pain at TDC exit site and ? slight discharge at site; refusing dialysis; follows commands but does not answer appropriately >> mumbling for mother, mumbling no when aroused; lunch BG was 153; this AM refused all po meds, improved w/ phenergan; pulling off 02, screaming in halls this am Review of Systems 2 Review of Systems: All systems reviewed & are unremarkable except as noted in Subjective limited by pt MS Physical Exam Constitutional: well developed, + acute distress (moderate, tearful, agitated), + obese, + lethargic and + overweight Eyes: EOM intact bilaterally ENMT: Ears: no external ear abnormality Nose: no external nose abnormality Mouth: + dry oral mucous membranes Neck: no nuchal rigidity Respiratory: normal respiratory effort Auscultation: lungs clear to auscultation bilaterally and + diminished lung sounds Cardiovascular: Rate/Rhythm: regular rate and regular rhythm Extremities: + AV fistula (deep; + bruit); no edema Gastrointestinal (Abdomen): Inspection/Auscultation: normal bowel sounds Percussion/Palpation: abdomen soft; abdomen nontender and no guarding Musculoskeletal: Extremities: strength 5/5 throughout no pain when I palpate dialysis catheter Skin: no rashes, warm and dry dialysis catheter w/ scant non dry blood, no obvious gross d/c, NT, not red >> some d/c yellow w/ blood mixed in once dressing off Neurologic: walter, follows commands, limited speech Psychiatric: Affect: + anxious affect and + tearful affect Results & Data ([facility]) Vital Signs (Past 12 Hours) Vital Signs Temp Pulse Pulse Resp BP Pulse Ox 09/25/20 12:01 36.8 C 79 17 185/100 H 100 09/25/20 07:36 84 18 164/99 H 100 09/25/20 04:30 79 19 174/94 H 100 09/25/20 00:59 155/84 H Laboratory Results 09/25/20 06:02 09/25/20 06:02
[2020-09-25] MEDS: SEVELAMER HCL 800 MG TABLET PO SCH ×3 (13:12→17:27)
[2020-09-25] MEDS: HEPARIN SOD (PORCINE) 1000 UNIT/ML IV SCH ×3 (13:13→15:45)
[2020-09-25] MEDS: PARoxetine HCL 10 MG TAB PO SCH (13:13)
[2020-09-25] MEDS ORDERED: VANCOMYCIN HCL 250 MG in 0.9 % SODIUM CHLORIDE 100 ML IV ONE (14:00)
[2020-09-25] MEDS: ACETAMINOPHEN 325 MG TAB PO PRN (16:35)
[2020-09-25] MEDS: cefTRIAXone SODIUM 1,000 MG in DEXTROSE 5% 50 ML IV SCH (18:55)
[2020-09-25] MEDS ORDERED: METOPROLOL TARTRATE 1 MG/ML VIAL IV PRN (19:47)
[2020-09-25] MEDS: INSULIN GLARGINE SOLOSTAR 100 UNITS/ML 3 ML PEN SC SCH (21:04)
[2020-09-26] MEDS: ONDANSETRON INJ 2 MG/ML 2 ML VIAL IV PRN ×3 (00:47→16:30)
[2020-09-26] MEDS: LEVOTHYROXINE SODIUM 25 MCG TABLET PO SCH (05:41)
[2020-09-26] MEDS: PANTOprazole 40 MG TAB PO SCH (05:41)
[2020-09-26] MEDS: hydrALAZINE TAB 50 MG TAB PO SCH ×3 (05:42→21:30)
[2020-09-26] MEDS: LABETALOL HCL 300 MG TAB PO SCH ×3 (05:42→21:31)
[2020-09-26] MEDS: cloNIDine HCL 0.1 MG TAB PO SCH ×3 (05:42→21:30)
[2020-09-26 07:15] LABS: Basophils # (auto) 0.06 K/uL (0-0.2); Basophils % (auto) 1.3 %; Eosinophils # (auto) 0.31 K/uL (0-0.5); Eosinophils % (auto) 6.5 %; Hemoglobin 10.5 g/dL (12.0-16.0); Lymphocytes # (auto) 0.84 K/uL (1.2-3.4); Lymphocytes % (auto) 17.7 %; Mean Corpuscular Hemoglobin 30.6 pg (25-34); Mean Corpuscular Hgb Conc 30.9 g/dL (32-36); Mean Corpuscular Volume 99.1 fL (80-100); Mean Platelet Volume 10.4 fL (7.4-10.4); Monocytes # (auto) 0.37 K/uL (0.11-0.59); Monocytes % (auto) 7.8 %; Neutrophils # (auto) 3.17 K/uL (1.4-6.5); Neutrophils % (auto) 66.7 %; Platelet Count 379 K/uL (130-400); RDW Coefficient of Variation 20.1 % (11.5-14.5); RDW Standard Deviation 73.1 fL (36.4-46.3); Red Blood Count 3.43 M/uL (4.2-5.4); White Blood Count 4.75 K/uL (4.8-10.8)
[2020-09-26 07:39] LABS: Anisocytosis Present; Polychromasia 1+
[2020-09-26 07:53] LABS: BUN Creatinine Ratio 10.9 (10-20); Blood Urea Nitrogen 79 mg/dl (7-18); Calcium 7.9 mg/dl (8.5-10.1); Carbon Dioxide 21 mmol/L (21-32); Chloride 99 mmol/L (98-107); Est GFR (African American) 8.2 ml/min; Est GFR (Non-African American) 7.1 ml/min; Glucose 125 mg/dl (70-99); Magnesium 2.6 mg/dl (1.8-2.4); Potassium 5.8 mmol/L (3.5-5.1); Sodium 132 mmol/L (136-145)
[2020-09-26] MEDS: SEVELAMER HCL 800 MG TABLET PO SCH ×3 (08:00→15:36)
[2020-09-26] MEDS ORDERED: SODIUM CHLORIDE 0.9% 1000ML 1,000 ML IV PRN (08:00)
[2020-09-26] MEDS ORDERED: HEPARIN SOD (PORCINE) 1000 UNIT/ML IV ONE (08:00)
[2020-09-26] MEDS: INSULIN ASPART 100 UNITS/ML 3 ML PEN SC SCH ×4 (08:42→21:32)
[2020-09-26] MEDS: ACETAMINOPHEN 325 MG TAB PO PRN (10:31)
[2020-09-26] MEDS: APIXABAN 2.5 MG TAB PO SCH ×2 (10:33→21:31)
[2020-09-26] MEDS: PARoxetine HCL 10 MG TAB PO SCH (10:33)
[2020-09-26] MEDS: GABAPENTIN 300 MG CAP PO SCH ×2 (10:33→21:30)
[2020-09-26] MEDS: DOCUSATE SODIUM 100 MG CAP PO SCH ×2 (10:33→21:31)
[2020-09-26] MEDS: INSULIN GLARGINE SOLOSTAR 100 UNITS/ML 3 ML PEN SC SCH ×2 (10:33→21:33)
--- NOTE | 2020-09-26 11:46 | Pharmacy Report ---
Pharmacy Abx Dose Short Note - Date of Service September 26, 2020 - Assessment & Plan Assessment * 30 year old F receiving VANCOMYCIN + CEFTRIAXONE IV for treatment of possible infectious encephalopathy, ongoing treatment of MRSA bacteremia (receiving VANCOMYCIN IV prior to admission) * Day # 3 of antimicrobial therapy this admission, however would be Day # 15 of planned 28 day course per prior discharge plan * She had previously been admitted for infected HD catheter which had been removed. Cath tip and BLCXs had grown MRSA * Date of 1st neg set of BLCXs 09/14/20 * BLCXs drawn this admission, no growth noted to date Vancomycion * Previous HD/vanco admission reviewed * HD sessions were variable dates, lengths, and times which complicated regimen * Patient's vancomycin level decreased by ~ 3 mcg/mL over 24 hours without vanco and without HD (thus patient has some non-HD clearance) * Patient's pre-HD vancomycin level was stable after she received 500 mg following a 4 hour HD session * Patient refused HD yesterday, but it is ongoing today, ~2.5 hours of HD already completed at this time. * Vanco 250 mg yesterday intended for post-HD (which pt refused) increased level from 20.2 to 23.0 mcg/mL in the absence of HD * Pre-HD level 23.0 mcg/mL today, which is reasonable especially given patient- specific non-HD clearance Plan * Vancomycin 500 mg IV x1 today after HD * Random level tomorrow AM Pharmacy will continue to follow and will adjust dose/frequency as necessary. Thank you.
[2020-09-26] MEDS: PROMETHAZINE HCL 12.5 MG in SODIUM CHLORIDE 0.9% 50 ML IV PRN (12:21)
[2020-09-26] MEDS: HEPARIN SOD (PORCINE) 1000 UNIT/ML IV SCH (12:49)
--- NOTE | 2020-09-26 13:12 | Pharmacy Report ---
Pharmacy Glycemic Short Note 2 - Date of Service September 26, 2020 - Glycemic Short BSG Results (Last 24 hours): 09/25/20 09/25/20 09/26/20 16:16 20:16 06:48 Glucose 125 H POC Glucose 130 H 131 H 09/26/20 09/26/20 07:18 11:11 Glucose POC Glucose 114 H 86 OUTPATIENT ANTIDIABETIC REGIMEN: * Lantus 10 units SQ BID * Novolog 3 units /w breakfast + 6 units w/ lunch + 6 units w/ dinner * A1c = 9% 09/12/20, however this should be interpreted with caution given ESRD ASSESSMENT: 09/26/20 * BSG's have been well controlled over the last 24 hours ranging 114-143 mg/dL. However, the patient refused her AM dose of Lantus which may have a profound effect on BSG's given T1DM * Will increase Lantus dose this evening to provide close to total daily dose to prevent basal insufficiency and rebound hyperglycemia 09/25/20 * Type 1 diabetic admitted with encephalopathy, concern for infection in patient currently undergoing abx therapy for recent h/o HD cath infxn and MRSA bacteremia * Reviewed prior admission and insulin doses. Will initiate a regimen based upon recent admit doses and out-pt regimen. * Of note, patient's BSGs were quite erratic last admit and pt had often consumed more than 3 meals per day - likely leading to some of the observed BSGs PLAN FOR INPATIENT GLYCEMIC CONTROL: * Basal insulin * Lantus SQ HS: 12-16 units depending on BSG * Bolus insulin * NovoLog per scale ACHS or Q6hrs while NPO * Goal Range: Low 100 mg/dL - High 150 mg/dL * Correction Factor: 35 mg/dL/unit * Nutritional / Prandial insulin per carb ratio of 1 unit per 11 grams CHO consumed PLAN FOR DISCHARGE: * to be determined
[2020-09-26] MEDS ORDERED: VANCOMYCIN HCL 500 MG in SODIUM CHLORIDE 0.9% 250 ML IV SCH (13:30)
--- NOTE | 2020-09-26 16:39 | Hospitalist Progress Note ---
Date of Service September 26, 2020 Assessment & Plan (1) Encephalopathy: Plan: Acute likely metabolic/renal vs. pharmacologic encephalopathy vs. secondary infection - Patient will be covered with Rocephin and Vancomycin - Nephrology consulted- appreciate there assistance -Patient refused dialysis on 09/25 - - patient does not appear toxic at this time, no seizures, no focal deficits, and no headaches concern for bacteremia from catheter associated infection causing metabolic encephalopathy. There were some reports that the patient also may have some toxic encephalopathy will ask security to remove her personal belongings in the room so she cannot supply her self with any it may be contained within them Spoke to the patient's mother who states that she has restrictive lung disease and is on 6 L of oxygen chronically at home. The patient also has a problem with compliance but she denies the patient having issues with abusing opiates or other drugs. She denies the fact that people may have come up from home which is over 2-1/2 hours away to bring her things at the rehab facility. The mother however does reinforce the fact that she is not able to care for the patient at home and the patient would likely be remanded to a situation with more supportiv e care due to her inability to ambulate appropriately her excessive oxygen need and her uncontrolled blood glucoses which at times makes her stuporous or unresponsive (2) Leukocytosis: Plan: Concern for dialysis catheter associated infection continues on vancomycin and Rocephin at this time ECHO performed last admission without evidence of IE. No peripheral stigmata -Consider [employer] work-up if symptoms persist (3) Uremia: Plan: Secondary to renal failure may have a plan toxic encephalopathy continue dialysis when patient permits (4) MRSA bacteremia: Plan: He was history of the same concern for line associated infections dialysis tunnel head was draining some fluid which was cultured on the (5) Hypertension: Plan: Continues on clonidine as needed hydralazine and p.o. metoprolol (6) ESRD on dialysis: Plan: Patient at times is refused dialysis dialysis was performed on the we will continue to follow her numbers continuing her [employer] (7) Chronic pain: Plan: Various issues of chronic pain mostly related to the upper back pain muscular pain. We will try to avoid opiates at this time due to encephalopathy (8) Hypothyroid: Plan: Continues on Synthroid medication (9) GERD (gastroesophageal reflux disease): (10) Pulmonary embolism: Plan: Patient has chronic pulmonary embolism and on chronic oxygen mother states patient is on 6 L of oxygen at home we will continue apixaban 2.5 every 12 and oxygen supplementation Admission and Anticipated Discharge Date Admission Date: September 24, 2020 Results & Data Results & Data ([facility]) Vital Signs (Past 12 Hours) Vital Signs Temp Pulse Pulse Pulse Resp BP BP 09/26/20 15:25 98.8 F 76 17 152/99 H 09/26/20 13:05 97.7 F 70 121/94 09/26/20 12:40 76 108/67 09/26/20 12:20 77 101/70 09/26/20 12:00 71 110/68 09/26/20 11:40 76 123/75 09/26/20 11:20 70 127/82 09/26/20 11:00 70 105/76 09/26/20 10:40 73 145/95 H 09/26/20 10:20 75 141/83 H 09/26/20 10:00 75 129/78 09/26/20 09:40 60 124/75 09/26/20 09:20 68 124/75 09/26/20 09:10 97.7 F 69 09/26/20 08:00 73 09/26/20 07:20 98.1 F 70 17 117/78 09/26/20 04:53 98.4 F 73 20 149/89 H Pulse Ox 09/26/20 15:25 100 09/26/20 13:05 09/26/20 12:40 09/26/20 12:20 09/26/20 12:00 09/26/20 11:40 09/26/20 11:20 09/26/20 11:00 09/26/20 10:40 09/26/20 10:20 09/26/20 10:00 09/26/20 09:40 09/26/20 09:20 09/26/20 09:10 09/26/20 08:00 09/26/20 07:20 100 09/26/20 04:53 100 PG Care Time/CCT Total # of Minutes Spent Total Time Spent with Patient: Total time spent is greater than 50% in coordination of care (as documented) at patient's floor/unit and/or counseling patient: Coding Level of Care Code 14700 Subseq Hosp Care Lvl 3 Diagnoses Encephalopathy G93.40 Leukocytosis D72.828 Leukocytosis type: other Uremia N19 MRSA bacteremia R78.81; B95.62 Hypertension I10 Hypertension type: unspecified ESRD on dialysis N18.6; Z99.2 Chronic pain G89.4 Chronic pain type: chronic pain syndrome Hypothyroid E03.9 Hypothyroidism type: unspecified GERD (gastroesophageal reflux disease) K21.9 Esophagitis presence: without esophagitis Pulmonary embolism I26.99 Acute cor pulmonale presence: unspecified Chronicity: unspecified Pulmonary embolism type: unspecified (1) Chronic pain Chronic pain type: chronic pain syndrome Qualified Code(s): G89.4 - Chronic pain syndrome (2) Hypothyroid Hypothyroidism type: unspecified Qualified Code(s): E03.9 - Hypothyroidism, unspecified (3) Leukocytosis Leukocytosis type: other Qualified Code(s): D72.828 - Other elevated white blood cell count (4) Pulmonary embolism Acute cor pulmonale presence: unspecified Chronicity: unspecified Pulmonary embolism type: unspecified Qualified Code(s): I26.99 - Other pulmonary embolism without acute cor pulmonale (5) GERD (gastroesophageal reflux disease) Esophagitis presence: without esophagitis Qualified Code(s): K21.9 - Gastro- esophageal reflux disease without esophagitis (6) Hypertension Hypertension type: unspecified Qualified Code(s): I10 - Essential (primary) hypertension
--- NOTE | 2020-09-26 19:45 | Dialysis Progress Note ---
Date of Service September 26, 2020 Assessment & Plan (1) ESRD on dialysis: Plan: esrd on HD w/ noncompliance. she refused initially but agreed finally to tx today > then signed off early. got 3.5 hrs and 4L off. no anemia meds needed. catheter function borderline today - monitor -continue efforts to support her care>reassess daily for dialysis needs d/t noncompliance to fluid/dietary/treatment recommendations -f/u pending cxs -next planned HD for 09/28, but may be needed before this (2) MRSA bacteremia: Plan: -from last admission > continue course of vancomycin planned at that discharge w/ abtx managed by pharmacy Admission and Anticipated Discharge Date Admission Date: September 24, 2020 Subjective seen and evaluated on HD early this afternoon; catheter running reversed and w/ elevated TMPs; pt restless; no c/o pain over TDC today and cxs remain negative; she denies worse sob, uncontrolle dpain. Review of Systems 2 Review of Systems: limited by pt willingness to participate; 6 system ROS as above and other underwood negative Physical Exam Constitutional: well developed, + obese, + lethargic and + overweight; no acute distress (moderate, tearful, agitated) Eyes: EOM intact bilaterally ENMT: Ears: no external ear abnormality Nose: no external nose abnormality Mouth: + dry oral mucous membranes Neck: no nuchal rigidity Respiratory: normal respiratory effort Auscultation: lungs clear to auscultation bilaterally and + diminished lung sounds Cardiovascular: Rate/Rhythm: regular rate and regular rhythm Extremities: + AV fistula (deep; + bruit); no edema Gastrointestinal (Abdomen): Inspection/Auscultation: normal bowel sounds Percussion/Palpation: abdomen soft; abdomen nontender and no guarding Musculoskeletal: Extremities: strength 5/5 throughout Skin: no rashes, warm and dry Neurologic: walter, fluent but limited speech (she is trying to sleep), no tremor Psychiatric: Affect: + anxious affect (when fully awake) and + tearful affect Results & Data ([facility]) Vital Signs (Past 12 Hours) Vital Signs Temp Pulse Pulse Pulse Pulse Resp BP 09/26/20 19:25 37.0 C 85 14 09/26/20 16:00 09/26/20 15:25 37.1 C 76 17 09/26/20 13:05 36.5 C 70 09/26/20 12:40 76 108/67 09/26/20 12:20 77 101/70 09/26/20 12:00 71 110/68 09/26/20 11:40 76 123/75 09/26/20 11:20 70 127/82 09/26/20 11:00 70 105/76 09/26/20 10:40 73 145/95 H 09/26/20 10:20 75 141/83 H 09/26/20 10:00 75 129/78 09/26/20 09:40 60 124/75 09/26/20 09:20 68 124/75 09/26/20 09:10 36.5 C 69 09/26/20 08:00 73 BP Pulse Ox Pulse Ox 09/26/20 19:25 126/98 98 09/26/20 16:00 96 09/26/20 15:25 152/99 H 100 09/26/20 13:05 121/94 09/26/20 12:40 09/26/20 12:20 09/26/20 12:00 09/26/20 11:40 09/26/20 11:20 09/26/20 11:00 09/26/20 10:40 09/26/20 10:20 09/26/20 10:00 09/26/20 09:40 09/26/20 09:20 09/26/20 09:10 09/26/20 08:00 Laboratory Results 09/26/20 06:48 09/26/20 06:48
[2020-09-27] MEDS: ONDANSETRON INJ 2 MG/ML 2 ML VIAL IV PRN (02:51)
[2020-09-27 07:01] LABS: Basophils # (auto) 0.04 K/uL (0-0.2); Basophils % (auto) 0.7 %; Eosinophils # (auto) 0.17 K/uL (0-0.5); Eosinophils % (auto) 3.2 %; Hematocrit (blood only) 39.6 % (37-47); Hemoglobin 12.4 g/dL (12.0-16.0); Immature Granulocytes # (auto) 0.02 K/uL (0.00-0.02); Immature Granulocytes % (auto) 0.4 %; Lymphocytes # (auto) 0.79 K/uL (1.2-3.4); Lymphocytes % (auto) 14.7 %; Mean Corpuscular Hemoglobin 31.4 pg (25-34); Mean Corpuscular Hgb Conc 31.3 g/dL (32-36); Mean Corpuscular Volume 100.3 fL (80-100); Mean Platelet Volume 10.9 fL (7.4-10.4); Monocytes # (auto) 0.59 K/uL (0.11-0.59); Neutrophils # (auto) 3.77 K/uL (1.4-6.5); Platelet Count 440 K/uL (130-400); RDW Coefficient of Variation 19.4 % (11.5-14.5); Red Blood Count 3.95 M/uL (4.2-5.4); White Blood Count 5.38 K/uL (4.8-10.8)
[2020-09-27] MEDS: cloNIDine HCL 0.1 MG TAB PO SCH (07:21)
[2020-09-27] MEDS: hydrALAZINE TAB 50 MG TAB PO SCH (07:21)
[2020-09-27] MEDS: LABETALOL HCL 300 MG TAB PO SCH (07:22)
[2020-09-27 07:53] LABS: BUN Creatinine Ratio 10.8 (10-20); Blood Urea Nitrogen 60 mg/dl (7-18); Calcium 8.3 mg/dl (8.5-10.1); Carbon Dioxide 21 mmol/L (21-32); Chloride 94 mmol/L (98-107); Est GFR (African American) 11.2 ml/min; Est GFR (Non-African American) 9.7 ml/min; Glucose 368 mg/dl (70-99); Magnesium 2.6 mg/dl (1.8-2.4); Sodium 128 mmol/L (136-145)
[2020-09-27 08:06] LABS: Beta-Hydroxybutyrate 25.26 mg/dl (0.2-2.81)
[2020-09-27] MEDS ORDERED: DC ALL PREVIOUSLY ORDERED DIABETES MEDS ONE (08:40)
[2020-09-27] MEDS ORDERED: MODERATE STRESS LEVEL ONE (08:40)
[2020-09-27] MEDS ORDERED: INSULIN PROTOCOL GOAL RANGE ONE (08:40)
[2020-09-27] MEDS: LEVOTHYROXINE SODIUM 25 MCG TABLET PO SCH (09:17)
[2020-09-27] MEDS: INSULIN ASPART 100 UNITS/ML 3 ML PEN SC SCH ×5 (09:18→23:05)
[2020-09-27] MEDS: PANTOprazole 40 MG TAB PO SCH (09:18)
[2020-09-27] MEDS: SEVELAMER HCL 800 MG TABLET PO SCH ×3 (09:19→17:22)
[2020-09-27] MEDS ORDERED: INSULIN REGULAR 250 UNITS in SODIUM CHLORIDE 0.9% 247.5 ML IV SCH (09:30)
[2020-09-27] MEDS ORDERED: INSULIN HUMAN REGULAR IV BOLUS 1.5 UNITS in SYRINGE 0 ML IV ONE (09:30)
[2020-09-27] MEDS: PATIROMER CALCIUM SORBITEX 8.4 GM PACK PO SCH (10:18)
[2020-09-27] MEDS: APIXABAN 2.5 MG TAB PO SCH ×2 (10:21→20:49)
[2020-09-27] MEDS: PARoxetine HCL 10 MG TAB PO SCH (10:21)
[2020-09-27] MEDS: DOCUSATE SODIUM 100 MG CAP PO SCH ×2 (10:22→20:48)
[2020-09-27] MEDS: GABAPENTIN 300 MG CAP PO SCH ×2 (10:22→22:59)
[2020-09-27 11:16] LABS: Blood Urea Nitrogen 65 mg/dl (7-18); Calcium 8.3 mg/dl (8.5-10.1); Carbon Dioxide 20 mmol/L (21-32); Chloride 96 mmol/L (98-107); Est GFR (African American) 10.2 ml/min; Est GFR (Non-African American) 8.8 ml/min; Glucose 365 mg/dl (70-99); Potassium 5.5 mmol/L (3.5-5.1); Sodium 129 mmol/L (136-145)
[2020-09-27 11:31] LABS: Beta-Hydroxybutyrate 23.13 mg/dl (0.2-2.81)
--- NOTE | 2020-09-27 12:20 | Pharmacy Report ---
Pharmacy Glycemic Short Note 2 - Date of Service September 27, 2020 - Glycemic Short BSG Results (Last 24 hours): 09/26/20 09/26/20 09/27/20 16:19 20:55 06:12 Glucose 368 H* POC Glucose 112 H 142 H 09/27/20 09/27/20 09/27/20 07:21 10:25 11:04 Glucose 365 H* POC Glucose 343 H* 252 H 09/27/20 11:54 Glucose POC Glucose 160 H OUTPATIENT ANTIDIABETIC REGIMEN: * Lantus 10 units SQ BID * Novolog 3 units /w breakfast + 6 units w/ lunch + 6 units w/ dinner * A1c = 9% 09/12/20, however this should be interpreted with caution given ESRD ASSESSMENT: 09/27 * BSGs abruptly increased overnight. Bedtime BSG 142. Patient received 14 units Lantus at bedtime yesterday. This AMs fasting BSG 368, mild AG, and elevated BOHB (25.3), but normal bicarb. Early DKA? vs AG acidosis in se tting of HD and poor PO intake leading to ketosis ? * Discussed w/ Hospitalist, given patient's type 1 DM, possible early DKA and poor PO intake an IV insulin drip would be best suited to safely correct BSGs and treat acidosis. She may require dextrose containing maint IVFs in order to run the insulin drip should BSGs fall 09/26/20 * BSG's have been well controlled over the last 24 hours ranging 114-143 mg/dL. However, the patient refused her AM dose of Lantus which may have a profound effect on BSG's given T1DM * Will increase Lantus dose this evening to provide close to total daily dose to prevent basal insufficiency and rebound hyperglycemia 09/25/20 * Type 1 diabetic admitted with encephalopathy, concern for infection in patient currently undergoing abx therapy for recent h/o HD cath infxn and MRSA bacteremia * Reviewed prior admission and insulin doses. Will initiate a regimen based upon recent admit doses and out-pt regimen. * Of note, patient's BSGs were quite erratic last admit and pt had often consumed more than 3 meals per day - likely leading to some of the observed BSGs PLAN FOR INPATIENT GLYCEMIC CONTROL: * IV insulin drip per protocol, goal range 110-180 * Begin maintenance IVF's with dextrose in order to allow for continue insulin administration until ketosis resolves. Might consider D10% to limit fluid load * Basal insulin * Lantus 4 units SQ BID - while on the insulin drip to allow for easier drip transition in the future. PLEASE DO NOT STOP INSULIN DRIP WITHOUT AN ORDER TO DO SO. * Bolus insulin * Nutritional / Prandial insulin per carb ratio of 1 unit per 11 grams CHO consumed PLAN FOR DISCHARGE: * to be determined
--- NOTE | 2020-09-27 12:32 | Pharmacy Report ---
Pharmacy Abx Dose Short Note - Date of Service September 27, 2020 - Assessment & Plan Assessment * 30 year old F receiving VANCOMYCIN + CEFTRIAXONE IV for treatment of possible infectious encephalopathy, ongoing treatment of MRSA bacteremia (receiving VANCOMYCIN IV prior to admission) * Day # 4 of antimicrobial therapy this admission, however would be Day # 16 of planned 28 day course per prior discharge plan * She had previously been admitted for infected HD catheter which had been removed. Cath tip and BLCXs had grown MRSA * Date of 1st neg set of BLCXs 09/14/20 * BLCXs drawn this admission, no growth noted to date * Wound cx from catheter site growing mixed skin keena * Last HD session 09/26 (3.5 hours). No HD planned today Plan Vancomycin * Random AM level = 14.6mcg/mL * Will give 500mg IV x 1 today * Plan to check level pre-HD to guide redosing. Plan to redose when level 15- 20mcg/mL or anticipated to be so following HD. * I am told that patient will likely be dialyzed tomorrow 09/28. Will order random level for 09/28 am Pharmacy will continue to follow and will adjust dose/frequency as necessary. Thank you.
[2020-09-27] MEDS: CARISOPRODOL 350 MG TABLET PO PRN (12:37)
[2020-09-27] MEDS ORDERED: VANCOMYCIN HCL 500 MG in 0.9 % SODIUM CHLORIDE 100 ML IV ONE (14:00)
--- NOTE | 2020-09-27 16:37 | Hospitalist Progress Note ---
Date of Service September 27, 2020 Assessment & Plan (1) Encephalopathy: Plan: Acute likely metabolic/renal vs. pharmacologic encephalopathy vs. secondary infection - Patient will be covered with Rocephin and Vancomycin - Nephrology consulted- appreciate there assistance -Patient refused dialysis on 09/25 - - patient does not appear toxic at this time, no seizures, no focal deficits, and no headaches concern for bacteremia from catheter associated infection causing metabolic encephalopathy. There were some reports that the patient also may have some toxic encephalopathy will ask security to remove her personal belongings in the room so she cannot supply her self with any it may be contained within them Spoke to the patient's mother who states that she has restrictive lung disease and is on 6 L of oxygen chronically at home. The patient also has a problem with compliance but she denies the patient having issues with abusing opiates or other drugs. She denies the fact that people may have come up from home which is over 2-1/2 hours away to bring her things at the rehab facility. The mother however does reinforce the fact that she is not able to care for the patient at home and the patient would likely be remanded to a situation with more supportiv e care due to her inability to ambulate appropriately her excessive oxygen need and her uncontrolled blood glucoses which at times makes her stuporous or unresponsive (2) Leukocytosis: Plan: Concern for dialysis catheter associated infection continues on vancomycin and Rocephin at this time ECHO performed last admission without evidence of IE. No peripheral stigmata -Consider GALLERY OR MUSEUM CURATOR work-up if symptoms persist (3) Uremia: Plan: Secondary to renal failure may have a plan toxic encephalopathy continue dialysis when patient permits (4) MRSA bacteremia: Plan: He was history of the same concern for line associated infections dialysis tunnel head was draining some fluid which was cultured on the (5) Hypertension: Plan: Continues on clonidine as needed hydralazine and p.o. metoprolol (6) ESRD on dialysis: Plan: Patient at times is refused dialysis dialysis was performed on the we will continue to follow her numbers continuing her [facility] (7) Chronic pain: Plan: Various issues of chronic pain mostly related to the upper back pain muscular pain. We will try to avoid opiates at this time due to encephalopathy (8) Hypothyroid: Plan: Continues on Synthroid medication (9) GERD (gastroesophageal reflux disease): (10) Pulmonary embolism: Plan: Patient has chronic pulmonary embolism and on chronic oxygen mother states patient is on 6 L of oxygen at home we will continue apixaban 2.5 every 12 and oxygen supplementation Admission and Anticipated Discharge Date Admission Date: September 24, 2020 Subjective Patient is in much better condition today she is agreeable but wants to leave the hospital. However [facility] is not sure they are appropriate to take her back at this point time as she had almost graduated 30 therapy sessions while she was there. Her mother was contacted yesterday does not feel she can supply her fci therefore since the patient is a dialysis patient due for dialysis tomorrow and we do not have a safe location for discharge when to keep her in the hospital until we can solve some of these issues Review of Systems Review of Systems: Moderate distress and fatigue no headache, no visual changes no speech or swallowing issues no chest pain, pressure or palpitations no shortness of breath, cough or wheezes No abdominal pain some abdominal bloating no dysuria, hematuria or frequency no focal joint pain or swelling Musculoskeletal paraspinous back pain no CVA tenderness or radicular pain no bruising, bleeding or rashes no focal signs of weakness or numbness or altered sensation Patient appears to have periods of anxiety. Physical Exam Physical Exam: The patient appeared chronically ill and much older than stated age Vital signs as documented. Head exam is normocephalic atraumatic Neck is without JVD, thyromegaly, or carotid bruits. Lungs are clear to auscultation, no focal loss of breath sounds Cardiac exam, Rhythm is regular.. No murmurs, rubs or gallops. Abdominal exam reveals some protuberance nontender normal bowel sounds Extremities are nonedematous and both pedal pulses are present Neurologic exam is alert and oriented, no focal loss of strength or sensation Skin is without bruises or rashes Patient has increased anxiety with responses of acting out Results & Data Results & Data ([facility]) Vital Signs (Past 12 Hours) Vital Signs Temp Pulse Pulse Resp BP Pulse Ox Pulse Ox 09/27/20 16:00 97 09/27/20 15:06 98.4 F 81 17 103/59 L 98 09/27/20 11:37 72 09/27/20 11:06 98.4 F 88 17 101/51 L 98 09/27/20 07:21 97.9 F 71 17 119/66 100 09/27/20 04:49 98.6 F 79 18 85/38 L 100 PG Care Time/CCT Total # of Minutes Spent Total Time Spent with Patient: Total time spent is greater than 50% in coordination of care (as documented) at patient's floor/unit and/or counseling patient: Coding Level of Care Code 79253 Subseq Hosp Care Lvl 3 Diagnoses Encephalopathy G93.40 Leukocytosis D72.828 Leukocytosis type: other Uremia N19 MRSA bacteremia R78.81; B95.62 Hypertension I10 Hypertension type: unspecified ESRD on dialysis N18.6; Z99.2 Chronic pain G89.4 Chronic pain type: chronic pain syndrome Hypothyroid E03.9 Hypothyroidism type: unspecified GERD (gastroesophageal reflux disease) K21.9 Esophagitis presence: without esophagitis Pulmonary embolism I26.99 Pulmonary embolism type: unspecified Chronicity: unspecified Acute cor pulmonale presence: unspecified (1) Leukocytosis Leukocytosis type: other Qualified Code(s): D72.828 - Other elevated white blood cell count (2) Hypertension Hypertension type: unspecified Qualified Code(s): I10 - Essential (primary) hypertension (3) Chronic pain Chronic pain type: chronic pain syndrome Qualified Code(s): G89.4 - Chronic pain syndrome (4) Hypothyroid Hypothyroidism type: unspecified Qualified Code(s): E03.9 - Hypothyroidism, unspecified (5) GERD (gastroesophageal reflux disease) Esophagitis presence: without esophagitis Qualified Code(s): K21.9 - Gastro- esophageal reflux disease without esophagitis (6) Pulmonary embolism Pulmonary embolism type: unspecified Chronicity: unspecified Acute cor pulmonale presence: unspecified Qualified Code(s): I26.99 - Other pulmonary embolism without acute cor pulmonale
[2020-09-27] MEDS: CARBOHYDRATES FOR HYPOGLYCEMIA PO PRN ×2 (20:05→20:35)
[2020-09-27] MEDS ORDERED: INSULIN GLARGINE SOLOSTAR 100 UNITS/ML 3 ML PEN SC SCH (21:00)
[2020-09-27] MEDS ORDERED: INSULIN ASPART 100 UNITS/ML 3 ML PEN SC SCH (21:00)
[2020-09-27 22:06] LABS: BUN Creatinine Ratio 12.1 (10-20); Calcium 8.3 mg/dl (8.5-10.1); Creatinine Clr Calc Pharmacy 9.5 ml/min; Est GFR (African American) 7.9 ml/min; Est GFR (Non-African American) 6.8 ml/min
[2020-09-27] MEDS ORDERED: D5W AND NSS 1,000 ML IV SCH (22:15)
[2020-09-28] MEDS ORDERED: MoRPHine SULFATE 2 MG/ML CARP IV ONE ×2 (00:25→22:00)
[2020-09-28] MEDS: PANTOprazole 40 MG TAB PO SCH (06:28)
[2020-09-28] MEDS: LEVOTHYROXINE SODIUM 25 MCG TABLET PO SCH (06:28)
[2020-09-28] MEDS ORDERED: INSULIN GLARGINE SOLOSTAR 100 UNITS/ML 3 ML PEN SC STA (07:21)
[2020-09-28] MEDS: INSULIN ASPART 100 UNITS/ML 3 ML PEN SC SCH ×4 (08:02→21:09)
[2020-09-28] MEDS ORDERED: SODIUM CHLORIDE 0.9% 1000ML 1,000 ML IV PRN (08:07)
[2020-09-28 08:55] LABS: BUN Creatinine Ratio 13.2 (10-20); Calcium 7.4 mg/dl (8.5-10.1); Creatinine Clr Calc Pharmacy 8.8 ml/min; Est GFR (African American) 7.2 ml/min; Est GFR (Non-African American) 6.2 ml/min
[2020-09-28] MEDS ORDERED: [UNRECOGNIZED DRUG - REMARK] ONE (09:21)
--- NOTE | 2020-09-28 10:33 | Dialysis Progress Note ---
Date of Service September 28, 2020 Assessment & Plan Admission and Anticipated Discharge Date Admission Date: September 24, 2020 Subjective (1) ESRD on dialysis: Plan: esrd on HD w/ noncompliance. Will plan to do 4 hrs and take 3.5 kilo off. Already asking for less dialysis. 2k bath -continue efforts to support her care>reassess daily for dialysis needs d/t noncompliance to fluid/dietary/treatment recommendations. high chance of having high K because of high glucose and K shift (2) MRSA bacteremia: Plan: -from last admission > continue course of vancomycin planned at that discharge w/ abtx managed by pharmacy Admission and Anticipated Discharge Date Admission Date: September 24, 2020 Subjective seen and evaluated on HD ; catheter running reversed and w/ elevated TMPs; pt restless; no c/o pain over TDC today and cxs remain negative; she denies worse sob, uncontrolle dpain. Review of Systems Review of Systems: limited by pt willingness to participate; 6 system ROS as above and other underwood negative Physical Exam Constitutional: well developed, + obese, + lethargic and + overweight; no acute distress (moderate, tearful, agitated) Eyes: EOM intact bilaterally ENMT: Ears: no external ear abnormality Nose: no external nose abnormality Mouth: + dry oral mucous membranes Neck: no nuchal rigidity Respiratory: normal respiratory effort Auscultation: lungs clear to auscultation bilaterally and + diminished lung sounds Cardiovascular: Rate/Rhythm: regular rate and regular rhythm Extremities: + AV fistula (deep; + bruit); no edema Gastrointestinal (Abdomen): Inspection/Auscultation: normal bowel sounds Percussion/Palpation: abdomen soft; abdomen nontender and no guarding Musculoskeletal: Extremities: strength 5/5 throughout Skin: no rashes, warm and dry Neurologic: walter, fluent but limited speech (she is trying to sleep), no tremor Psychiatric: Affect: + anxious affect (when fully awake) and + tearful affect Results & Data ([facility]) Vital Signs (Past 12 Hours) Vital Signs Temp Pulse Pulse Resp BP Pulse Ox 09/28/20 08:00 36.6 C 94 H 18 141/72 H 09/28/20 02:00 36.5 C 78 19 135/78 99 09/27/20 22:55 36.6 C 81 18 138/82 100
--- NOTE | 2020-09-28 11:36 | Pharmacy Report ---
Pharmacy Abx Dose Short Note - Date of Service September 28, 2020 - Assessment & Plan Assessment * 30 year old F receiving VANCOMYCIN + CEFTRIAXONE IV for treatment of possible infectious encephalopathy, ongoing treatment of MRSA bacteremia (receiving VANCOMYCIN IV prior to admission) * Day # 5 of antimicrobial therapy this admission, however would be Day # 17 of planned 28 day course per prior discharge plan * She had previously been admitted for infected HD catheter which had been removed. Cath tip and BLCXs had grown MRSA * Date of 1st neg set of BLCXs 09/14/20 * BLCXs drawn this admission, no growth noted to date * Wound cx from catheter site growing mixed skin keena * Last HD session 09/26 (3.5 hours). 4 hr HD session planned today 09/28 Plan Vancomycin * Random level 12.8 this AM. This is despite receiving 500mg IV yesterday at 1408 with no HD following the dose. Spoke to patient's RN this AM, it is possible the dose may have extravasated yesterday. Patient states she makes no urine. I reviewed prior admission data. It appears she may have a component of non-renal vanco elimination, however she never exhibited a drop in vanco level following a dose on a non-HD day in the past. I suspect extravasation. * Will give 750mg IV x 1 after HD today * Will recheck level w/ AM labs tomorrow to ensure we achieved a therapeutic level given her sub-therapeutic level today * Goal trough level for bacteremia : 15 to 20 mcg/mL; plan to redose when level within this range or anticipated to be so following HD Pharmacy will continue to follow and will adjust dose/frequency as necessary. Thank you.
--- NOTE | 2020-09-28 11:56 | Pharmacy Report ---
Pharmacy Glycemic Short Note 2 - Date of Service September 28, 2020 - Glycemic Short BSG Results (Last 24 hours): 09/27/20 09/27/20 09/27/20 11:54 13:09 14:01 Glucose POC Glucose 160 H 263 H 352 H* 09/27/20 09/27/20 09/27/20 15:04 16:01 16:42 Glucose POC Glucose 395 H* 378 H* 314 H* 09/27/20 09/27/20 09/27/20 18:05 19:05 20:04 Glucose POC Glucose 248 H 156 H 90 09/27/20 09/27/20 09/27/20 20:27 20:57 21:23 Glucose 136 H POC Glucose 70 100 H 09/27/20 09/27/20 09/27/20 21:28 22:05 22:49 Glucose POC Glucose 139 H 189 H 307 H* 09/27/20 09/28/20 09/28/20 22:53 00:06 01:01 Glucose POC Glucose 308 H* 351 H* 308 H* 09/28/20 09/28/20 09/28/20 02:01 03:05 04:14 Glucose POC Glucose 185 H 205 H 165 H 09/28/20 09/28/20 09/28/20 04:58 05:21 05:44 Glucose POC Glucose 106 H 107 H 90 09/28/20 09/28/20 09/28/20 06:07 06:44 07:04 Glucose 223 H POC Glucose 117 H 229 H 09/28/20 09/28/20 09/28/20 07:48 08:47 08:48 Glucose POC Glucose 255 H 315 H* 286 H 09/28/20 09/28/20 10:34 11:32 Glucose POC Glucose 187 H 143 H OUTPATIENT ANTIDIABETIC REGIMEN: * Lantus 10 units SQ BID * Novolog 3 units /w breakfast + 6 units w/ lunch + 6 units w/ dinner * A1c = 9% 09/12/20, however this should be interpreted with caution given ESRD ASSESSMENT: 09/28 * BSGs improved with the initiation of IV insulin infusion * Patient has been kinking the IV infusion line and not cooperative with care. Provider contacted me this AM to transition to SQ regimen due to these behaviors. Of note, AG up to 22 and Bicarb down to 10 on today's labs, no serum ketones drawn. * Will resume patient's home regimen of basal insulin and Novolog regimen that was used earlier this admission. * Patient should be monitored closely for worsening DKA given today's labs. 09/27 * BSGs abruptly increased overnight. Bedtime BSG 142. Patient received 14 units Lantus at bedtime yesterday. This AMs fasting BSG 368, mild AG, and elevated BOHB (25.3), but normal bicarb. Early DKA? vs AG acidosis in setting of HD and poor PO intake leading to ketosis ? * Discussed w/ Hospitalist, given patient's type 1 DM, possible early DKA and poor PO intake an IV insulin drip would be best suited to safely correct BSGs and treat acidosis. She may require dextrose containing maint IVFs in order to run the insulin drip should BSGs fall 09/26/20 * BSG's have been well controlled over the last 24 hours ranging 114-143 mg/dL. However, the patient refused her AM dose of Lantus which may have a profound effect on BSG's given T1DM * Will increase Lantus dose this evening to provide close to total daily dose to prevent basal insufficiency and rebound hyperglycemia 09/25/20 * Type 1 diabetic admitted with encephalopathy, concern for infection in patient currently undergoing abx therapy for recent h/o HD cath infxn and MRSA bacteremia * Reviewed prior admission and insulin doses. Will initiate a regimen based upon recent admit doses and out-pt regimen. * Of note, patient's BSGs were quite erratic last admit and pt had often consumed more than 3 meals per day - likely leading to some of the observed BSGs PLAN FOR INPATIENT GLYCEMIC CONTROL: * DC IV insulin drip due to patient's behavior * Basal insulin * Lantus 10 units SQ x1 STAT then begin BID dosing per scale: 0 units if BSG less than 90, 8 units if BSG 90-140, 10 units if BSG greater than 140 * Bolus insulin * Novolog SQ ACHS and at 0000, 0400 due to dietary indiscretion overnight * Goal: 100-140mg/dL * Correction factor: 35mg/dL/unit during daytime and 40mg/dL/unit overnight * Nutritional / Prandial insulin per carb ratio of 1 unit per 11 grams CHO consumed during daytime and 1 unit per 15 grams CHO consumed overnight
[2020-09-28] MEDS: ONDANSETRON INJ 2 MG/ML 2 ML VIAL IV PRN (13:08)
[2020-09-28] MEDS: SEVELAMER HCL 800 MG TABLET PO SCH ×3 (13:24→17:49)
[2020-09-28] MEDS: DOCUSATE SODIUM 100 MG CAP PO SCH ×2 (13:24→22:15)
[2020-09-28] MEDS ORDERED: LORazepam 2 MG/4 ML VIAL IV STA (13:37)
[2020-09-28] MEDS ORDERED: LORazepam 2 MG/4 ML VIAL ONE (13:42)
[2020-09-28] MEDS ORDERED: VANCOMYCIN HCL 750 MG in SODIUM CHLORIDE 0.9% 250 ML IV ONE (14:00)
[2020-09-28] MEDS: PROMETHAZINE HCL 12.5 MG in SODIUM CHLORIDE 0.9% 50 ML IV PRN (15:05)
[2020-09-28] MEDS: hydrALAZINE HCL 20 MG/ML VIAL IV PRN (15:13)
--- NOTE | 2020-09-28 15:33 | Psychiatric Consultation ---
Date of Consultation September 28, 2020 Impression / Recommendations Impression This is a 22-year-old female who is presenting to the psychiatric consult service after making suicidal statements in the context of her dialysis treatment and interpersonal difficulties with her family. It was determined that patient's lack of sleep in addition to her lack of dialysis treatment are both contributing to her poor mood and low frustration tolerance. Together with patient we determined a plan of action to provide patient with medication to help her rest, and try dialysis again tomorrow after which time we will reevaluate her mood and desires. Of note there is some concern that patient's behavior may be volitional as this issue was brought up upon discharge and there are reports from previous rehab facility that patient may have been intentionally drinking water in an effort to appear sicker and again entry to the hospital. This would be in line with patient's current disposition problem as it seems as if her family is unwilling to take her home at this time. Further collaboration with family members may be helpful. Recommendations: 2 mg of IV Ativan now in an effort to allow the patient to sleep. We will reassess tomorrow after dialysis. Psych History Chief Complaint "I just want to give up". History of Present Illness Patient is a 30-year-old female with significant medical issues including ESRD on dialysis who presented to psychiatry service after having stopped her dialysis and requesting to "be left to ". Upon evaluation patient is very tearful. She explains that she has been going through numerous hospitalizations and rehabs over the past several months and that she is extremely frustrated with the amount of care she requires as well as her slow progress and getting better. Patient states that in addition to this she is currently having some interpersonal difficulties with her family including her mother and her 8-year-old son. Patient was formerly living with her mother prior to entering the hospital and feels as per mother does not acknowledge her pain and suffering. She also was recently told by her son that he does not care about her anymore. Patient states that in light of this information in addition to her ongoing issues she is feeling very overwhelmed and has no more energy left to continue. Patient states that she has been receiving psychiatric medication for quite some time but denies it has been helpful to her. She is endorsing poor sleep poor mood in addition to suicidal ideation without plan. Allergies Allergy/AdvReac Type Severity Reaction Status Date / Time bee venom protein (honey bee) Allergy Intermediate Hives Verified 09/22/20 07:58 chlorhexidine Allergy Intermediate Hives Verified 09/22/20 07:58 latex Allergy Intermediate Hives Verified 09/22/20 07:58 fentanyl AdvReac Mild Nausea Verified 09/22/20 07:58 Home Medications Medication Instructions Recorded Confirmed Type acetaminophen 325 mg tablet 650 mg PO Q4 PRN 09/12/20 09/22/20 History amlodipine 10 mg tablet (Norvasc) 10 mg PO QAM 09/12/20 09/22/20 History apixaban 2.5 mg tablet (Eliquis) 2.5 mg PO Q12 09/12/20 09/22/20 History buspirone 5 mg tablet 10 mg PO QAM 09/12/20 09/22/20 History buspirone 5 mg tablet 20 mg PO HS 09/12/20 09/22/20 History clonidine HCl 0.1 mg tablet 0.1 mg PO Q8 09/12/20 09/22/20 History diphenhydramine HCl 25 mg capsule 25 mg PO 3XWK PRN 09/12/20 09/22/20 History docusate sodium 100 mg capsule 100 mg PO BID 09/12/20 09/22/20 History (Colace) ergocalciferol (vitamin D2) 1,250 1,250 mcg PO WK 09/12/20 09/22/20 History mcg (50,000 unit) capsule (Vitamin D2) gabapentin 300 mg capsule 300 mg PO BID 09/12/20 09/22/20 History hydralazine 25 mg tablet 100 mg PO Q8 09/12/20 09/22/20 History insulin aspart U-100 100 unit/mL See Rx Instructions .ROUTE .COMPLEX 09/12/20 09/22/20 History subcutaneous solution (Novolog U-100 Insulin aspart) labetalol 100 mg tablet 300 mg PO Q8 09/12/20 09/22/20 History levothyroxine 25 mcg tablet 25 mcg PO DAILY@0600 09/12/20 09/22/20 History melatonin 3 mg tablet 3 mg PO HS PRN 09/12/20 09/22/20 History ondansetron 4 mg disintegrating 4 mg PO Q8H PRN 09/12/20 09/22/20 History tablet pantoprazole 40 mg tablet,delayed 40 mg PO DAILYBB 09/12/20 09/22/20 History release (Protonix) paroxetine HCl 10 mg tablet (Paxil) 30 mg PO QAM 09/12/20 09/22/20 History polyethylene glycol 3350 17 17 g PO QDL PRN 09/12/20 09/22/20 History gram/dose oral powder (Miralax) sennosides 8.6 mg-docusate sodium 1 tab-cap PO QDL PRN 09/12/20 09/22/20 History 50 mg tablet (Senna with Docusate Sodium) sevelamer carbonate 800 mg tablet 800 mg PO TIDM 09/12/20 09/22/20 History (Renvela) tramadol 50 mg tablet (Ultram) 50 mg PO Q6H PRN 09/12/20 09/22/20 History insulin glargine 100 unit/mL 10 unit SUBCUT Q12 #0 ml 09/20/20 09/22/20 Rx subcutaneous solution (Lantus U-100 Insulin) darbepoetin caprice in polysorbat 60 60 mcg SUBCUT WK 09/22/20 09/22/20 History mcg/0.3 mL in polysorbate injection syringe (Aranesp) glucagon 1 mg solution for 1 mg SUBCUT UD 09/22/20 09/22/20 History injection (Glucagon Emergency Kit) insulin lispro 100 unit/mL 0 unit SUBCUT .SLIDING SCALE 09/22/20 09/22/20 History subcutaneous pen (Humalog KwikPen (U-100) Insulin) vancomycin 500 mg intravenous See Rx Instructions .ROUTE .COMPLEX 09/22/20 09/22/20 History solution Personal History Beliefs That Will Affect Care: None Patient History Medical History Acute and chronic respiratory failure Chronic respiratory failure Diabetes mellitus type 1 ESRD on dialysis Hypertension MRSA bacteremia Substernal chest pain Surgical History AV fistula History of cholecystectomy Social History Smoking Status: Never smoker Second Hand Exposure: No; Do You Dip or Chew Tobacco: No; Hx Alcohol Use: No Hx Substance Use: No Preferred Language: Malay Communication Ability: Effective Personal Loan Specialist Required: No Beliefs That Will Affect Care: None Current Living Situation: Rehab Current Living Situation Comment: Lives with mother Other Information That Helps Us Care for You: No Feels Safe at Home: Yes Assistive Devices: None Physical Exam Vital Signs (Past 24 Hours): Last Vital Signs Temp 36.6 C 09/28/20 12:50 Pulse 86 09/28/20 12:50 Resp 18 09/28/20 08:00 BP 189/107 H 09/28/20 15:05 Pulse Ox 99 09/28/20 02:00 Results & Data (PSY) Medications Administered Apixaban (Apixaban 2.5 Mg Tab) 2.5 mg PO Q12 [facility] Stop: 10/24/20 20:59 Last Admin: 09/27/20 20:49 Dose: 2.5 mg Documented by: [id number] Admin: 09/27/20 10:21 Dose: 2.5 mg Documented by: [id number] Admin: 09/26/20 21:31 Dose: 2.5 mg Documented by: [id number] Admin: 09/26/20 10:33 Dose: Not Given Documented by: [id number] Admin: 09/25/20 20:55 Dose: 2.5 mg Documented by: [id number] Admin: 09/25/20 13:12 Dose: Not Given Documented by: [id number] Admin: 09/25/20 00:56 Dose: Not Given Documented by: [id number] Carisoprodol (Carisoprodol 350 Mg Tablet) 350 mg PO Q6H PRN PRN Reason: Muscle Spasm Stop: 10/27/20 11:09 Last Admin: 09/27/20 12:37 Dose: 350 mg Documented by: [id number] Clonidine HCl (Clonidine Hcl 0.1 Mg Tab) 0.1 mg PO Q8 [facility] Stop: 10/24/20 21:59 Last Admin: 09/27/20 07:21 Dose: Not Given Documented by: [id number] Admin: 09/26/20 21:30 Dose: 0.1 mg Documented by: [id number] Admin: 09/26/20 13:38 Dose: Not Given Documented by: [id number] Admin: 09/26/20 05:42 Dose: 0.1 mg Documented by: [id number] Admin: 09/25/20 20:56 Dose: 0.1 mg Documented by: [id number] Admin: 09/25/20 14:35 Dose: Not Given Documented by: [id number] Admin: 09/25/20 06:20 Dose: Not Given Documented by: [id number] Admin: 09/25/20 00:56 Dose: Not Given Documented by: [id number] Docusate Sodium (Docusate Sodium 100 Mg Cap) 100 mg PO BID [facility] Stop: 10/24/20 20:59 Last Admin: 09/28/20 13:24 Dose: Not Given Documented by: [id number] Admin: 09/27/20 20:48 Dose: Not Given Documented by: [id number] Admin: 09/27/20 10:22 Dose: 100 mg Documented by: [id number] Admin: 09/26/20 21:31 Dose: 100 mg Documented by: [id number] Admin: 09/26/20 10:33 Dose: Not Given Documented by: [id number] Admin: 09/25/20 20:53 Dose: 100 mg Documented by: [id number] Admin: 09/25/20 13:13 Dose: Not Given Documented by: [id number] Admin: 09/25/20 00:56 Dose: Not Given Documented by: [id number] Gabapentin (Gabapentin 300 Mg Cap) 300 mg PO BID [facility] Stop: 10/24/20 20:59 Last Admin: 09/27/20 22:59 Dose: 300 mg Documented by: [id number] Admin: 09/27/20 10:22 Dose: 300 mg Documented by: [id number] Admin: 09/26/20 21:30 Dose: 300 mg Documented by: [id number] Admin: 09/26/20 10:33 Dose: Not Given Documented by: [id number] Admin: 09/25/20 20:56 Dose: 300 mg Documented by: [id number] Admin: 09/25/20 13:13 Dose: Not Given Documented by: [id number] Admin: 09/25/20 00:56 Dose: Not Given Documented by: [id number] Admin: 09/24/20 18:33 Dose: 300 mg Documented by: [id number] Hydralazine HCl (Hydralazine Tab 50 Mg Tab) 100 mg PO Q8 [facility] Stop: 10/24/20 21:59 Last Admin: 09/27/20 07:21 Dose: Not Given Documented by: [id number] Admin: 09/26/20 21:30 Dose: 100 mg Documented by: [id number] Admin: 09/26/20 13:38 Dose: Not Given Documented by: [id number] Admin: 09/26/20 05:42 Dose: 100 mg Documented by: [id number] Admin: 09/25/20 20:55 Dose: 100 mg Documented by: [id number] Admin: 09/25/20 14:35 Dose: Not Given Documented by: [id number] Admin: 09/25/20 06:20 Dose: Not Given Documented by: [id number] Admin: 09/25/20 00:56 Dose: Not Given Documented by: [id number] Hydralazine HCl (Hydralazine Hcl 20 Mg/Ml Vial) 10 mg IV Q8 PRN PRN Reason: Blood Pressure - High Stop: 10/25/20 19:33 Last Admin: 09/28/20 15:13 Dose: 10 mg Documented by: [id number] Promethazine HCl 12.5 mg/ (Sodium Chloride) 50.5 mls @ 202 mls/hr IV Q6H PRN PRN Reason: Nausea And Vomiting Stop: 10/26/20 12:04 Last Admin: 09/28/20 15:05 Dose: 202 mls/hr Documented by: [id number] Insulin Aspart (Insulin Aspart 100 Units/Ml 3 Ml Pen) 0 units SC ACHS [facility] Stop: 10/27/20 11:29 Last Admin: 09/28/20 13:13 Dose: Not Given Documented by: [id number] Admin: 09/28/20 08:02 Dose: 7 units Documented by: [id number] Cosigned by: [id number] Admin: 09/27/20 23:05 Dose: Not Given Documented by: [id number] Cosigned by: [id number] Admin: 09/27/20 17:16 Dose: 6 units Documented by: [id number] Cosigned by: [id number] Admin: 09/27/20 14:06 Dose: 4 units Documented by: [id number] Cosigned by: [id number] Admin: 09/27/20 11:15 Dose: Not Given Documented by: [id number] Labetalol HCl (Labetalol Hcl 300 Mg Tab) 300 mg PO Q8 [facility] Stop: 10/24/20 21:59 Last Admin: 09/27/20 07:22 Dose: Not Given Documented by: [id number] Admin: 09/26/20 21:31 Dose: 300 mg Documented by: [id number] Admin: 09/26/20 13:38 Dose: Not Given Documented by: [id number] Admin: 09/26/20 05:42 Dose: 300 mg Documented by: [id number] Admin: 09/25/20 20:54 Dose: 300 mg Documented by: [id number] Admin: 09/25/20 14:35 Dose: Not Given Documented by: [id number] Admin: 09/25/20 06:20 Dose: Not Given Documented by: [id number] Admin: 09/25/20 00:56 Dose: Not Given Documented by: [id number] Levothyroxine Sodium (Levothyroxine Sodium 25 Mcg Tablet) 25 mcg PO DAILY@0600 [facility] Stop: 10/25/20 05:59 Last Admin: 09/28/20 06:28 Dose: 25 mcg Documented by: [id number] Admin: 09/27/20 09:17 Dose: Not Given Documented by: [id number] Admin: 09/26/20 05:41 Dose: 25 mcg Documented by: [id number] Admin: 09/25/20 06:20 Dose: Not Given Documented by: [id number] Miscellaneous (Carbohydrates For Hypoglycemia ) 15 - 30 gm PO UD PRN PRN Reason: Hypoglycemia Protocol Stop: 10/24/20 16:35 Last Admin: 09/27/20 20:35 Dose: 30 gm Documented by: [id number] Admin: 09/27/20 20:05 Dose: 15 gm Documented by: [id number] Ondansetron HCl (Ondansetron Inj 2 Mg/Ml 2 Ml Vial) 4 mg IV Q6H PRN PRN Reason: Nausea And Vomiting Stop: 10/24/20 22:22 Last Admin: 09/28/20 13:08 Dose: 4 mg Documented by: [id number] Admin: 09/27/20 02:51 Dose: 4 mg Documented by: [id number] Admin: 09/26/20 16:30 Dose: 4 mg Documented by: [id number] Admin: 09/26/20 10:31 Dose: 4 mg Documented by: [id number] Admin: 09/26/20 00:47 Dose: 4 mg Documented by: [id number] Admin: 09/25/20 06:27 Dose: 4 mg Documented by: [id number] Admin: 09/24/20 22:35 Dose: 4 mg Documented by: [id number] Pantoprazole Sodium (Pantoprazole 40 Mg Tab) 40 mg PO DAILYBB [facility] Stop: 10/25/20 06:29 Last Admin: 09/28/20 06:28 Dose: 40 mg Documented by: [id number] Admin: 09/27/20 09:18 Dose: Not Given Documented by: [id number] Admin: 09/26/20 05:41 Dose: 40 mg Documented by: [id number] Admin: 09/25/20 06:20 Dose: Not Given Documented by: [id number] Paroxetine HCl (Paroxetine Hcl 10 Mg Tab) 30 mg PO QAM [facility] Stop: 10/25/20 08:59 Last Admin: 09/27/20 10:21 Dose: 30 mg Documented by: [id number] Admin: 09/26/20 10:33 Dose: Not Given Documented by: [id number] Admin: 09/25/20 13:13 Dose: Not Given Documented by: [id number] Patiromer (Patiromer Calcium Sorbitex 8.4 Gm Pack) 8.4 gm PO DAILY [facility] Stop: 10/27/20 08:59 Last Admin: 09/27/20 10:18 Dose: 8.4 gm Documented by: [id number] Sevelamer HCl (Sevelamer Hcl 800 Mg Tablet) 800 mg PO TIDM [facility] Stop: 10/24/20 16:59 Last Admin: 09/28/20 13:25 Dose: Not Given Documented by: [id number] Admin: 09/28/20 13:24 Dose: Not Given Documented by: [id number] Admin: 09/27/20 17:22 Dose: 800 mg Documented by: [id number] Admin: 09/27/20 12:37 Dose: 800 mg Documented by: [id number] Admin: 09/27/20 09:19 Dose: Not Given Documented by: [id number] Admin: 09/26/20 15:36 Dose: Not Given Documented by: [id number] Admin: 09/26/20 13:38 Dose: Not Given Documented by: [id number] Admin: 09/26/20 08:00 Dose: Not Given Documented by: [id number] Admin: 09/25/20 17:27 Dose: Not Given Documented by: [id number] Admin: 09/25/20 13:16 Dose: Not Given Documented by: [id number] Admin: 09/25/20 13:12 Dose: Not Given Documented by: [id number] Admin: 09/24/20 18:34 Dose: Not Given Documented by: [id number] Coding Level of Care Code 71680 U Intl Hosp Care Lvl 2
[2020-09-28] MEDS: GABAPENTIN 300 MG CAP PO SCH ×2 (16:30→22:16)
[2020-09-28] MEDS: PATIROMER CALCIUM SORBITEX 8.4 GM PACK PO SCH (16:30)
[2020-09-28] MEDS: PARoxetine HCL 10 MG TAB PO SCH (17:02)
[2020-09-28] MEDS: APIXABAN 2.5 MG TAB PO SCH ×2 (17:02→22:16)
--- NOTE | 2020-09-28 19:36 | Hospitalist Progress Note ---
Date of Service September 28, 2020 Assessment & Plan (1) Encephalopathy: Plan: Acute likely metabolic/renal vs. pharmacologic encephalopathy vs. secondary infection - Patient continues on Vancomycin only cultures to be positive it was a catheter tip culture from September 18 showing coagulase negative staph not lugdunensis he does have history of MRSA in her previous wound however subsequently want to try to treat her infection for 4 weeks - Nephrology consulted- appreciate there assistance -Partial dialysis session completed on 09/28 - - patient does not appear toxic at this time, no seizures, no focal deficits, and no headaches concern for bacteremia from catheter associated infection causing metabolic encephalopathy. There were some reports that the patient also may have some toxic encephalopathy will ask security to remove her personal belongings in the room so she cannot supply her self with any it may be contained within them Spoke to the patient's mother who states that she has restrictive lung disease and is on 6 L of oxygen chronically at home. The patient also has a problem with compliance but she denies the patient having issues with abusing opiates or other drugs. She denies the fact that people may have come up from home which is over 2-1/2 hours away to bring her things at the rehab facility. The mother however does reinforce the fact that she is not able to care for the patient at home and the patient would likely be remanded to a situation with more supportive care due to her inability to ambulate appropriately her excessive oxygen need and her uncontrolled blood glucoses which at times makes her stuporous or unresponsive (2) Nervous breakdown: Plan: Patient extremely emotional outburst today based upon the stressors accumulating from her health concerns and her psychosocial situation. Subsequently she wanted to stop dialysis" ." Also asked to make it happen real fast. At this point time she was referred to psychiatry as she is a danger to herself. She has no place to go her mother will not take her back she is not a candidate to return to [facility] and were attempting to look for half-way facilities in her local home area which could complete her antibiotics for her dialysis catheter associated infection. However this point time she is sleep deprived and acting out psychiatry will see her and continue to evaluate her for competency during this hospital stay (3) Leukocytosis: Plan: Concern for dialysis catheter associated infection continues on vancomycin and Rocephin at this time ECHO performed last admission without evidence of IE. No peripheral stigmata -Consider GRANULATOR OPERATOR work-up if symptoms persist (4) Uremia: Plan: Secondary to renal failure may have a plan toxic encephalopathy continue dialysis when patient permits (5) MRSA bacteremia: Plan: He was history of the same concern for line associated infections dialysis tunnel head was draining some fluid which was cultured on the (6) Hypertension: Plan: Continues on clonidine as needed hydralazine and p.o. metoprolol (7) ESRD on dialysis: Plan: Patient at times is refused dialysis dialysis was performed on the we will continue to follow her numbers continuing her SevelaMer (8) Chronic pain: Plan: Various issues of chronic pain mostly related to the upper back pain muscular pain. We will try to avoid opiates at this time due to encephalopathy (9) Hypothyroid: Plan: Continues on Synthroid medication (10) GERD (gastroesophageal reflux disease): (11) Pulmonary embolism: Plan: Patient has chronic pulmonary embolism and on chronic oxygen mother states patient is on 6 L of oxygen at home we will continue apixaban 2.5 every 12 and oxygen supplementation Admission and Anticipated Discharge Date Admission Date: September 24, 2020 Subjective Patient had an emotional outburst today where she abruptly requested to discontinue dialysis and middle of her dialysis session and said she wanted to go home and . However the patient has no home. Her mother will take her back. She states she will go with her brother. I asked if I can call her brother she refused to allow me to call her brother. At that point time she said she wanted to go to a hotel and . However she is now wanting to come get her to take her to a hotel. Because this behavior is a risk to herself is unclear whether is motivated by depression or her acutely ill state psychiatric consultation was undertaken to determine if she can make appropriate decisions at this point in time they feel she is under too much duress to make an appropriate decision and gave her some lorazepam to try to help her sleep and have better decisions about the future of her health care once she is more well rested they are going to continue to follow her during this hospital stay Review of Systems Review of Systems: Moderate distress and fatigue no headache, no visual changes no speech or swallowing issues no chest pain, pressure or palpitations no shortness of breath, cough or wheezes No abdominal pain some abdominal bloating no dysuria, hematuria or frequency no focal joint pain or swelling Musculoskeletal paraspinous back pain no CVA tenderness or radicular pain no bruising, bleeding or rashes no focal signs of weakness or numbness or altered sensation Patient appears to have periods of anxiety. Physical Exam Physical Exam: The patient appeared chronically ill and much older than stated age Vital signs as documented. Head exam is normocephalic atraumatic Neck is without JVD, thyromegaly, or carotid bruits. Lungs are clear to auscultation, no focal loss of breath sounds Cardiac exam, Rhythm is regular.. No murmurs, rubs or gallops. Abdominal exam reveals some protuberance nontender normal bowel sounds Extremities are nonedematous and both pedal pulses are present Neurologic exam is alert and oriented, no focal loss of strength or sensation Skin is without bruises or rashes Patient has increased anxiety with responses of acting out Results & Data Results & Data ([facility]) Vital Signs (Past 12 Hours) Vital Signs Temp Pulse Pulse Pulse Resp BP BP 09/28/20 16:26 98 H 164/86 H 09/28/20 15:05 189/107 H 09/28/20 12:50 97.9 F 86 174/100 H 09/28/20 12:20 93 H 141/93 H 09/28/20 12:00 93 H 156/100 H 09/28/20 11:40 83 147/80 H 09/28/20 11:20 91 H 131/96 09/28/20 11:00 85 144/89 H 09/28/20 10:40 87 160/100 H 09/28/20 10:20 72 140/86 09/28/20 10:05 77 145/77 H 09/28/20 10:00 97.9 F 80 09/28/20 08:00 97.9 F 94 H 18 141/72 H Pulse Ox 09/28/20 16:26 100 09/28/20 15:05 09/28/20 12:50 09/28/20 12:20 09/28/20 12:00 09/28/20 11:40 09/28/20 11:20 09/28/20 11:00 09/28/20 10:40 09/28/20 10:20 09/28/20 10:05 09/28/20 10:00 09/28/20 08:00 PG Care Time/CCT Total # of Minutes Spent Total Time Spent with Patient: Total time spent is greater than 50% in coordination of care (as documented) at patient's floor/unit and/or counseling patient: Coding Level of Care Code 03921 Subseq Hosp Care Lvl 3 Diagnoses Encephalopathy G93.40 Leukocytosis D72.828 Leukocytosis type: other Uremia N19 MRSA bacteremia R78.81; B95.62 Hypertension I10 Hypertension type: unspecified ESRD on dialysis N18.6; Z99.2 Chronic pain G89.4 Chronic pain type: chronic pain syndrome Hypothyroid E03.9 Hypothyroidism type: unspecified GERD (gastroesophageal reflux disease) K21.9 Esophagitis presence: without esophagitis Pulmonary embolism I26.99 Pulmonary embolism type: unspecified Chronicity: unspecified Acute cor pulmonale presence: unspecified Nervous breakdown F48.8 (1) Leukocytosis Leukocytosis type: other Qualified Code(s): D72.828 - Other elevated white bl ood cell count (2) Hypertension Hypertension type: unspecified Qualified Code(s): I10 - Essential (primary) hypertension (3) Chronic pain Chronic pain type: chronic pain syndrome Qualified Code(s): G89.4 - Chronic pain syndrome (4) Hypothyroid Hypothyroidism type: unspecified Qualified Code(s): E03.9 - Hypothyroidism, unspecified (5) GERD (gastroesophageal reflux disease) Esophagitis presence: without esophagitis Qualified Code(s): K21.9 - Gastro- esophageal reflux disease without esophagitis (6) Pulmonary embolism Pulmonary embolism type: unspecified Chronicity: unspecified Acute cor pulmonale presence: unspecified Qualified Code(s): I26.99 - Other pulmonary embolism without acute cor pulmonale
[2020-09-28] MEDS: INSULIN GLARGINE SOLOSTAR 100 UNITS/ML 3 ML PEN SC SCH (21:07)
[2020-09-29] MEDS: INSULIN ASPART 100 UNITS/ML 3 ML PEN SC SCH ×6 (00:17→21:05)
[2020-09-29] MEDS: diphenhydrAMINE 50 MG/ML VIAL IV PRN (00:22)
[2020-09-29] MEDS: LEVOTHYROXINE SODIUM 25 MCG TABLET PO SCH (06:39)
[2020-09-29] MEDS: PANTOprazole 40 MG TAB PO SCH (06:40)
--- NOTE | 2020-09-29 07:26 | Hospitalist Progress Note ---
Date of Service September 29, 2020 Assessment & Plan (1) Encephalopathy: Plan: Acute likely metabolic/renal vs. pharmacologic encephalopathy vs. secondary infection - Patient continues on Vancomycin only cultures to be positive it was a catheter tip culture from September 18 showing coagulase negative staph not lugdunensis he does have history of MRSA in her previous wound however subsequently want to try to treat her infection for 4 weeks - Nephrology consulted- appreciate there assistance -Partial dialysis session completed on 09/28 Spoke to the patient's mother who states that she has restrictive lung disease and is on 6 L of oxygen chronically at home. The patient also has a problem with compliance but she denies the patient having issues with abusing opiates or other drugs. Patient's mother is supportive of her but does not wish for the patient return to her home and cannot offer alternatives. (2) Anxiety: Plan: Patient has anxiety and depression using as needed Ativan, psychiatry is seeing. Continuing on clonidine and paroxetine (3) Leukocytosis: Plan: Concern for dialysis catheter associated infection continues on vancomycin at this time catheter from the is negative except for skin keena ECHO performed last admission without evidence of IE. 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 metoprolol (7) ESRD on dialysis: Plan: Patient at times is refused dialysis dialysis was performed on the we will continue to follow her numbers continuing her SevelaMer (8) Chronic pain: Plan: Various issues of chronic pain mostly related to the upper back pain muscular pain. We will try to avoid opiates at this time due to encephalopathy (9) Hypothyroid: Plan: Continues on Synthroid medication (10) GERD (gastroesophageal reflux disease): (11) Pulmonary embolism: Plan: Patient has chronic pulmonary embolism and on chronic oxygen mother states patient is on 6 L of oxygen at home we will continue apixaban 2.5 every 12 and oxygen supplementation Admission and Anticipated Discharge Date Admission Date: September 24, 2020 Subjective Patient seems much more calm today she is vomiting her lunch likely from diabetic gastroparesis she vomited up food stuffs no coffee grounds no blood. He still is noncommittal about whether she wishes to pursue dialysis or not further. She has no plans of her disposition location. Review of Systems Review of Systems: Moderate distress and fatigue no headache, no visual changes no speech or swallowing issues no chest pain, pressure or palpitations, right upper quadrant catheter with some minor drainage no shortness of breath, cough or wheezes No abdominal pain some abdominal bloating vomiting of foodstuffs today no dysuria, hematuria or frequency no focal joint pain or swelling Musculoskeletal paraspinous back pain no CVA tenderness or radicular pain no bruising, bleeding or rashes no focal signs of weakness or numbness or altered sensation Patient appears to have periods of anxiety. Physical Exam Physical Exam: The patient appeared chronically ill and much older than stated age Vital signs as documented. Head exam is normocephalic atraumatic Neck is without JVD, thyromegaly, or carotid bruits. Lungs are clear to auscultation, no focal loss of breath sounds Cardiac exam, Rhythm is regular.. No murmurs, rubs or gallops. Abdominal exam reveals some protuberance nontender normal bowel sounds Extremities are nonedematous and both pedal pulses are present Neurologic exam is alert and oriented, no focal loss of strength or sensation Skin dialysis catheter site is not red nor tender there is some clear drainage Patient has increased anxiety with responses of acting out Results & Data Results & Data ([facility]) Vital Signs (Past 12 Hours) Vital Signs Temp Pulse Pulse Resp BP Pulse Ox 09/29/20 04:06 98.4 F 88 18 148/82 H 100 09/29/20 00:06 98.6 F 88 17 141/73 H 98 09/28/20 21:00 98.6 F 91 H 17 150/84 H 99 PG Care Time/CCT Total # of Minutes Spent Total Time Spent with Patient: Total time spent is greater than 50% in coordination of care (as documented) at patient's floor/unit and/or counseling patient: Coding Level of Care Code 18358 Subseq Hosp Care Lvl 3 Diagnoses Encephalopathy G93.40 Leukocytosis D72.828 Leukocytosis type: other Uremia N19 MRSA bacteremia R78.81; B95.62 Hypertension I10 Hypertension type: unspecified ESRD on dialysis N18.6; Z99.2 Chronic pain G89.4 Chronic pain type: chronic pain syndrome Hypothyroid E03.9 Hypothyroidism type: unspecified GERD (gastroesophageal reflux disease) K21.9 Esophagitis presence: without esophagitis Pulmonary embolism I26.99 Acute cor pulmonale presence: unspecified Chronicity: unspecified Pulmonary embolism type: unspecified Anxiety F41.9 (1) Chronic pain Chronic pain type: chronic pain syndrome Qualified Code(s): G89.4 - Chronic pain syndrome (2) Hypothyroid Hypothyroidism type: unspecified Qualified Code(s): E03.9 - Hypothyroidism, unspecified (3) Leukocytosis Leukocytosis type: other Qualified Code(s): D72.828 - Other elevated white blood cell count (4) Pulmonary embolism Acute cor pulmonale presence: unspecified Chronicity: unspecified Pulmonary embolism type: unspecified Qualified Code(s): I26.99 - Other pulmonary embolism without acute cor pulmonale (5) GERD (gastroesophageal reflux disease) Esophagitis presence: without esophagitis Qualified Code(s): K21.9 - Gastro- esophageal reflux disease without esophagitis (6) Hypertension Hypertension type: unspecified Qualified Code(s): I10 - Essential (primary) hypertension
[2020-09-29] MEDS: INSULIN GLARGINE SOLOSTAR 100 UNITS/ML 3 ML PEN SC SCH ×2 (08:23→21:07)
[2020-09-29] MEDS: SEVELAMER HCL 800 MG TABLET PO SCH ×3 (08:24→17:12)
[2020-09-29] MEDS: DOCUSATE SODIUM 100 MG CAP PO SCH ×2 (08:25→21:09)
[2020-09-29] MEDS: APIXABAN 2.5 MG TAB PO SCH ×2 (08:25→21:08)
[2020-09-29] MEDS: GABAPENTIN 300 MG CAP PO SCH ×2 (08:25→21:09)
[2020-09-29] MEDS: PATIROMER CALCIUM SORBITEX 8.4 GM PACK PO SCH (08:26)
[2020-09-29] MEDS: PARoxetine HCL 10 MG TAB PO SCH (08:26)
[2020-09-29] MEDS ORDERED: ERGOCALCIFEROL 50,000 UNITS 1250 MCG CAP PO SCH (09:00)
[2020-09-29 09:15] LABS: BUN Creatinine Ratio 10.2 (10-20); Calcium 8.7 mg/dl (8.5-10.1); Creatinine Clr Calc Pharmacy 10.9 ml/min; Est GFR (African American) 9.4 ml/min; Est GFR (Non-African American) 8.2 ml/min; Potassium 4.6 mmol/L (3.5-5.1)
--- NOTE | 2020-09-29 10:32 | Pharmacy Report ---
Pharmacy Glycemic Short Note 2 - Date of Service September 29, 2020 - Glycemic Short BSG Results (Last 24 hours): 09/28/20 09/28/20 09/28/20 10:34 11:32 14:40 Glucose POC Glucose 187 H 143 H 222 H 09/28/20 09/28/20 09/29/20 16:36 21:03 00:03 Glucose POC Glucose 280 H 193 H 242 H 09/29/20 09/29/20 09/29/20 04:05 07:31 08:05 Glucose 226 H POC Glucose 300 H 176 H OUTPATIENT ANTIDIABETIC REGIMEN: * Lantus 10 units SQ BID * Novolog 3 units /w breakfast + 6 units w/ lunch + 6 units w/ dinner * A1c = 9% 09/12/20, however this should be interpreted with caution given ESRD ASSESSMENT: 09/29 * Blood sugars relatively controlled for patient and patient accepted insulin doses as ordered except refused one dose yesterday at lunchtime * Will continue overnight blood sugar checks as patient did require 7 units overnight last night * No changes in insulin regimen at this time 09/28 * BSGs improved with the initiation of IV insulin infusion * Patient has been kinking the IV infusion line and not cooperative with care. Provider contacted me this AM to transition to SQ regimen due to these behaviors. Of note, AG up to 22 and Bicarb down to 10 on today's labs, no serum ketones drawn. * Will resume patient's home regimen of basal insulin and Novolog regimen that was used earlier this admission. * Patient should be monitored closely for worsening DKA given today's labs. 09/27 * BSGs abruptly increased overnight. Bedtime BSG 142. Patient received 14 units Lantus at bedtime yesterday. This AMs fasting BSG 368, mild AG, and elevated BOHB (25.3), but normal bicarb. Early DKA? vs AG acidosis in setting of HD and poor PO intake leading to ketosis ? * Discussed w/ Hospitalist, given patient's type 1 DM, possible early DKA and poor PO intake an IV insulin drip would be best suited to safely correct BSGs and treat acidosis. She may require dextrose containing maint IVFs in order to run the insulin drip should BSGs fall 09/26/20 * BSG's have been well controlled over the last 24 hours ranging 114-143 mg/dL. However, the patient refused her AM dose of Lantus which may have a profound effect on BSG's given T1DM * Will increase Lantus dose this evening to provide close to total daily dose to prevent basal insufficiency and rebound hyperglycemia 09/25/20 * Type 1 diabetic admitted with encephalopathy, concern for infection in patient currently undergoing abx therapy for recent h/o HD cath infxn and MRSA bacteremia * Reviewed prior admission and insulin doses. Will initiate a regimen based upon recent admit doses and out-pt regimen. * Of note, patient's BSGs were quite erratic last admit and pt had often consumed more than 3 meals per day - likely leading to some of the observed BSGs PLAN FOR INPATIENT GLYCEMIC CONTROL: * Basal insulin * Lantus BID dosing per scale: 0 units if BSG less than 90, 8 units if BSG 90-140, 10 units if BSG greater than 140 * Bolus insulin * Novolog SQ ACHS and at 0000, 0400 due to dietary indiscretion overnight * Goal: 100-140mg/dL * Correction factor: 35mg/dL/unit during daytime and 40mg/dL/unit overnight * Nutritional / Prandial insulin per carb ratio of 1 unit per 11 grams CHO consumed during daytime and 1 unit per 15 grams CHO consumed overnight
[2020-09-29] MEDS: ONDANSETRON INJ 2 MG/ML 2 ML VIAL IV PRN (11:13)
[2020-09-29] MEDS: ACETAMINOPHEN 325 MG TAB PO PRN (12:51)
[2020-09-29] MEDS ORDERED: PATIROMER CALCIUM SORBITEX 8.4 GM PACK PO ONE (13:30)
[2020-09-29] MEDS: PROMETHAZINE HCL 12.5 MG in SODIUM CHLORIDE 0.9% 50 ML IV PRN (14:03)
--- NOTE | 2020-09-29 14:50 | Pharmacy Report ---
Pharmacy Abx Dose Short Note - Date of Service September 29, 2020 - Assessment & Plan Assessment * 30 year old F receiving VANCOMYCIN for ongoing treatment of MRSA bacteremia (receiving VANCOMYCIN IV prior to admission) * Day # 6 of antimicrobial therapy this admission, however would be Day # 18 of planned 28 day course per prior discharge plan * She had previously been admitted for infected HD catheter which had been removed. Cath tip and BLCXs had grown MRSA * Date of 1st neg set of BLCXs 09/14/20 * BLCXs drawn this admission, no growth noted to date * Wound cx from catheter site growing mixed skin keena * Last HD session 09/28 (2.5hr-- terminated early). No session planned for today. Plan Vancomycin * Trough level of 28.4 mcg/mL is supratherapeutic * Continue to dose by levels around HD sessions. * Goal trough level for bacteremia : 15 to 20 mcg/mL * Random level ordered for tomorrow AM in the event she is dialyzed. Pharmacy will continue to follow and will adjust dose/frequency as necessary. Thank you.
[2020-09-29] MEDS: LORazepam 1 MG/2 ML VIAL IV PRN (16:00)
[2020-09-29] MEDS: METOCLOPRAMIDE HCL INJ 5 MG/ML 2 ML VIAL IV SCH (16:01)
[2020-09-29] MEDS: hydrALAZINE HCL 20 MG/ML VIAL IV PRN (17:19)
[2020-09-29] MEDS: cloNIDine HCL 0.1 MG TAB PO PRN (19:32)
[2020-09-29] MEDS: MELATONIN 3 MG TAB PO PRN (21:12)
[2020-09-29] MEDS ORDERED: HYDROmorphone INJ 0.5 MG/0.5 ML SYR IV STA (21:22)
[2020-09-30] MEDS: INSULIN ASPART 100 UNITS/ML 3 ML PEN SC SCH ×6 (00:14→22:29)
[2020-09-30] MEDS: METOCLOPRAMIDE HCL INJ 5 MG/ML 2 ML VIAL IV SCH ×4 (00:14→17:22)
[2020-09-30] MEDS: PANTOprazole 40 MG TAB PO SCH (05:41)
[2020-09-30] MEDS: LEVOTHYROXINE SODIUM 25 MCG TABLET PO SCH (05:41)
[2020-09-30] MEDS ORDERED: HYDROmorphone INJ 0.5 MG/0.5 ML SYR IV STA (06:17)
[2020-09-30] MEDS ORDERED: HYDROmorphone INJ 0.5 MG/0.5 ML SYR ONE (06:26)
[2020-09-30 07:11] LABS: BUN Creatinine Ratio 10.7 (10-20); Calcium 7.9 mg/dl (8.5-10.1); Creatinine Clr Calc Pharmacy 8.2 ml/min; Est GFR (African American) 6.7 ml/min; Est GFR (Non-African American) 5.8 ml/min; Potassium 4.7 mmol/L (3.5-5.1)
[2020-09-30] MEDS: INSULIN GLARGINE SOLOSTAR 100 UNITS/ML 3 ML PEN SC SCH ×2 (08:46→22:27)
[2020-09-30] MEDS: APIXABAN 2.5 MG TAB PO SCH ×2 (08:51→22:19)
[2020-09-30] MEDS: DOCUSATE SODIUM 100 MG CAP PO SCH ×2 (08:51→22:18)
[2020-09-30] MEDS: PARoxetine HCL 10 MG TAB PO SCH (08:51)
[2020-09-30] MEDS: GABAPENTIN 300 MG CAP PO SCH ×2 (08:51→22:19)
[2020-09-30] MEDS: SEVELAMER HCL 800 MG TABLET PO SCH ×3 (08:52→16:21)
[2020-09-30] MEDS: LORazepam 1 MG/2 ML VIAL IV PRN ×2 (12:14→22:18)
--- NOTE | 2020-09-30 12:51 | Hospitalist Progress Note ---
Date of Service September 30, 2020 Assessment & Plan (1) Encephalopathy: Plan: Acute likely metabolic/renal vs. pharmacologic encephalopathy vs. secondary infection - Patient continues on Vancomycin only cultures to be positive it was a catheter tip culture from September 18 showing coagulase negative staph not lugdunensis he does have history of MRSA in her previous wound however subsequently want to try to treat her infection for 4 weeks, her line culture was positive -09/18/20, but vanco at dialysis started September 12 so last day is 10/10/20 - Nephrology continues to follow and oversee her dialysis Spoke to the patient's mother who states that she has restrictive lung disease and is on 6 L of oxygen chronically at home. The patient also has a problem with compliance but she denies the patient having issues with abusing opiates or other drugs. Patient's mother is supportive of her but does not wish for the patient return to her home and cannot offer alternatives. Per patient her brothers house is not a viable option as there are multi generations already living there (2) Anxiety: Plan: Patient has anxiety and depression using as needed Ativan, psychiatry is seeing. Continuing on clonidine and paroxetine (3) Diabetes mellitus type 1: Plan: challenges of control with variable po intake, some volitional some physiologic some from diabetic gastroparesis, will try a short run of Reglan to see if it helps remains on basal bolus insulin with glycemic consult (4) Leukocytosis: Plan: Concern for dialysis catheter associated infection continues on vancomycin at this time catheter from the is negative except for skin keena ECHO performed last admission without evidence of IE. 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 metoprolol (8) ESRD on dialysis: Plan: Patient at times is refused dialysis dialysis was performed on the we will continue to follow her numbers continuing her SevelaMer (9) Chronic pain: Plan: Various issues of chronic pain mostly related to the upper back pain muscular pain. We will try to avoid opiates at this time due to encephalopathy (10) Hypothyroid: Plan: Continues on Synthroid medication (11) GERD (gastroesophageal reflux disease): (12) Pulmonary embolism: Plan: Patient has chronic pulmonary embolism and on chronic oxygen mother states patient is on 6 L of oxygen at home we will continue apixaban 2.5 every 12 and oxygen supplementation Admission and Anticipated Discharge Date Admission Date: September 24, 2020 Subjective Patient continues to be more calm, using reglan for diabetic gastroparesis. She still is noncommittal about whether she wishes to pursue dialysis or not further. She has no plans of her disposition location still interested in rehab if able. Review of Systems Review of Systems: Moderate distress and fatigue no headache, no visual changes no speech or swallowing issues no chest pain, pressure or palpitations, right upper quadrant catheter with some minor drainage no shortness of breath, cough or wheezes No abdominal pain some abdominal bloating vomiting of foodstuffs today no dysuria, hematuria or frequency no focal joint pain or swelling Musculoskeletal paraspinous back pain no CVA tenderness or radicular pain no bruising, bleeding or rashes no focal signs of weakness or numbness or altered sensation Patient appears to have periods of anxiety. Physical Exam Physical Exam: The patient appeared chronically ill and much older than stated age Vital signs as documented. Head exam is normocephalic atraumatic Neck is without JVD, thyromegaly, or carotid bruits. Lungs are clear to auscultation, no focal loss of breath sounds Cardiac exam, Rhythm is regular.. No murmurs, rubs or gallops. Abdominal exam reveals some protuberance nontender normal bowel sounds Extremities are nonedematous and both pedal pulses are present Neurologic exam is alert and oriented, no focal loss of strength or sensation Skin dialysis catheter site is not red nor tender there is some clear drainage Patient has increased anxiety with responses of acting out Results & Data Results & Data ([facility]) Vital Signs (Past 12 Hours) Vital Signs Temp Pulse Resp BP Pulse Ox 09/30/20 07:45 98.2 F 84 18 157/89 H 98 PG Care Time/CCT Total # of Minutes Spent Total Time Spent with Patient: Total time spent is greater than 50% in coordination of care (as documented) at patient's floor/unit and/or counseling patient: Coding Level of Care Code 15961 Subseq Hosp Care Lvl 3 Diagnoses Encephalopathy G93.40 Anxiety F41.9 Leukocytosis D72.828 Leukocytosis type: other Uremia N19 MRSA bacteremia R78.81; B95.62 Hypertension I10 Hypertension type: unspecified ESRD on dialysis N18.6; Z99.2 Chronic pain G89.4 Chronic pain type: chronic pain syndrome Hypothyroid E03.9 Hypothyroidism type: unspecified GERD (gastroesophageal reflux disease) K21.9 Esophagitis presence: without esophagitis Pulmonary embolism I26.99 Pulmonary embolism type: unspecified Chronicity: unspecified Acute cor pulmonale presence: unspecified Diabetes mellitus type 1 E10.9 (1) Leukocytosis Leukocytosis type: other Qualified Code(s): D72.828 - Other elevated white blood cell count (2) Hypertension Hypertension type: unspecified Qualified Code(s): I10 - Essential (primary) hypertension (3) Chronic pain Chronic pain type: chronic pain syndrome Qualified Code(s): G89.4 - Chronic pain syndrome (4) Hypothyroid Hypothyroidism type: unspecified Qualified Code(s): E03.9 - Hypothyroidism, unspecified (5) GERD (gastroesophageal reflux disease) Esophagitis presence: without esophagitis Qualified Code(s): K21.9 - Gastro- esophageal reflux disease without esophagitis (6) Pulmonary embolism Pulmonary embolism type: unspecified Chronicity: unspecified Acute cor pulmonale presence: unspecified Qualified Code(s): I26.99 - Other pulmonary embolism without acute cor pulmonale
--- NOTE | 2020-09-30 13:53 | Pharmacy Report ---
Pharmacy Abx Dose Short Note - Date of Service September 30, 2020 - Assessment & Plan Assessment 30 year old F receiving vancomycin for ongoing treatment of MRSA bacteremia * Day # 7 of antimicrobial therapy this admission, however would be Day # 19 of planned 28 day course per prior discharge plan * She had previously been admitted for infected HD catheter which had been removed. Cath tip and BLCXs had grown MRSA * Last HD session 09/28 (2.5hr-- terminated early). No session planned for today Plan Vancomycin * Random vancomycin level drawn this AM of 25 mcg/mL is supratherapeutic * Continue to dose vancomycin by levels around dialysis. No further vancomycin doses will be needed until she is dialyzed given a pre-HD random level in therapeutic range. * Goal trough level for MRSA bacteremia: 15 to 20 mcg/mL * Random level ordered for: 10/01 AM Pharmacy will continue to follow and will adjust dose/frequency as necessary. Thank you.
[2020-09-30] MEDS: hydrALAZINE HCL 20 MG/ML VIAL IV PRN ×2 (16:15→23:31)
[2020-09-30] MEDS: PATIROMER CALCIUM SORBITEX 8.4 GM PACK PO SCH (16:16)
[2020-09-30] MEDS: cloNIDine HCL 0.1 MG TAB PO PRN (17:21)
[2020-09-30] MEDS: MELATONIN 3 MG TAB PO PRN (22:18)
[2020-10-01] MEDS: INSULIN ASPART 100 UNITS/ML 3 ML PEN SC SCH ×6 (00:44→20:51)
[2020-10-01] MEDS: METOCLOPRAMIDE HCL INJ 5 MG/ML 2 ML VIAL IV SCH (00:51)
[2020-10-01] MEDS: ONDANSETRON INJ 2 MG/ML 2 ML VIAL IV PRN ×3 (03:45→16:41)
[2020-10-01] MEDS: ACETAMINOPHEN 325 MG TAB PO PRN ×2 (03:45→16:41)
[2020-10-01] MEDS: cloNIDine HCL 0.1 MG TAB PO PRN (04:12)
[2020-10-01] MEDS: PANTOprazole 40 MG TAB PO SCH (06:03)
[2020-10-01] MEDS: LEVOTHYROXINE SODIUM 25 MCG TABLET PO SCH (06:03)
[2020-10-01] MEDS ORDERED: SODIUM CHLORIDE 0.9% 1000ML 1,000 ML IV PRN (07:00)
[2020-10-01 07:01] LABS: BUN Creatinine Ratio 10.4 (10-20); Calcium 7.2 mg/dl (8.5-10.1); Creatinine Clr Calc Pharmacy 6.4 ml/min; Est GFR (African American) 4.9 ml/min; Est GFR (Non-African American) 4.3 ml/min
[2020-10-01] MEDS: hydrALAZINE TAB 50 MG TAB PO SCH ×2 (08:43→16:40)
[2020-10-01] MEDS: DOCUSATE SODIUM 100 MG CAP PO SCH ×2 (09:09→19:57)
[2020-10-01] MEDS: PARoxetine HCL 10 MG TAB PO SCH (09:11)
[2020-10-01] MEDS: GABAPENTIN 300 MG CAP PO SCH ×2 (09:11→19:57)
[2020-10-01] MEDS: PROMETHAZINE HCL 12.5 MG in SODIUM CHLORIDE 0.9% 50 ML IV PRN (09:11)
[2020-10-01] MEDS: SEVELAMER HCL 800 MG TABLET PO SCH ×3 (09:11→18:14)
[2020-10-01] MEDS: INSULIN GLARGINE SOLOSTAR 100 UNITS/ML 3 ML PEN SC SCH ×2 (09:12→20:51)
[2020-10-01] MEDS: APIXABAN 2.5 MG TAB PO SCH ×2 (09:12→19:57)
--- NOTE | 2020-10-01 09:16 | Pharmacy Report ---
Pharmacy Abx Dose Short Note - Date of Service October 01, 2020 - Assessment & Plan Assessment 30 year old F receiving vancomycin for ongoing treatment of MRSA bacteremia * Day # 8 of antimicrobial therapy this admission, plan for x 4 weeks total (last day per notes 10/10) * She had previously been admitted for infected HD catheter which had been removed. Cath tip and BLCXs had grown MRSA Plan Vancomycin * Random level this AM 23.1 mcg/ml (Last HD session was 09/28 and per notes, session terminated early) * Vancomycin random AM levels slowly decreasing despite no HD over last few days indicating some clearance of drug * Estimated level after HD today likely closer to ~15 mcg/ml possibly lower - therefore, plan to give a small supplemental dose of vancomycin post dialysis to maintain level ~15-20 mcg/ml for bacteremia * Plan to give 500 mg x 1 of vancomycin post dialysis - plan to order random level in AM to assist with further dosing Pharmacy will continue to follow and will adjust dose/frequency as necessary. Thank you.
--- NOTE | 2020-10-01 11:54 | Dialysis Progress Note ---
Date of Service October 01, 2020 Assessment & Plan Admission and Anticipated Discharge Date Admission Date: September 24, 2020 Subjective (1) ESRD on dialysis: esrd on HD w/ noncompliance. Will plan to do 4 hrs and take 3.5 kilo to 4.5 today. if she stays as she only stayed for 2.5 hrs on thursday. 2k bath -continue efforts to support her care>reassess daily for dialysis needs d/t noncompliance to fluid/dietary/treatment recommendations. high chance of having high K because of high glucose and K shift ----BP is high: given non compliance with Fluid and shortened dialysis likely fluid related. follow post Dialysis BP. Subjective seen and evaluated on HD ; catheter running reversed and w/ elevated TMPs; pt restless; no c/o pain over TDC today and cxs remain negative; she denies worse sob, uncontrolle dpain. Review of Systems Review of Systems: limited by pt willingness to participate; 6 system ROS as above and other underwood negative Physical Exam Constitutional: well developed, + obese, + lethargic and + overweight; no acute distress (moderate, tearful, agitated) Eyes: EOM intact bilaterally ENMT: Ears: no external ear abnormality Nose: no external nose abnormality Mouth: + dry oral mucous membranes Neck: no nuchal rigidity Respiratory: normal respiratory effort Auscultation: lungs clear to auscultation bilaterally and + diminished lung sounds Cardiovascular: Rate/Rhythm: regular rate and regular rhythm Extremities: + AV fistula (deep; + bruit); no edema Gastrointestinal (Abdomen): Inspection/Auscultation: normal bowel sounds Percussion/Palpation: abdomen soft; abdomen nontender and no guarding Musculoskeletal: Extremities: strength 5/5 throughout Skin: no rashes, warm and dry Neurologic: walter, fluent but limited speech (she is trying to sleep), no tremor Psychiatric: Affect: + anxious affect (when fully awake) and + tearful affect Results & Data ([facility]) Vital Signs (Past 12 Hours) Vital Signs Temp Pulse Pulse Pulse Resp BP BP 10/01/20 11:40 98 H 171/85 H 10/01/20 11:20 95 H 185/88 H 10/01/20 11:00 106 H 158/93 H 10/01/20 10:40 99 H 190/100 H 10/01/20 10:20 94 H 185/105 H 10/01/20 10:00 95 H 189/103 H 10/01/20 09:40 94 H 198/105 H 10/01/20 09:20 89 190/99 H 10/01/20 09:00 87 201/109 H 10/01/20 08:40 36.5 C 99 H 10/01/20 05:44 36.6 C 95 H 18 203/114 H 10/01/20 03:55 90 196/100 H 10/01/20 00:41 97 H 180/95 H Pulse Ox 10/01/20 11:40 10/01/20 11:20 10/01/20 11:00 10/01/20 10:40 10/01/20 10:20 10/01/20 10:00 10/01/20 09:40 10/01/20 09:20 10/01/20 09:00 10/01/20 08:40 10/01/20 05:44 98 10/01/20 03:55 10/01/20 00:41
[2020-10-01] MEDS: LORazepam 1 MG/2 ML VIAL IV PRN ×2 (12:34→20:50)
[2020-10-01] MEDS: PATIROMER CALCIUM SORBITEX 8.4 GM PACK PO SCH (14:41)
--- NOTE | 2020-10-01 15:47 | Hospitalist Progress Note ---
Date of Service October 01, 2020 Assessment & Plan (1) Encephalopathy: Plan: Acute likely metabolic/renal vs. pharmacologic encephalopathy vs. secondary infection - Patient continues on Vancomycin only cultures to be positive it was a catheter tip culture from September 18 showing coagulase negative staph not lugdunensis he does have history of MRSA in her previous wound however subsequently want to try to treat her infection for 4 weeks, her line culture was positive -09/18/20, but vanco at dialysis started September 12 so last day is 10/10/20 - Nephrology continues to follow and oversee her dialysis Spoke to the patient's mother who states that she has restrictive lung disease and is on 6 L of oxygen chronically at home. The patient also has a problem with compliance but she denies the patient having issues with abusing opiates or other drugs. Patient's mother is supportive of her but does not wish for the patient return to her home and cannot offer alternatives. Per patient her brothers house is not a viable option as there are multi generations already living there (2) Anxiety: Plan: Patient has anxiety and depression using as needed Ativan, psychiatry is seeing. Continuing on clonidine and paroxetine, prn ativan (3) Diabetes mellitus type 1: Plan: challenges of control with variable po intake, some volitional some physiologic some from diabetic gastroparesis, reglan helping, not typically on it remains on basal bolus insulin with glycemic consult (4) Leukocytosis: Plan: Concern for dialysis catheter associated infection continues on vancomycin at this time catheter from the is negative except for skin keena ECHO performed last admission without evidence of IE. No peripheral stigmata -Consider DIELECTRIC TESTER work-up if symptoms persist (5) Uremia: Plan: Secondary to renal failure may have a plan toxic encephalopathy continue dialysis when patient permits (6) MRSA bacteremia: Plan: He was history of the same concern for line associated infections dialysis tunnel head was draining some fluid which was cultured on the (7) Hypertension: Plan: Continues on clonidine as needed hydralazine and p.o. metoprolol (8) ESRD on dialysis: Plan: Patient at times is refused dialysis dialysis was performed on the we will continue to follow her numbers continuing her [place] (9) Chronic pain: Plan: Various issues of chronic pain mostly related to the upper back pain muscular pain. We will try to avoid opiates at this time due to encephalopathy (10) Hypothyroid: Plan: Continues on Synthroid medication (11) GERD (gastroesophageal reflux disease): (12) Pulmonary embolism: Plan: Patient has chronic pulmonary embolism and on chronic oxygen mother states patient is on 6 L of oxygen at home we will continue apixaban 2.5 every 12 and oxygen supplementation Admission and Anticipated Discharge Date Admission Date: September 24, 2020 Subjective currently placement and compliance issue, pt has no new complaints, refusing meds, did have PROCESS TECH 10/01/20 Review of Systems Review of Systems: Moderate distress and fatigue no headache, no visual changes no speech or swallowing issues no chest pain, pressure or palpitations, right upper quadrant catheter with some minor drainage no shortness of breath, cough or wheezes No abdominal pain some abdominal bloating vomiting of foodstuffs today no dysuria, hematuria or frequency no focal joint pain or swelling Musculoskeletal paraspinous back pain no CVA tenderness or radicular pain no bruising, bleeding or rashes no focal signs of weakness or numbness or altered sensation Patient appears to have periods of anxiety. Physical Exam Physical Exam: The patient appeared chronically ill and much older than stated age Vital signs as documented. Head exam is normocephalic atraumatic Neck is without JVD, thyromegaly, or carotid bruits. Lungs are clear to auscultation, no focal loss of breath sounds Cardiac exam, Rhythm is regular.. No murmurs, rubs or gallops. Abdominal exam reveals some protuberance nontender normal bowel sounds Extremities are nonedematous and both pedal pulses are present Neurologic exam is alert and oriented, no focal loss of strength or sensation Skin dialysis catheter site is not red nor tender there is some clear drainage Patient has increased anxiety with responses of acting out Results & Data Results & Data ([facility]) Vital Signs (Past 12 Hours) Vital Signs Temp Pulse Pulse Pulse Resp BP BP 10/01/20 12:40 97.7 F 98 H 131/90 10/01/20 12:20 94 H 130/90 10/01/20 12:00 92 H 160/88 H 10/01/20 11:40 98 H 171/85 H 10/01/20 11:20 95 H 185/88 H 10/01/20 11:00 106 H 158/93 H 10/01/20 10:40 99 H 190/100 H 10/01/20 10:20 94 H 185/105 H 10/01/20 10:00 95 H 189/103 H 10/01/20 09:40 94 H 198/105 H 10/01/20 09:20 89 190/99 H 10/01/20 09:00 87 201/109 H 10/01/20 08:40 97.7 F 99 H 10/01/20 05:44 97.9 F 95 H 18 203/114 H 10/01/20 03:55 90 196/100 H Pulse Ox 10/01/20 12:40 10/01/20 12:20 10/01/20 12:00 10/01/20 11:40 10/01/20 11:20 10/01/20 11:00 10/01/20 10:40 10/01/20 10:20 10/01/20 10:00 10/01/20 09:40 10/01/20 09:20 10/01/20 09:00 10/01/20 08:40 10/01/20 05:44 98 10/01/20 03:55 PG Care Time/CCT Total # of Minutes Spent Total Time Spent with Patient: Total time spent is greater than 50% in coordination of care (as documented) at patient's floor/unit and/or counseling patient: Coding Level of Care Code 68942 Subseq Hosp Care Lvl 2 Diagnoses Encephalopathy G93.40 Anxiety F41.9 Diabetes mellitus type 1 E10.9 Leukocytosis D72.828 Leukocytosis type: other Uremia N19 MRSA bacteremia R78.81; B95.62 Hypertension I10 Hypertension type: unspecified ESRD on dialysis N18.6; Z99.2 Chronic pain G89.4 Chronic pain type: chronic pain syndrome Hypothyroid E03.9 Hypothyroidism type: unspecified GERD (gastroesophageal reflux disease) K21.9 Esophagitis presence: without esophagitis Pulmonary embolism I26.99 Pulmonary embolism type: unspecified Chronicity: unspecified Acute cor pulmonale presence: unspecified (1) Leukocytosis Leukocytosis type: other Qualified Code(s): D72.828 - Other elevated white blood cell count (2) Hypertension Hypertension type: unspecified Qualified Code(s): I10 - Essential (primary) hypertension (3) Chronic pain Chronic pain type: chronic pain syndrome Qualified Code(s): G89.4 - Chronic pain syndrome (4) Hypothyroid Hypothyroidism type: unspecified Qualified Code(s): E03.9 - Hypothyroidism, unspecified (5) GERD (gastroesophageal reflux disease) Esophagitis presence: without esophagitis Qualified Code(s): K21.9 - Gastro- esophageal reflux disease without esophagitis (6) Pulmonary embolism Pulmonary embolism type: unspecified Chronicity: unspecified Acute cor pulmonale presence: unspecified Qualified Code(s): I26.99 - Other pulmonary embolism without acute cor pulmonale
[2020-10-01] MEDS ORDERED: VANCOMYCIN HCL 500 MG in 0.9 % SODIUM CHLORIDE 100 ML IV ONE (16:00)
[2020-10-02] MEDS: INSULIN ASPART 100 UNITS/ML 3 ML PEN SC SCH ×6 (00:15→20:45)
[2020-10-02] MEDS: hydrALAZINE TAB 50 MG TAB PO SCH ×4 (00:23→23:51)
[2020-10-02] MEDS: ACETAMINOPHEN 325 MG TAB PO PRN ×3 (02:38→20:38)
[2020-10-02] MEDS: diphenhydrAMINE 50 MG/ML VIAL IV PRN ×4 (02:41→23:51)
[2020-10-02] MEDS: LORazepam 1 MG/2 ML VIAL IV PRN ×3 (05:01→23:55)
[2020-10-02] MEDS: LEVOTHYROXINE SODIUM 25 MCG TABLET PO SCH (06:43)
[2020-10-02] MEDS: PANTOprazole 40 MG TAB PO SCH (06:44)
[2020-10-02 06:52] LABS: BUN Creatinine Ratio 7.5 (10-20); Calcium 7.5 mg/dl (8.5-10.1); Creatinine Clr Calc Pharmacy 9.2 ml/min; Est GFR (African American) 8.6 ml/min; Est GFR (Non-African American) 7.4 ml/min; Potassium 4.5 mmol/L (3.5-5.1)
[2020-10-02] MEDS: PARoxetine HCL 10 MG TAB PO SCH (08:51)
[2020-10-02] MEDS: GABAPENTIN 300 MG CAP PO SCH ×2 (08:51→20:39)
[2020-10-02] MEDS: APIXABAN 2.5 MG TAB PO SCH ×2 (08:52→20:39)
[2020-10-02] MEDS: SEVELAMER HCL 800 MG TABLET PO SCH ×3 (08:52→18:10)
[2020-10-02] MEDS: INSULIN GLARGINE SOLOSTAR 100 UNITS/ML 3 ML PEN SC SCH ×2 (08:54→20:44)
[2020-10-02] MEDS: DOCUSATE SODIUM 100 MG CAP PO SCH ×2 (09:12→20:39)
[2020-10-02] MEDS: traMADol HCL 50 MG TABLET PO PRN ×2 (09:45→20:38)
--- NOTE | 2020-10-02 09:45 | Pharmacy Report ---
Pharmacy Glycemic Short Note 2 - Date of Service October 02, 2020 - Glycemic Short BSG Results (Last 24 hours): 10/01/20 10/01/20 10/01/20 12:16 17:11 20:50 Glucose POC Glucose 104 H 154 H 176 H 10/02/20 10/02/20 10/02/20 00:00 04:07 04:11 Glucose POC Glucose 81 325 H* 332 H* 10/02/20 10/02/20 10/02/20 05:31 08:28 08:30 Glucose 592 H* POC Glucose 353 H* 417 H* OUTPATIENT ANTIDIABETIC REGIMEN: * Lantus 10 units SQ BID * Novolog 3 units /w breakfast + 6 units w/ lunch + 6 units w/ dinner * A1c = 9% 09/12/20, however this should be interpreted with caution given ESRD ASSESSMENT: 10/02 * BSGs well controlled yesterday, ranging 81-176 mg/dL * Received 27 units of insulin (18 of which was basal) * BSG this morning > 300 mg/dL - discussed with RN - patient has bag of junk food in her room that she has been eating and likely explains this elevated BSG this morning * Will not overreact - consider IV insulin bolus at lunch if still very elevated * Lunch BSG of 141 mg/dL - will continue current regimen 09/29 * Blood sugars relatively controlled for patient and patient accepted insulin doses as ordered except refused one dose yesterday at lunchtime * Will continue overnight blood sugar checks as patient did require 7 units overnight last night * No changes in insulin regimen at this time 09/28 * BSGs improved with the initiation of IV insulin infusion * Patient has been kinking the IV infusion line and not cooperative with care. Provider contacted me this AM to transition to SQ regimen due to these behaviors. Of note, AG up to 22 and Bicarb down to 10 on today's labs, no serum ketones drawn. * Will resume patient's home regimen of basal insulin and Novolog regimen that was used earlier this admission. * Patient should be monitored closely for worsening DKA given today's labs. 09/27 * BSGs abruptly increased overnight. Bedtime BSG 142. Patient received 14 units Lantus at bedtime yesterday. This AMs fasting BSG 368, mild AG, and elevated BOHB (25.3), but normal bicarb. Early DKA? vs AG acidosis in setting of HD and poor PO intake leading to ketosis ? * Discussed w/ Hospitalist, given patient's type 1 DM, possible early DKA and poor PO intake an IV insulin drip would be best suited to safely correct BSGs and treat acidosis. She may require dextrose containing maint IVFs in order to run the insulin drip should BSGs fall 09/26/20 * BSG's have been well controlled over the last 24 hours ranging 114-143 mg/dL. However, the patient refused her AM dose of Lantus which may have a profound effect on BSG's given T1DM * Will increase Lantus dose this evening to provide close to total daily dose to prevent basal insufficiency and rebound hyperglycemia 09/25/20 * Type 1 diabetic admitted with encephalopathy, concern for infection in patient currently undergoing abx therapy for recent h/o HD cath infxn and MRSA bacteremia * Reviewed prior admission and insulin doses. Will initiate a regimen based upon recent admit doses and out-pt regimen. * Of note, patient's BSGs were quite erratic last admit and pt had often consumed more than 3 meals per day - likely leading to some of the observed BSGs PLAN FOR INPATIENT GLYCEMIC CONTROL: * Basal insulin * Lantus BID dosing per scale: 0 units if BSG less than 90, 8 units if BSG 90-140, 10 units if BSG greater than 140 * Bolus insulin * Novolog SQ ACHS and at 0000, 0400 due to dietary indiscretion overnight * Goal: 100-140mg/dL * Correction factor: 35mg/dL/unit during daytime and 40mg/dL/unit overnight * Nutritional / Prandial insulin per carb ratio of 1 unit per 11 grams CHO consumed during daytime and 1 unit per 15 grams CHO consumed overnight PLAN FOR DISCHARGE: * Would continue currently ordered outpatient insulin doses (currently receiving ~18-20 units of basal while inpatient, which is in line with outpatient doses) * Patient has history of non-compliance, suggest prompt follow-up with outp atient provider for further management of diabetes. Patient may also benefit from dietary consultation in regards to poor eating habits and in light of gastroparesis.
--- NOTE | 2020-10-02 10:34 | XRay Report ---
THORACIC SPINE 3 VIEWS CLINICAL HISTORY: Acute on chronic thoracic back pain. FINDINGS: AP, lateral, and swimmer's views of the thoracic spine are correlated with chest CT dated . The skeletal structures are well mineralized. There is no radiographic evidence of fracture or malalignment. Vertebral body height and alignment appear maintained throughout the thoracic spine. The transverse processes and pedicles are intact as seen on the frontal view. The disc spaces are pr eserved. A right internal jugular central venous catheter is in place. A vascular stent projects over the right thoracic outlet. The lung parenchyma is clear as imaged. IMPRESSION: No acute bony abnormality is identified. Electronically signed by: Yariel Joaquin M.D. 10/02/2020 10:33 AM
[2020-10-02] MEDS ORDERED: HYDROmorphone INJ 0.5 MG/0.5 ML SYR IV STA ×2 (10:56→15:35)
[2020-10-02] MEDS: PATIROMER CALCIUM SORBITEX 8.4 GM PACK PO SCH (14:23)
[2020-10-02 15:12] LABS: Appearance Urine Cloudy (Clear); Bacteria Urine Automated Negative (Negative); Bilirubin Urine Negative (Negative); Blood Urine Trace (Negative); Color Urine Yellow; Epithelial Cell Urine Auto >30 /lpf (0-5); Glucose Urine UA 2+ (Negative); Ketones Urine Negative (Negative); Leukocyte Esterase Urine 1+ (Negative); Nitrite Urine Negative (Negative); Protein Urine 3+ (Negative); Specific Gravity Urine 1.015 (1.000-1.030); Urobilinogen Urine Negative (Negative); WBC Urine Automated >30 /hpf (0-5)
[2020-10-02 15:28] LABS: Amphetamines+Metham, Urine Neg (Neg); Barbiturates, Urine Neg (Neg); Benzodiazepine, Urine Neg (Neg); Cocaine, Urine Neg (Neg); MDMA (Ecstacy), Urine Neg (Neg); Methadone, Urine Neg (Neg); Opiate, Urine Neg (Neg); Phencyclidine, Urine Neg (Neg)
[2020-10-02] MEDS ORDERED: LORazepam 0.25 MG/0.5 ML VIAL IV STA (15:35)
[2020-10-02 15:50] LABS: RBC Urine Automated 0-4 /hpf (0-4)
[2020-10-02] MEDS: LIDOCAINE 5% 1 PATCH TD SCH (16:48)
--- NOTE | 2020-10-02 17:36 | Hospitalist Progress Note ---
Date of Service October 02, 2020 Assessment & Plan (1) Encephalopathy: Plan: Resolved. Patient alert and oriented x3. No apparent deficits Most likely metabolic/renal versus secondary infection Cultures currently negative Continue metabolic support with dialysis Thursday Continue to monitor (2) Anxiety: Plan: Psychiatry consulted for depression and question of suicidal ideology Continue with lorazepam Continue pain control as tolerated minimizing use of opiates and narcotics Multiple comorbidities including legal blindness Social economic challenges as patient currently does not have her own residence and has exhausted options for family support Continue work with case management for placement options and to encourage patient (3) MRSA bacteremia: Plan: MRSA nasal swab is positive but blood cultures are negative Continue isolation protocol for history of MRSA (4) Diabetes mellitus type 1: Plan: Hemoglobin A1c is 9.0% Multiple comorbidities including renal failure, polyneuropathy, and legal blindness Continue hemodialysis Continue Lantus and sliding scale insulin (5) ESRD on dialysis: Plan: Typically receives dialysis Thursday in [place] No dialysis today. We will plan on dialysis tomorrow (6) Chronic pain: Plan: Primary complaint is from diabetic neuropathy as well as pain along entire spine CT of the lumbar spine region negative for any acute findings and no evidence of degenerative disease 3 view x-ray of the thoracic spine without any findings Encourage ambulation No real effect with small doses of Dilaudid or tramadol We will try a lidocaine patch along the lower spine as well as heat and cold packs Continue physical therapy and supportive care (7) GERD (gastroesophageal reflux disease): Plan: Diabetic gastroparesis Continue metoclopramide as this seems to help somewhat Patient with no nausea or vomiting today and no abdominal distention Able to eat a whole meals and requesting additional portions. Follow clinically (8) Uremia: Plan: Secondary to end-stage renal disease secondary to diabetes (9) Leukocytosis: Plan: This is now resolved Antibiotics have been discontinued Concern for dialysis catheter associated infection Cultures from the are negative except for skin keena. Echocardiogram with no evidence of endocarditis Afebrile Continue to monitor clinically (10) Goals of care, counseling/discussion: Plan: Long discussion with patient and with case management followed by telephone conference with mother Suri At this time the mother and stepfather (fianc of mother) are unwilling to take patient at home secondary to complications of compliance in the past Patient has 1 brother. They are unable to house patient secondary to multigenerations living in that home as well At this time, patient does not qualify for placement in a care home fac ility or acute inpatient rehab Exhaustive search by case management for placement options to no avail Discussed option of placing patient in a homeless intermediate or senior living with patient and mother. We will continue to work with case management on placement options. Majority of acute care needs are now resolved. (11) Chronic respiratory failure: Plan: Secondary to pulmonary embolism in the past Patient continues to require supplemental oxygen via nasal cannula Continue apixaban for anticoagulation No evidence of new clot Pulmonary records [facility] from [facility] and [facility] Continue supportive care (12) DVT prophylaxis: Plan: Chronic pulmonary embolism Continue apixaban Encourage ambulation as tolerated Admission and Anticipated Discharge Date Admission Date: September 24, 2020 Subjective Patient seen and examined at bedside. She is alert and oriented and able to corroborate past medical history and current treatment plans. Reports significant pain along spine from shoulders down to base of back worse a t L1-L2-L3 Patient able to ambulate but this aggravates back pain Patient denies any shortness of breath but continues on supplemental oxygen Positive for some nausea but no vomiting. No diarrhea. Denies fever, chills, sweats, rigors Appetite good with no early satiety Review of Systems Review of Systems: All systems reviewed & are unremarkable except as noted in Subjective Physical Exam Physical Exam: GENERAL : No acute distress. Flat affect. Emotionally labile EYES: No icterus, gaze conjugate. Pupils equal round and reactive to light NOSE: No evidence of epistaxis. Nasal cannula in place MOUTH: No lesions or candidiasis. Mucosa moist NECK: Supple. No appreciation of stridor or carotid bruits LUNGS: CTA B/L, no wheezes, rales or rhonchi HEART: Regular, tachycardic in the low 100s BACK: Point tenderness along spine to paraspinal muscles particularly at L1, L2, L3. No appreciation of vertebral abnormalities on palpation. No evidence of trauma to skin. No rash. ABDOMEN: Soft, NT, ND, BS Present EXTREMITIES: No LE edema, pedal pulses intact NEURO: A&OX3 Results & Data Results & Data ([facility]) Vital Signs (Past 12 Hours) Vital Signs Temp Pulse Resp BP Pulse Ox 10/02/20 16:03 36.5 C 90 18 165/109 H 99 10/02/20 07:28 37.5 C 99 H 18 141/76 H 98 Laboratory Results 10/03/20 04:27 10/03/20 04:27 Diagnostic Findings THORACIC SPINE 3 VIEWS CLINICAL HISTORY: Acute on chronic thoracic back pain. FINDINGS: AP, lateral, and swimmer's views of the thoracic spine are correlated with chest CT dated 09/13/2020. The skeletal structures are well mineralized. There is no radiographic evidence of fracture or malalignment. Vertebral body height and alignment appear maintained throughout the thoracic spine. The tr ansverse processes and pedicles are intact as seen on the frontal view. The disc spaces are preserved. A right internal jugular central venous catheter is in place. A vascular stent projects over the right thoracic outlet. The lung parenchyma is clear as imaged. IMPRESSION: No acute bony abnormality is identified. Electronically signed by: Yariel Joaquin M.D. 10/02/2020 10:33 AM PG Care Time/CCT Total # of Minutes Spent Total Time Spent with Patient: Total time spent is greater than 50% in c oordination of care (as documented) at patient's floor/unit and/or counseling patient: 60 minutes including discussion with patient's family and case management for discharge planning Coding Level of Care Code 66754 Subseq Hosp Care Lvl 3 (25 - SIGNIFICANT, SEPARATELY IDENTIFIABLE ) Diagnoses Encephalopathy G93.40 Anxiety F41.9 MRSA bacteremia R78.81; B95.62 Diabetes mellitus type 1 E10.9 ESRD on dialysis N18.6; Z99.2 Chronic pain G89.4 Chronic pain type: chronic pain syndrome GERD (gastroesophageal reflux disease) K21.9 Esophagitis presence: without esophagitis Uremia N19 Leukocytosis D72.828 Leukocytosis type: other Goals of care, counseling/discussion Z71.89 Chronic respiratory failure J96.10 DVT prophylaxis Z29.9 Time Spent (min) 60 (1) Chronic pain Chronic pain type: chronic pain syndrome Qualified Code(s): G89.4 - Chronic pain syndrome (2) GERD (gastroesophageal reflux disease) Esophagitis presence: without esophagitis Qualified Code(s): K21.9 - Gastro-esophageal reflux disease without esophagitis (3) Leukocytosis Leukocytosis type: other Qualified Code(s): D72.828 - Other elevated white blood cell count
[2020-10-02] MEDS: CARISOPRODOL 350 MG TABLET PO PRN (20:38)
[2020-10-02] MEDS: MELATONIN 3 MG TAB PO PRN (22:27)
[2020-10-03] MEDS: INSULIN ASPART 100 UNITS/ML 3 ML PEN SC SCH ×7 (02:44→23:59)
[2020-10-03] MEDS ORDERED: diphenhydrAMINE Capsule 25 MG CAP PO ONE (02:57)
[2020-10-03 04:46] LABS: Basophils # (auto) 0.05 K/uL (0-0.2); Basophils % (auto) 0.9 %; Eosinophils # (auto) 0.86 K/uL (0-0.5); Eosinophils % (auto) 14.9 %; Hematocrit (blood only) 35.2 % (37-47); Hemoglobin 10.9 g/dL (12.0-16.0); Immature Granulocytes # (auto) 0.01 K/uL (0.00-0.02); Immature Granulocytes % (auto) 0.2 %; Lymphocytes # (auto) 1.15 K/uL (1.2-3.4); Lymphocytes % (auto) 19.9 %; Mean Corpuscular Hemoglobin 29.9 pg (25-34); Mean Corpuscular Volume 96.7 fL (80-100); Mean Platelet Volume 11.6 fL (7.4-10.4); Monocytes % (auto) 12.1 %; Platelet Count 272 K/uL (130-400); RDW Coefficient of Variation 18.1 % (11.5-14.5); RDW Standard Deviation 63.8 fL (36.4-46.3); Red Blood Count 3.64 M/uL (4.2-5.4); White Blood Count 5.77 K/uL (4.8-10.8)
[2020-10-03 05:28] LABS: BUN Creatinine Ratio 8.7 (10-20); Creatinine Clr Calc Pharmacy 7.7 ml/min; Potassium 5.6 mmol/L (3.5-5.1)
[2020-10-03] MEDS ORDERED: INSULIN REGULAR 250 UNITS in SODIUM CHLORIDE 0.9% 247.5 ML IV SCH (06:00)
[2020-10-03] MEDS ORDERED: INSULIN HUMAN REGULAR IV BOLUS 2 UNITS in SYRINGE 0 ML IV ONE (06:00)
[2020-10-03] MEDS: PANTOprazole 40 MG TAB PO SCH (06:10)
[2020-10-03] MEDS: LEVOTHYROXINE SODIUM 25 MCG TABLET PO SCH (06:10)
[2020-10-03] MEDS: diphenhydrAMINE 50 MG/ML VIAL IV PRN ×3 (06:14→23:48)
[2020-10-03] MEDS ORDERED: SODIUM CHLORIDE 0.9% 1000ML 1,000 ML IV PRN (07:00)
[2020-10-03] MEDS ORDERED: INSULIN GLARGINE SOLOSTAR 100 UNITS/ML 3 ML PEN SC ONE (08:30)
[2020-10-03] MEDS: hydrALAZINE TAB 50 MG TAB PO SCH ×3 (09:33→23:37)
[2020-10-03] MEDS: SEVELAMER HCL 800 MG TABLET PO SCH ×3 (09:33→18:46)
[2020-10-03] MEDS: GABAPENTIN 300 MG CAP PO SCH ×2 (09:34→22:20)
[2020-10-03] MEDS: PARoxetine HCL 10 MG TAB PO SCH (09:34)
[2020-10-03] MEDS: APIXABAN 2.5 MG TAB PO SCH ×2 (09:35→22:20)
[2020-10-03] MEDS: LIDOCAINE 5% 1 PATCH TD SCH (09:35)
[2020-10-03] MEDS: DOCUSATE SODIUM 100 MG CAP PO SCH ×2 (09:35→22:20)
[2020-10-03] MEDS: PATIROMER CALCIUM SORBITEX 8.4 GM PACK PO SCH (09:36)
--- NOTE | 2020-10-03 09:58 | Nephrology Progress Note ---
Date of Service October 03, 2020 Assessment & Plan Admission and Anticipated Discharge Date Admission Date: September 24, 2020 Subjective (1) ESRD on dialysis: esrd on HD w/ noncompliance. Will plan to do 3 hrs and take 3 kilo today. 2k bath -continue efforts to support her care>reassess daily for dialysis needs d/t noncompliance to fluid/dietary/treatment recommendations. high chance of having high K because of high glucose and K shift ----BP is high: given non compliance with Fluid and shortened dialysis likely fluid related. follow post Dialysis BP. Subjective seen and evaluated on HD ; catheter running reversed and w/ elevated TMPs; pt restless; no c/o pain over TDC today and cxs remain negative; she denies worse sob, uncontrolle dpain. Review of Systems Review of Systems: limited by pt willingness to participate; 6 system ROS as above and other underwood negative Physical Exam Constitutional: well developed, + obese, + lethargic and + overweight; no acute distress (moderate, tearful, agitated) Eyes: EOM intact bilaterally ENMT: Ears: no external ear abnormality Nose: no external nose abnormality Mouth: + dry oral mucous membranes Neck: no nuchal rigidity Respiratory: normal respiratory effort Auscultation: lungs clear to auscultation bilaterally and + diminished lung sounds Cardiovascular: Rate/Rhythm: regular rate and regular rhythm Extremities: + AV fistula (deep; + bruit); no edema Gastrointestinal (Abdomen): Inspection/Auscultation: normal bowel sounds Percussion/Palpation: abdomen soft; abdomen nontender and no guarding Musculoskeletal: Extremities: strength 5/5 throughout Skin: no rashes, warm and dry Neurologic: walter, fluent but limited speech (she is trying to sleep), no tremor Psychiatric: Affect: + anxious affect (when fully awake) and + tearful affect Results & Data ([facility]) Vital Signs (Past 12 Hours) Vital Signs Temp Pulse Pulse Resp BP Pulse Ox 10/03/20 08:24 36.8 C 91 H 18 183/100 H 96 10/02/20 22:36 36.8 C 96 H 18 145/84 H 98
[2020-10-03] MEDS: LORazepam 1 MG/2 ML VIAL IV PRN ×2 (10:27→23:48)
--- NOTE | 2020-10-03 14:39 | Pharmacy Report ---
Pharmacy Glycemic Short Note 2 - Date of Service October 03, 2020 - Glycemic Short BSG Results (Last 24 hours): 10/02/20 10/02/20 10/03/20 17:17 20:41 00:03 Glucose POC Glucose 226 H 276 H 332 H* 10/03/20 10/03/20 10/03/20 04:05 04:07 04:14 Glucose POC Glucose > 600 H* > 600 H* > 600 H* 10/03/20 10/03/20 10/03/20 04:27 07:13 08:15 Glucose 700 H* POC Glucose 586 H* 514 H* 10/03/20 10/03/20 10/03/20 09:20 10:22 11:11 Glucose POC Glucose 450 H* 335 H* 209 H 10/03/20 12:46 Glucose POC Glucose 89 OUTPATIENT ANTIDIABETIC REGIMEN: * Lantus 10 units SQ BID * Novolog 3 units /w breakfast + 6 units w/ lunch + 6 units w/ dinner * A1c = 9% 09/12/20, however this should be interpreted with caution given ESRD ASSESSMENT: 10/03: * Patient received total 66 units of insulin which is the most she has received in 24 hrs this admission (20 units basal + 46 units bolus). * Pt's BSGs trended up into 300 and then 600s overnight. Apparently she had a dinner tray at midnight, then ate a lot of poptarts. * The midnight dose of insulin was delayed till 0245 AM. * Insulin drip was started around 6 am this morning d/t uncontrolled blood sugars. * D/w Yariel Butler, resumed Lantus BID. Since patient ordered hemodialysis this AM, I went with a slightly lower Lantus dose today AM compared to previous days. Carbs were covered with Novolog using the same ratio as before. * BSGs trended down nicely to 89 mg/dl this afternoon and insulin drip was stopped. * Resumed Novolog CF/CR same as before. Add Lantus scale at HS based on BSGs. 10/02 * BSGs well controlled yesterday, ranging 81-176 mg/dL * Received 27 units of insulin (18 of which was basal) * BSG this morning > 300 mg/dL - discussed with RN - patient has bag of junk food in her room that she has been eating and likely explains this elevated BSG this morning * Will not overreact - consider IV insulin bolus at lunch if still very elevated * Lunch BSG of 141 mg/dL - will continue current regimen 09/29 * Blood sugars relatively controlled for patient and patient accepted insulin doses as ordered except refused one dose yesterday at lunchtime * Will continue overnight blood sugar checks as patient did require 7 units overnight last night * No changes in insulin regimen at this time 09/28 * BSGs improved with the initiation of IV insulin infusion * Patient has been kinking the IV infusion line and not cooperative with care. Provider contacted me this AM to transition to SQ regimen due to these behaviors. Of note, AG up to 22 and Bicarb down to 10 on today's labs, no serum ketones drawn. * Will resume patient's home regimen of basal insulin and Novolog regimen that was used earlier this admission. * Patient should be monitored closely for worsening DKA given today's labs. 09/27 * BSGs abruptly increased overnight. Bedtime BSG 142. Patient received 14 units Lantus at bedtime yesterday. This AMs fasting BSG 368, mild AG, and elevated BOHB (25.3), but normal bicarb. Early DKA? vs AG acidosis in setting of HD and poor PO intake leading to ketosis ? * Discussed w/ Hospitalist, given patient's type 1 DM, possible early DKA and poor PO intake an IV insulin drip would be best suited to safely correct BSGs and treat acidosis. She may require dextrose containing maint IVFs in order to run the insulin drip should BSGs fall 09/26/20 * BSG's have been well controlled over the last 24 hours ranging 114-143 mg/dL. However, the patient refused her AM dose of Lantus which may have a profound effect on BSG's given T1DM * Will increase Lantus dose this evening to provide close to total daily dose to prevent basal insufficiency and rebound hyperglycemia 09/25/20 * Type 1 diabetic admitted with encephalopathy, concern for infection in patient currently undergoing abx therapy for recent h/o HD cath infxn and MRSA bacteremia * Reviewed prior admission and insulin doses. Will initiate a regimen based upon recent admit doses and out-pt regimen. * Of note, patient's BSGs were quite erratic last admit and pt had often consumed more than 3 meals per day - likely leading to some of the observed BSGs PLAN FOR INPATIENT GLYCEMIC CONTROL: * Basal insulin * Lantus BID dosing per scale: 8 units if BSG 100 mg/dl or less, 10 units if BSG greater than 100 mg/dl. * Bolus insulin * Novolog SQ Q4h d/t dietary indiscretion * Goal: 100-140mg/dL * Correction factor: 35mg/dL/unit * Nutritional / Prandial insulin per carb ratio of 1 unit per 11 grams CHO consumed PLAN FOR DISCHARGE: * Would continue currently ordered outpatient insulin doses (currently receiving ~18-20 units of basal while inpatient, which is in line with outpatient doses) * Patient has history of non-compliance, suggest prompt follow-up with outpatient provider for further management of diabetes. Patient may also benefit from dietary consultation in regards to poor eating habits and in light of gastroparesis.
[2020-10-03] MEDS ORDERED: LORazepam 1 MG TAB PO STA (15:18)
--- NOTE | 2020-10-03 15:43 | Communication Note ---
Date of Service: October 03, 2020 Stopped by to see patient at patient's request. At the time patient was tearful stating she just learned of her discharge plan to home a detention and she was feeling anxious and overwhelmed about it. Patient talked about signing out AMA, but was encouraged to stay for dialysis as she is dealing with significant medical issues at this time. Patient expressed that her medications do not seem to be helping her much but is agreeable to attempt medication changes on an outpatient basis following her discharge. Patient was offered a one-time dose of Ativan in order to deal with her acute anxiety to which she was thankful. impression/Recommendations: This is a difficult case of a woman with significant medical problems and a difficult social situation. Unclear to what extent psychiatirc medication changes will be helpful as patient's problems are situational in nature, and significantly vary during the course of the day. Encourage compliance with medications and treatment.
[2020-10-03] MEDS ORDERED: VANCOMYCIN HCL 500 MG in 0.9 % SODIUM CHLORIDE 100 ML IV ONE ×2 (16:00→22:45)
--- NOTE | 2020-10-03 16:22 | Hospitalist Progress Note ---
Date of Service October 03, 2020 Assessment & Plan (1) Encephalopathy: Plan: Resolved. Patient alert and oriented x3. No apparent deficits Most likely metabolic/renal versus secondary infection Cultures currently negative Continue metabolic support with dialysis Thursday Continue to monitor (2) Anxiety: Plan: Psychiatry consulted for depression and question of suicidal ideology Continue with lorazepam Continue pain control as tolerated minimizing use of opiates and narcotics Multiple comorbidities including legal blindness Mother is visiting tomorrow morning. Anticipate discharge to homeless longterm in [place] Hemodialysis in [place] as an outpatient to be coordinated at that time (3) MRSA bacteremia: Plan: MRSA nasal swab is positive but blood cultures are negative Continue isolation protocol for history of MRSA (4) Diabetes mellitus type 1: Plan: Hemoglobin A1c is 9.0% Multiple comorbidities including renal failure, polyneuropathy, and legal blindness Continue hemodialysis per nephrology Started on insulin drip overnight for BSG greater than 700 Lantus given this morning in hopes of discontinuing insulin drip Continue sliding scale insulin Counseled patient on reporting additional food intake to nursing especially overnight (5) ESRD on dialysis: Plan: Typically receives dialysis Thursday in [place] No dialysis again today. We will plan on dialysis tomorrow per Dr. Up (6) Chronic pain: Plan: Primary complaint is from diabetic neuropathy as well as pain along entire spine CT of the lumbar spine region negative for any acute findings and no evidence of degenerative disease 3 view x-ray of the thoracic spine without any findings Encourage ambulation No real effect with small doses of Dilaudid or tramadol Continue lidocaine patch along the lower spine as well as heat and cold packs although patient reports minimal improvement Continue physical therapy and supportive care (7) GERD (gastroesophageal reflux disease): Plan: Diabetic gastroparesis Continue metoclopramide as this seems to help somewhat Patient with no nausea or vomiting / abdominal distention Tolerating diet well Follow clinically (8) Uremia: Plan: Secondary to end-stage renal disease secondary to diabetes Continue hemodialysis (9) Leukocytosis: Plan: This is now resolved Antibiotics have been discontinued Concern for dialysis catheter associated infection Cultures from the are negative except for skin keena. Echocardiogram with no evidence of endocarditis Afebrile Continue to monitor clinically (10) Goals of care, counseling/discussion: Plan: Options for placement have been eliminated and it now appears as though patient will need to be placed in a homeless longterm Case management intimately involved Hopefully patient can be discharged tomorrow when mother visits (11) Chronic respiratory failure: Plan: Secondary to pulmonary embolism in the past Patient continues to require supplemental oxygen via nasal cannula Continue apixaban for anticoagulation No evidence of new clot Pulmonary records [facility] from [facility] and [facility] Continue supportive care (12) DVT prophylaxis: Plan: Chronic pulmonary embolism Continue apixaban Encourage ambulation as tolerated Admission and Anticipated Discharge Date Admission Date: September 24, 2020 Subjective Patient seen and examined at bedside. She continues to complain of back pain. No fever or chills. Hyperglycemic crisis overnight secondary to sneaking food and not reported nursing for coverage. Started on insulin drip overnight.Did not sleep well overnight due to pain and hunger. No new acute complaints. Review of Systems Review of Systems: All systems reviewed & are unremarkable except as noted in Subjective Physical Exam Physical Exam: GENERAL : No acute distress. More emotional today. Tearful about having to be placed in a homeless longterm EYES: No icterus, gaze conjugate. Pupils equal round and reactive to light NOSE: No evidence of epistaxis. Nasal cannula in place MOUTH: No lesions or candidiasis. Mucosa moist NECK: Supple. No appreciation of stridor or carotid bruits LUNGS: CTA B/L, no wheezes, rales or rhonchi HEART: Regular, tachycardic in the low 100s BACK: Point tenderness along spine to paraspinal muscles particularly at L1, L2, L3. No appreciation of vertebral abnormalities on palpation. No evidence of trauma to skin. No rash. ABDOMEN: Soft, NT, ND, BS Present EXTREMITIES: No LE edema, pedal pulses intact NEURO: A&OX3 Results & Data Results & Data ([facility]) Vital Signs (Past 12 Hours) Vital Signs Temp Pulse Resp BP Pulse Ox 10/03/20 08:24 36.8 C 91 H 18 183/100 H 96 Laboratory Results 10/03/20 04:27 10/03/20 04:27 Diagnostic Findings No new imaging PG Care Time/CCT Total # of Minutes Spent Total Time Spent with Patient: Total time spent is greater than 50% in coordination of care (as documented) at patient's floor/unit and/or counseling patient:20 minutes Coding Level of Care Code 48345 Subseq Hosp Care Lvl 2 Diagnoses Encephalopathy G93.40 Anxiety F41.9 MRSA bacteremia R78.81; B95.62 Diabetes mellitus type 1 E10.9 ESRD on dialysis N18.6; Z99.2 Chronic pain G89.4 Chronic pain type: chronic pain syndrome GERD (gastroesophageal reflux disease) K21.9 Esophagitis presence: without esophagitis Uremia N19 Leukocytosis D72.828 Leukocytosis type: other Goals of care, counseling/discussion Z71.89 Chronic respiratory failure J96.10 DVT prophylaxis Z29.9 Time Spent (min) 20 (1) Chronic pain Chronic pain type: chronic pain syndrome Qualified Code(s): G89.4 - Chronic pain syndrome (2) GERD (gastroesophageal reflux disease) Esophagitis presence: without esophagitis Qualified Code(s): K21.9 - Gastro-esophageal reflux disease without esophagitis (3) Leukocytosis Leukocytosis type: other Qualified Code(s): D72.828 - Other elevated white blood cell count
[2020-10-03] MEDS: ONDANSETRON INJ 2 MG/ML 2 ML VIAL IV PRN (17:14)
[2020-10-03] MEDS: cloNIDine HCL 0.1 MG TAB PO PRN (17:17)
[2020-10-03] MEDS: PROMETHAZINE HCL 12.5 MG in SODIUM CHLORIDE 0.9% 50 ML IV PRN (19:28)
[2020-10-03] MEDS: hydrALAZINE HCL 20 MG/ML VIAL IV PRN (19:35)
[2020-10-03] MEDS: INSULIN GLARGINE SOLOSTAR 100 UNITS/ML 3 ML PEN SC SCH (21:11)
[2020-10-04] MEDS: ONDANSETRON INJ 2 MG/ML 2 ML VIAL IV PRN ×2 (03:15→09:12)
[2020-10-04] MEDS: hydrALAZINE HCL 20 MG/ML VIAL IV PRN (03:20)
[2020-10-04] MEDS: INSULIN ASPART 100 UNITS/ML 3 ML PEN SC SCH ×3 (04:07→13:16)
[2020-10-04] MEDS: cloNIDine HCL 0.1 MG TAB PO PRN (04:13)
[2020-10-04] MEDS: LEVOTHYROXINE SODIUM 25 MCG TABLET PO SCH (05:19)
[2020-10-04] MEDS: PANTOprazole 40 MG TAB PO SCH (05:19)
[2020-10-04] MEDS: DOCUSATE SODIUM 100 MG CAP PO SCH (08:13)
[2020-10-04 08:53] LABS: Basophils # (auto) 0.04 K/uL (0-0.2); Basophils % (auto) 0.7 %; Eosinophils # (auto) 0.51 K/uL (0-0.5); Eosinophils % (auto) 9.5 %; Hematocrit (blood only) 41.7 % (37-47); Hemoglobin 12.9 g/dL (12.0-16.0); Immature Granulocytes # (auto) 0.02 K/uL (0.00-0.02); Immature Granulocytes % (auto) 0.4 %; Lymphocytes # (auto) 0.93 K/uL (1.2-3.4); Lymphocytes % (auto) 17.3 %; Mean Corpuscular Hemoglobin 29.9 pg (25-34); Mean Corpuscular Hgb Conc 30.9 g/dL (32-36); Mean Corpuscular Volume 96.5 fL (80-100); Mean Platelet Volume 12.4 fL (7.4-10.4); Monocytes # (auto) 0.48 K/uL (0.11-0.59); Monocytes % (auto) 8.9 %; Neutrophils # (auto) 3.41 K/uL (1.4-6.5); Neutrophils % (auto) 63.2 %; Platelet Count 214 K/uL (130-400); RDW Coefficient of Variation 17.7 % (11.5-14.5); RDW Standard Deviation 63.1 fL (36.4-46.3); Red Blood Count 4.32 M/uL (4.2-5.4); White Blood Count 5.39 K/uL (4.8-10.8)
[2020-10-04] MEDS: hydrALAZINE TAB 50 MG TAB PO SCH (09:08)
[2020-10-04] MEDS: SEVELAMER HCL 800 MG TABLET PO SCH ×2 (09:08→13:14)
[2020-10-04] MEDS: APIXABAN 2.5 MG TAB PO SCH (09:09)
[2020-10-04] MEDS: LIDOCAINE 5% 1 PATCH TD SCH (09:10)
[2020-10-04] MEDS: PARoxetine HCL 10 MG TAB PO SCH (09:10)
[2020-10-04] MEDS: INSULIN GLARGINE SOLOSTAR 100 UNITS/ML 3 ML PEN SC SCH (09:10)
[2020-10-04] MEDS: diphenhydrAMINE 50 MG/ML VIAL IV PRN (09:12)
[2020-10-04] MEDS: LORazepam 1 MG/2 ML VIAL IV PRN (09:18)
[2020-10-04 09:24] LABS: Echinocytes 1+
[2020-10-04] MEDS: PATIROMER CALCIUM SORBITEX 8.4 GM PACK PO SCH (09:28)
[2020-10-04 09:34] LABS: BUN Creatinine Ratio 6.7 (10-20); Calcium 8.5 mg/dl (8.5-10.1); Creatinine Clr Calc Pharmacy 12.9 ml/min; Est GFR (African American) 11.7 ml/min; Est GFR (Non-African American) 10.1 ml/min; Potassium 4.9 mmol/L (3.5-5.1)
[2020-10-04] MEDS: GABAPENTIN 300 MG CAP PO SCH (10:09)
--- NOTE | 2020-10-04 10:23 | Pharmacy Report ---
Pharmacy Abx Dose Short Note - Date of Service October 04, 2020 - Assessment & Plan Assessment 30 year old F receiving Vancomycin for treatment of MRSA bacteremia x 4 weeks. Last day of therapy is 10/10/20. Patient is getting Vancomycin, dosing based on AM random level d/t ESRD on HD. Single doses being given after HD. Yesterday, HD was scheduled late, therefore Vancomycin scheduled in the evening was only given at 2330. No HD planned for today. Laboratory Tests 10/03/20 04:27 Random Vancomycin 21.8 Plan Vancomycin * Random level obtained yesterday AM was higher than goal trough but gets cleared thru hemodialysis. * Patient has been getting Vanc doses after hemodialysis based on pre-HD level using dosing protocol. * HD started late yesterday. Therefore, Vancomycin 500 mg dose given at 2330 yesterday. * Goal trough level for bacteremia: 15 to 20 mcg/mL * Random level ordered for: 10/05/20 w/ AM labs. Pharmacy will continue to follow and will adjust dose/frequency as necessary. Thank you.
--- NOTE | 2020-10-04 12:28 | Discharge Summary ---
Date of Service date of admission - September 24, 2020 date of discharge - October 04, 2020 Admission HPI Per Admitting Provider 30 YOF with past medical history of: HTN, ESRD on dialysis, MRSA sepsis, infected temporary dialysis lines, critical illness myopathy, HTN, PE on Eliquis, hypothyroidism, GERD, chronic pain. Patient is a currently a patient at [facility] undergoing rehab. She is followed by [facility] for her Dialysis needs. Patient was brought to the emergency department today for increase in somnolence at [facility] this morning. Patient reportedly has been getting Benadryl at night for sleep. She was recently admitted in August for MRSA infection of her dialysis line requiring removal and placement of new tunneled dialysis line to her right scl vein. Patient was last dialyzed on Thursday it appears. She was to have dialysis today, but was brought to ED. In the EMD the patient had routine labs drawn, head CT and CXR done. Her laboratory work is significant for increase in WBC, HCO3 18, K 5.9., BUN 97 and [employer] 7.09 a normal lactate with elevated ESR and CRP and TSH of 7.4. Patient will be admitted to PCU for following of her mentation, nephrology consult placed to evaluate for dialysis need today. Blood cultures have been obtained, and will start patient on empiric antibiotic coverage of Vancomycin and Rocephin. Principal Diagnosis toxic encephalopathy Discharge Exam gen - NAD, awake, alert skin - pallor heart - RRR, s1 s2, 1/6 FELA LSB lungs - CTA b/l abd - soft, NT, ND, BS+, no HSM ext - no edema vascular - right upper chest HD catheter in place; insertion site clean/dry psych - a/o x 3 neuro - strength 5/5 x b/l legs Discharge Data Allergies Allergy/AdvReac Type Severity Reaction Status Date / Time bee venom protein (honey bee) Allergy Intermediate Hives Verified 09/22/20 07:58 chlorhexidine Allergy Intermediate Hives Verified 09/22/20 07:58 latex Allergy Intermediate Hives Verified 09/22/20 07:58 fentanyl AdvReac Mild Nausea Verified 09/22/20 07:58 Consultations [facility] Psychiatry PT, OT Ordered Studies Chest X-Ray 09/24/20 10:54 XR chest 1V portable HISTORY: 30 years-old Female AMS acutely altered mental status COMPARISON: Chest radiograph 09/22/2020 TECHNIQUE: Portable AP view of the chest FINDINGS: Patient is rotated towards the left. Cardiac silhouette is mildly enlarged. Pulmonary vascular congestion with progressive interstitial opacities. Right IJ dual-lumen hemodialysis catheter distal tip projects over the right atrium. Right subclavian vascular stent redemonstrated. No pneumothorax or large pleural effusion. Degenerative changes of the shoulders and spine with right shoulder rotator cuff calcific tendinosis. IMPRESSION: Cardiomegaly with progressively worsened pulmonary edema. ACT 112: Negative or not required by law. The above report was generated using voice recognition software. It may contain grammatical, syntax or spelling errors. Electronically signed by: Jamie France M.D. 09/24/2020 11:[address] 09/24/20 12:14 CT head/brain wo con CLINICAL HISTORY: 30 years-old Female with weakness/ams. Acutely altered mental status TECHNIQUE: Multiple axial CT images of the head were obtained without contrast. A dose lowering technique was utilized adhering to the principles of ALARA. CT DOSE: 638.56 mGycm COMPARISON: None. FINDINGS: No acute intracranial hemorrhage, midline shift, intracranial mass, hydrocephalus, territorial ischemia or abnormal extra-axial collection. Senescent calcifications of the basal ganglia. The calvarium is intact. The paranasal sinuses, mastoid air cells, and middle ear cavities are clear. IMPRESSION: No acute intracranial abnormality. ACT 112: Negative or not required by law. The above report was generated using voice recognition software. It may contain grammatical, syntax or spelling errors. Electronically signed by: Jamie France M.D. 09/24/2020 1:14 PM Thoracic Spine X-Ray 10/02/20 09:22 THORACIC SPINE 3 VIEWS CLINICAL HISTORY: Acute on chronic thoracic back pain. FINDINGS: AP, lateral, and swimmer's views of the thoracic spine are correlated with chest CT dated 09/13/2020. The skeletal structures are well mineralized. There is no radiographic evidence of fracture or malalignment. Vertebral body height and alignment appear maintained throughout the thoracic spine. The transverse processes and pedicles are intact as seen on the frontal view. The disc spaces are preserved. A right internal jugular central venous catheter is in place. A vascular stent projects over the right thoracic outlet. The lung parenchyma is clear as imaged. IMPRESSION: No acute bony abnormality is identified. Electronically signed by: Yariel Joaquin M.D. 10/02/2020 10:33 AM Hospital Course (1) Encephalopathy: Suspected toxic etiology (benadryl, etc). Patient had been receiving these medications at [facility] just prior to admission. Acute metabolic causes felt unlikely. No new infections found during this stay. Although she has had mild hyponatremia her sodium level was only 132 at time of admission thus this was unlikely to be the cause of her altered mental status. (2) Pulmonary embolism: Continue apixaban 2.5mg BID. She is also on oxygen continuously chronically (uncertain if due to restrictive lung disease vs her chronic PEs). (3) Chronic respiratory failure: Chronic hypoxic respiratory failure on home O2, 6 liters continuously by report, but her O2 sats were stable on 2 L NC while here. Restrictive lung disease +/- PEs +/- pulmonary edema likely all contribute to her NC O2 requirements. (4) Anxiety: Seen by psychiatry during the visit. PRN Ativan was used while here but was not prescribed at discharge. She remains on paxil daily along with buspar. (5) Diabetes mellitus type 1: HbA1C was 9% on 09/12/20. Our pharmacy glycemic team provided recommendations for her DM while here. She will continue basal-bolus SC insulin regimen at home. (6) Leukocytosis: Patient had a WBC count of 16,000 at time of admission. By the next day the WBC count normalized. Exact etiology uncertain. No new infections found while hospitalized. At time of admission she had been receiving IV vancomycin since the prior hospitalization for a dialysis catheter infection (stop date of 10/10/20). 2 sets of blood cultures from 09/24 and 2 sets from 09/25 were fully negative. COVID testing was negative. (7) MRSA bacteremia: During the patient's prior hospital stay (09/12/20 to 09/20/20) she had MRSA bacteremia 2nd to dialysis catheter infection. MRSA grew from 09/11/20 blood cultures, and MRSA along with coag neg staph on 09/12/20 blood cultures. 09/14/20 cultures were negative. She had been receiving IV vancomycin since 09/12/20. Echo during that prior hospitalization was negative for endocarditis. The infected HD catheter was removed on 09/12/20. Stop date of IV vancomycin is 10/10/20. She will need to continue receiving IV vancomycin on dialysis days until that time. Prescription for ongoing IV vancomycin was faxed to her dialysis center in [place] hometown at time of discharge. (8) Hypertension: Continues on amlodipine 10mg daily, hydralazine 50mg TID, and labetalol 100mg TID. Clonidine was discontinued. (9) ESRD on dialysis: Patient received HD services under the care of [facility] during this stay. Follows with Dr Ayana Nogueira in [place] for her HD needs. She will report for hemodialysis on 10/05/20 in [place]. Her right IJ tunneled dialysis catheter was placed on 09/18/[address] Julien Marquez at [facility]. (10) Chronic pain: Back pain. Small amount of tramadol to be used PRN was prescribed at discharge. During her prior stay she had lumbar CT of her spine which did not show any infectious process in the setting of her MRSA bacteremia. The patient reported, however, on day of discharge that her current back pain was similar to her baseline back pain. With that said I would recommend a VERY LOW THRESHOLD to perform MRI imaging of the spine if any concern for infection of the spine occurs as an outpatient. (11) Hypothyroid: Continues on Synthroid. TSH was mildly elevated at 7. Advise repeat TSH in 4-6 weeks post-discharge. If still elevated consider increase in synthroid dose at that time. (12) GERD (gastroesophageal reflux disease): Continue PPI (13) Abnormal chest CT: On 09/13/[address] the [address] chest CT at [facility]. This demonstrated pulmonary edema but also the following was seen - "Subcarinal abnormality that measures approximately 7.3 x 3.1 cm. Although indeterminate, an enlarged lymph node is favored given additional enlarged thoracic lymph nodes. This suspected lymphadenopathy is nonspecific. A follow-up chest CT in 3 months is recommended". A CD-ROM was created for the patient of her chest CT. She will need, at minimum, a repeat chest CT in 3 months. Discharge disposition was uncertain most of the patient's stay. Fortunately, on day of discharge, the pt's mother contacted our social work department and confirmed that she would provide housing for Ms Mullen. Thus, patient will d/c home with her mother in the [facility]. Total Time Total Time Spent Total Time Spent (In Minutes): 60 Discharge Plan Discharge Items Patient Disposition: Home - Self-Care Reason For Visit: ENCEPHALOPATHY (Confusion) Discharge Diagnosis: 1. Confusion - resolved; possibly due to medication side effects and/or recent infection. 2. MRSA dialysis catheter infection & bacteremia (blood stream infection) - resolved. 3. Chronic back pain. 4. Large lymph node on CT chest - follow-up needed. 5. End-stage renal disease on dialysis Thursday, Thursday, and Thursday. 6. Hypothyroidism. Activity: Resume your previous activity Non-emergency contact: Primary Care Provider and [employer] Call non-emergency contact if: you have any medication questions, your symptoms worsen, your pain is not controlled, your pain is worsening and you have a fever Follow-up/Referrals: Ayana Nogueira MD [Other] - 10/05/20 Roney Crocker DO [Primary Care Provider] - (1-2 weeks ) Diet: Carb Count or DM1 and Dialysis Renal Fluids: 1500ml (6 cups) Addtl Attending Provider Instructions: Miss Mullen, Mina were admitted to [facility] from [facility] due to confusion. This quickly resolved after admission. It was felt that medication side effects may have caused the confusion. During your stay we continued you on IV antibiotics for your recent permcath infection (due to MRSA, a resistant staph infection) and bloodstream infection. You are nearing the completion of your antibiotic course - your last day is 10/11/20 (this will be day 28 of your course). We are providing you your antibiotics while on dialysis. During your previous hospital stay you had had a CT scan of your lungs. This showed a rather large lymph node (or nodes) in the chest. We have placed the CT scan on a CD disc for you. Please share this disc with your family doctor. You will need a repeat CT scan in 2-3 months to check this lymph node. Additional recommendations - 1. for high blood pressure - * lower your hydralazine to 50mg three times a day * lower your labetalol to 100mg three times a day * continue your amlodipine 10mg daily * stop your clonidine 2. for back pain - * may continue tylenol as needed * may use tramadol 50mg every 12 hours as needed for severe pain; a small prescription was called to [facility] for you * do not drive a car if you are taking this medication * do not drink alcohol if you are taking this medication * this medication may make you sleepy * physical & occupational [place] * if your pain persists please see Dr Crocker - you potentially may need an MRI scan of your back 3. continue your oxygen as previous 4. your thyroid level ("TSH") was mildly elevated at 7. Please have Dr Crocker or Dr Nogueira repeat your thyroid test in about 1 month. If it is still off you may need an adjustment on your thyroid medication. 5. for diabetes - * lantus 10 units twice daily * novolog or humalog with meals as previously directed by your diabetes doctor Follow-up - see separate section Return to any hospital if - * you have fever over 100 degrees * you have worsening back pain * you are short of breath * you are having chest pains * any other concerns Pending Studies at Discharge: No Stand-Alone Forms: [employer], Smoking Cessation Medications and DC Order Prescriptions: New (DME) Oxygen Home Liters Per Minute See Rx Instructions .ROUTE .MEDSUPPLY Qty: 1 RF: 0 tramadol [Ultram] 50 mg tablet 50 mg PO Q12H PRN (Reason: pain) Qty: 20 RF: 0 Continued buspirone 5 mg Tablet 20 mg PO HS RF: 0 buspirone 5 mg Tablet 10 mg PO QAM RF: 0 amlodipine [Norvasc] 10 mg Tablet 10 mg PO QAM RF: 0 gabapentin 300 mg Capsule 300 mg PO BID RF: 0 ergocalciferol (vitamin D2) [Vitamin D2] 1,250 mcg (50,000 unit) Capsule 1,250 mcg PO WK RF: 0 Eliquis 2.5 mg Tablet 2.5 mg PO Q12 RF: 0 paroxetine HCl [Paxil] 10 mg Tablet 30 mg PO QAM RF: 0 levothyroxine 25 mcg Tablet 25 mcg PO DAILY@0600 RF: 0 insulin aspart U-100 [Novolog U-100 Insulin aspart] 100 unit/mL Solution See Rx Instructions .ROUTE .COMPLEX RF: 0 pantoprazole [Protonix] 40 mg Tablet,Delayed Release (Dr/Ec) 40 mg PO DAILYBB RF: 0 docusate sodium [Colace] 100 mg Capsule 100 mg PO BID RF: 0 sevelamer carbonate [Renvela] 800 mg Tablet 800 mg PO TIDM RF: 0 melatonin 3 mg Tablet 3 mg PO HS PRN (Reason: Insomnia) RF: 0 acetaminophen 325 mg Tablet 650 mg PO Q4 PRN (Reason: Pain) RF: 0 sennosides-docusate sodium [Senna with Docusate Sodium] 8.6-50 mg Tablet 1 tab-cap PO QDL PRN (Reason: Constipation) RF: 0 diphenhydramine HCl 25 mg Capsule 25 mg PO 3XWK PRN (Reason: Unknown) RF: 0 polyethylene glycol 3350 [Miralax] 17 gram/dose Powder 17 g PO QDL PRN (Reason: Constipation) RF: 0 ondansetron 4 mg Tablet,Disintegrating 4 mg PO Q8H PRN (Reason: Nausea And Vomiting) RF: 0 Lantus U-100 Insulin 100 unit/mL Solution 10 unit SUBCUT Q12 Qty: 0 RF: 0 Glucagon Emergency Kit (human) 1 mg recon soln 1 mg subcut UD RF: 0 insulin lispro [Humalog KwikPen Insulin] 100 unit/mL insulin pen 0 unit SUBCUT .SLIDING SCALE RF: 0 Aranesp (in polysorbate) 60 mcg/0.3 mL Syringe 60 mcg subcut WK RF: 0 Changed hydralazine 25 mg Tablet 50 mg PO Q8 Qty: 0 RF: 0 labetalol 100 mg Tablet 100 mg PO Q8 Qty: 0 RF: 0 vancomycin 500 mg recon soln See Rx Instructions .ROUTE .COMPLEX Qty: 0 RF: 0 Discontinued clonidine HCl 0.1 mg Tablet 0.1 mg PO Q8 RF: 0 tramadol [Ultram] 50 mg Tablet 50 mg PO Q6H PRN (Reason: Pain) RF: 0 Discharge Orders: Discharge Order (Routine); Ordered 10/04/20 Ordered By: Jerry Noe/Other Patient Handouts: VRE Infection, Low Potassium Diet Dc Admission Data Admit Date/Time: 09/24/20 15:34 Attending Provider: Jerry Vera Admit Provider: Jono Jj Primary Care Provider: Roney Crocker Other Providers: Lavonne Saravia ; Angel Eason ; Jason Up Other Interventions: Discharge Summary Assessment (RN) Last Done: 10/04/20 14:29 Coding Level of Care Code D/C DAY MANAGEMENT >30 MINS Diagnoses Pulmonary embolism I26.99 Acute cor pulmonale presence: unspecified Chronicity: unspecified Pulmonary embolism type: unspecified Chronic respiratory failure J96.10 Encephalopathy G93.40 Anxiety F41.9 Diabetes mellitus type 1 E10.9 Leukocytosis D72.828 Leukocytosis type: other MRSA bacteremia R78.81; B95.62 Hypertension I10 Hypertension type: unspecified ESRD on dialysis N18.6; Z99.2 Chronic pain G89.4 Chronic pain type: chronic pain syndrome Hypothyroid E03.9 Hypothyroidism type: unspecified GERD (gastroesophageal reflux disease) K21.9 Esophagitis presence: without esophagitis Abnormal chest CT R93.89
[2020-10-04] MEDS: traMADol HCL 50 MG TABLET PO PRN (13:12)
== END 2020-10-04 15:00 | disposition home or self-care (01) | DRG 91 ==
LOC: ED 10:16 → SUATTDRO 15:34 → 2E 15:34 → 3N 09-29 15:37
DX: K21.9 Gastro-esophageal reflux disease without esophagitis; Z88.5 Allergy status to narcotic agent; T82.7XXD Infection and inflammatory reaction due to other cardiac and vascular devices, implants and grafts, subsequent encounter; I27.82 Chronic pulmonary embolism; E10.42 Type 1 diabetes mellitus with diabetic polyneuropathy; Z91.040 Latex allergy status; Z79.899 Other long term (current) drug therapy; T45.0X5A Adverse effect of antiallergic and antiemetic drugs, initial encounter; M54.89 Other dorsalgia; Z63.8 Other specified problems related to primary support group; G89.4 Chronic pain syndrome; Z99.2 Dependence on renal dialysis; Z99.81 Dependence on supplemental oxygen; J98.4 Other disorders of lung; R45.851 Suicidal ideations; J81.1 Chronic pulmonary edema; Z86.711 Personal history of pulmonary embolism; I27.20 Pulmonary hypertension, unspecified; I12.0 Hypertensive chronic kidney disease with stage 5 chronic kidney disease or end stage renal disease; E10.22 Type 1 diabetes mellitus with diabetic chronic kidney disease; Z60.8 Other problems related to social environment; Z86.14 Personal history of Methicillin resistant Staphylococcus aureus infection; E03.9 Hypothyroidism, unspecified; Z88.8 Allergy status to other drugs, medicaments and biological substances; G93.41 Metabolic encephalopathy; Z79.890 Hormone replacement therapy; Z91.030 Bee allergy status; H54.8 Legal blindness, as defined in USA; N18.6 End stage renal disease; R59.0 Localized enlarged lymph nodes; Z91.010 Allergy to peanuts; F41.8 Other specified anxiety disorders; E10.65 Type 1 diabetes mellitus with hyperglycemia; Z59.0 Homelessness; E87.2 Acidosis; Z79.01 Long term (current) use of anticoagulants; G47.00 Insomnia, unspecified; Z91.11 Patient's noncompliance with dietary regimen; J96.11 Chronic respiratory failure with hypoxia; E10.43 Type 1 diabetes mellitus with diabetic autonomic (poly)neuropathy; R91.8 Other nonspecific abnormal finding of lung field; Z88.3 Allergy status to other anti-infective agents; T80.211D Bloodstream infection due to central venous catheter, subsequent encounter; D72.829 Elevated white blood cell count, unspecified; Z91.15 Patient's noncompliance with renal dialysis; E87.1 Hypo-osmolality and hyponatremia; G92 Toxic encephalopathy; M54.5 Low back pain; Y83.1 Surgical operation with implant of artificial internal device as the cause of abnormal reaction of the patient, or of later complication, without mention of misadventure at the time of the procedure